=== PATIENT | male | born 1965 | race Caucasian/White ===

== ENCOUNTER 2018-12-02 17:10 | Outpatient (CLI) | payer SELFPAY | END 2018-12-02 17:11 | disposition critical access hospital (66) | LOC: EMS 17:10 | PROVIDERS: ATTEND Surgery | DX: F10.129 Alcohol abuse with intoxication, unspecified (principal) | CPT/HCPCS: A0425; A0429 ==

== ENCOUNTER 2018-12-02 17:28 | Emergency (ER) | payer SELFPAY ==
[2018-12-02] MEDS ORDERED: FOLIC ACID INJ 1 MG, THIAMINE INJ 100 MG, MAGNESIUM SULFATE 2 GM, MULTIVITAMIN 10 ML in... IV STA ×5 (17:39)
--- NOTE | 2018-12-02 17:43 | ED Physician Documentation ---
History of Present Illness - Stated complaint Stated Complaint: ETOH - Chief complaint Chief Complaint: MHE - History obtained from History obtained from: Patient, EMS - History of Present Illness Timing: Today Pain level max: 0 Pain level now: 0 - Additonal information Additional information: 53-year-old male states that he is an alcoholic, drinks 1/5 of hard liquor per day. He was found drinking in [place], the police called 911 because of his level of intoxication. Brought here for evaluation. Patient has no complaints. He is alert and oriented x3 here. No head neck or back pain. No trauma. He states he does have hyperthyroidism. Review of Systems Unable to obtain: Intoxicated Ten Systems: 10 systems reviewed and negative Constitutional: denies: Fever, Chills Throat: denies: Sore throat Cardiac: denies: Chest pain / pressure Respiratory: denies: Cough GI: denies: Vomiting, Diarrhea Skin: denies: Rash Musculoskeletal: denies: Neck pain, Back pain Neurologic: denies: Headache PD PAST MEDICAL HISTORY - Past Medical History Past Medical History: Yes Endocrine/Autoimmune: HyPERthyroidism - Allergies Allergies/Adverse Reactions: Allergies Allergy/AdvReac Type Severity Reaction Status Date / Time No Known Drug Allergies Allergy Verified 12/02/18 17:38 - Living Situation Living Arrangement: reports: Homeless - Social History Does the pt drink ETOH?: Yes ETOH Use: Liquor Does the pt have substance abuse?: No - Family History Family history: reports: Non contributory - Immunizations Immunizations are current?: Yes Immunizations: TDAP current <10years PD ED PE NORMAL - Vitals Vital signs reviewed: Yes - General General: Alert and oriented X 3, No acute distress, Well developed/nourished, Other (intoxicated) - HEENT HEENT: PERRL, Moist mucous membranes, Pharynx benign - Neck Neck: Supple, no meningeal sign - Cardiac Cardiac: RRR, Strong equal pulses - Respiratory Respiratory: No respiratory distress, Clear bilaterally - Abdomen Abdomen: Soft, Non tender, Non distended - Derm Derm: Warm and dry - Extremities Extremities: No deformity, No edema, No calf tenderness / cord - Neuro Neuro: Alert and oriented X 3, Other (intoxicated) Results - Vitals Vitals: Vital Signs - 24 hr 12/02/18 12/02/18 12/02/18 17:33 17:53 19:50 Temperature 36.2 C L Heart Rate 111 H 104 H Respiratory 18 18 18 Rate Blood Pressure 140/98 H 156/88 H O2 Saturation 96 98 Oxygen O2 Source Room air - Labs Labs: Laboratory Tests 12/02/18 12/02/18 17:50 17:50 WBC 13.8 H RBC 5.52 Hgb 16.7 Hct 50.7 MCV 91.9 MCH 30.2 MCHC 32.9 RDW 15.4 H Plt Count 194 MPV 6.9 L Neut # (Auto) 11.9 H Lymph # (Auto) 0.9 L [place] # (Auto) 0.9 Eos # (Auto) 0.0 Baso # (Auto) 0.0 Absolute Nucleated RBC 0.00 Nucleated RBC % 0.0 Sodium 138 Potassium 4.5 Chloride 96 L Carbon Dioxide 26 Anion Gap 16.0 H BUN 25 H Creatinine 1.1 Estimated GFR (MDRD) 70 L Glucose 147 H Calcium 8.9 Phosphorus 4.9 H Magnesium 2.0 Total Bilirubin 0.9 AST 78 H ALT 67 H Alkaline Phosphatase 73 Total Protein 7.9 Albumin 3.6 Globulin 4.3 H Albumin/Globulin Ratio 0.8 L Lipase 116 H Ethyl Alcohol 411.5 PD MEDICAL DECISION MAKING - ED course Complexity details: reviewed results, re-evaluated patient, considered differential, d/w patient ED course: 53-year-old male, heavily intoxicated. Will allow him to sober in the emergency department. Given a banana bag. Patient is sleeping. When he awakens, is able to eat, drink and ambulate with a steady gait, will be able to be discharged home. Patient signed out to the [facility] emergency department physician This document was made in part using voice recognition software. While efforts are made to proofread this document, sound alike and grammatical errors may occur. Departure - Departure Clinical Impression: Alcoholism Alcohol intoxication Qualifiers: Complication of substance-induced condition: uncomplicated Qualified Code(s): F10.920 - Alcohol use, unspecified with intoxication, uncomplicated Condition: Stable Instructions: ED Alcohol Intoxication
[2018-12-02 17:58] LABS: BASOPHILS % (AUTO) 0.4 %; HGB - HEMOGLOBIN 16.7 g/dL (14.0-18.0); LYMPHOCYTES # (AUTO) 0.9 10^3/uL (1.5-3.5); LYMPHOCYTES % (AUTO) 6.8 %; MEAN CORPUSCULAR HEMOGLOBIN 30.2 pg (27.0-31.0); MEAN CORPUSCULAR HGB CONC 32.9 g/dL (32.0-36.0); MEAN CORPUSCULAR VOLUME 91.9 fL (80.0-94.0); MEAN PLATELET VOLUME 6.9 fL (7.4-11.4); MONOCYTES # (AUTO) 0.9 10^3/uL (0.0-1.0); MONOCYTES % (AUTO) 6.8 %; NEUTROPHILS # (AUTO) 11.9 10^3/uL (1.5-6.6); PLT - PLATELET COUNT 194 10^3/uL (130-450); RED BLOOD COUNT 5.52 10^6/uL (4.70-6.10); RED CELL DISTRIBUTION WIDTH 15.4 % (12.0-15.0); WHITE BLOOD COUNT 13.8 x10^3/uL (4.8-10.8)
[2018-12-02 18:12] LABS: ALBUMIN 3.6 g/dL (3.2-5.5); ALBUMIN/GLOBULIN RATIO 0.8 (1.0-2.2); BILIRUBIN,TOTAL 0.9 mg/dL (0.2-1.0); CALCIUM 8.9 mg/dL (8.5-10.3); CREATININE 1.1 mg/dL (0.6-1.2); PHOSPHORUS 4.9 mg/dL (2.5-4.6); TOTAL PROTEIN 7.9 g/dL (6.7-8.2)
[2018-12-02] MEDS ORDERED: PANTOPRAZOLE 40 MG VIAL IVP STA (18:27)
[2018-12-03 06:48] VITALS: BP 139/95
== END 2018-12-03 07:50 | disposition home or self-care (01) ==
LOC: ED 17:28
DX: F10.129 Alcohol abuse with intoxication, unspecified (principal)
CPT/HCPCS: 36415; 80053; 80320; 83690; 83735; 84100; 85025; 96365; 96366; 96375; 99283; 99284; J3411

== ENCOUNTER 2018-12-16 14:32 | Emergency (ER) | payer MEDICAID ==
--- NOTE | 2018-12-16 16:00 | ED Physician Documentation ---
PD HPI FOCAL NEURO - Stated complaint Stated Complaint: slurred speech - Chief complaint Chief Complaint: General - History obtained from History obtained from: Patient - History of Present Illness Timing - onset: How many minutes ago (1-1.5 hours) Timing - duration: Minutes (15) Timing - details: Abrupt onset, Now resolved Severity of deficit: Mild Associated symptoms: No: Headache, Nausea / vomiting, Syncope, Head injury, Chest pain, Fever Contributing factors: negative: Anticoagulated Baseline status: positive: A&OX3, ambulatory, indep Similar symptoms before: Has not had sx before Recently seen: Not recently seen - Additional information Additional information: Is a 53-year-old man who presents with complaints that he ran out of his carvedilol 2 days ago. He was on that for high blood pressure but also took it to help alleviate some anxiety. Today he was at the gym and just "was not right". He said he had some difficulty finding the right words to tell to his friends. That was approximately an hour and a half prior to presentation and may have lasted about 15 minutes. It concerned him enough to come into the emergency department and now he feels completely normal. He actually rode the bus here.Mild headache this morning but that he related that to working out quite heavily yesterday doing shoulder shrugs.He has never had any symptoms like this in the past. He had no associated numbness or tingling or weakness. He had no nausea, chest pain or shortness of breath. Patient says that he has not drank alcohol in 2 weeks after he was admitted to the hospital for binge drinking. He did that because he lost his job. He moved to the [place] about 6 months ago and knew that he needed to get a primary care provider butHad not yet established with a primary care provider to refill the carvedilol. Review of Systems Constitutional: denies: Fever Eyes: denies: Loss of vision, Decreased vision Nose: denies: Rhinorrhea / runny nose Cardiac: denies: Chest pain / pressure, Palpitations Respiratory: denies: Dyspnea GI: denies: Abdominal Pain : denies: Dysuria Neurologic: reports: Difficulty speaking. denies: Generalized weakness, Focal weakness, Syncope, Confused, Altered mental status, Headache, Head injury, LOC Psychiatric: reports: Anxiety. denies: Depressed PD PAST MEDICAL HISTORY - Past Medical History Cardiovascular: Hypertension Respiratory: None Neuro: None Endocrine/Autoimmune: HyPERthyroidism Psych: Anxiety - Present Medications Home Medications: Ambulatory Orders Medication Instructions Recorded Confirmed chlordiazePOXIDE [Librium] 25 mg PO Q6H #30 capsule 12/03/18 Carvedilol 25 mg PO BID 14 Days #30 tablet 12/16/18 - Allergies Allergies/Adverse Reactions: Allergies Allergy/AdvReac Type Severity Reaction Status Date / Time No Known Drug Allergies Allergy Verified 12/16/18 14:50 - Social History Does the pt drink ETOH?: Yes Does the pt have substance abuse?: No - Immunizations Immunizations are current?: Yes Immunizations: TDAP current <10years PD ED PE NORMAL - General General: Alert and oriented X 3, No acute distress, Well developed/nourished - HEENT HEENT: Atraumatic, PERRL, EOMI, Moist mucous membranes, Pharynx benign - Neck Neck: Supple, no meningeal sign, No bruit - Cardiac Cardiac: RRR, No murmur, No rub, Strong equal pulses - Respiratory Respiratory: No respiratory distress, Clear bilaterally - Abdomen Abdomen: Normal bowel sounds, Soft, Non tender - Derm Derm: Normal color, Warm and dry, No rash - Extremities Extremities: No deformity, No edema - Neuro Neuro: Alert and oriented X 3, economics department chair 2-12 intact, No motor deficit, No sensory deficit, Normal speech - Psych Psych: Normal mood, Normal affect (Patient is very pleasant, laughing and joking with staff.) NIHSS - Level of Consciousness Level of consciousness: (0) Alert, Keenly responsive LOC Questions: (0) Answers both Q's correct LOC Commands: (0) Performs both correctly - Gaze Best Gaze: (0) Normal - Visual Visual: (0) No loss - Facial Palsy Facial Palsy: (0) Normal, symmetrical movement - Motor Arms (both separate) Motor Arm (right): (0) No drift Motor Arm (left): (0) No drift - Motor Legs (both separate) Motor Leg (right): (0) No drift Motor Leg (left): (0) No drift - Limb Ataxia Limb Ataxia: (0) Absent - Sensory Sensory: (0) Normal - Best Language Best Language: (0) No aphasia - Dysarthria Dysarthria: (0) Normal - Extinction and Inattention (formally neg Extinction and inattention: (0) No abnormality - Total Score/Results Total Score/Result: 0 Results - Vitals Vitals: Vital Signs - 24 hr 12/16/18 12/16/18 14:45 15:27 Temperature 36.7 C Heart Rate 95 82 Respiratory 14 22 Rate Blood Pressure 135/84 H 146/88 H O2 Saturation 97 100 Oxygen O2 Source Room air - EKG (time done) 1500 Rate: Rate (enter#) (87) Rhythm: NSR QRS: Normal Ischemia: Normal ST segments Compare to prior EKG: Old EKG unavailable PD MEDICAL DECISION MAKING - ED course Complexity details: re-evaluated patient, d/w patient ED course: This is a 53-year-old man who has no stroke history. No family history of stroke. He had an episode while working out at the gym where he felt a little anxious and his speech was not quite right. He now can feels completely back to normal. He really wants his carvedilol refilled. He is declined any testing or CAT scan. I did check back in with him a couple of times and he seems completely normal without any evidence of any neurological symptoms. He will be referred for outpatient follow-up and given emergency dose of the carvedilol to fill for now. Departure - Departure Disposition: 01 Home, Self Care Clinical Impression: Anxiety Condition: Good Instructions: ED Panic Attack Follow-Up: [facility] [Provider Group] - Within 1 week (Call for follow-up appointment) Prescriptions: Carvedilol 25 mg PO BID 14 Days #30 tablet Comments: You have aPrescription for carvedilol the last 2 weeks. Need to get into see a primary care provider to get this refilled otherwise. Return to the emergency department if you experience any further symptoms or have concerns.
[2018-12-16 16:29] VITALS: BP 138/80
== END 2018-12-16 16:29 | disposition home or self-care (01) ==
LOC: ED 14:32
DX: F41.9 Anxiety disorder, unspecified (principal); I10 Essential (primary) hypertension; Z76.0 Encounter for issue of repeat prescription
CPT/HCPCS: 93005; 99283; 99284

== ENCOUNTER 2019-08-07 16:48 | Outpatient (CLI) | payer OTHER, MEDICAID | END 2019-08-07 23:59 | disposition critical access hospital (66) | LOC: EMS 16:48 | PROVIDERS: ATTEND Surgery | DX: Z04.89 Encounter for examination and observation for other specified reasons (principal) | CPT/HCPCS: A0425; A0429 ==

== ENCOUNTER 2019-08-07 16:58 | Observation (INO) | payer OTHER, MEDICAID ==
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
[2019-08-07] MEDS ORDERED: SODIUM CHLORIDE 0.9% 1,000 ML IV ONE (17:33)
[2019-08-07] MEDS ORDERED: TETANUS/DIPHTHERIA/PERTUSSIS 0.5 ML SYRINGE IM ONE (17:33)
[2019-08-07 17:59] LABS: BASOPHILS # (AUTO) 0.1 10^3/uL (0.0-0.1); BASOPHILS % (AUTO) 0.8 %; EOSINOPHILS % (AUTO) 0.1 %; HGB - HEMOGLOBIN 18.6 g/dL (14.0-18.0); LYMPHOCYTES # (AUTO) 1.4 10^3/uL (1.5-3.5); LYMPHOCYTES % (AUTO) 13.5 %; MEAN CORPUSCULAR HEMOGLOBIN 31.2 pg (27.0-31.0); MEAN CORPUSCULAR HGB CONC 32.7 g/dL (32.0-36.0); MEAN CORPUSCULAR VOLUME 95.5 fL (80.0-94.0); MEAN PLATELET VOLUME 9.4 fL (7.4-11.4); MONOCYTES # (AUTO) 0.6 10^3/uL (0.0-1.0); MONOCYTES % (AUTO) 6.3 %; NEUTROPHILS # (AUTO) 8.1 10^3/uL (1.5-6.6); NEUTROPHILS % (AUTO) 78.9 %; PLT - PLATELET COUNT 452 10^3/uL (130-450); RED BLOOD COUNT 5.96 10^6/uL (4.70-6.10); RED CELL DISTRIBUTION WIDTH 16.3 % (12.0-15.0); WHITE BLOOD COUNT 10.2 x10^3/uL (4.8-10.8)
[2019-08-07 18:05] LABS: INR 1.1 (0.8-1.2); PT - PROTHROMBIN TIME 12.1 secs (9.9-12.6)
--- NOTE | 2019-08-07 18:11 | ED Physician Documentation ---
ED Addendum - Addendum Addendum: 53 year old male signed out to me from Dr. Carbone. Pt brought in by police. Pt has epigastric pain, vomiting, has been drinking. Abdomen is benign. Plan is to follow up on labs and re-evaluate pt. Likely can be cleared for discharge. Labs return with signs of pancreatitis, dehydration, and mild alcoholic hepatitis. He was given more nausea meds and more fluids. LR infusion started. He continues to have vomiting so will require admission. On my exam he also has a laceration to his left wrist that requires repair, this was performed and wound care and suture removal timeline reviewed as well. Pt was admitted to the hospital for further care and has controlled symptoms at the time of admission. Departure - Departure Disposition: ED Place in Observation Clinical Impression: Alcoholic pancreatitis Qualifiers: Chronicity: acute Acute pancreatitis complication: unspecified Qualified Code(s): K85.20 - Alcohol induced acute pancreatitis without necrosis or infection Condition: Stable Discharge Date/Time: 08/07/19 21:29 Procedures - Laceration/Wound Repair L wrist Wound Length (cm): 3 Wound's Depth, Shape: superficial Wound Explored: clean Irrigated w/ Saline (ccs): 1,000 Anesthesia: Lidocaine w/ Epi Wound Debrided: minimal Wound Repaired With: sutures Suture Size/Type: 5:0 Number of Sutures: 3 Sterile Dressing Applied?: Yes
[2019-08-07 18:32] LABS: ALBUMIN 3.7 g/dL (3.2-5.5); ALBUMIN/GLOBULIN RATIO 1.2 (1.0-2.2); BILIRUBIN,TOTAL 0.8 mg/dL (0.2-1.0); CALCIUM 8.8 mg/dL (8.5-10.3); CREATININE 1.4 mg/dL (0.6-1.2); TOTAL PROTEIN 6.9 g/dL (6.7-8.2)
[2019-08-07] MEDS ORDERED: LIDOCAINE 1%-EPI 1:100000 20 ML MDV SUBQ STA (19:41)
[2019-08-07] MEDS ORDERED: ONDANSETRON 4 MG/2 ML VIAL IVP STA (20:08)
[2019-08-07] MEDS ORDERED: LACTATED RINGERS 1,000 ML IV STA (20:08)
[2019-08-07] MEDS ORDERED: ONDANSETRON 4 MG/2 ML VIAL IVP PRN (20:48)
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
[2019-08-07] MEDS: LACTATED RINGERS 1,000 ML IV STA ×2 (21:00→21:07)
[2019-08-07] MEDS ORDERED: SODIUM CHLORIDE 0.9% 1,000 ML IV SCH (21:00)
[2019-08-07] MEDS ORDERED: LORazepam 1 MG TABLET PO STA (22:48)
[2019-08-07] MEDS: SODIUM CHLORIDE 0.9% 1,000 ML IV SCH (23:34)
[2019-08-07] MEDS: SODIUM CHLORIDE FLUSH 0.9% 10 ML SYRINGE IVP PRN (23:36)
[2019-08-07] MEDS: PANTOPRAZOLE 40 MG VIAL IVP SCH (23:36)
[2019-08-08] MEDS: SODIUM CHLORIDE FLUSH 0.9% 10 ML SYRINGE IVP SCH ×2 (00:33→08:17)
[2019-08-08] MEDS ORDERED: CARBOXYMETHYLCELLULOSE OPHTH DROPS EACHEYE PRN (01:44)
[2019-08-08 05:01] LABS: BASOPHILS # (AUTO) 0.1 10^3/uL (0.0-0.1); BASOPHILS % (AUTO) 0.6 %; EOSINOPHILS # (AUTO) 0.1 10^3/uL (0.0-0.7); EOSINOPHILS % (AUTO) 0.7 %; HGB - HEMOGLOBIN 15.7 g/dL (14.0-18.0); LYMPHOCYTES # (AUTO) 1.1 10^3/uL (1.5-3.5); MEAN CORPUSCULAR HEMOGLOBIN 32.3 pg (27.0-31.0); MEAN CORPUSCULAR HGB CONC 33.3 g/dL (32.0-36.0); MEAN CORPUSCULAR VOLUME 96.9 fL (80.0-94.0); MEAN PLATELET VOLUME 9.6 fL (7.4-11.4); MONOCYTES # (AUTO) 1.1 10^3/uL (0.0-1.0); MONOCYTES % (AUTO) 9.2 %; NEUTROPHILS # (AUTO) 9.8 10^3/uL (1.5-6.6); PLT - PLATELET COUNT 353 10^3/uL (130-450); RED BLOOD COUNT 4.86 10^6/uL (4.70-6.10); RED CELL DISTRIBUTION WIDTH 15.9 % (12.0-15.0); WHITE BLOOD COUNT 12.3 x10^3/uL (4.8-10.8)
[2019-08-08 05:26] LABS: ALBUMIN 3.3 g/dL (3.2-5.5); ALBUMIN/GLOBULIN RATIO 1.3 (1.0-2.2); BILIRUBIN,TOTAL 1.6 mg/dL (0.2-1.0); CALCIUM 8.2 mg/dL (8.5-10.3); CREATININE 1.2 mg/dL (0.6-1.2); TOTAL PROTEIN 5.9 g/dL (6.7-8.2)
[2019-08-08] MEDS: PANTOPRAZOLE 40 MG VIAL IVP SCH (06:18)
[2019-08-08] MEDS: SODIUM CHLORIDE FLUSH 0.9% 10 ML SYRINGE IVP PRN (06:19)
[2019-08-08] MEDS ORDERED: PANTOPRAZOLE 40 MG VIAL IVP SCH (07:00)
[2019-08-08] MEDS: SODIUM CHLORIDE 0.9% 1,000 ML IV SCH (07:14)
--- NOTE | 2019-08-08 07:37 | PHARMACY PROGRESS NOTE ---
- Best Possible Medication History Admit Date and Time: 08/07/192047 Medication History completed: Yes Patient Interview: Completed Secondary Source(s): Pharmacy records As the person ultimately responsible for medication therapy, providers are able to order a medication from an existing home medication list in [facility] via the "Reconcile Routine" prior to Confirmation of that medication by systems support officer. Such practice is discouraged except when the physician, in their clinical judgment, deems that a medical need exists for a medication without regard to previous use.
[2019-08-08 07:51] VITALS: BP 154/82
[2019-08-08] MEDS: ACETAMINOPHEN/CODEINE 300 MG/30 MG TABLET PO PRN ×2 (08:42→12:46)
[2019-08-08] MEDS ORDERED: chlordiazePOXIDE 25 MG CAPSULE PO SCH (09:00)
[2019-08-08] MEDS ORDERED: THIAMINE 100 MG TABLET PO SCH (09:00)
[2019-08-08] MEDS ORDERED: carvediloL 12.5 MG TABLET PO SCH ×2 (09:00)
[2019-08-08 10:52] LABS: CALCIUM 8.1 mg/dL (8.5-10.3); CREATININE 1.1 mg/dL (0.6-1.2)
[2019-08-08 10:58] LABS: ALBUMIN 3.3 g/dL (3.2-5.5); BILIRUBIN,DIRECT 0.4 mg/dL (0.1-0.5); BILIRUBIN,TOTAL 2.3 mg/dL (0.2-1.0); TOTAL PROTEIN 6.2 g/dL (6.7-8.2)
--- NOTE | 2019-08-08 11:30 | Discharge Plan ---
Discharge Plan Problem Reviewed?: Yes Disposition: Home, Self Care Condition: Stable Prescriptions: Acetaminophen/Cod 300/30 [Tylenol #3] 1 tab PO Q12H PRN #3 tablet PRN Reason: Pain chlordiazePOXIDE [Librium] 25 mg PO BID #7 capsule Thiamine [Vitamin B-1] 100 mg PO DAILY #7 tablet Diet: Regular Activity Restrictions: Activity as Tolerated Shower Restrictions: No Health Concerns: You were hospitalized for rehydration and managing pancreatitis related to heavy alcohol use. You are being discharged on your blood pressure medicine and several tablets of Librium to help prevent alcohol withdrawal, daily Thiamine vitamin and a pain medication to take if needed. Plan of Treatment: Continue to take your usual Carvedilol dose. Take the Librium tablets for the next 4 days in a tapering schedule. See your PCP if you have new or worsening symptoms. Care Goals: Improvement in symptoms and stabilization are the goals. Assessment: The patient understands. No Smoking: If you smoke, Please STOP! Call for help.
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
== END 2019-08-08 13:10 | disposition home or self-care (01) ==
LOC: EDBD → ED 16:58 → MS2 20:48
PROVIDERS: ADMIT Internal Medicine; ATTEND Internal Medicine
DX: K85.20 Alcohol induced acute pancreatitis without necrosis or infection (principal); F10.129 Alcohol abuse with intoxication, unspecified; E86.0 Dehydration; S51.812A Laceration without foreign body of left forearm, initial encounter; I10 Essential (primary) hypertension; K70.10 Alcoholic hepatitis without ascites; S80.812A Abrasion, left lower leg, initial encounter; F41.9 Anxiety disorder, unspecified; S90.812A Abrasion, left foot, initial encounter; S90.811A Abrasion, right foot, initial encounter
CPT/HCPCS: 12002; 36415; 80048; 80053; 80076; 80320; 83690; 85025; 85610; 90471; 90715; 96361; 96374; 96375; 96376; 99285; A9270; G0378; J7120; J8499; 82272; 84443

== ENCOUNTER 2019-10-11 07:37 | Outpatient (CLI) | payer MEDICAID | END 2019-10-11 07:38 | disposition critical access hospital (66) | LOC: EMS 07:37 | PROVIDERS: ATTEND Surgery | DX: S09.90XA Unspecified injury of head, initial encounter (principal); W18.39XA Other fall on same level, initial encounter; Y92.480 Sidewalk as the place of occurrence of the external cause | CPT/HCPCS: A0425; A0429; A0999 ==

== ENCOUNTER 2019-10-11 07:53 | Emergency (ER) | payer MEDICAID, OTHER ==
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
--- NOTE | 2019-10-11 09:06 | CT Report ---
Reason: trauma Procedure Date: 10/11/2019 Accession Number: [id number] / [id number] Procedure: CT - HEAD WO CPT Code: Final Report FULL RESULT: EXAM: CT HEAD EXAM DATE: 10/11/2019 08:58 AM. CLINICAL HISTORY: Fall with head laceration. COMPARISON: None. TECHNIQUE: Multiaxial CT images were obtained from the foramen magnum to the vertex. Reformats: Sagittal and coronal. IV contrast: None. In accordance with CT protocol optimization, one or more of the following dose reduction techniques were utilized for this exam: automated exposure control, adjustment of mA and/or KV based on patient size, or use of iterative reconstructive technique. FINDINGS: Parenchyma: No intraparenchymal hemorrhage. No evidence of mass, midline shift, or CT findings of infarction. Parrish-white differentiation is distinct. Extraaxial Spaces: Normal for age. No subdural or epidural collections identified. Ventricles: Normal in size and position. Sinuses and Orbits: Mild mucosal thickening is in the right maxillary sinus. Bones: No evidence of fracture or calvarial defect. Other: Arterial calcifications indicate atherosclerosis. IMPRESSION: No acute intracranial findings. RADIA
--- NOTE | 2019-10-11 09:14 | CT Report ---
Reason: trauma Procedure Date: 10/11/2019 Accession Number: [id number] / [id number] Procedure: CT - CERVICAL SPINE WO CPT Code: Final Report FULL RESULT: EXAM: CT CERVICAL SPINE WITHOUT CONTRAST DATE: 10/11/2019 08:58 AM. HISTORY: 54-year-old man status post fall with head injury. COMPARISONS: None. TECHNIQUE: Thin-section axial images were acquired of the cervical spine without contrast. Post-processing: Coronal and sagittal reformats. Other: None. In accordance with CT protocol optimization, one or more of the following dose reduction techniques were utilized for this exam: automated exposure control, adjustment of mA and/or KV based on patient size, or use of iterative reconstructive technique. FINDINGS: Alignment: No acute malalignment. There is straightening of normal cervical lordosis which may be positional. Bones: No fracture or bone lesion. Degenerative endplate sclerosis is present at C5-C6 and, to a lesser extent, C6-C7. Interspace Levels/Facets: C1-C2: Unremarkable. C2-C3: No significant narrowing of the bony central canal. Uncovertebral joint hypertrophy and facet hypertrophy result in mild to moderate narrowing of the right neural foramen. C3-C4: No significant narrowing of the bony central canal. Uncovertebral joint hypertrophy and facet hypertrophy result in mild to moderate narrowing of the neural foramina bilaterally, left side worse than right. C4-C5: There is mild disk height loss. No significant narrowing of the bony central canal. Uncovertebral joint hypertrophy and facet hypertrophy result in moderate narrowing of the right neural foramen and mild narrowing on the left. C5-C6: There is moderate to severe disk height loss. Posterior disk osteophyte complex results in mild narrowing of the bony central canal and right lateral recess. Uncovertebral joint hypertrophy results in moderate to severe narrowing of the neural foramina bilaterally. C6-C7: There is moderate disk height loss. No significant narrowing of the bony central canal. Uncovertebral joint hypertrophy results in moderate narrowing of the left neural foramen and mild to moderate narrowing on the right. C7-T1: There is mild disk height loss. No significant narrowing of the central canal. Uncovertebral joint hypertrophy results in mild narrowing of the right neural foramen. Musculature: Normal. No fatty atrophy. Other: The paravertebral and prevertebral soft tissues are unremarkable. The lung apices are clear. IMPRESSION: 1. No acute fracture or malalignment. 2. Multilevel degenerative changes, detailed above. RADIA
[2019-10-11 09:22] LABS: BASOPHILS % (AUTO) 0.5 %; EOSINOPHILS # (AUTO) 0.1 10^3/uL (0.0-0.7); EOSINOPHILS % (AUTO) 2.8 %; HGB - HEMOGLOBIN 17.9 g/dL (14.0-18.0); LYMPHOCYTES # (AUTO) 1.2 10^3/uL (1.5-3.5); LYMPHOCYTES % (AUTO) 27.4 %; MEAN CORPUSCULAR HEMOGLOBIN 31.7 pg (27.0-31.0); MEAN CORPUSCULAR HGB CONC 34.6 g/dL (32.0-36.0); MEAN CORPUSCULAR VOLUME 91.8 fL (80.0-94.0); MEAN PLATELET VOLUME 9.1 fL (7.4-11.4); MONOCYTES # (AUTO) 0.3 10^3/uL (0.0-1.0); MONOCYTES % (AUTO) 6.9 %; NEUTROPHILS # (AUTO) 2.7 10^3/uL (1.5-6.6); NEUTROPHILS % (AUTO) 61.9 %; PLT - PLATELET COUNT 134 10^3/uL (130-450); RED BLOOD COUNT 5.64 10^6/uL (4.70-6.10); RED CELL DISTRIBUTION WIDTH 13.6 % (12.0-15.0); WHITE BLOOD COUNT 4.4 x10^3/uL (4.8-10.8)
[2019-10-11 09:39] LABS: CALCIUM 7.8 mg/dL (8.5-10.3); CREATININE 0.8 mg/dL (0.6-1.2)
[2019-10-11 12:57] VITALS: BP 139/94
== END 2019-10-11 13:30 | disposition home or self-care (01) ==
LOC: EDUNIT# → ED 07:53
DX: S00.81XA Abrasion of other part of head, initial encounter (principal); W18.30XA Fall on same level, unspecified, initial encounter; Y93.89 Activity, other specified; Y92.410 Unspecified street and highway as the place of occurrence of the external cause; F10.129 Alcohol abuse with intoxication, unspecified; Y90.8 Blood alcohol level of 240 mg/100 ml or more; I10 Essential (primary) hypertension; Z59.0 Homelessness
CPT/HCPCS: 36415; 70450; 72125; 80048; 80320; 85025; 99284

== ENCOUNTER 2019-10-13 14:08 | Outpatient (CLI) | payer MEDICAID | END 2019-10-13 14:09 | disposition critical access hospital (66) | LOC: EMS 14:08 | PROVIDERS: ATTEND Surgery | DX: R53.1 Weakness (principal); Z59.0 Homelessness | CPT/HCPCS: A0425; A0429 ==

== ENCOUNTER 2019-10-13 14:13 | Inpatient (IN) | payer MEDICAID ==
[2019-10-13] MEDS ORDERED: SODIUM CHLORIDE 0.9% 1,000 ML IV ONE ×3 (14:33→16:10)
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
[2019-10-13 14:47] LABS: BASOPHILS % (AUTO) 0.5 %; EOSINOPHILS # (AUTO) 0.1 10^3/uL (0.0-0.7); EOSINOPHILS % (AUTO) 1.6 %; LYMPHOCYTES # (AUTO) 1.4 10^3/uL (1.5-3.5); LYMPHOCYTES % (AUTO) 22.8 %; MEAN CORPUSCULAR HEMOGLOBIN 31.6 pg (27.0-31.0); MEAN CORPUSCULAR HGB CONC 34.4 g/dL (32.0-36.0); MEAN CORPUSCULAR VOLUME 91.7 fL (80.0-94.0); MEAN PLATELET VOLUME 8.8 fL (7.4-11.4); MONOCYTES # (AUTO) 0.2 10^3/uL (0.0-1.0); MONOCYTES % (AUTO) 3.8 %; NEUTROPHILS # (AUTO) 4.4 10^3/uL (1.5-6.6); PLT - PLATELET COUNT 141 10^3/uL (130-450); RED BLOOD COUNT 6.02 10^6/uL (4.70-6.10); RED CELL DISTRIBUTION WIDTH 14.2 % (12.0-15.0); WHITE BLOOD COUNT 6.1 x10^3/uL (4.8-10.8)
[2019-10-13 15:09] LABS: ALBUMIN/GLOBULIN RATIO 1.3 (1.0-2.2); CALCIUM 8.1 mg/dL (8.5-10.3); MAGNESIUM 2.4 mg/dL (1.7-2.8); TOTAL PROTEIN 7.1 g/dL (6.7-8.2)
[2019-10-13] MEDS ORDERED: ACETAMINOPHEN 325 MG TABLET PO PRN (17:10)
[2019-10-13] MEDS ORDERED: ONDANSETRON 4 MG/2 ML VIAL IVP PRN (17:10)
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
--- NOTE | 2019-10-13 17:22 | PHARMACY PROGRESS NOTE ---
- Best Possible Medication History Admit Date and Time: Patient in ED Processed by: Pharmacy Medication History completed: Yes Patient Interview: Pt unable to participate Secondary Source(s): Physician records, Pharmacy records, Insurance records PCP has patient on 25mg carvedilol BID however, patient has not been taking as it was last filled 07/26/2019 for a 30 day supply. Additionally, his last stay here in July the dose was bumped to 37.5mg BID. Patient unable to participate due to current level of intoxication. As the person ultimately responsible for medication therapy, providers are able to order a medication from an existing home medication list in [facility] via the "Reconcile Routine" prior to Confirmation of that medication by behaviour support teacher. Such practice is discouraged except when the physician, in their clinical judgment, deems that a medical need exists for a medication without regard to previous use.
--- NOTE | 2019-10-13 17:48 | XRAY Report ---
Reason: chill, cough Procedure Date: 10/13/2019 Accession Number: [id number] / [id number] Procedure: XR - Chest 1 View X-Ray CPT Code: 02298 Final Report FULL RESULT: EXAM: CHEST RADIOGRAPHY EXAM DATE: 10/13/2019 05:19 PM. CLINICAL HISTORY: Cough and chills. COMPARISON: None. TECHNIQUE: 1 view. FINDINGS: Lungs/Pleura: No focal opacities evident. No pleural effusion. No pneumothorax. Mediastinum: Within exam limitations, the cardiomediastinal contour is normal. Other: None. IMPRESSION: No radiographic evidence of acute cardiopulmonary disease. [facility]
[2019-10-13] MEDS: SODIUM CHLORIDE FLUSH 0.9% 10 ML SYRINGE IVP PRN (18:05)
[2019-10-13] MEDS: SODIUM CHLORIDE 0.9% 1,000 ML IV SCH (18:05)
[2019-10-13] MEDS ORDERED: POTASSIUM CHLORIDE 20 MEQ TABLET PO ONE (18:30)
[2019-10-13] MEDS: THIAMINE 100 MG TABLET PO SCH (18:31)
[2019-10-13] MEDS: PRENATAL VITAMIN TABLET PO SCH (18:31)
[2019-10-13 18:34] LABS: MUDS CUTOFF CONCENTRATIONS CUTOFF CONC BELOW:
[2019-10-13 18:36] LABS: BILIRUBIN,URINE NEGATIVE (NEGATIVE); GLUCOSE, URINE (UA) NEGATIVE (NEGATIVE); KETONES,URINE (UA) NEGATIVE (NEGATIVE); LEUKOCYTE ESTERASE, URINE NEGATIVE (NEGATIVE); NITRITE,URINE NEGATIVE (NEGATIVE); OCCULT BLOOD,URINE LARGE (NEGATIVE); PH,URINE 5.5 PH (5.0-7.5); PROTEIN,URINE >=300 mg/dL (NEGATIVE); UROBILINOGEN,URINE 1 (NORMAL) E.U./dL (NORMAL)
[2019-10-13 18:41] LABS: CLARITY,URINE CLEAR (CLEAR)
[2019-10-13 18:51] LABS: AMORPHOUS SEDIMENT,UR Rare /LPF; AMPHETAMINE SCREEN,URINE NEGATIVE (NEGATIVE); BACTERIA,URINE Rare /HPF (None Seen); BENZODIAZEPINES SCREEN, URINE NEGATIVE (NEGATIVE); COCAINE SCREEN URINE NEGATIVE (NEGATIVE); METHADONE SCREEN, URINE NEGATIVE (NEGATIVE); METHAMPHETAMINES SCREEN, URINE NEGATIVE (NEGATIVE); OPIATE SCREEN, URINE NEGATIVE (NEGATIVE); OXYCODONE SCREEN, URINE NEGATIVE (NEGATIVE); PROPOXYPHENE SCREEN, URINE NEGATIVE (NEGATIVE); SQUAMOUS EPITHELIAL CELL,UR NONE SEEN (<= Few); TRICYCLIC ANTIDEPRESSANT,URINE NEGATIVE (NEGATIVE)
[2019-10-13 18:52] LABS: CASTS, URINE 11-25 Hyaline Casts /LPF
[2019-10-13] MEDS: carvediloL 12.5 MG TABLET PO SCH (20:47)
[2019-10-13] MEDS: ZOLPIDEM 5 MG TABLET PO PRN (20:48)
[2019-10-13] MEDS: PANTOPRAZOLE 40 MG TABLET PO SCH (20:48)
[2019-10-13] MEDS: LORazepam 2 MG/ML VIAL IVP PRN (22:33)
[2019-10-13] MEDS: SODIUM CHLORIDE FLUSH 0.9% 10 ML SYRINGE IVP SCH (23:33)
[2019-10-14] MEDS: SODIUM CHLORIDE 0.9% 1,000 ML IV SCH ×4 (01:29→21:54)
--- NOTE | 2019-10-14 04:40 | Ultrasound Report ---
Reason: elevated liver enzyme Procedure Date: 10/14/2019 Accession Number: [id number] / [id number] Procedure: US - Abdomen Limited CPT Code: Final Report FULL RESULT: EXAM: ABDOMEN ULTRASOUND LIMITED, RUQ EXAM DATE: 10/14/2019 02:57 AM. CLINICAL HISTORY: Elevated liver enzyme. COMPARISON: None. TECHNIQUE: Real-time scanning was performed with static images obtained. FINDINGS: Liver: Diffusely increased in echogenicity and size measuring 17.6 cm. Main portal vein flow: Hepatopetal. Gallbladder: Gallbladder sludge. No stones, wall thickening, or sonographic Holly's sign. Biliary System: CBD measures 5 mm. No intrahepatic or extrahepatic ductal dilatation. Limited evaluation secondary to overlying bowel gas. Other: Normal right kidney with several parapelvic cysts. IMPRESSION: 1. Hepatomegaly. 2. Diffusely increased echogenicity of the liver may reflect hepatic steatosis. 3. Distended gallbladder filled with sludge. No sonographic finding of cholecystitis or cholelithiasis. Limited examination due to overlying bowel gas. RADIA
[2019-10-14 05:26] LABS: BASOPHILS % (AUTO) 0.3 %; EOSINOPHILS % (AUTO) 0.5 %; HGB - HEMOGLOBIN 12.7 g/dL (14.0-18.0); LYMPHOCYTES # (AUTO) 0.9 10^3/uL (1.5-3.5); LYMPHOCYTES % (AUTO) 15.7 %; MEAN CORPUSCULAR HEMOGLOBIN 30.8 pg (27.0-31.0); MEAN CORPUSCULAR VOLUME 90.3 fL (80.0-94.0); MEAN PLATELET VOLUME 9.1 fL (7.4-11.4); MONOCYTES # (AUTO) 0.5 10^3/uL (0.0-1.0); MONOCYTES % (AUTO) 8.6 %; NEUTROPHILS # (AUTO) 4.4 10^3/uL (1.5-6.6); NEUTROPHILS % (AUTO) 74.7 %; PLT - PLATELET COUNT 87 10^3/uL (130-450); RED BLOOD COUNT 4.13 10^6/uL (4.70-6.10); RED CELL DISTRIBUTION WIDTH 13.7 % (12.0-15.0); WHITE BLOOD COUNT 5.9 x10^3/uL (4.8-10.8)
[2019-10-14 05:48] LABS: ALBUMIN 2.7 g/dL (3.2-5.5); ALBUMIN/GLOBULIN RATIO 1.2 (1.0-2.2); BILIRUBIN,TOTAL 2.6 mg/dL (0.2-1.0); CALCIUM 7.8 mg/dL (8.5-10.3); CREATININE 0.9 mg/dL (0.6-1.2); TOTAL PROTEIN 4.9 g/dL (6.7-8.2)
[2019-10-14 05:54] LABS: THYROID STIMULATING HORMONE 1.71 uIU/mL (0.34-5.60)
[2019-10-14 05:56] LABS: FREE T4 (FREE THYROXINE) 0.69 ng/dL (0.58-1.64)
[2019-10-14] MEDS: PANTOPRAZOLE 40 MG TABLET PO SCH (06:04)
[2019-10-14] MEDS ORDERED: PANTOPRAZOLE 40 MG TABLET PO SCH (07:00)
[2019-10-14] MEDS: carvediloL 12.5 MG TABLET PO SCH ×2 (08:20→20:20)
[2019-10-14] MEDS: THIAMINE 100 MG TABLET PO SCH (08:20)
[2019-10-14] MEDS: PRENATAL VITAMIN TABLET PO SCH (08:21)
[2019-10-14] MEDS: ENOXAPARIN 40 MG/0.4 ML SYRINGE SUBQ SCH (08:21)
[2019-10-14] MEDS: SODIUM CHLORIDE FLUSH 0.9% 10 ML SYRINGE IVP SCH ×2 (08:33→17:08)
[2019-10-14] MEDS ORDERED: MULTIVITAMIN 10 ML, THIAMINE INJ 100 MG, FOLIC ACID INJ 1 MG in SODIUM CHLORIDE 0.9% 1,... IV SCH (09:00)
[2019-10-14] MEDS: LORazepam 2 MG/ML VIAL IVP PRN ×2 (10:39→20:20)
[2019-10-14] MEDS: SODIUM CHLORIDE FLUSH 0.9% 10 ML SYRINGE IVP PRN (10:39)
--- NOTE | 2019-10-14 13:44 | PROVIDER PROGRESS NOTE ---
Subjective - Prog Note Date Prog Note Date: 10/14/19 - Subjective Pt reports feeling: No change Subjective: pt report he ate most of his breakfast and lunch. he denies fever, chill, cough, SOB, chest pain. pt's CK is running up from 2300 to 2900. UA analysis revealed pt has protein urine, and blood urine. pt need continuing IVF and lab monitor Current Medications - Current Medications Current Medications: Active Medications Acetaminophen (Tylenol) 650 mg PO Q4HR PRN PRN Reason: Pain 1 to 4 Carvedilol (Coreg) 25 mg PO BID REPLACED BY [facility] Last Admin: 10/14/19 08:20 Dose: 25 mg Enoxaparin Sodium (Lovenox) 40 mg SUBQ DAILY REPLACED BY [facility] Last Admin: 10/14/19 08:21 Dose: 40 mg Sodium Chloride (Normal Saline 0.9%) 1,000 mls @ 150 mls/hr IV .Q6H40M REPLACED BY [facility] Last Admin: 10/14/19 07:56 Dose: 150 mls/hr Lorazepam (Ativan Inj (Vial)) 1 mg IVP Q30M PRN; Protocol PRN Reason: CIWA >8 Last Admin: 10/14/19 10:39 Dose: 1 mg Ondansetron HCl (Zofran Inj) 4 mg IVP Q6HR PRN PRN Reason: Nausea / Vomiting Pantoprazole Sodium (Protonix) 40 mg PO QDAC REPLACED BY [facility] Last Admin: 10/14/19 06:04 Dose: 40 mg Multivit/Folic Acid/Iron (Trinatal Rx 1) 1 tab PO DAILYWM REPLACED BY [facility] Last Admin: 10/14/19 08:21 Dose: 1 tab Sodium Chloride (Normal Saline Flush 0.9%) 10 ml IVP PRN PRN PRN Reason: NEEDED PER PROVIDER ORDERS Last Admin: 10/14/19 10:39 Dose: 10 ml Sodium Chloride (Normal Saline Flush 0.9%) 10 ml IVP 0100,0900,1700 REPLACED BY [facility] Last Admin: 10/14/19 08:33 Dose: 10 ml Thiamine HCl (Vitamin B-1) 100 mg PO DAILY REPLACED BY [facility] Last Admin: 10/14/19 08:20 Dose: 100 mg Zolpidem Tartrate (Ambien) 5 mg PO QPM PRN PRN Reason: Insomnia Last Admin: 10/13/19 20:48 Dose: 5 mg carvediloL [Carvedilol] 25 mg PO BID 08/08/19 Objective - Vital Signs/Intake & Output Vital Signs: Vital Signs x48h Temp Pulse Resp BP Pulse Ox 10/14/19 11:16 36.9 C 77 20 136/87 H 96 10/14/19 07:40 37.1 C 92 20 138/70 H 94 Intake & Output: Intake & Output 10/11/19 10/12/19 10/13/19 10/14/19 23:59 23:59 23:59 23:59 Intake Total 3360 5389.5 Output Total 225 Balance 3135 5389.5 - Objective General Appearance: positive: No acute distress, Alert. negative: Lethargic Eyes Bilateral: positive: Normal inspection, PERRL, No lid inflammation ENT: positive: ENT inspection nml, Pharynx nml, No signs of dehydration. negative: Purulent nasal drainage Neck: positive: Nml inspection, Thyroid nml, No JVD, Trachea midline. negative: Thyromegaly, Lymphadenopathy (R), Lymphadenopathy (L), Stiff neck, Tracheal deviation Respiratory: positive: Chest non-tender, No respiratory distress, Breath sounds nml. negative: Wheezes, Rales, Rhonchi Cardiovascular: positive: Regular rate & rhythm, No murmur, No gallop. negative: Irregularly irregular, Extrasystoles, Tachycardia, Bradycardia, JVD present, Systolic murmur, Diastolic murmur Peripheral Pulses: 2+ Radial (R), 2+ Radial (L), 2+ Dorsalis pedis (R), 2+ Dorsalis pedis (L) Abdomen: positive: Non-tender, No organomegaly, Nml bowel sounds, No distention. negative: Tenderness, Guarding, Rebound Back: positive: Nml inspection. negative: CVA tenderness (R), CVA tenderness (L) Skin: positive: Color nml, No rash, Warm, Dry. negative: Cyanosis, Diaphoresis, Pallor Extremities: positive: Non-tender, Full ROM, Nml appearance. negative: Calf tenderness, Terrell's sign/cords Neurologic/Psychiatric: positive: Oriented x3, Motor nml, Sensation nml, Mood/affect nml. negative: Weakness, Sensory loss, Facial droop, Slurred/abnml speech, Depressed mood/affect - Lab Results Fish Bones: 10/14/19 05:00 10/14/19 05:00 Other Labs: Lab Results x24hrs 10/14/19 10/14/19 10/14/19 Range/Units 05:00 05:00 05:00 WBC (4.8-10.8) x10^3/uL RBC (4.70-6.10) 10^6/uL Hgb (14.0-18.0) g/dL Hct (42.0-52.0) % MCV (80.0-94.0) fL MCH (27.0-31.0) pg MCHC (32.0-36.0) g/dL RDW (12.0-15.0) % Plt Count (130-450) 10^3/uL MPV (7.4-11.4) fL Neut # (Auto) (1.5-6.6) 10^3/uL Lymph # (Auto) (1.5-3.5) 10^3/uL Bowman # (Auto) (0.0-1.0) 10^3/uL Eos # (Auto) (0.0-0.7) 10^3/uL Baso # (Auto) (0.0-0.1) 10^3/uL Absolute Nucleated RBC x10^3/uL Nucleated RBC % /100WBC Sodium 134 L (135-145) mmol/L Potassium 3.8 (3.5-5.0) mmol/L Chloride 101 (101-111) mmol/L Carbon Dioxide 22 (21-32) mmol/L Anion Gap 11.0 (6-13) BUN 26 H (6-20) mg/dL Creatinine 0.9 (0.6-1.2) mg/dL Estimated GFR (MDRD) 88 L (>89) Glucose 138 H (70-100) mg/dL Calcium 7.8 L (8.5-10.3) mg/dL Magnesium (1.7-2.8) mg/dL Total Bilirubin 2.6 H (0.2-1.0) mg/dL AST 217 H (10-42) IU/L ALT 391 H (10-60) IU/L Alkaline Phosphatase 57 (42-121) IU/L Total Creatine Kinase 2916 H* (22-269) IU/L Total Protein 4.9 L (6.7-8.2) g/dL Albumin 2.7 L (3.2-5.5) g/dL Globulin 2.2 (2.1-4.2) g/dL Albumin/Globulin Ratio 1.2 (1.0-2.2) Lipase (22-51) U/L TSH 1.71 (0.34-5.60) uIU/mL Free T4 0.69 (0.58-1.64) ng/dL Urine Color Urine Clarity (CLEAR) Urine pH (5.0-7.5) PH Ur Specific Aragon (1.002-1.030) Urine Protein (NEGATIVE) mg/dL Urine Glucose (UA) (NEGATIVE) mg/dL Urine Ketones (NEGATIVE) mg/dL Urine Occult Blood (NEGATIVE) Urine Nitrite (NEGATIVE) Urine Bilirubin (NEGATIVE) Urine Urobilinogen (NORMAL) E.U./dL Ur Leukocyte Esterase (NEGATIVE) Urine RBC (0-5) /HPF Urine WBC (0-3) /HPF Ur Squamous Epith Cells (<= Few) Amorphous Sediment /LPF Urine Bacteria (None Seen) /HPF Urine Casts /LPF Ur Microscopic Review Urine Culture Comments Urine Opiates Screen (NEGATIVE) Ur Oxycodone Screen (NEGATIVE) Urine Methadone Screen (NEGATIVE) Ur Propoxyphene Screen (NEGATIVE) Ur Barbiturates Screen (NEGATIVE) Ur Tricyclics Screen (NEGATIVE) Ur Phencyclidine Scrn (NEGATIVE) Ur Amphetamine Screen (NEGATIVE) U Methamphetamines Scrn (NEGATIVE) U Benzodiazepines Scrn (NEGATIVE) Urine Cocaine Screen (NEGATIVE) U Cannabinoids Screen (NEGATIVE) Ethyl Alcohol 49.6 mg/dL Serum Ketones (NEGATIVE) 10/14/19 10/13/19 10/13/19 Range/Units 05:00 18:15 18:15 WBC 5.9 (4.8-10.8) x10^3/uL RBC 4.13 L (4.70-6.10) 10^6/uL Hgb 12.7 L (14.0-18.0) g/dL Hct 37.3 L (42.0-52.0) % MCV 90.3 (80.0-94.0) fL MCH 30.8 (27.0-31.0) pg MCHC 34.0 (32.0-36.0) g/dL RDW 13.7 (12.0-15.0) % Plt Count 87 L (130-450) 10^3/uL MPV 9.1 (7.4-11.4) fL Neut # (Auto) 4.4 (1.5-6.6) 10^3/uL Lymph # (Auto) 0.9 L (1.5-3.5) 10^3/uL Bowman # (Auto) 0.5 (0.0-1.0) 10^3/uL Eos # (Auto) 0.0 (0.0-0.7) 10^3/uL Baso # (Auto) 0.0 (0.0-0.1) 10^3/uL Absolute Nucleated RBC 0.00 x10^3/uL Nucleated RBC % 0.0 /100WBC Sodium (135-145) mmol/L Potassium (3.5-5.0) mmol/L Chloride (101-111) mmol/L Carbon Dioxide (21-32) mmol/L Anion Gap (6-13) BUN (6-20) mg/dL Creatinine (0.6-1.2) mg/dL Estimated GFR (MDRD) (>89) Glucose (70-100) mg/dL Calcium (8.5-10.3) mg/dL Magnesium (1.7-2.8) mg/dL Total Bilirubin (0.2-1.0) mg/dL AST (10-42) IU/L ALT (10-60) IU/L Alkaline Phosphatase (42-121) IU/L Total Creatine Kinase (22-269) IU/L Total Protein (6.7-8.2) g/dL Albumin (3.2-5.5) g/dL Globulin (2.1-4.2) g/dL Albumin/Globulin Ratio (1.0-2.2) Lipase (22-51) U/L TSH (0.34-5.60) uIU/mL Free T4 (0.58-1.64) ng/dL Urine Color YELLOW Urine Clarity CLEAR (CLEAR) Urine pH 5.5 (5.0-7.5) PH Ur Specific Aragon >=1.030 H (1.002-1.030) Urine Protein >=300 H (NEGATIVE) mg/dL Urine Glucose (UA) NEGATIVE (NEGATIVE) mg/dL Urine Ketones NEGATIVE (NEGATIVE) mg/dL Urine Occult Blood LARGE H (NEGATIVE) Urine Nitrite NEGATIVE (NEGATIVE) Urine Bilirubin NEGATIVE (NEGATIVE) Urine Urobilinogen 1 (NORMAL) (NORMAL) E.U./dL Ur Leukocyte Esterase NEGATIVE (NEGATIVE) Urine RBC 6-10 H (0-5) /HPF Urine WBC 0-3 (0-3) /HPF Ur Squamous Epith Cells NONE SEEN (<= Few) Amorphous Sediment Rare /LPF Urine Bacteria Rare (None Seen) /HPF Urine Casts 11-25 Hyaline Casts /LPF Ur Microscopic Review INDICATED Urine Culture Comments NOT INDICATED Urine Opiates Screen NEGATIVE (NEGATIVE) Ur Oxycodone Screen NEGATIVE (NEGATIVE) Urine Methadone Screen NEGATIVE (NEGATIVE) Ur Propoxyphene Screen NEGATIVE (NEGATIVE) Ur Barbiturates Screen NEGATIVE (NEGATIVE) Ur Tricyclics Screen NEGATIVE (NEGATIVE) Ur Phencyclidine Scrn NEGATIVE (NEGATIVE) Ur Amphetamine Screen NEGATIVE (NEGATIVE) U Methamphetamines Scrn NEGATIVE (NEGATIVE) U Benzodiazepines Scrn NEGATIVE (NEGATIVE) Urine Cocaine Screen NEGATIVE (NEGATIVE) U Cannabinoids Screen NEGATIVE (NEGATIVE) Ethyl Alcohol mg/dL Serum Ketones (NEGATIVE) 10/13/19 10/13/19 10/13/19 Range/Units 14:40 14:40 14:40 WBC 6.1 (4.8-10.8) x10^3/uL RBC 6.02 (4.70-6.10) 10^6/uL Hgb 19.0 H (14.0-18.0) g/dL Hct 55.2 H (42.0-52.0) % MCV 91.7 (80.0-94.0) fL MCH 31.6 H (27.0-31.0) pg MCHC 34.4 (32.0-36.0) g/dL RDW 14.2 (12.0-15.0) % Plt Count 141 (130-450) 10^3/uL MPV 8.8 (7.4-11.4) fL Neut # (Auto) 4.4 (1.5-6.6) 10^3/uL Lymph # (Auto) 1.4 L (1.5-3.5) 10^3/uL Bowman # (Auto) 0.2 (0.0-1.0) 10^3/uL Eos # (Auto) 0.1 (0.0-0.7) 10^3/uL Baso # (Auto) 0.0 (0.0-0.1) 10^3/uL Absolute Nucleated RBC 0.00 x10^3/uL Nucleated RBC % 0.0 /100WBC Sodium 140 (135-145) mmol/L Potassium 3.3 L (3.5-5.0) mmol/L Chloride 97 L (101-111) mmol/L Carbon Dioxide 25 (21-32) mmol/L Anion Gap 18.0 H (6-13) BUN 24 H (6-20) mg/dL Creatinine 1.0 (0.6-1.2) mg/dL Estimated GFR (MDRD) 78 L (>89) Glucose 148 H (70-100) mg/dL Calcium 8.1 L (8.5-10.3) mg/dL Magnesium 2.4 (1.7-2.8) mg/dL Total Bilirubin 2.0 H (0.2-1.0) mg/dL AST 212 H (10-42) IU/L ALT 652 H (10-60) IU/L Alkaline Phosphatase 79 (42-121) IU/L Total Creatine Kinase 2358 H* (22-269) IU/L Total Protein 7.1 (6.7-8.2) g/dL Albumin 4.0 (3.2-5.5) g/dL Globulin 3.1 (2.1-4.2) g/dL Albumin/Globulin Ratio 1.3 (1.0-2.2) Lipase 76 H (22-51) U/L TSH (0.34-5.60) uIU/mL Free T4 (0.58-1.64) ng/dL Urine Color Urine Clarity (CLEAR) Urine pH (5.0-7.5) PH Ur Specific Aragon (1.002-1.030) Urine Protein (NEGATIVE) mg/dL Urine Glucose (UA) (NEGATIVE) mg/dL Urine Ketones (NEGATIVE) mg/dL Urine Occult Blood (NEGATIVE) Urine Nitrite (NEGATIVE) Urine Bilirubin (NEGATIVE) Urine Urobilinogen (NORMAL) E.U./dL Ur Leukocyte Esterase (NEGATIVE) Urine RBC (0-5) /HPF Urine WBC (0-3) /HPF Ur Squamous Epith Cells (<= Few) Amorphous Sediment /LPF Urine Bacteria (None Seen) /HPF Urine Casts /LPF Ur Microscopic Review Urine Culture Comments Urine Opiates Screen (NEGATIVE) Ur Oxycodone Screen (NEGATIVE) Urine Methadone Screen (NEGATIVE) Ur Propoxyphene Screen (NEGATIVE) Ur Barbiturates Screen (NEGATIVE) Ur Tricyclics Screen (NEGATIVE) Ur Phencyclidine Scrn (NEGATIVE) Ur Amphetamine Screen (NEGATIVE) U Methamphetamines Scrn (NEGATIVE) U Benzodiazepines Scrn (NEGATIVE) Urine Cocaine Screen (NEGATIVE) U Cannabinoids Screen (NEGATIVE) Ethyl Alcohol 398.1 mg/dL Serum Ketones NEGATIVE (NEGATIVE) ABX Reporting Has patient been on IV antibiotics over the past 48 hours?: No Sepsis Event Note (H) - Evaluation Current Stage of Sepsis: Ruled out Assessment/Plan - Problem List (1) Alcohol intoxication Impression: 10/13 stable, continue CIWA and neuro check, continue and B1 pt has hx of alcoholism. he was admitted two months ago with the similar reason. pt's alcohol level is 398. begin CIWA protocol for alcohol withdrawal, neur check Ativan Q30min per protocol, vitamin and B1 IVF consult with secondary social studies teacher to help him quit alcohol (2) Rhabdomyolysis Conclusion/Plan: 10/13, CK increase to 2900 from 2300, it indicated pt's muscle damage is just released the enzyme continue IVF. pt had 3 liter of NS in the previous ER continue lab monitor pt's CK is 2358 but pt denies injury and fall. it is likely caused by his muscle strain. UA indicate kidney began some damage even his creatinine is good. IVF of NS lab monitor (3) Dehydration Conclusion/Plan: 10/13 improved, creatinine is down to 0.9 from 1. continue hydration, and lab monitor it is likely caused his alcohol over-intake. pt has elevated anion gap, and BUN hydration with IVF of NS lab monitor (4) Hypothermia Conclusion/Plan: 10/13 resolved his initial temperature is 35.4 degree, pt report "I am frozen", likely caused by his cold exposure as homeless warm pt as need. her temperature is turned into normal now (5) HTN (hypertension) Conclusion/Plan: 10/13 stable slightly elevated BP, will reconcile home meds Carvedilol. Vital monitor (6) History of hyperthyroidism Conclusion/Plan: 10/13 stable, normal TSH and Free T4 t was reported to have hx of hyperthyroidism, but he had no home meds for that. will check TSH and Free T4 (7) Alcoholic hepatitis Conclusion/Plan: 10/13 stable, pt has good appetite. US of abdomen reveals unremarkable for acute finding. hepatitis panel is pending. pt has elevated total bili, liver enzyme, it is likely cause his alcohol over- intake. Also he is homeless, will test MUDDS and acute hepatitis panel and US of abdomen to rule out other possibility. lab monitor Qualifiers: Complication of substance-induced condition: uncomplicated Qualified Code(s): F10.920 - Alcohol use, unspecified with intoxication, uncomplicated (2) Rhabdomyolysis Qualifiers: Rhabdomyolysis type: traumatic Encounter type: initial encounter Qualified Code(s): T79.6XXA - Traumatic ischemia of muscle, initial encounter (4) Hypothermia Qualifiers: Encounter type: initial encounter Qualified Code(s): T68.XXXA - Hypothermia, initial encounter
[2019-10-14] MEDS: ZOLPIDEM 5 MG TABLET PO PRN (20:20)
[2019-10-15] MEDS: SODIUM CHLORIDE FLUSH 0.9% 10 ML SYRINGE IVP SCH ×3 (03:54→16:13)
[2019-10-15] MEDS: LORazepam 2 MG/ML VIAL IVP PRN (03:54)
[2019-10-15] MEDS: SODIUM CHLORIDE 0.9% 1,000 ML IV SCH ×4 (04:56→23:08)
[2019-10-15 05:36] LABS: BASOPHILS % (AUTO) 0.3 %; EOSINOPHILS % (AUTO) 0.3 %; HGB - HEMOGLOBIN 13.7 g/dL (14.0-18.0); LYMPHOCYTES # (AUTO) 0.6 10^3/uL (1.5-3.5); LYMPHOCYTES % (AUTO) 17.8 %; MEAN CORPUSCULAR HEMOGLOBIN 31.7 pg (27.0-31.0); MEAN CORPUSCULAR HGB CONC 34.5 g/dL (32.0-36.0); MEAN CORPUSCULAR VOLUME 91.9 fL (80.0-94.0); MEAN PLATELET VOLUME 9.5 fL (7.4-11.4); MONOCYTES # (AUTO) 0.3 10^3/uL (0.0-1.0); MONOCYTES % (AUTO) 9.5 %; NEUTROPHILS # (AUTO) 2.6 10^3/uL (1.5-6.6); NEUTROPHILS % (AUTO) 71.5 %; PLT - PLATELET COUNT 51 10^3/uL (130-450); RED BLOOD COUNT 4.32 10^6/uL (4.70-6.10); RED CELL DISTRIBUTION WIDTH 13.2 % (12.0-15.0); WHITE BLOOD COUNT 3.6 x10^3/uL (4.8-10.8)
[2019-10-15 05:52] LABS: ALBUMIN/GLOBULIN RATIO 1.1 (1.0-2.2); CREATININE 0.7 mg/dL (0.6-1.2); TOTAL PROTEIN 5.7 g/dL (6.7-8.2)
[2019-10-15] MEDS: PANTOPRAZOLE 40 MG TABLET PO SCH (06:39)
[2019-10-15] MEDS ORDERED: POTASSIUM CHLORIDE 20 MEQ TABLET PO SCH (07:51)
[2019-10-15] MEDS: ENOXAPARIN 40 MG/0.4 ML SYRINGE SUBQ SCH (08:36)
[2019-10-15] MEDS: THIAMINE 100 MG TABLET PO SCH (08:37)
[2019-10-15] MEDS: PRENATAL VITAMIN TABLET PO SCH (08:37)
[2019-10-15] MEDS: carvediloL 12.5 MG TABLET PO SCH ×2 (08:37→21:51)
--- NOTE | 2019-10-15 11:39 | PROVIDER PROGRESS NOTE ---
Subjective - Prog Note Date Prog Note Date: 10/15/19 - Subjective Pt reports feeling: Worse Subjective: pt keep CIWA protocol for his alcohol withdrawal. pt's Plt is down to 51 and increased total bilirubin as well. Ammonia is ordered. pt's alcoholic hepatitis and cirrhosis seems worsening. pt has no fever, chill, cough, SOB, chest pain. CK is running down but still is in the critical arrange. Current Medications - Current Medications Current Medications: Active Medications Acetaminophen (Tylenol) 650 mg PO Q4HR PRN PRN Reason: Pain 1 to 4 Carvedilol (Coreg) 25 mg PO BID [facility] Last Admin: 10/15/19 08:37 Dose: 25 mg Sodium Chloride (Normal Saline 0.9%) 1,000 mls @ 150 mls/hr IV .Q6H40M [facility] Last Admin: 10/15/19 11:15 Dose: 150 mls/hr Lorazepam (Ativan Inj (Vial)) 1 mg IVP Q30M PRN; Protocol PRN Reason: CIWA >8 Last Admin: 10/15/19 03:54 Dose: 1 mg Ondansetron HCl (Zofran Inj) 4 mg IVP Q6HR PRN PRN Reason: Nausea / Vomiting Pantoprazole Sodium (Protonix) 40 mg PO QDAC [facility] Last Admin: 10/15/19 06:39 Dose: Not Given Multivit/Folic Acid/Iron (Trinatal Rx 1) 1 tab PO DAILYWM [facility] Last Admin: 10/15/19 08:37 Dose: 1 tab Sodium Chloride (Normal Saline Flush 0.9%) 10 ml IVP PRN PRN PRN Reason: NEEDED PER PROVIDER ORDERS Last Admin: 10/14/19 10:39 Dose: 10 ml Sodium Chloride (Normal Saline Flush 0.9%) 10 ml IVP 0100,0900,1700 [facility] Last Admin: 10/15/19 09:16 Dose: Not Given Thiamine HCl (Vitamin B-1) 100 mg PO DAILY [facility] Last Admin: 10/15/19 08:37 Dose: 100 mg Zolpidem Tartrate (Ambien) 5 mg PO QPM PRN PRN Reason: Insomnia Last Admin: 10/14/19 20:20 Dose: 5 mg carvediloL [Carvedilol] 25 mg PO BID 01/19/20 Objective - Vital Signs/Intake & Output Vital Signs: Vital Signs x48h Temp Pulse Resp BP Pulse Ox 10/15/19 07:33 36.8 C 68 18 143/89 H 96 10/15/19 04:00 36.9 C 65 16 139/78 H 97 Intake & Output: Intake & Output 10/12/19 10/13/19 10/14/19 10/15/19 23:59 23:59 23:59 23:59 Intake Total 3360 8969.5 2570 Output Total 225 3250 2000 Balance 3135 5719.5 570 - Objective General Appearance: positive: No acute distress, Alert. negative: Lethargic Eyes Bilateral: positive: Normal inspection, PERRL, No lid inflammation ENT: positive: ENT inspection nml, Pharynx nml, No signs of dehydration. negative: Purulent nasal drainage Neck: positive: Nml inspection, Thyroid nml, No JVD, Trachea midline. negative: Thyromegaly, Lymphadenopathy (R), Lymphadenopathy (L), Stiff neck, Tracheal deviation Respiratory: positive: Chest non-tender, No respiratory distress, Breath sounds nml. negative: Wheezes, Rales, Rhonchi Cardiovascular: positive: Regular rate & rhythm, No murmur, No gallop. negative: Irregularly irregular, Extrasystoles, Tachycardia, Bradycardia, JVD present, Systolic murmur, Diastolic murmur Peripheral Pulses: 2+ Radial (R), 2+ Radial (L), 2+ Dorsalis pedis (R), 2+ Dorsalis pedis (L) Abdomen: positive: Non-tender, No organomegaly, Nml bowel sounds. negative: Tenderness, Guarding, Rebound Back: positive: Nml inspection. negative: CVA tenderness (R), CVA tenderness (L) Skin: positive: Color nml, No rash, Warm, Dry. negative: Cyanosis, Diaphoresis, Pallor Extremities: positive: Non-tender, Full ROM, Nml appearance. negative: Calf tenderness, Terrell's sign/cords Neurologic/Psychiatric: positive: Motor nml, Sensation nml. negative: Weakness, Sensory loss, Facial droop, Slurred/abnml speech, Depressed mood/affect - Lab Results Fish Bones: 10/15/19 04:50 10/15/19 04:50 Other Labs: Lab Results x24hrs 10/15/19 10/15/19 10/15/19 Range/Units 08:14 04:50 04:50 WBC 3.6 L (4.8-10.8) x10^3/uL RBC 4.32 L (4.70-6.10) 10^6/uL Hgb 13.7 L (14.0-18.0) g/dL Hct 39.7 L (42.0-52.0) % MCV 91.9 (80.0-94.0) fL MCH 31.7 H (27.0-31.0) pg MCHC 34.5 (32.0-36.0) g/dL RDW 13.2 (12.0-15.0) % Plt Count 51 L (130-450) 10^3/uL MPV 9.5 (7.4-11.4) fL Neut # (Auto) 2.6 (1.5-6.6) 10^3/uL Lymph # (Auto) 0.6 L (1.5-3.5) 10^3/uL [place] # (Auto) 0.3 (0.0-1.0) 10^3/uL Eos # (Auto) 0.0 (0.0-0.7) 10^3/uL Baso # (Auto) 0.0 (0.0-0.1) 10^3/uL Absolute Nucleated RBC 0.00 x10^3/uL Nucleated RBC % 0.0 /100WBC Sodium 135 (135-145) mmol/L Potassium 3.2 L (3.5-5.0) mmol/L Chloride 101 (101-111) mmol/L Carbon Dioxide 25 (21-32) mmol/L Anion Gap 9.0 (6-13) BUN 12 (6-20) mg/dL Creatinine 0.7 (0.6-1.2) mg/dL Estimated GFR (MDRD) 118 (>89) Glucose 118 H (70-100) mg/dL Calcium 8.0 L (8.5-10.3) mg/dL Total Bilirubin 3.0 H (0.2-1.0) mg/dL AST 197 H (10-42) IU/L ALT 346 H (10-60) IU/L Alkaline Phosphatase 57 (42-121) IU/L Ammonia 32.0 (7-35) umol/L Total Creatine Kinase 2016 H* (22-269) IU/L Total Protein 5.7 L (6.7-8.2) g/dL Albumin 3.0 L (3.2-5.5) g/dL Globulin 2.7 (2.1-4.2) g/dL Albumin/Globulin Ratio 1.1 (1.0-2.2) ABX Reporting Has patient been on IV antibiotics over the past 48 hours?: No Sepsis Event Note (H) - Evaluation Current Stage of Sepsis: Ruled out Assessment/Plan - Problem List (1) Alcohol intoxication Impression: 10/14 improved. alcohol level is running down, mental status is slightly improved and ammonia is normal, and CIWA score is running down as well continue and B1 continue Ativan PRN 10/13 stable, continue CIWA and neuro check, continue and B1 pt has hx of alcoholism. he was admitted two months ago with the similar reason. pt's alcohol level is 398. begin CIWA protocol for alcohol withdrawal, neur check Ativan Q30min per protocol, vitamin and B1 IVF consult with social services designee to help him quit alcohol (2) Rhabdomyolysis Conclusion/Plan: 10/14 today his CK is better but is still in the critical arrange, pt present Proteinuria. continue IVF and lab monitor 10/13, CK increase to 2900 from 2300, it indicated pt's muscle damage is just released the enzyme continue IVF. pt had 3 liter of NS in the previous ER continue lab monitor pt's CK is 2358 but pt denies injury and fall. it is likely caused by his muscle strain. UA indicate kidney began some damage even his creatinine is good. IVF of NS lab monitor (3) Alcoholic cirrhosis Conclusion/Plan: 10/14 pt's WBC, plt decreased, and total bilirubin increased, still increased liver enzyme, and lower albumin. advise pt quit alcohol. continue lab monitor, monitor if bleeding, hold Lovenox 10/13 stable, pt has good appetite. US of abdomen reveals unremarkable for acute finding. hepatitis panel is pending. pt has elevated total bili, liver enzyme, it is likely cause his alcohol over- intake. Also he is homeless, will test MUDDS and acute hepatitis panel and US of abdomen to rule out other possibility. lab monitor (4)pancytopenia pt's WBC, plt decreased, it is likely caused by worsening alcoholic cirrhosis, and liver failure. monitor if bleeding, hold Lovenox, continue lab monitor (5)proteinuria pt present proteinuria in the admission and elevated CK, and dehydration continue IVF, lab monitor, hole nephrologica toxical agents (6) Dehydration Conclusion/Plan: 10/13 improved, creatinine is down to 0.9 from 1. continue hydration, and lab monitor it is likely caused his alcohol over-intake. pt has elevated anion gap, and BUN hydration with IVF of NS lab monitor (7) Hypothermia Conclusion/Plan: 10/13 resolved his initial temperature is 35.4 degree, pt report "I am frozen", likely caused by his cold exposure as homeless warm pt as need. her temperature is turned into normal now (8) HTN (hypertension) Conclusion/Plan: 10/13 stable slightly elevated BP, will reconcile home meds Carvedilol. Vital monitor (9) History of hyperthyroidism Conclusion/Plan: 10/13 stable, normal TSH and Free T4 pt was reported to have hx of hyperthyroidism, but he had no home meds for that. will check TSH and Free T4 (10)hypokalemia pt has potassium 3.2, replacement of k, and lab monitor Qualifiers: Complication of substance-induced condition: uncomplicated Qualified Code(s): F10.920 - Alcohol use, unspecified with intoxication, uncomplicated (2) Rhabdomyolysis Qualifiers: Rhabdomyolysis type: traumatic Encounter type: initial encounter Tao lified Code(s): T79.6XXA - Traumatic ischemia of muscle, initial encounter (4) Hypothermia Qualifiers: Encounter type: initial encounter Qualified Code(s): T68.XXXA - Hypothermia, initial encounter
[2019-10-15 12:14] LABS: HEPATITIS A IGM NON-REACTIVE (NON-REACTIVE); HEPATITIS B SURFACE ANTIGEN NON-REACTIVE (NON-REACTIVE); HEPATITIS C ANTIBODY NON-REACTIVE (NON-REACTIVE)
[2019-10-15] MEDS: ZOLPIDEM 5 MG TABLET PO PRN (21:51)
[2019-10-16] MEDS: SODIUM CHLORIDE FLUSH 0.9% 10 ML SYRINGE IVP SCH ×3 (01:50→16:36)
[2019-10-16] MEDS: SODIUM CHLORIDE 0.9% 1,000 ML IV SCH ×4 (05:50→20:19)
[2019-10-16] MEDS: PANTOPRAZOLE 40 MG TABLET PO SCH (05:51)
[2019-10-16 06:35] LABS: BASOPHILS % (AUTO) 0.6 %; EOSINOPHILS # (AUTO) 0.1 10^3/uL (0.0-0.7); EOSINOPHILS % (AUTO) 1.5 %; LYMPHOCYTES # (AUTO) 0.9 10^3/uL (1.5-3.5); LYMPHOCYTES % (AUTO) 27.3 %; MEAN CORPUSCULAR HEMOGLOBIN 32.3 pg (27.0-31.0); MEAN CORPUSCULAR VOLUME 92.2 fL (80.0-94.0); MEAN PLATELET VOLUME 10.2 fL (7.4-11.4); MONOCYTES # (AUTO) 0.4 10^3/uL (0.0-1.0); MONOCYTES % (AUTO) 10.8 %; NEUTROPHILS % (AUTO) 59.5 %; PLT - PLATELET COUNT 57 10^3/uL (130-450); RED BLOOD COUNT 4.64 10^6/uL (4.70-6.10); RED CELL DISTRIBUTION WIDTH 13.1 % (12.0-15.0); WHITE BLOOD COUNT 3.3 x10^3/uL (4.8-10.8)
[2019-10-16 06:42] LABS: ALBUMIN 3.3 g/dL (3.2-5.5); ALBUMIN/GLOBULIN RATIO 1.1 (1.0-2.2); BILIRUBIN,TOTAL 1.9 mg/dL (0.2-1.0); CALCIUM 8.4 mg/dL (8.5-10.3); CREATININE 0.7 mg/dL (0.6-1.2); TOTAL PROTEIN 6.4 g/dL (6.7-8.2)
[2019-10-16] MEDS: PRENATAL VITAMIN TABLET PO SCH (07:58)
[2019-10-16] MEDS: THIAMINE 100 MG TABLET PO SCH (07:59)
[2019-10-16] MEDS: carvediloL 12.5 MG TABLET PO SCH ×2 (07:59→21:09)
[2019-10-16] MEDS ORDERED: ONDANSETRON ODT 4 MG TABLET TL PRN (08:22)
--- NOTE | 2019-10-16 12:07 | PROVIDER PROGRESS NOTE ---
Assessment/Plan - Problem List (1) Orthostatic hypotension Assessment/Plan: His orthostatic vital signs were checked because of his complaint of dizziness this morning. He has a 40 mm drop going from supine to the standing position. We will start IV saline, 2 L will be infused at 125 ml/hr. Will decrease his home Coreg for BP from 25 bid to 12.5 bid No discharge home today (2) Rhabdomyolysis Qualifiers: Rhabdomyolysis type: traumatic Encounter type: initial encounter Qualified Code(s): T79.6XXA - Traumatic ischemia of muscle, initial encounter Assessment/Plan: CK down to 600 from 200's and no CHILO (3) Alcohol abuse Assessment/Plan: Scoring low on CIWA Hyponatremia could be due to this, as well as low WBC and plts He is on daily Thiamine (4) Alcoholic hepatitis Assessment/Plan: Elevated LFTs and bili are improving daily. - Current Meds Current Meds: Current Medications Generic Name Dose Route Start Last Admin Trade Name Freq PRN Reason Stop Dose Admin Carvedilol 25 mg 10/13/19 21:00 10/16/19 07:59 Coreg PO 25 mg BID TALITA Administration Sodium Chloride 1,000 mls @ 150 mls/hr 10/13/19 18:00 10/16/19 08:01 Normal Saline 0.9% IV Not Given .[id number] TALITA Pantoprazole Sodium 40 mg 10/13/19 18:42 10/16/19 05:51 Protonix PO 40 mg QDAC TALITA Administration Multivit/Folic Acid/Iron 1 tab 10/13/19 18:00 10/16/19 07:58 Trinatal Rx 1 PO 1 tab DAILYWM TALITA Administration Sodium Chloride 10 ml 10/13/19 17:10 10/14/19 10:39 Normal Saline Flush 0.9% IVP 10 ml PRN PRN Administration NEEDED PER PROVIDER ORDERS Sodium Chloride 10 ml 10/14/19 01:00 10/16/19 08:00 Normal Saline Flush 0.9% IVP Not Given 0100,0900,1700 TALITA Thiamine HCl 100 mg 10/13/19 17:31 10/16/19 07:59 Vitamin B-1 PO 100 mg DAILY TALITA Administration Zolpidem Tartrate 5 mg 10/13/19 19:05 10/15/19 21:51 Ambien PO 5 mg QPM PRN Administration Insomnia - Lab Result Fish Bone Diagrams: 10/16/19 06:15 10/16/19 06:15 - Additional Planning My Orders: My Active Orders 10/16/19 12:03 Telemetry-Discontinue [RC] .ONCE 10/16/19 13:00 NS 0.9% @ 125 mls/hr Sodium Chloride 0.9% [Normal Saline 0.9%] 1,000 ml IV 125 mls/hr Subjective - Subjective Patient Reports: Dizzines, Other ("I felt like a could have fainted when I walked to the bathroom".) Objective Vital Signs: Vital Signs - 24 hr 10/15/19 10/15/19 10/15/19 13:00 16:10 21:00 Temperature 37 C 36.9 C 36.9 C Heart Rate [ 63 61 67 Brachial] Heart Rate [ Sitting (After 1 Minute)] Heart Rate [ Standing (After 1 Minute)] Heart Rate [ Supine] Respiratory 18 20 20 Rate Blood Pressure [Left Brachial artery] Blood Pressure 141/77 H 150/80 H 150/88 H [Right Brachial artery] Blood Pressure [Sitting (After 1 Minute)] Blood Pressure [Standing ( After 1 Minute) ] Blood Pressure [Supine] O2 Saturation 97 98 97 10/15/19 10/16/19 10/16/19 23:59 05:17 09:00 Temperature 36.5 C 36.6 C 36.6 C Heart Rate [ 73 69 68 Brachial] Heart Rate [ Sitting (After 1 Minute)] Heart Rate [ Standing (After 1 Minute)] Heart Rate [ Supine] Respiratory 16 16 20 Rate Blood Pressure 143/81 H [Left Brachial artery] Blood Pressure 136/79 H 141/64 H [Right Brachial artery] Blood Pressure [Sitting (After 1 Minute)] Blood Pressure [Standing ( After 1 Minute) ] Blood Pressure [Supine] O2 Saturation 98 98 99 10/16/19 11:38 Temperature Heart Rate [ Brachial] Heart Rate [ 71 Sitting (After 1 Minute)] Heart Rate [ 84 Standing (After 1 Minute)] Heart Rate [ 59 L Supine] Respiratory Rate Blood Pressure [Left Brachial artery] Blood Pressure [Right Brachial artery] Blood Pressure 135/77 H [Sitting (After 1 Minute)] Blood Pressure 104/72 [Standing ( After 1 Minute) ] Blood Pressure 147/79 H [Supine] O2 Saturation Oxygen O2 Source Room air I&O (Last 24 Hrs): Intake and Output Totals x24h 10/14/19 10/15/19 10/16/19 23:59 23:59 23:59 Intake Total 8969.5 4867 740 Output Total 3250 2000 Balance 5719.5 2867 740 General: Alert, Oriented x3 HEENT: Mucous membr. moist/pink Neck: Supple Neuro: Alert, Non Focal Cardiovascular: Regular rate Respiratory: No respiratory distress Abdomen: Soft Extremities: No edema - Results Results: Laboratory Results WBC 3.3 x10^3/uL (4.8-10.8) L 10/16/19 06:15 RBC 4.64 10^6/uL (4.70-6.10) L 10/16/19 06:15 Hgb 15.0 g/dL (14.0-18.0) 10/16/19 06:15 Hct 42.8 % (42.0-52.0) 10/16/19 06:15 MCV 92.2 fL (80.0-94.0) 10/16/19 06:15 MCH 32.3 pg (27.0-31.0) H 10/16/19 06:15 MCHC 35.0 g/dL (32.0-36.0) 10/16/19 06:15 RDW 13.1 % (12.0-15.0) 10/16/19 06:15 Plt Count 57 10^3/uL (130-450) L 10/16/19 06:15 MPV 10.2 fL (7.4-11.4) 10/16/19 06:15 Neut # (Auto) 2.0 10^3/uL (1.5-6.6) 10/16/19 06:15 Lymph # (Auto) 0.9 10^3/uL (1.5-3.5) L 10/16/19 06:15 Cecil # (Auto) 0.4 10^3/uL (0.0-1.0) 10/16/19 06:15 Eos # (Auto) 0.1 10^3/uL (0.0-0.7) 10/16/19 06:15 Baso # (Auto) 0.0 10^3/uL (0.0-0.1) 10/16/19 06:15 Absolute Nucleated RBC 0.00 x10^3/uL 10/16/19 06:15 Nucleated RBC % 0.0 /100WBC 10/16/19 06:15 Sodium 132 mmol/L (135-145) L 10/16/19 06:15 Potassium 3.5 mmol/L (3.5-5.0) 10/16/19 06:15 Chloride 101 mmol/L (101-111) 10/16/19 06:15 Carbon Dioxide 24 mmol/L (21-32) 10/16/19 06:15 Anion Gap 7.0 (6-13) 10/16/19 06:15 BUN 13 mg/dL (6-20) 10/16/19 06:15 Creatinine 0.7 mg/dL (0.6-1.2) 10/16/19 06:15 Estimated GFR (MDRD) 118 (>89) 10/16/19 06:15 Glucose 127 mg/dL (70-100) H 10/16/19 06:15 Calcium 8.4 mg/dL (8.5-10.3) L 10/16/19 06:15 Magnesium 2.4 mg/dL (1.7-2.8) 10/13/19 14:40 Total Bilirubin 1.9 mg/dL (0.2-1.0) H 10/16/19 06:15 AST 127 IU/L (10-42) H 10/16/19 06:15 ALT 278 IU/L (10-60) H 10/16/19 06:15 Alkaline Phosphatase 59 IU/L (42-121) 10/16/19 06:15 Ammonia 32.0 umol/L (7-35) 10/15/19 08:14 Total Creatine Kinase 663 IU/L (22-269) H 10/16/19 06:15 Total Protein 6.4 g/dL (6.7-8.2) L 10/16/19 06:15 Albumin 3.3 g/dL (3.2-5.5) 10/16/19 06:15 Globulin 3.1 g/dL (2.1-4.2) 10/16/19 06:15 Albumin/Globulin Ratio 1.1 (1.0-2.2) 10/16/19 06:15 Lipase 76 U/L (22-51) H 10/13/19 14:40 TSH 1.71 uIU/mL (0.34-5.60) 10/14/19 05:00 Free T4 0.69 ng/dL (0.58-1.64) 10/14/19 05:00 Urine Color YELLOW 10/13/19 18:15 Urine Clarity CLEAR (CLEAR) 10/13/19 18:15 Urine pH 5.5 PH (5.0-7.5) 10/13/19 18:15 Ur Specific [place] >=1.030 (1.002-1.030) H 10/13/19 18:15 Urine Protein >=300 mg/dL (NEGATIVE) H 10/13/19 18:15 Urine Glucose (UA) NEGATIVE mg/dL (NEGATIVE) 10/13/19 18:15 Urine Ketones NEGATIVE mg/dL (NEGATIVE) 10/13/19 18:15 Urine Occult Blood LARGE (NEGATIVE) H 10/13/19 18:15 Urine Nitrite NEGATIVE (NEGATIVE) 10/13/19 18:15 Urine Bilirubin NEGATIVE (NEGATIVE) 10/13/19 18:15 Urine Urobilinogen 1 (NORMAL) E.U./dL (NORMAL) 10/13/19 18:15 Ur Leukocyte Esterase NEGATIVE (NEGATIVE) 10/13/19 18:15 Urine RBC 6-10 /HPF (0-5) H 10/13/19 18:15 Urine WBC 0-3 /HPF (0-3) 10/13/19 18:15 Ur Squamous Epith Cells NONE SEEN (<= Few) 10/13/19 18:15 Amorphous Sediment Rare /LPF 10/13/19 18:15 Urine Bacteria Rare /HPF (None Seen) 10/13/19 18:15 Urine Casts 11-25 Hyaline Casts /LPF 10/13/19 18:15 Ur Microscopic Review INDICATED 10/13/19 18:15 Urine Culture Comments NOT INDICATED 10/13/19 18:15 Urine Opiates Screen NEGATIVE (NEGATIVE) 10/13/19 18:15 Ur Oxycodone Screen NEGATIVE (NEGATIVE) 10/13/19 18:15 Urine Methadone Screen NEGATIVE (NEGATIVE) 10/13/19 18:15 Ur Propoxyphene Screen NEGATIVE (NEGATIVE) 10/13/19 18:15 Ur Barbiturates Screen NEGATIVE (NEGATIVE) 10/13/19 18:15 Ur Tricyclics Screen NEGATIVE (NEGATIVE) 10/13/19 18:15 Ur Phencyclidine Scrn NEGATIVE (NEGATIVE) 10/13/19 18:15 Ur Amphetamine Screen NEGATIVE (NEGATIVE) 10/13/19 18:15 U Methamphetamines Scrn NEGATIVE (NEGATIVE) 10/13/19 18:15 U Benzodiazepines Scrn NEGATIVE (NEGATIVE) 10/13/19 18:15 Urine Cocaine Screen NEGATIVE (NEGATIVE) 10/13/19 18:15 U Cannabinoids Screen NEGATIVE (NEGATIVE) 10/13/19 18:15 Ethyl Alcohol 49.6 mg/dL 10/14/19 05:00 Serum Ketones NEGATIVE (NEGATIVE) 10/13/19 14:40 Hepatitis A IgM Ab NON-REACTIVE (NON-REACTIVE) 10/14/19 05:00 Hep Bs Antigen NON-REACTIVE (NON-REACTIVE) 10/14/19 05:00 Hep B Core IgM Ab NON-REACTIVE (NON-REACTIVE) 10/14/19 05:00 Hepatitis C Antibody NON-REACTIVE (NON-REACTIVE) 10/14/19 05:00 Hep C Ab Signal/Cutoff 0.00 (<1.00) 10/14/19 05:00 Sepsis Event Note (H) - Evaluation Current Stage of Sepsis: Ruled out
[2019-10-16] MEDS: LORazepam 1 MG TABLET PO PRN ×2 (13:15→17:50)
[2019-10-16] MEDS: ZOLPIDEM 5 MG TABLET PO PRN (21:08)
[2019-10-17] MEDS: SODIUM CHLORIDE FLUSH 0.9% 10 ML SYRINGE IVP SCH ×2 (01:55→07:47)
[2019-10-17] MEDS: PANTOPRAZOLE 40 MG TABLET PO SCH (05:18)
[2019-10-17 06:24] LABS: BASOPHILS % (AUTO) 0.5 %; EOSINOPHILS # (AUTO) 0.1 10^3/uL (0.0-0.7); EOSINOPHILS % (AUTO) 1.5 %; HGB - HEMOGLOBIN 15.2 g/dL (14.0-18.0); LYMPHOCYTES # (AUTO) 1.1 10^3/uL (1.5-3.5); LYMPHOCYTES % (AUTO) 26.1 %; MEAN CORPUSCULAR HEMOGLOBIN 30.8 pg (27.0-31.0); MEAN CORPUSCULAR HGB CONC 33.8 g/dL (32.0-36.0); MEAN CORPUSCULAR VOLUME 91.3 fL (80.0-94.0); MEAN PLATELET VOLUME 10.7 fL (7.4-11.4); MONOCYTES # (AUTO) 0.5 10^3/uL (0.0-1.0); MONOCYTES % (AUTO) 13.2 %; NEUTROPHILS # (AUTO) 2.4 10^3/uL (1.5-6.6); NEUTROPHILS % (AUTO) 58.2 %; PLT - PLATELET COUNT 76 10^3/uL (130-450); RED BLOOD COUNT 4.93 10^6/uL (4.70-6.10); RED CELL DISTRIBUTION WIDTH 13.2 % (12.0-15.0)
[2019-10-17 06:37] LABS: ALBUMIN 3.3 g/dL (3.2-5.5); CALCIUM 8.7 mg/dL (8.5-10.3); CREATININE 0.8 mg/dL (0.6-1.2); TOTAL PROTEIN 6.5 g/dL (6.7-8.2)
[2019-10-17] MEDS: PRENATAL VITAMIN TABLET PO SCH (07:46)
[2019-10-17] MEDS: THIAMINE 100 MG TABLET PO SCH (07:46)
[2019-10-17] MEDS: carvediloL 12.5 MG TABLET PO SCH (07:46)
--- NOTE | 2019-10-17 09:00 | Discharge Plan ---
Discharge Plan Problem Reviewed?: Yes Disposition: Home, Self Care Condition: Stable Prescriptions: carvediloL [Carvedilol] 12.5 mg PO BID #30 tablet Pantoprazole [Protonix] 40 mg PO QDAC #30 tablet Vitamin [Trinatal Rx 1] 1 tab PO DAILYWM #30 tablet Thiamine [Vitamin B-1] 100 mg PO DAILY #30 tablet Diet: Regular Activity Restrictions: Activity as Tolerated Shower Restrictions: No Instruction Topics: Addiction Alcohol Health Concerns: You were admitted with hypothermia from exposure to the weather, and you had rhabdomyolysis which is muscle breakdown, related to sleeping/laying on the hard ground and alcohol intoxication, plus dehydration. You were rehydrated with iv fluids and are strongly advised to stop abusing alcohol. Your Carvedilol dose, for high blood pressure, is now 1/2 a pill a day. You are also prescribed Protonix for your stomach and daily multi-vitamin and daily Thiamine (to help your body for your past alcohol abuse). These prescriptions were sent electronically to your [place] pharmacy. Social workers gave you resources for helping with your alcohol abuse/addiction. Plan of Treatment: As above. Care Goals: Improvement in symptoms and stabilization are the goals. Assessment: The patient understood the written orders he was provided. No Smoking: If you smoke, Please STOP! Call for help.
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
[2019-10-17 12:19] VITALS: BP 129/83
== END 2019-10-17 12:20 | disposition home or self-care (01) | DRG 558 ==
LOC: EDUNIT# → ED 14:13 → MS2 17:10 → OBSVTOIN 10-15 15:02
PROVIDERS: ADMIT Nurse Practitioner Gerontology; ATTEND Internal Medicine
DX: M62.82 Rhabdomyolysis (principal); D61.818 Other pancytopenia; E87.1 Hypo-osmolality and hyponatremia; F10.239 Alcohol dependence with withdrawal, unspecified; F10.229 Alcohol dependence with intoxication, unspecified; K70.30 Alcoholic cirrhosis of liver without ascites; K70.10 Alcoholic hepatitis without ascites; Y90.8 Blood alcohol level of 240 mg/100 ml or more; E86.0 Dehydration; T68.XXXA Hypothermia, initial encounter; X31.XXXA Exposure to excessive natural cold, initial encounter; I10 Essential (primary) hypertension; R80.9 Proteinuria, unspecified; E87.6 Hypokalemia; I95.1 Orthostatic hypotension; Z59.0 Homelessness
CPT/HCPCS: 36415; 71045; 76705; 80053; 80074; 80306; 80320; 81001; 82009; 82140; 82550; 83690; 83735; 84439; 84443; 85025; 96361; 96372; 96374; 96376; 99284; 99285; A9270; G0378; J1650; J2060; J8499; 81003; 87086

== ENCOUNTER 2019-11-25 08:00 | Outpatient (CLI) | payer OTHER, MEDICAID ==
[2019-11-25 18:30] LABS: BASOPHILS % (AUTO) 0.3 %; EOSINOPHILS % (AUTO) 0.5 %; HGB - HEMOGLOBIN 12.8 g/dL (14.0-18.0); LYMPHOCYTES # (AUTO) 0.8 10^3/uL (1.5-3.5); MEAN CORPUSCULAR HEMOGLOBIN 32.7 pg (27.0-31.0); MEAN CORPUSCULAR HGB CONC 35.6 g/dL (32.0-36.0); MEAN CORPUSCULAR VOLUME 91.8 fL (80.0-94.0); MONOCYTES # (AUTO) 0.6 10^3/uL (0.0-1.0); MONOCYTES % (AUTO) 9.7 %; PLT - PLATELET COUNT 146 10^3/uL (130-450); RED BLOOD COUNT 3.92 10^6/uL (4.70-6.10); RED CELL DISTRIBUTION WIDTH 13.2 % (12.0-15.0); WHITE BLOOD COUNT 6.5 x10^3/uL (4.8-10.8)
[2019-11-25 18:32] LABS: ALBUMIN 3.1 g/dL (3.2-5.5); ALBUMIN/GLOBULIN RATIO 0.9 (1.0-2.2); BILIRUBIN,TOTAL 1.4 mg/dL (0.2-1.0); CALCIUM 8.5 mg/dL (8.5-10.3); CREATININE 0.9 mg/dL (0.6-1.2); TOTAL PROTEIN 6.4 g/dL (6.7-8.2)
== END 2019-11-25 23:59 | disposition home or self-care (01) ==
LOC: LAB.R 08:00
PROVIDERS: ATTEND Registered Nurse
DX: R17 Unspecified jaundice (principal)
CPT/HCPCS: 80053; 85025

== ENCOUNTER 2020-03-14 16:21 | Emergency (ER) | payer MEDICAID ==
[2020-03-14] MEDS ORDERED: cephALEXin 250 MG CAPSULE PO STA (17:40)
--- NOTE | 2020-03-14 17:42 | ED Physician Documentation ---
History of Present Illness - Stated complaint Stated Complaint: RT FOOT SWELLING - Chief complaint Chief Complaint: Ext Problem - History obtained from History obtained from: Patient - History of Present Illness Timing: Today - Additonal information Additional information: 54-year-old male has been working hard and wearing his steel toed boots straight for 3 days. Today he went on a run of about 4 miles and when he got back he noticed there was some pain in his foot he took off his shoe and noted his foot was swollen and red to the dorsal surface on the right side. Review of Systems Constitutional: denies: Fever, Chills Nose: denies: Congestion Throat: denies: Sore throat Cardiac: denies: Chest pain / pressure Respiratory: denies: Dyspnea, Cough GI: denies: Vomiting PD PAST MEDICAL HISTORY - Past Medical History Cardiovascular: Hypertension Respiratory: None Neuro: None Endocrine/Autoimmune: HyPERthyroidism GI: None : None HEENT: None Psych: Anxiety Musculoskeletal: None Derm: None - Present Medications Home Medications: Ambulatory Orders Medication Instructions Recorded Confirmed Pantoprazole [Protonix] 40 mg PO QDAC #30 tablet 10/17/19 Vitamin [Trinatal Rx 1] 1 tab PO DAILYWM #30 tablet 10/17/19 Thiamine [Vitamin B-1] 100 mg PO DAILY #30 tablet 10/17/19 carvediloL [Carvedilol] 12.5 mg PO BID #30 tablet 10/17/19 Cephalexin [Keflex] 500 mg PO QID #28 capsule 03/14/20 - Allergies Allergies/Adverse Reactions: Allergies Allergy/AdvReac Type Severity Reaction Status Date / Time No Known Drug Allergies Allergy Verified 10/13/19 14:30 - Social History Does the pt smoke?: No Smoking Status: Never smoker Does the pt drink ETOH?: Yes Does the pt have substance abuse?: No - Immunizations Immunizations are current?: Yes Immunizations: TDAP current <10years - POLST Patient has POLST: No POLST Status: Full Code PD ED PE NORMAL - Vitals Vital signs reviewed: Yes (normal ) - General General: Alert and oriented X 3, No acute distress, Well developed/nourished - HEENT HEENT: Atraumatic, PERRL, EOMI - Respiratory Respiratory: No respiratory distress - Derm Derm: Normal color, Warm and dry, No rash - Extremities Extremities: No deformity, Other (There is swelling and erythema over the dorsum of the right foot to approximately the midfoot. The erythema is blanching and the distal neurovascular components are intact. He does have blistering to the tips of the toes and onto the plantar surface of foot as well. The left foot is not affected ) - Neuro Neuro: Alert and oriented X 3, etiologist 2-12 intact, No motor deficit, No sensory deficit, Normal speech Eye Opening: Spontaneous Motor: Obeys Commands Verbal: Oriented GCS Score: 15 - Psych Psych: Normal mood, Normal affect Results - Vitals Vitals: Vital Signs - 24 hr 03/14/20 16:43 Temperature 37.2 C Heart Rate 80 Respiratory 18 Rate Blood Pressure 113/68 O2 Saturation 97 Oxygen O2 Source Room air PD MEDICAL DECISION MAKING - ED course Complexity details: reviewed old records, considered differential, d/w patient ED course: 54-year-old alcoholic male who took a 4 mile run in his steel toed boots appears to have cellulitis of the dorsum of the right foot. He states his feet of been in these shoes for 3 days. He is given Keflex and instructions on cellulitis. Departure - Departure Disposition: 01 Home, Self Care Clinical Impression: Cellulitis Qualifiers: Site of cellulitis: extremity Site of cellulitis of extremity: lower extremity Laterality: right Qualified Code(s): L03.115 - Cellulitis of right lower limb Condition: Stable Instructions: ED Infec Skin Cellulitis Follow-Up: [facility] [Provider Group] Prescriptions: Cephalexin [Keflex] 500 mg PO QID #28 capsule
[2020-03-14 17:54] VITALS: BP 128/73
== END 2020-03-14 18:05 | disposition home or self-care (01) ==
LOC: ED 16:21
DX: L03.115 Cellulitis of right lower limb (principal)
CPT/HCPCS: 99282; 99284; A9270

== ENCOUNTER 2021-06-01 07:09 | Emergency (ER) | payer MEDICAID ==
[2021-06-01] MEDS ORDERED: cephALEXin 250 MG CAPSULE PO STA (07:28)
[2021-06-01] MEDS ORDERED: ACETAMINOPHEN 325 MG TABLET PO STA (07:28)
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
[2021-06-01 07:39] VITALS: BP 160/88
== END 2021-06-01 07:42 | disposition home or self-care (01) ==
LOC: ED 07:09
DX: L03.115 Cellulitis of right lower limb (principal); I10 Essential (primary) hypertension
CPT/HCPCS: 99282; 99283; A9270

== ENCOUNTER 2021-07-01 09:13 | Outpatient (CLI) | payer MEDICAID | END 2021-07-01 09:14 | disposition critical access hospital (66) | LOC: EMS 09:13 | DX: L03.032 Cellulitis of left toe (principal) | CPT/HCPCS: A0425; A0429; A0999 ==

== ENCOUNTER 2021-07-01 09:33 | Emergency (ER) | payer MEDICAID ==
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
[2021-07-01] MEDS ORDERED: DOXYCYCLINE 100 MG TABLET PO STA (11:04)
[2021-07-01] MEDS ORDERED: NAPROXEN 250 MG TABLET PO STA (11:04)
[2021-07-01] MEDS ORDERED: MUPIROCIN 2% OINT 1 GM TOP STA (11:04)
[2021-07-01 11:20] LABS: BASOPHILS # (AUTO) 0.1 10^3/uL (0.0-0.1); BASOPHILS % (AUTO) 0.5 %; EOSINOPHILS % (AUTO) 0.2 %; HCT - HEMATOCRIT 35.6 % (42.0-52.0); HGB - HEMOGLOBIN 11.9 g/dL (14.0-18.0); LYMPHOCYTES # (AUTO) 1.2 10^3/uL (1.5-3.5); LYMPHOCYTES % (AUTO) 9.6 %; MEAN CORPUSCULAR HEMOGLOBIN 30.2 pg (27.0-31.0); MEAN CORPUSCULAR HGB CONC 33.4 g/dL (32.0-36.0); MEAN CORPUSCULAR VOLUME 90.4 fL (80.0-94.0); MEAN PLATELET VOLUME 9.4 fL (7.4-11.4); MONOCYTES # (AUTO) 1.4 10^3/uL (0.0-1.0); MONOCYTES % (AUTO) 11.8 %; NEUTROPHILS # (AUTO) 9.1 10^3/uL (1.5-6.6); NEUTROPHILS % (AUTO) 75.6 %; NRBC ABSOLUTE COUNT (AUTO) 0.02 x10^3/uL; NUCLEATED RED BLOOD CELLS AUTO 0.2 /100WBC; PLT - PLATELET COUNT 167 10^3/uL (130-450); RED BLOOD COUNT 3.94 10^6/uL (4.70-6.10); RED CELL DISTRIBUTION WIDTH 19.8 % (12.0-15.0)
[2021-07-01 11:33] LABS: CALCIUM 8.7 mg/dL (8.5-10.3); CREATININE 0.9 mg/dL (0.6-1.2); POTASSIUM 4.2 mmol/L (3.5-5.0)
--- NOTE | 2021-07-01 12:05 | XRAY Report ---
PROCEDURE: Toe(s) LT INDICATIONS: great toe with black/swelling TECHNIQUE: 3 views of the left first toe(s) acquired. COMPARISON: None FINDINGS: Bones: No fractures or dislocations. No suspicious bony lesions. Mild joint space narrowing and pe riarticular osteophyte formation at the interphalangeal joints of the digits. Soft tissues: No suspicious soft tissue densities. IMPRESSION: No acute fracture. No osseous lesion. If symptoms and/or clinical suspicion for pathology continue, f urther assessment with repeat plain films, or advanced imaging (e.g., CT, MRI, or bone scan) is recom mended for further assessment. Reviewed by: Juliana Lassiter MD on 07/01/2021 11:04 AM [place] Approved by: Juliana Lassiter MD on 07/01/2021 11:04 AM [facility] Station ID: [id number]
[2021-07-01 13:05] VITALS: BP 119/58
--- NOTE | 2021-07-01 13:23 | Ultrasound Report ---
PROCEDURE: Duplex Lwr Ext Arterial Bilat INDICATIONS: toes/feet skin lesions/necrotic areas TECHNIQUE: Color and pulse Doppler interrogation was performed of both lower extremity arterial systems, with im age documentation. COMPARISON: None FINDINGS: Right lower extremity: Common femoral artery: 124 cm/sec, with triphasic flow. Deep femoral artery: 83 cm/sec, with biphasic flow. Proximal superficial femoral artery: 123 cm/sec, with triphasic flow. Mid superficial femoral artery: 106 cm/sec, with triphasic flow. Distal superficial femoral artery: 109 cm/sec, with triphasic flow. Popliteal artery: 98 cm/sec, with triphasic flow. Posterior tibial artery: 160 cm/sec, with triphasic flow. Anterior tibial artery/dorsalis pedis: 110 cm/sec, with triphasic and monophasic flow. Parrish-scale imaging description: Mild diffuse plaque Left lower extremity: Common femoral artery: 120 cm/sec, with triphasic flow. Deep femoral artery: 80 cm/sec, with triphasic flow. Proximal superficial femoral artery: 103 cm/sec, with triphasic flow. Mid superficial femoral artery: 106 cm/sec, with triphasic flow. Distal superficial femoral artery: 118 cm/sec, with triphasic flow. Popliteal artery: 108 cm/sec, with triphasic flow. Posterior tibial artery: 125 cm/sec, with triphasic and monophasic flow. Anterior tibial artery/dorsalis pedis: 80, 176 cm/sec, with triphasic and monophasic flow. Parrish-scale imaging description: Mild diffuse plaque IMPRESSION: 1. No acute process. No evidence of thrombosis. 2. No significant outflow stenosis bilaterally. 3. Findings suggestive of hemodynamic significant bilateral runoff vessel stenoses. Nonemergent outpa tient follow-up MR angiography runoff evaluation is recommended for further assessment. Reviewed by: Juliana Lassiter MD on 07/01/2021 12:22 PM [facility] Approved by: Juliana Lassiter MD on 07/01/2021 12:22 PM [facility] Station ID: [id number]
== END 2021-07-01 13:59 | disposition home or self-care (01) ==
LOC: EDUNIT# → ED 09:33
DX: T33.832A Superficial frostbite of left toe(s), initial encounter (principal); T33.831A Superficial frostbite of right toe(s), initial encounter; T33.822A Superficial frostbite of left foot, initial encounter; T33.821A Superficial frostbite of right foot, initial encounter; T69.1XXA Chilblains, initial encounter; X31.XXXA Exposure to excessive natural cold, initial encounter; Y93.89 Activity, other specified; Y92.810 Car as the place of occurrence of the external cause; L03.116 Cellulitis of left lower limb; Z59.02 Unsheltered homelessness
CPT/HCPCS: 36415; 73660; 80048; 85025; 85651; 93925; 99284; A9270

== ENCOUNTER 2021-07-12 08:05 | Emergency (ER) | payer MEDICAID ==
--- NOTE | 2021-07-12 09:17 | ED Physician Documentation ---
PD HPI WOUND RECHECK - Stated complaint Stated Complaint: L FT CUT - Chief complaint Chief Complaint: Ext Problem - Histroy obtained from History obtained from: Patient - History of Present Illness Location: Right Foot Timing - onset: Yesterday Associated symptoms: Redness, Swelling, Drainage Similar symptoms before: Diagnosis (frostbite with gangreen) Recently seen: Emergency Dept, Surgery - Additional information Additional information: 55-year-old male who developed frostbite 10 days ago has been seen in the emerge department yesterday and had a portion of the tip of his left great toe removed by Dr. Berman here in the emergency department. The patient is attempting to get into wound care at the [facility] and the referral has not gone through yet. He was instructed to come to the emergency department for dressing change should this occur. He shows up here this morning without specific new complaints. He states that he feels his foot is doing well. Yesterday he had debridement and rongeur of the tip of the left great toe with exposed bone of the distal phalange. He has deep ulceration on the dorsum of the left great toe as well as the lateral aspect of the left foot over the fifth digit. Review of Systems Constitutional: denies: Fever Respiratory: denies: Cough GI: denies: Vomiting Neurologic: denies: Generalized weakness, Focal weakness PD PAST MEDICAL HISTORY - Past Medical History Cardiovascular: Hypertension Respiratory: None Neuro: None Endocrine/Autoimmune: HyPERthyroidism GI: None : None HEENT: None Psych: Anxiety Musculoskeletal: None Derm: Other - Present Medications Home Medications: Ambulatory Orders Medication Instructions Recorded Confirmed Pantoprazole [Protonix] 40 mg PO QDAC #30 tablet 10/17/19 Vitamin [Trinatal Rx 1] 1 tab PO DAILYWM #30 tablet 10/17/19 Thiamine [Vitamin B-1] 100 mg PO DAILY #30 tablet 10/17/19 carvediloL [Carvedilol] 12.5 mg PO BID #30 tablet 10/17/19 cephALEXin [Keflex] 500 mg PO QID #28 capsule 03/14/20 cephALEXin [Keflex] 500 mg PO Q6H #28 cap 06/01/21 Mupirocin 2% Oint [Bactroban 2% 1 applic TOP TID #15 gm 07/01/21 Oint] Naproxen 500 mg PO BID #20 tab 07/01/21 Sulfamethox/Trimeth 800/160 1 each PO BID #14 tablet 07/01/21 [Bactrim Ds 800/160] Amox/Clav 875/125 [Augmentin] 1 each PO Q12H #20 tablet 07/11/21 Silver Sulfadiazine [Silvadene] 1 gm TP DAILY #1000 gm 07/12/21 - Allergies Allergies/Adverse Reactions: Allergies Allergy/AdvReac Type Severity Reaction Status Date / Time No Known Drug Allergies Allergy Verified 07/12/21 08:22 - Social History Does the pt smoke?: No Smoking Status: Never smoker Does the pt drink ETOH?: Yes Does the pt have substance abuse?: No - Immunizations Immunizations are current?: Yes Immunizations: TDAP current <10years - POLST Patient has POLST: No POLST Status: Full Code PD ED PE NORMAL - Vitals Vital signs reviewed: Yes (hypertensive ) - General General: Alert and oriented X 3, No acute distress, Well developed/nourished - HEENT HEENT: Atraumatic, PERRL, EOMI - Respiratory Respiratory: No respiratory distress - Derm Derm: Normal color, Warm and dry, No rash - Extremities Extremities: Other (Examination of the left great toe shows a deep ulceration over the dorsum of the interphalangeal joint with some exudate to that portion there is some minimal erythema. There is no erythema to the dorsum of the rest of the foot. There is deformity to the nail bed and the tip of the left great toe.) - Neuro Neuro: Alert and oriented X 3, groover operator 2-12 intact, No motor deficit, No sensory deficit, Normal speech Eye Opening: Spontaneous Motor: Obeys Commands Verbal: Oriented GCS Score: 15 - Psych Psych: Normal mood, Normal affect - Free text exam Free text exam: There is also ulceration to the lateral aspect of the left foot over the distal fifth metatarsal and phalanges. Results - Vitals Vitals: Vital Signs - 24 hr 07/12/21 08:15 Temperature 36.6 C Heart Rate 81 Respiratory 17 Rate Blood Pressure 163/83 H O2 Saturation 99 Oxygen O2 Source Room air PD MEDICAL DECISION MAKING - ED course Complexity details: considered differential, d/w patient ED course: 55-year-old male with frostbite injury to his left great toe has undergone partial amputation of the distal phalanx and he is here today for wound care. We were unable to obtain Epson salts here in the emergency department and we have soaked the patient's foot in Hibiclens and will apply Silvadene and a dressing. The patient has requested Silvadene for application of dressing at home. Departure - Departure Disposition: 01 Home, Self Care Clinical Impression: Gangrene of toe of left foot Instructions: ED Burn Thermal D 07 22 Dressing Follow-Up: Varun Berman MD [Provider Admit Priv/Credential] - Prescriptions: Silver Sulfadiazine [Silvadene] 1 gm TP DAILY #1000 gm Comments: Ian your wound looks like it is healing appropriately. Follow-up with the wound care clinic as planned. To do dressings at your home follow instructions as above first cleaning the wound and then using the Silvadene cream as the dressing for the wound followed by a nonstick dressing the Javad wrap and the boot. If you have increased redness, pain and drainage return to the emergency department for reevaluation.
[2021-07-12] MEDS ORDERED: SILVER SULFADIAZINE CREAM 25 GM TUBE TOP STA (09:37)
[2021-07-12 10:17] VITALS: BP 152/80
== END 2021-07-12 10:18 | disposition home or self-care (01) ==
LOC: ED 08:05
DX: T34.832 Frostbite with tissue necrosis of left toe(s) (principal); X58.XXXD Exposure to other specified factors, subsequent encounter; I96 Gangrene, not elsewhere classified
CPT/HCPCS: 99282; 99283; A9270

== ENCOUNTER 2021-07-17 08:00 | Outpatient (CLI) | payer MEDICAID ==
--- NOTE | 2021-07-17 09:48 | XRAY Report ---
PROCEDURE: Foot 3 View LT INDICATIONS: L FOOT ULCER TECHNIQUE: 3 views of the foot were acquired. COMPARISON: July 11, 2021 FINDINGS: BONES: Destruction of the first distal phalanx, compatible with acute osteomyelitis. The remaining vi sualized osseous structures appear maintained. SOFT TISSUES: Deficiency of the soft tissues overlying the first distal talus, compatible with ulcer. IMPRESSION: 1.Osteomyelitis of the first distal phalanx. Reviewed by: Geovani Mitchell MD on 07/17/2021 9:47 AM [facility] Approved by: Geovani Mitchell MD on 07/17/2021 9:47 AM [facility] Station ID: [id number]
== END 2021-07-17 23:59 ==
LOC: DI.N 08:00
PROVIDERS: ATTEND Physician Assistant
DX: M86.9 Osteomyelitis, unspecified (principal); L97.529 Non-pressure chronic ulcer of other part of left foot with unspecified severity

== ENCOUNTER 2021-08-12 23:38 | Outpatient (CLI) | payer MEDICAID | END 2021-08-12 23:39 | disposition critical access hospital (66) | LOC: EMS 23:38 | DX: S99.922A Unspecified injury of left foot, initial encounter (principal); X58.XXXA Exposure to other specified factors, initial encounter | CPT/HCPCS: A0425; A0429 ==

== ENCOUNTER 2021-08-12 23:53 | Emergency (ER) | payer MEDICAID ==
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
[2021-08-13 00:44] LABS: BASOPHILS # (AUTO) 0.1 10^3/uL (0.0-0.1); BASOPHILS % (AUTO) 0.4 %; HCT - HEMATOCRIT 47.5 % (42.0-52.0); HGB - HEMOGLOBIN 16.1 g/dL (14.0-18.0); LYMPHOCYTES # (AUTO) 1.4 10^3/uL (1.5-3.5); LYMPHOCYTES % (AUTO) 9.8 %; MEAN CORPUSCULAR HEMOGLOBIN 29.1 pg (27.0-31.0); MEAN CORPUSCULAR HGB CONC 33.9 g/dL (32.0-36.0); MEAN CORPUSCULAR VOLUME 85.9 fL (80.0-94.0); MEAN PLATELET VOLUME 8.8 fL (7.4-11.4); MONOCYTES # (AUTO) 1.2 10^3/uL (0.0-1.0); MONOCYTES % (AUTO) 8.8 %; NEUTROPHILS # (AUTO) 11.2 10^3/uL (1.5-6.6); NEUTROPHILS % (AUTO) 80.6 %; PLT - PLATELET COUNT 416 10^3/uL (130-450); RED BLOOD COUNT 5.53 10^6/uL (4.70-6.10); WHITE BLOOD COUNT 13.9 x10^3/uL (4.8-10.8)
--- NOTE | 2021-08-13 00:55 | XRAY Report ---
PROCEDURE: Foot 3 View LT INDICATIONS: worse foot infection TECHNIQUE: 3 views of the foot were acquired. COMPARISON: 07/17/2021 FINDINGS: New worsened soft tissue swelling in the left first digit. New worsened destructive osteolytic change s of the left first distal phalanx and the distal aspect of the proximal phalanx. IMPRESSION: Worsened soft tissue swelling in the left first digit with new and worsening destructive osteolytic c hanges in the left first proximal and distal phalanges. Findings are worrisome for new/worsening oste omyelitis. Reviewed by: Dominic Begum MD on 08/13/2021 12:54 AM PST Approved by: Dominic Begum MD on 08/13/2021 12:54 AM PST Station ID: [id number]
[2021-08-13 01:02] LABS: CALCIUM 7.7 mg/dL (8.5-10.3); CREATININE 0.7 mg/dL (0.6-1.2); CRP - C-REACTIVE PROTEIN 17.7 mg/dL (0-1.0); POTASSIUM 4.6 mmol/L (3.5-5.0)
[2021-08-13] MEDS ORDERED: AMOX/CLAV 875 MG/125 MG TABLET PO STA (01:07)
[2021-08-13] MEDS ORDERED: BACITRACIN ZINC OINT 1 PACKET TOP STA (02:18)
[2021-08-13] MEDS ORDERED: BACITRACIN ZINC OINT 1 PACKET TOP ONE (02:28)
[2021-08-13 09:05] VITALS: BP 149/77
--- NOTE | 2021-08-13 09:53 | ED Physician Documentation ---
ED Addendum - Addendum Addendum: 08/13/21 09:50The patient spoke with Sandra our manager social. He was not interested in detox at this time. He was given information for it to. He had been prescribed antibiotics for his foot by Dr. Rao. Sandra was able to contact his insurance carrier/coordinator and get it changed from [employer] to another insurance that would allow him to see local providers. She also contacted his counselor at [facility] to get another appointment sooner as he had missed his appointment last week. The patient was wanting to be discharged from the ER in order to get the bus. He left without any problems. He was able to ambulate. Disposition: The patient is discharged stable from the ER to home. Dispo diagnoses: 1. Foot wound with infection 2. Foot pain 3. Poor social determinants of health 4. Homelessness 5. Alcohol use.
== END 2021-08-13 09:51 | disposition home or self-care (01) ==
LOC: EDUNIT# → ED 23:53
DX: M86.172 Other acute osteomyelitis, left ankle and foot (principal); F10.129 Alcohol abuse with intoxication, unspecified; Y90.9 Presence of alcohol in blood, level not specified; Z59.01 Sheltered homelessness
CPT/HCPCS: 36415; 73630; 80048; 85025; 85651; 86140; 87070; 87077; 87205; 99283; 99284; A9270

== ENCOUNTER 2021-08-15 12:45 | Outpatient (CLI) | payer MEDICAID | END 2021-08-15 12:46 | disposition critical access hospital (66) | LOC: EMS 12:45 | DX: T69.022A Immersion foot, left foot, initial encounter (principal); M79.675 Pain in left toe(s); R00.0 Tachycardia, unspecified; X31.XXXA Exposure to excessive natural cold, initial encounter | CPT/HCPCS: A0425; A0427; A0999 ==

== ENCOUNTER 2021-08-15 13:03 | Inpatient (IN) | payer MEDICAID ==
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
[2021-08-15 13:28] LABS: BASOPHILS % (AUTO) 0.3 %; EOSINOPHILS % (AUTO) 0.1 %; HCT - HEMATOCRIT 43.6 % (42.0-52.0); HGB - HEMOGLOBIN 15.1 g/dL (14.0-18.0); LYMPHOCYTES # (AUTO) 0.7 10^3/uL (1.5-3.5); MEAN CORPUSCULAR HEMOGLOBIN 29.3 pg (27.0-31.0); MEAN CORPUSCULAR HGB CONC 34.6 g/dL (32.0-36.0); MEAN CORPUSCULAR VOLUME 84.5 fL (80.0-94.0); MEAN PLATELET VOLUME 8.5 fL (7.4-11.4); MONOCYTES # (AUTO) 0.4 10^3/uL (0.0-1.0); MONOCYTES % (AUTO) 3.5 %; NEUTROPHILS # (AUTO) 10.6 10^3/uL (1.5-6.6); NEUTROPHILS % (AUTO) 89.7 %; PLT - PLATELET COUNT 345 10^3/uL (130-450); RED BLOOD COUNT 5.16 10^6/uL (4.70-6.10); RED CELL DISTRIBUTION WIDTH 17.4 % (12.0-15.0); WHITE BLOOD COUNT 11.8 x10^3/uL (4.8-10.8)
[2021-08-15 13:54] LABS: ALBUMIN 2.6 g/dL (3.2-5.5); ALBUMIN/GLOBULIN RATIO 0.5 (1.0-2.2); BILIRUBIN,TOTAL 0.4 mg/dL (0.2-1.0); CALCIUM 7.5 mg/dL (8.5-10.3); CREATININE 0.9 mg/dL (0.6-1.2); CRP - C-REACTIVE PROTEIN 8.5 mg/dL (0-1.0); POTASSIUM 4.1 mmol/L (3.5-5.0)
--- NOTE | 2021-08-15 14:00 | XRAY Report ---
PROCEDURE: Foot 3 View BILAT INDICATIONS: B foot wounds, osteo? TECHNIQUE: 6 views of the foot were acquired. COMPARISON: Left foot radiograph dated 08/12/2021 and 07/17/2021 FINDINGS: Bones: There is suggestion of prior amputation of great toe at the level of first distal phalangeal b ase. Extensive erosive changes at first distal phalangeal stump is seen. Erosion also noted involving plantar aspect of left first proximal phalangeal head. Osteoarthritic changes are seen in bilateral forefoot joints. No gross bony erosive changes are noted in right foot. No acute fracture or dislocat ion. Well-defined bilateral plantar calcaneal enthesophyte is seen No suspicious bony lesions. Soft tissues: Large ulceration surrounding distal portion of left great toe with marked soft tissue swelling is again seen. No gross soft tissue abnormality is seen in right foot. No tibiotalar joint e ffusion. Achilles tendon appears normal. IMPRESSION: 1. Finding is suggestive of osteomyelitis involving left first distal phalangeal stump and left first proximal phalangeal head with extensive bony erosive changes. Marked overlying soft tissue swelling and ulceration in left great toe. 2. No evidence of osteomyelitis is seen in right foot. Reviewed by: Americo Clark MD on 08/15/2021 1:58 PM PST Approved by: Americo Clark MD on 08/15/2021 1:58 PM PST Station ID: [id number]
[2021-08-15] MEDS ORDERED: ONDANSETRON 4 MG/2 ML VIAL IVP STA (14:03)
[2021-08-15] MEDS ORDERED: VANCOMYCIN INJ 2 GM in SODIUM CHLORIDE 0.9% 500 ML IV STA (15:00)
[2021-08-15] MEDS ORDERED: PIPERACILLIN/TAZOBACTAM 3.375 GM in SODIUM CHLORIDE 0.9% MINIBAG 100 ML IV STA ×2 (15:00→17:18)
[2021-08-15] MEDS ORDERED: LORazepam 2 MG/ML VIAL IVP STA (15:03)
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
--- NOTE | 2021-08-15 15:41 | CONSULTATION NOTE ---
Referring Provider Name of Referring Provider:: Mino Consult Date: 08/15/21 Chief Complaint - Chief Complaint Chief Complaint: Osteomyelitis left great toe History of Present Illness - Admitted From Admitted From:: ED - History Obtained From Records Reviewed: Yes History obtained from: Pt - History of Present Illness HPI Comment/Other: Patient is a 55-year-old man with a history of alcohol abuse and Frostbite to first his left foot and more recently his right foot, lower leg Cellulitis and neuropathy, persistent infection to his left great toe presenting For left great toe swelling and pain. Patient admits to being on a recent alcoholic binge and slept outside overnight where he gets wet and suffers repeated frostbite. 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 Most recently he failed to show for a 08/07/2021 appointment. Today is his second appearance at the emergency room for this complaint in the last 3 days however today he also presents with apparent frostbite to his right foot with an ulcer on the dorsal surface of his right pinky. Patient complains of swelling pain, Fevers and chills along the drainage and open wound most nota desire in his left great toe and left foot. His right foot is purplish and discolored with the above-mentioned open wound on his right pinky toe. Patient is currently hesitant to agree to hospital admittance for IV antibiotics And probable left toe amputation. Patient will also need delirium tremens prophylaxis. History - Past Medical History Cardiovascular: reports: Hypertension Respiratory: reports: None Neuro: reports: None, Peripheral neuropathy (Bilateral lower legs) Endocrine/Autoimmune: reports: HyPERthyroidism GI: reports: None : reports: None HEENT: reports: None Psych: reports: Anxiety Musculoskeletal: reports: None Derm: reports: Other (Frostbite bilateral feet cellulitis bilateral legs) MRSA Hx?: No Other Past Medical History: EtOH including binge drinking and homelessness - Family & Social History Family History: Mother: Alive and Well, Father: , [place] Family History Comment/Other: pt report his father at age 80, he did not know much about his mother. he had one son living at [facility]. Living Situation: Unknown (Patient has been some nights homeless sleeping out in the [place] over the past few months went on a drinking binge) Social History Notes: He binge drinks for a number of day, then goes for a 6 month period without drinking. He deies tobacco or illicit drug use - Substance History Abuse: Recurrent use of substance despite neg consequences: Alcohol Abuse Issues: Intoxication Dependence: Experiences withdrawal or developed tolerances: Alcohol - POLST Patient has POLST: No POLST Status: Full Code Meds/Allgy - Home Medications Home Medications: Ambulatory Orders Medication Instructions Recorded Confirmed Pantoprazole [Protonix] 40 mg PO QDAC #30 tablet 10/17/19 Vitamin [Trinatal Rx 1] 1 tab PO DAILYWM #30 tablet 10/17/19 Thiamine [Vitamin B-1] 100 mg PO DAILY #30 tablet 10/17/19 carvediloL [Carvedilol] 12.5 mg PO BID #30 tablet 10/17/19 cephALEXin [Keflex] 500 mg PO QID #28 capsule 03/14/20 cephALEXin [Keflex] 500 mg PO Q6H #28 cap 06/01/21 Mupirocin 2% Oint [Bactroban 2% 1 applic TOP TID #15 gm 07/01/21 Oint] Naproxen 500 mg PO BID #20 tab 07/01/21 Sulfamethox/Trimeth 800/160 1 each PO BID #14 tablet 07/01/21 [Bactrim Ds 800/160] Amox/Clav 875/125 [Augmentin] 1 each PO Q12H #20 tablet 07/11/21 Silver Sulfadiazine [Silvadene] 1 gm TP DAILY #1000 gm 07/12/21 Amox/Clav 875/125 [Augmentin] 1 each PO Q12H #20 tablet 08/13/21 - Allergies Allergies/Adverse Reactions: Allergies Allergy/AdvReac Type Severity Reaction Status Date / Time No Known Drug Allergies Allergy Verified 08/15/21 13:10 Review of Systems - Constitutional Constitutional: reports: Fever, Chills - Musculoskeletal Musculoskeletal: reports: Joint swelling, Other (Swelling infection open ulcers on bilateral feet with drainage, puslike drainage) Exam - Vital Signs Vital Signs: Vital Signs x48h Temp Pulse Resp BP Pulse Ox 08/15/21 13:10 36.7 C 100 16 148/82 H 96 - Physical Exam General Appearance: positive: Moderate distress Respiratory: positive: No respiratory distress Peripheral Pulses: positive: 1+ Extremities: positive: Other (Swelling infection open ulcers on bilateral feet with drainage, puslike drainage. Erythema and discolorization to right foot. Purple skin black eschar to right foot with an open Sore over the dorsal surface of right pinky toe Left to left foot pedal pulse +1 right pedal pulse 0) Conclusion and Plan - Lab Results Laboratory Results 08/15/21 15:15: Lactic Acid 1.5 08/15/21 13:23: Sodium 139, Potassium 4.1, Chloride 96 L, Carbon Dioxide 28, Anion Gap 15.0 H, BUN 15, Creatinine 0.9, Estimated GFR (MDRD) 88 L, Glucose 142 H, Calcium 7.5 L, Total Bilirubin 0.4, AST 118 H, ALT 66 H, Alkaline Phosphatase 55, C-Reactive Protein 8.5 H, Total Protein 8.0, Albumin 2.6 L, Globulin 5.4 H, Albumin/Globulin Ratio 0.5 L 08/15/21 13:23: ESR 60 H 08/15/21 13:23: WBC 11.8 H, RBC 5.16, Hgb 15.1, Hct 43.6, MCV 84.5, MCH 29.3, MCHC 34.6, RDW 17.4 H, Plt Count 345, MPV 8.5, Neut # (Auto) 10.6 H, Lymph # (Auto) 0.7 L, [place] # (Auto) 0.4, Eos # (Auto) 0.0, Baso # (Auto) 0.0, Absolute Nucleated RBC 0.00, Nucleated RBC % 0.0 - Diagnostic Imaging Results Diagnostic Imaging Results: positive: Read independently (X-rays of his bilateral feet were independently visualized by myself on today 08/15/2021 that show destruction of the distal phalanx left great toe indicative of active ostial myelitis with erosive changes seen from previous x-rays where phalange was rongeured back.) - Diagnosis Diagnosis: Osteomyelitis left toe with possible ray extension. - Consultation Note Consultation Note: Patient was urged to agree to hospital admission to receive IV antibiotics and plan for left great toe amputation. Patient unsure of his desire to admit for treatment.See plan for further details - Plan Plan: Plan 1) Medical Evaluation and stabilization to include EtOH/DT management, Nutrition, Bilateral lower leg cellulitis, social work consult 2) Broad-spectrum IV antibiotic treatment 3) Highly probable amputation of left great toe and partial metatarsal ray. Possibility of a greater amputation. Patient may need a two-stage amputation on his left great toe and foot.
[2021-08-15] MEDS ORDERED: SILVER SULFADIAZINE CREAM 25 GM TUBE TOP STA (15:46)
[2021-08-15] MEDS ORDERED: VANCOMYCIN 1 GM VIAL ONE (15:46)
[2021-08-15 16:39] LABS: CORONAVIRUS 229E-RESP PCR NOT DETECTED; CORONAVIRUS HKU1-RESP PCR NOT DETECTED; CORONAVIRUS NL63-RESP PCR NOT DETECTED; CORONAVIRUS OC43-RESP PCR NOT DETECTED; HUMAN METAPNEUMOVIRUS NOT DETECTED; RHINOVIRUS/ENTEROVIRUS NOT DETECTED
[2021-08-15 16:40] LABS: B. PARAPERTUSSIS- RESP PCR PAN NOT DETECTED; B. PERTUSSIS- RESP PCR PANEL NOT DETECTED; C. PNEUMONIAE- RESP PCR PANEL NOT DETECTED; INFLUENZA A- RESP PCR PANEL NOT DETECTED; INFLUENZA B - RESP PCR PANEL NOT DETECTED; M. PNEUMONIAE- RESP PCR PANEL NOT DETECTED; PARAINFLUENZA VIRUS 1 NOT DETECTED; PARAINFLUENZA VIRUS 2 NOT DETECTED; PARAINFLUENZA VIRUS 3 NOT DETECTED; PARAINFLUENZA VIRUS 4 NOT DETECTED; RSV- RESP PCR PANEL NOT DETECTED; SARS-CoV-2 -RESP PCR PANEL DETECTED
[2021-08-15] MEDS ORDERED: ONDANSETRON 4 MG/2 ML VIAL IVP PRN (17:07)
--- NOTE | 2021-08-15 17:11 | HISTORY & PHYSICAL EXAMINATION ---
Chief Complaint - Chief Complaint Chief Complaint: Foot pain and discoloration History of Present Illness - Admitted From Admitted From:: ED - History Obtained From History obtained from: Patient and chart Exam Limitations: Patient is a poor historian - History of Present Illness HPI Comment/Other: 55 year old male with history of alcohol abuse, HTN, and hyperthyroidism. He presents to the hospital today after wellness check by law enforcement for bilateral foot pain and increased swelling. He was recently seen in the ED on 08/12/2021 for worsening osteomyelitis of left great toe. At that time he was prescribed Augmentin 875/125mp PO twice daily which he was non-compliant with. According to GABINO Fitch's 08/15/2021 note, patient was being managed by orthopedic clinic for cellulites and smoldering osteomyelitis over the past month before he stopped attending appointments. X-ray of the left foot today suggests " osteomyelitis involving left first digital phalangeal stump and left first proximal phalangeal lead with extensive bony erosive changes. Marked overlaying soft tissuee swelling and ulceration in left great toe". He has a history of alcohol abuse and reports being on a binge for 5 days consuming 750mls of Whiskey daily. He is also homeless and reports alternating sleeping at a alf or outside in the elements. Alcohol level today is 314 and CK is 3825. He has a history of hyperthyroidism and reports that was given a prescription for Carvedilol 25mg twice daily but has not been compliant and was unsure of the last time he took it. Admission COVID PCR was positive. He denies dyspnea, cough, fever, chills, n/v/d, or known positive contact. He received first COVID vaccine on 07/25/2021. History - Past Medical History Cardiovascular: reports: Hypertension Respiratory: reports: None Neuro: reports: None, Peripheral neuropathy (Bilateral lower legs) Endocrine/Autoimmune: reports: HyPERthyroidism GI: reports: None : reports: None (hematuria when drinking alcohol), Other HEENT: reports: None Psych: reports: Anxiety, Other (Alcohol abuse) Musculoskeletal: reports: Other (left great toe joint swelling. ) Derm: reports: Other (Frostbite bilateral feet, cellulitis bilateral legs, bilateral foot ulcers with purulent drainage) MRSA Hx?: No Other Past Medical History: ETOH including binge drinking and homelessness - Family & Social History Family History: Mother: Alive and Well, Father: , [place], Sister: Alive and Well Family History Comment/Other: Pt. reports that his father at age 80 and he does not know much about his mother. He has one son living in [place]. Living arrangement: Homeless Living Situation: Unknown (Patient is homeless and alternates nights in a alf or sleeping out in the [place] over the past few months.) Social History Notes: He binge drinks for a number of day, then goes for a 3 month period without drinking. He deies tobacco or illicit drug use - Substance History Use: Uses substance without health or social issues: Alcohol (Reports drinking 750ml of whiskey a day during a binge) Use Issues: Intoxication Abuse: Recurrent use of substance despite neg consequences: Alcohol Abuse Issues: Intoxication Dependence: Experiences withdrawal or developed tolerances: Alcohol - POLST Patient has POLST: No POLST Status: Full Code Meds/Allgy - Home Medications Home Medications: Ambulatory Orders Medication Instructions Recorded Confirmed No Known Home Medications 08/16/21 08/16/21 - Allergies Allergies/Adverse Reactions: Allergies Allergy/AdvReac Type Severity Reaction Status Date / Time No Known Drug Allergies Allergy Verified 08/15/21 13:10 Review of Systems - Eyes Eyes: reports: Corrective lenses (Glassess for reading) - Genitourinary Genitourinary: reports: Hematuria (Reports pink urine when consuming alcohol) - Musculoskeletal Musculoskeletal: reports: Joint swelling (Joint swelling to left great toe.) - Integumentary Integumentary: reports: Other (Mottling to right toes for 1 year and left great toe swelling for 3 weeks. Open ulcers to bilateral feet with purulent drainage.) - Neurological Neurological: reports: Numbness (Neuropathy to bilateral lower extremities) - Endocrine Endocrine: reports: Other (Hypertyroidism) - All Other Systems All Other Systems: reports: Reviewed and negative Prior Level of Functionality: Patient reports ambulating without assistive devices. Exam - Vital Signs Reviewed Vital Signs: Yes Vital Signs: Vital Signs x48h Temp Pulse Resp BP Pulse Ox 08/15/21 15:12 37.2 C 103 H 16 163/67 H 100 08/15/21 13:10 36.7 C 100 16 148/82 H 96 - Physical Exam General Appearance: positive: No acute distress, Lethargic, Other (Slightly intoxicated with slow speech and drowsiness. Disheveled with greasy sheen on face.) Eyes Bilateral: positive: PERRL, EOMI, Other (bilateral conjunctivitis and exophthalmos) ENT: positive: ENT inspection nml Neck: positive: Nml inspection, No JVD, Trachea midline Respiratory: positive: Chest non-tender, No respiratory distress, Breath sounds nml Cardiovascular: positive: Regular rate & rhythm, No murmur Peripheral Pulses: positive: 2+ Abdomen: positive: Non-tender, No organomegaly, Nml bowel sounds, No distention Skin: positive: Other (Right toes are mottled and extend to dorsal lateral aspect of foot. Open dry necrotic ulcer to right pinky toe. Left great toe edema with open draining ulcers.) Extremities: positive: Non-tender, Full ROM, Pedal edema Neurologic/Psychiatric: positive: Oriented x3 (Oriented to self, location, time, and sitution.), Motor nml, Other (Decreased sensation to bilateral lower extremity.) Conclusion/Plan - Problem List (1) Osteomyelitis Conclusion/Plan: According to past medical records, patient was being followed by orthopedic clinic for cellulitis and smoldering osteomyelitis of left great toe for over a month before he stopped attending appointments. GABINO Fitch report of 08/15/2021 x-ray "show destruction of the distal phalanx left great toe indicative of active osteomyelitis with erosive changes seen from previous x-rays where phalange was rongeured back". Plan: Continue with Vancomycin IVPB, pharmacy to dose. Continue with Zosyn 3.375 IVPB every 6 hours. Work with Ortho to coordinate surgery time. Qualifiers: Osteomyelitis type: unspecified type Laterality: left (2) Gangrene Conclusion/Plan: Patient is homeless and alternates sleeping at alf or outside in the elements. According to medical records, he was last seen for frostbite 07/01/2021 when his left great toe had sloughed skin and the nail fell off. On 07/12/2022 he was seen again in ED with an dorsum ulceration on the left great toe which was debrided by Dr. Berman at the bedside. He was managed by ortho until be failed to attend appointments. His last ED visit was on 08/12/2021 when had a replace in drinking and found to have "heaping granulation tissue" to the left great toe with "foul drainage". He was given an order for Augmentin, which he was non-compliant in taking. Today law enforcement did a welfare check to follow up on recent ED visit. He was found cold and wet, sleeping outside. Right toes are mottled with decreased sensation Plan: Continue Vancomyocin and Zosyn IV. Obtain wound culture and adjust antibiotics as needed. (3) Frostbite Conclusion/Plan: Patient is homeless and alternates sleeping at alf and outside in the elements where he has a difficult time keeping his feet warm. He has past episodes of frostbite to lower extremities without amputations. According to the medical record on 07/01/2021 the last episode of hatch bite was on 06/21/2022 w hich resulted in debridement of distal tip if left great toe. Today law enforcement did a welfare check to follow up on recent ED visit. He was found cold and wet, sleeping outside. Right toes are mottled with decreased sensation. Plan: Provide rewarming of frostbite areas with warming unit and then warm blankets. Provide pain medication during and after rewarming. (4) Alcohol abuse Conclusion/Plan: Patient has a history of alcohol abuse and reports being on a binge for 5 days drinking 750ml of whiskey daily. He reports that he binge drinks for a week or two and then does not drink for 2-3 months at a time. He has undergone alcohol withdrawal while at a detox facility in [facility] 1 year ago and then attends Alcohol Anonymous periodically. He is receptive to receiving treatment for alcohol abuse. Plan: Initiate CIWA monitoring of patient. Scheduled librium to minimize delirium tremens and alcohol withdrawal symptoms. As needed Ativan for CIWA score > 8. (5) Alcoholic hepatitis Conclusion/Plan: Patient has a history of alcohol abuse. Admission AST 118 and ALT 66. Plan: Will monitor LFTs intermittently. Will monitor ammonia level if he becomes confused. (6) COVID-19 Conclusion/Plan: Patient is being admitted for osteomyelitis management and screening showed a positive COVID PCR. He denies fever, chills, cough, dyspnea, n/v/d, or known contact with covid positive people. He reports receiving his first Covid vaccine on 07/25/2021. Admission chest x-ray from 08/15/2021 showed "no cardiopulmonary process". Breath sounds are clear bilaterally and bedside oxygen saturation is 96% on room air. Patient does not qualify for Remdesivir or Decadron while asymptomatic. Plan: Place patient in isolation precautions. Monitor respiratory status with bedside pulse oximetry and initiate oxygen therapy as needed. Consider starting Remdesivir or Decadron if he becomes symptomatic. (7) Rhabdomyolysis Conclusion/Plan: Patient was admitted to the hospital today after being found sleeping outside and intoxicated. His CK is elevated at 3825 and his creatinine is 0.8. Plan: Continue to monitor CK for trend and creatinine for indications of intrinsic renal failure. Administer IV fluids. Qualifiers: Rhabdomyolysis type: traumatic Encounter type: initial encounter Qualified Code(s): T79.6XXA - Traumatic ischemia of muscle, initial encounter (8) Hyperthyroidism Conclusion/Plan: Patient reports a history of hyperthyroidism and had a prescription for Carvedilol 25mg twice daily that he does not take. He was unsure how long ago it was prescribed or when he took it last. Upon examination pt has bilateral exophthalmos. Plan: Obtain a TSH, T3, and T4. Will give hyperthyroid treatment as needed. (9) Homeless single person Conclusion/Plan: Patient admitted to the hospital today after law enforcement did a welfare check and found him sleeping outside in the elements, cold and wet. He reports being homeless for over 1 year and alternates sleeping in a alf or outside. He has a son living in [place] that he does not have contact with. He also has 2 sis ters and a mother in [place] that he is not in contact with. 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 Plan: Obtain rn social work consult when more awake. - Lab Results Fish Bones: 08/17/21 05:53 08/17/21 05:53
[2021-08-15] MEDS ORDERED: HYDROmorphone 1 MG/ML CARPUJECT IVP PRN (17:12)
[2021-08-15 17:37] LABS: BASOPHILS # (AUTO) 0.1 10^3/uL (0.0-0.1); BASOPHILS % (AUTO) 0.5 %; HCT - HEMATOCRIT 39.7 % (42.0-52.0); HGB - HEMOGLOBIN 13.9 g/dL (14.0-18.0); LYMPHOCYTES # (AUTO) 0.7 10^3/uL (1.5-3.5); MEAN CORPUSCULAR VOLUME 82.9 fL (80.0-94.0); MEAN PLATELET VOLUME 8.3 fL (7.4-11.4); MONOCYTES # (AUTO) 0.6 10^3/uL (0.0-1.0); MONOCYTES % (AUTO) 4.4 %; NEUTROPHILS # (AUTO) 11.7 10^3/uL (1.5-6.6); NEUTROPHILS % (AUTO) 89.7 %; PLT - PLATELET COUNT 281 10^3/uL (130-450); RED BLOOD COUNT 4.79 10^6/uL (4.70-6.10); RED CELL DISTRIBUTION WIDTH 17.4 % (12.0-15.0)
--- NOTE | 2021-08-15 17:49 | XRAY Report ---
PROCEDURE: Chest 1 View X-Ray INDICATIONS: COVID pos TECHNIQUE: One view of the chest was acquired. COMPARISON: 10/13/2019 FINDINGS: Surgical changes and devices: None. Lungs and pleura: No pleural effusions or pneumothorax. Lungs are clear. Mediastinum: Mediastinal contours appear normal. Heart size is normal. Bones and chest wall: No suspicious bony lesions. Overlying soft tissues appear unremarkable. IMPRESSION: No acute cardiopulmonary process demonstrated radiographically. Reviewed by: Dominic Begum MD on 08/15/2021 5:48 PM PST Approved by: Dominic Begum MD on 08/15/2021 5:48 PM PST Station ID: [email or web address]
[2021-08-15 17:53] LABS: LIPASE 98 U/L (22-51)
[2021-08-15 17:54] LABS: CK- CREATINE KINASE 3825 IU/L (22-269)
[2021-08-15 19:36] LABS: MUDS CUTOFF CONCENTRATIONS CUTOFF CONC BELOW:
[2021-08-15 19:48] LABS: AMPHETAMINE SCREEN,URINE NEGATIVE (NEGATIVE); BARBITURATE SCREEN,UR NEGATIVE (NEGATIVE); BENZODIAZEPINES SCREEN, URINE NEGATIVE (NEGATIVE); COCAINE SCREEN URINE NEGATIVE (NEGATIVE); METHADONE SCREEN, URINE NEGATIVE (NEGATIVE); METHAMPHETAMINES SCREEN, URINE NEGATIVE (NEGATIVE); OPIATE SCREEN, URINE NEGATIVE (NEGATIVE); OXYCODONE SCREEN, URINE NEGATIVE (NEGATIVE); PROPOXYPHENE SCREEN, URINE NEGATIVE (NEGATIVE); THC CANNABINOID SCREEN, URINE NEGATIVE (NEGATIVE); TRICYCLIC ANTIDEPRESSANT,URINE NEGATIVE (NEGATIVE)
[2021-08-15] MEDS: chlordiazePOXIDE 25 MG CAPSULE PO SCH (21:17)
[2021-08-15] MEDS: LORazepam 2 MG/ML VIAL IVP PRN (21:19)
[2021-08-15] MEDS: PIPERACILLIN/TAZOBACTAM 3.375 GM in SODIUM CHLORIDE 0.9% MINIBAG 100 ML IV SCH (21:31)
[2021-08-16] MEDS: SODIUM CHLORIDE FLUSH 0.9% 10 ML SYRINGE IVP SCH ×3 (01:16→17:52)
[2021-08-16] MEDS: ACETAMINOPHEN 325 MG TABLET PO PRN (01:22)
[2021-08-16] MEDS: PIPERACILLIN/TAZOBACTAM 3.375 GM in SODIUM CHLORIDE 0.9% MINIBAG 100 ML IV SCH ×3 (04:50→20:51)
[2021-08-16] MEDS: VANCOMYCIN INJ 1.75 GM in SODIUM CHLORIDE 0.9% 500 ML IV SCH ×2 (04:59→17:52)
[2021-08-16] MEDS: chlordiazePOXIDE 25 MG CAPSULE PO SCH ×3 (04:59→20:44)
[2021-08-16 06:08] LABS: BASOPHILS % (AUTO) 0.3 %; EOSINOPHILS % (AUTO) 0.1 %; HCT - HEMATOCRIT 35.8 % (42.0-52.0); HGB - HEMOGLOBIN 12.3 g/dL (14.0-18.0); LYMPHOCYTES # (AUTO) 0.7 10^3/uL (1.5-3.5); LYMPHOCYTES % (AUTO) 6.4 %; MEAN CORPUSCULAR HEMOGLOBIN 28.3 pg (27.0-31.0); MEAN CORPUSCULAR HGB CONC 34.4 g/dL (32.0-36.0); MEAN CORPUSCULAR VOLUME 82.5 fL (80.0-94.0); MONOCYTES # (AUTO) 0.7 10^3/uL (0.0-1.0); MONOCYTES % (AUTO) 5.9 %; NEUTROPHILS # (AUTO) 9.9 10^3/uL (1.5-6.6); NEUTROPHILS % (AUTO) 86.5 %; PLT - PLATELET COUNT 230 10^3/uL (130-450); RED BLOOD COUNT 4.34 10^6/uL (4.70-6.10); RED CELL DISTRIBUTION WIDTH 17.2 % (12.0-15.0); WHITE BLOOD COUNT 11.5 x10^3/uL (4.8-10.8)
[2021-08-16 06:10] LABS: INR 1.5 (0.8-1.2); PT - PROTHROMBIN TIME 16.7 secs (9.9-12.6)
[2021-08-16 06:18] LABS: ALBUMIN 2.2 g/dL (3.2-5.5); ALBUMIN/GLOBULIN RATIO 0.4 (1.0-2.2); BILIRUBIN,TOTAL 1.2 mg/dL (0.2-1.0); CALCIUM 8.1 mg/dL (8.5-10.3); MAGNESIUM 1.4 mg/dL (1.7-2.8); POTASSIUM 4.1 mmol/L (3.5-5.0); TOTAL PROTEIN 7.1 g/dL (6.7-8.2)
[2021-08-16 06:50] LABS: CREATININE 1.1 mg/dL (0.6-1.2)
[2021-08-16] MEDS ORDERED: ENOXAPARIN 40 MG/0.4 ML SYRINGE SUBQ SCH (09:00)
[2021-08-16] MEDS: MULTIVITAMIN 10 ML, THIAMINE INJ 100 MG, FOLIC ACID INJ 1 MG in SODIUM CHLORIDE 0.9% 1,... IV SCH (10:04)
[2021-08-16] MEDS ORDERED: ENOXAPARIN 60 MG/0.6 ML SYRINGE SUBQ ONE (11:02)
[2021-08-16] MEDS ORDERED: MAGNESIUM SULFATE 2 GRAM 2 GM/50 ML BAG IV ONE (11:03)
[2021-08-16] MEDS: oxyCODONE 5 MG TABLET PO PRN ×2 (11:09→22:18)
[2021-08-16] MEDS: carvediloL 12.5 MG TABLET PO SCH ×2 (11:36→20:43)
--- NOTE | 2021-08-16 15:10 | PROVIDER PROGRESS NOTE ---
Assessment/Plan - Problem List (1) Osteomyelitis Qualifiers: Osteomyelitis type: unspecified type Laterality: left Assessment/Plan: He has osteomyelitis of L great toe. Continue with iv Vancomycin and iv Zosyn Await blood and wound culture results to tailor therapy. Ortho is considering surgery tomorrow (2) Gangrene Continue Vancomyocin and Zosyn IV. Await wound and blood culture results to adjust antibiotics if needed. (3) Frostbite We ordered rewarming of frostbite areas with warm, soapy water and warm blankets. Provide pain medication prn (4) Alcohol abuse He is getting iv fluids of Banana Bag. He is on scheduled Librium orally, started last evening. With this he is mostly sleeping today and he is scoring 4-8 on CIWA scale protocol with Ativan ordered prn on a scale for alcohol withdrawal. (5) Alcoholic hepatitis Patient has a history of alcohol abuse: binges heavily then stops for months. Admission LFTS and bili are elevated. Avoid hepatotoxins and no alcohol is advised. Will follow LFTs intermittently. (6) COVID-19 At admission here yesterday for osteomyelitis, a screening COVID PCR swab returned (+). Thus, a CXR was done and was WNL, and he is not desaturating. Nor are there any GI sx. He could have COVID toe, however. Continue with aerosol respiratory isolation Monitor respiratory status with bedside O2 sats. No Remdesivir or Decadron are currently indicated. Will increase his Lovenox dose from prophylactic 40 mg sq daily to 100 mg sq bid, therapeutic dose for probable COVID toe. (7) Rhabdomyolysis He was found sleeping (intoxicated) on the street in [place] yesterday and brought to our ER, therefore we checked for rhabdomyolysis, which showed a very elevated CK of >3000. Continue to administer IV fluids. Will monitor CK daily until normal. Qualifiers: Rhabdomyolysis type: traumatic Encounter type: initial encounter Qualified Code(s): T79.6XXA - Traumatic ischemia of muscle, initial encounter (8) Homeless single person He came to [facility] from [place] several years ago. He was thrown out of son's house on [address] due to alcoholism. Plan to obtain social media editor consult when medically cleared. - Current Meds Current Meds: Current Medications Generic Name Dose Route Start Last Admin Trade Name Freq PRN Reason Stop Dose Admin Acetaminophen 650 mg 08/15/21 17:07 08/16/21 01:22 Acetaminophen 325 Mg Tablet PO 650 mg Q4HR PRN Administration Pain or Fever > 38C (100.4F) Carvedilol 12.5 mg 08/16/21 12:00 08/16/21 11:36 Carvedilol 12.5 Mg Tablet PO 12.5 mg BID TALITA Administration Chlordiazepoxide HCl 25 mg 08/15/21 22:00 08/16/21 13:06 Chlordiazepoxide 25 Mg Capsule PO 25 mg Q8HR TALITA Administration Multivitamins 10 ml/ Thiamine 1,011.2 mls @ 100 mls/hr 08/16/21 09:00 08/16/21 10:04 HCl 100 mg/ Folic Acid 1 mg/ IV 100 mls/hr Sodium Chloride DAILY TALITA Administration Piperacillin Sod/Tazobactam 100 mls @ 25 mls/hr 08/15/21 20:30 08/16/21 13:07 Sod 3.375 gm/ Sodium Chloride IV 25 mls/hr Q8H TALITA Administration Vancomycin HCl 1.75 gm/ Sodium 500 mls @ 250 mls/hr 08/16/21 05:00 08/16/21 07:03 Chloride IV Infused Q12H TALITA Infusion Lorazepam 2 mg 08/15/21 17:13 08/15/21 21:19 Lorazepam 2 Mg/Ml Vial IVP 2 mg Q30M PRN Administration CIWA >8 Protocol Oxycodone HCl 10 mg 08/15/21 17:07 08/16/21 11:09 Oxycodone 5 Mg Tablet PO 10 mg Q4HR PRN Administration Pain 8 to 10 Sodium Chloride 10 ml 08/16/21 01:00 08/16/21 10:11 Sodium Chloride Flush 0.9% 10 Ml Syringe IVP Not Given 0100,0900,1700 TALITA - Lab Result Fish Bone Diagrams: 08/16/21 05:52 08/16/21 05:52 - Additional Planning My Orders: My Active Orders 08/15/21 Dinner Soft Mechanical Diet [DIET] 08/15/21 17:07 Activity Orders [RC] Q2HR IO [RC] IOSHIFT Initiate Bowel Care Protocol [RC] .protocol Initiate Personal Care Protoco [RC] .protocol Oxygen Therapy [RC] .PRN Vital Signs [RC] Q4HR Acetaminophen [Tylenol] 650 mg PO Q4HR PRN Ondansetron Inj [Zofran Inj] 4 mg IVP Q6HR PRN Sodium Chloride Flush 0.9% [Normal Saline Flush 0.9%] 10 ml IVP PRN PRN oxyCODONE [Roxicodone] 10 mg PO Q4HR PRN Code Status [OTHERS] Routine Condition of Patient [OTHERS] Routine DVT Prophylaxis [OTHERS] Routine 08/15/21 17:10 Daily Weight [RC] 0600 08/15/21 17:12 Initiate Line Care Protocol [RC] QSHIFT Orthopedics Consult [CONS] Routine Social Work Consult [CONS] Routine HYDROmorphone 1MG CARP [Dilaudid 1Mg Carp] 1 mg IVP Q3HR PRN 08/15/21 17:13 CIWA - AR Score Card [RC] Q4HR Isolation [Infection Precautions] [RC] QSHIFT LORazepam INJ [Ativan Inj (Vial)] 2 mg IVP Q30M PRN 08/15/21 17:23 Shower [RC] PRN 08/15/21 18:15 Warming Unit [RC] PRN 08/15/21 18:16 Miscellaenous Nursing Order [RC] QSHIFT 08/15/21 18:35 CUL,WOUND (AEROBIC) [RM] Stat 08/15/21 19:58 Nutrition Consult [CONS] Routine 08/15/21 20:30 Piperacillin/Tazobactam [Zosyn] 3.375 gm Sodium Chloride 0.9% Minibag [Normal Saline 0.9% Minibag] 100 ml IV Q8H 08/15/21 22:00 chlordiazePOXIDE [Librium] 25 mg PO Q8HR 08/16/21 01:00 Sodium Chloride Flush 0.9% [Normal Saline Flush 0.9%] 10 ml IVP 0100,0900,1700 08/16/21 05:00 Vancomycin Inj [Vancomycin] 1.75 gm Sodium Chloride 0.9% [Normal Saline 0.9%] 500 ml IV Q12H 08/16/21 09:00 Multivitamin [Infuvite] 10 ml Thiamine Inj [Vitamin B-1 Inj] 100 mg Folic Acid Inj [Folic Acid] 1 mg Sodium Chloride 0.9% [Normal Saline 0.9%] 1,000 ml IV DAILY 08/16/21 11:15 Miscellaenous Nursing Order [RC] QSHIFT 08/16/21 12:00 carvediloL [Coreg] 12.5 mg PO BID 08/16/21 21:00 Enoxaparin [Lovenox] 100 mg SUBQ BID 08/17/21 05:00 AMMONIA [CHEM] DAILYLAB CBC - COMP BLD CT W/AUTO DIFF [HEME] DAILYLAB CK- CREATINE KINASE [CHEM] DAILYLAB COMPREHENSIVE METABOLIC PANEL [CHEM] DAILYLAB MAGNESIUM [CHEM] DAILYLAB PT WITH INR [COAG] DAILYLAB 08/17/21 08:00 Magnesium Oxide [Mag Ox] 400 mg PO DAILYWM 08/18/21 05:00 AMMONIA [CHEM] DAILYLAB CBC - COMP BLD CT W/AUTO DIFF [HEME] DAILYLAB CK- CREATINE KINASE [CHEM] DAILYLAB COMPREHENSIVE METABOLIC PANEL [CHEM] DAILYLAB MAGNESIUM [CHEM] DAILYLAB PT WITH INR [COAG] DAILYLAB 08/19/21 05:00 AMMONIA [CHEM] DAILYLAB CBC - COMP BLD CT W/AUTO DIFF [HEME] DAILYLAB CK- CREATINE KINASE [CHEM] DAILYLAB COMPREHENSIVE METABOLIC PANEL [CHEM] DAILYLAB MAGNESIUM [CHEM] DAILYLAB PT WITH INR [COAG] DAILYLAB 08/20/21 05:00 CBC - COMP BLD CT W/AUTO DIFF [HEME] DAILYLAB COMPREHENSIVE METABOLIC PANEL [CHEM] DAILYLAB PT WITH INR [COAG] DAILYLAB Subjective - Subjective Patient Reports: Resting Comfortably Nursing Reports: Other (Wants to sooak L foot in soapy water) Objective Vital Signs: Vital Signs - 24 hr 08/15/21 08/15/21 08/16/21 15:12 18:25 01:13 Temperature 37.2 C 37.3 C 38.2 C H Heart Rate 103 H Heart Rate [ 118 H 111 H Brachial] Respiratory 16 20 24 Rate Blood Pressure 163/67 H Blood Pressure 165/76 H [Right Brachial artery] Blood Pressure 136/73 H [Right Radial artery] O2 Saturation 100 97 94 08/16/21 08/16/21 05:00 09:00 Temperature 36.9 C 37.0 C Heart Rate Heart Rate [ 100 100 Brachial] Respiratory 22 22 Rate Blood Pressure Blood Pressure 155/79 H [Right Brachial artery] Blood Pressure 174/90 H [Right Radial artery] O2 Saturation 94 98 Oxygen O2 Source Room air I&O (Last 24 Hrs): Intake and Output Totals x24h 08/14/21 08/15/21 08/16/21 23:59 23:59 23:59 Intake Total 1721 1508 Output Total 475 Balance 1721 1033 General: Alert ((exam done remotely)) HEENT: Mucous membr. moist/pink, Other (Disheveled) Neck: Supple Neuro: Alert Cardiovascular: Regular rate Respiratory: No respiratory distress Abdomen: Soft Extremities: Other (Extensive and multiople lesions of both LEs, L great toe is still swollen, skin is yellow, and the toe wound is draining yellow fluid) - Results Results: Laboratory Results WBC 11.5 x10^3/uL (4.8-10.8) H 08/16/21 05:52 RBC 4.34 10^6/uL (4.70-6.10) L 08/16/21 05:52 Hgb 12.3 g/dL (14.0-18.0) L 08/16/21 05:52 Hct 35.8 % (42.0-52.0) L 08/16/21 05:52 MCV 82.5 fL (80.0-94.0) 08/16/21 05:52 MCH 28.3 pg (27.0-31.0) 08/16/21 05:52 MCHC 34.4 g/dL (32.0-36.0) 08/16/21 05:52 RDW 17.2 % (12.0-15.0) H 08/16/21 05:52 Plt Count 230 10^3/uL (130-450) 08/16/21 05:52 MPV 9.0 fL (7.4-11.4) 08/16/21 05:52 Neut # (Auto) 9.9 10^3/uL (1.5-6.6) H 08/16/21 05:52 Lymph # (Auto) 0.7 10^3/uL (1.5-3.5) L 08/16/21 05:52 [place] # (Auto) 0.7 10^3/uL (0.0-1.0) 08/16/21 05:52 Eos # (Auto) 0.0 10^3/uL (0.0-0.7) 08/16/21 05:52 Baso # (Auto) 0.0 10^3/uL (0.0-0.1) 08/16/21 05:52 Absolute Nucleated RBC 0.00 x10^3/uL 08/16/21 05:52 Nucleated RBC % 0.0 /100WBC 08/16/21 05:52 ESR 60 mm/Hr (0-20) H 08/15/21 13:23 PT 16.7 secs (9.9-12.6) H 08/16/21 05:52 INR 1.5 (0.8-1.2) H 08/16/21 05:52 D-Dimer > 1050.0 ng/mL (200.0-255.0) H 08/15/21 17:52 Sodium 133 mmol/L (135-145) L 08/16/21 05:52 Potassium 4.1 mmol/L (3.5-5.0) 08/16/21 05:52 Chloride 96 mmol/L (101-111) L 08/16/21 05:52 Carbon Dioxide 27 mmol/L (21-32) 08/16/21 05:52 Anion Gap 10.0 (6-13) 08/16/21 05:52 BUN 17 mg/dL (6-20) 08/16/21 05:52 Creatinine 1.1 mg/dL (0.6-1.2) 08/16/21 05:52 Estimated GFR (MDRD) 69 (>89) L 08/16/21 05:52 Glucose 113 mg/dL (70-100) H 08/16/21 05:52 Lactic Acid 1.5 mmol/L (0.5-2.2) 08/15/21 15:15 Calcium 8.1 mg/dL (8.5-10.3) L 08/16/21 05:52 Phosphorus 3.0 mg/dL (2.5-4.6) 08/16/21 05:52 Magnesium 1.4 mg/dL (1.7-2.8) L 08/16/21 05:52 Total Bilirubin 1.2 mg/dL (0.2-1.0) H 08/16/21 05:52 AST 138 IU/L (10-42) H 08/16/21 05:52 ALT 66 IU/L (10-60) H 08/16/21 05:52 Alkaline Phosphatase 48 IU/L (42-121) 08/16/21 05:52 Ammonia 37.2 umol/L (7-35) H 08/16/21 05:52 Total Creatine Kinase 3303 IU/L (22-269) H* 08/16/21 05:52 C-Reactive Protein 8.5 mg/dL (0-1.0) H 08/15/21 13:23 Total Protein 7.1 g/dL (6.7-8.2) 08/16/21 05:52 Albumin 2.2 g/dL (3.2-5.5) L 08/16/21 05:52 Globulin 4.9 g/dL (2.1-4.2) H 08/16/21 05:52 Albumin/Globulin Ratio 0.4 (1.0-2.2) L 08/16/21 05:52 Lipase 84 U/L (22-51) H 08/16/21 05:52 Nasal Adenovirus (PCR) NOT DETECTED 08/15/21 15:35 Nasal B. parapertussis DNA (PCR) NOT DETECTED 08/15/21 15:35 Nasal Coronavir 229E PCR NOT DETECTED 08/15/21 15:35 Nasal Coronavir HKU1 PCR NOT DETECTED 08/15/21 15:35 Nasal Coronavir NL63 PCR NOT DETECTED 08/15/21 15:35 Nasal Coronavir OC43 PCR NOT DETECTED 08/15/21 15:35 Nasal Enterovir/Rhinovir PCR NOT DETECTED 08/15/21 15:35 Nasal Influenza B PCR NOT DETECTED 08/15/21 15:35 Nasal Influenza A PCR NOT DETECTED 08/15/21 15:35 Nasal Parainfluen 1 PCR NOT DETECTED 08/15/21 15:35 Nasal Parainfluen 2 PCR NOT DETECTED 08/15/21 15:35 Nasal Parainfluen 3 PCR NOT DETECTED 08/15/21 15:35 Nasal Parainfluen 4 PCR NOT DETECTED 08/15/21 15:35 Nasal RSV (PCR) NOT DETECTED 08/15/21 15:35 Nasal B.pertussis DNA PCR NOT DETECTED 08/15/21 15:35 Nasal C.pneumoniae (PCR) NOT DETECTED 08/15/21 15:35 Nazario Human Metapneumo PCR NOT DETECTED 08/15/21 15:35 Nasal M.pneumoniae (PCR) NOT DETECTED 08/15/21 15:35 Nasal SARS-CoV-2 (PCR) DETECTED A 08/15/21 15:35 Urine Opiates Screen NEGATIVE (NEGATIVE) 08/15/21 19:15 Ur Oxycodone Screen NEGATIVE (NEGATIVE) 08/15/21 19:15 Urine Methadone Screen NEGATIVE (NEGATIVE) 08/15/21 19:15 Ur Propoxyphene Screen NEGATIVE (NEGATIVE) 08/15/21 19:15 Ur Barbiturates Screen NEGATIVE (NEGATIVE) 08/15/21 19:15 Ur Tricyclics Screen NEGATIVE (NEGATIVE) 08/15/21 19:15 Ur Phencyclidine Scrn NEGATIVE (NEGATIVE) 08/15/21 19:15 Ur Amphetamine Screen NEGATIVE (NEGATIVE) 08/15/21 19:15 U Methamphetamines Scrn NEGATIVE (NEGATIVE) 08/15/21 19:15 U Benzodiazepines Scrn NEGATIVE (NEGATIVE) 08/15/21 19:15 Urine Cocaine Screen NEGATIVE (NEGATIVE) 08/15/21 19:15 U Cannabinoids Screen NEGATIVE (NEGATIVE) 08/15/21 19:15 Ethyl Alcohol 314.6 mg/dL 08/15/21 13:23
[2021-08-16] MEDS: ENOXAPARIN 100 MG/ML SYRINGE SUBQ SCH (20:44)
[2021-08-17] MEDS: SODIUM CHLORIDE FLUSH 0.9% 10 ML SYRINGE IVP SCH ×3 (00:52→17:03)
[2021-08-17] MEDS: chlordiazePOXIDE 25 MG CAPSULE PO SCH ×3 (05:05→21:48)
[2021-08-17] MEDS: VANCOMYCIN INJ 1.75 GM in SODIUM CHLORIDE 0.9% 500 ML IV SCH ×2 (05:05→20:09)
[2021-08-17] MEDS: PIPERACILLIN/TAZOBACTAM 3.375 GM in SODIUM CHLORIDE 0.9% MINIBAG 100 ML IV SCH ×3 (05:05→21:34)
[2021-08-17] MEDS: SODIUM CHLORIDE FLUSH 0.9% 10 ML SYRINGE IVP PRN (05:06)
[2021-08-17 06:01] LABS: BASOPHILS # (AUTO) 0.1 10^3/uL (0.0-0.1); BASOPHILS % (AUTO) 0.5 %; EOSINOPHILS # (AUTO) 0.1 10^3/uL (0.0-0.7); EOSINOPHILS % (AUTO) 0.7 %; HCT - HEMATOCRIT 34.6 % (42.0-52.0); HGB - HEMOGLOBIN 11.9 g/dL (14.0-18.0); LYMPHOCYTES % (AUTO) 10.3 %; MEAN CORPUSCULAR HEMOGLOBIN 29.2 pg (27.0-31.0); MEAN CORPUSCULAR HGB CONC 34.4 g/dL (32.0-36.0); MEAN PLATELET VOLUME 9.4 fL (7.4-11.4); MONOCYTES # (AUTO) 0.8 10^3/uL (0.0-1.0); MONOCYTES % (AUTO) 7.9 %; NEUTROPHILS % (AUTO) 78.9 %; PLT - PLATELET COUNT 162 10^3/uL (130-450); RED BLOOD COUNT 4.07 10^6/uL (4.70-6.10); RED CELL DISTRIBUTION WIDTH 17.1 % (12.0-15.0); WHITE BLOOD COUNT 10.1 x10^3/uL (4.8-10.8)
[2021-08-17 06:11] LABS: INR 1.5 (0.8-1.2); PT - PROTHROMBIN TIME 16.1 secs (9.9-12.6)
[2021-08-17 06:23] LABS: ALBUMIN 2.2 g/dL (3.2-5.5); ALBUMIN/GLOBULIN RATIO 0.5 (1.0-2.2); BILIRUBIN,TOTAL 1.5 mg/dL (0.2-1.0); CALCIUM 8.1 mg/dL (8.5-10.3); CREATININE 0.8 mg/dL (0.6-1.2); MAGNESIUM 1.4 mg/dL (1.7-2.8); POTASSIUM 4.2 mmol/L (3.5-5.0)
--- NOTE | 2021-08-17 07:16 | ANESTHESIA ---
Pre-Anesthesia VS, & Labs - Diagnosis Diagnosis Osteomyelitis left toe with possible ray extension. - Procedure Amputation, I&D Left great toe Vital Signs: Temp Pulse Resp BP Pulse Ox 36.6 C 94 18 160/84 H 97 08/17/21 05:01 08/17/21 05:01 08/17/21 05:01 08/17/21 05:01 08/17/21 05:01 Height: 6 ft Weight (kg): 105 kg Body Mass Index: 31.4 BMI Classification: Obese - NPO >8 hours - Lab Results Current Lab Results: Laboratory Tests 08/17/21 05:53: Ammonia 38.0 H 08/17/21 05:53: WBC 10.1, RBC 4.07 L, Hgb 11.9 L, Hct 34.6 L, MCV 85.0, MCH 29.2, MCHC 34.4, RDW 17.1 H, Plt Count 162, MPV 9.4, Neut # (Auto) 8.0 H, Lymph # (Auto) 1.0 L, Henry # (Auto) 0.8, Eos # (Auto) 0.1, Baso # (Auto) 0.1, Absolute Nucleated RBC 0.00, Nucleated RBC % 0.0 08/17/21 05:53: Sodium 131 L, Potassium 4.2, Chloride 99 L, Carbon Dioxide 24, Anion Gap 8.0, BUN 13, Creatinine 0.8, Estimated GFR (MDRD) 100, Glucose 87, Calcium 8.1 L, Magnesium 1.4 L, Total Bilirubin 1.5 H, AST 120 H, ALT 59, Alkaline Phosphatase 43, Total Creatine Kinase 1964 H*, Total Protein 7.0, Albumin 2.2 L, Globulin 4.8 H, Albumin/Globulin Ratio 0.5 L 08/17/21 05:53: PT 16.1 H, INR 1.5 H 08/16/21 05:52: WBC 11.5 H, RBC 4.34 L, Hgb 12.3 L, Hct 35.8 L, MCV 82.5, MCH 28.3, MCHC 34.4, RDW 17.2 H, Plt Count 230, MPV 9.0, Neut # (Auto) 9.9 H, Lymph # (Auto) 0.7 L, Henry # (Auto) 0.7, Eos # (Auto) 0.0, Baso # (Auto) 0.0, Absolute Nucleated RBC 0.00, Nucleated RBC % 0.0 08/16/21 05:52: Ammonia 37.2 H 08/16/21 05:52: Sodium 133 L, Potassium 4.1, Chloride 96 L, Carbon Dioxide 27, Anion Gap 10.0, BUN 17, Creatinine 1.1, Estimated GFR (MDRD) 69 L, Glucose 113 H , Calcium 8.1 L, Phosphorus 3.0, Magnesium 1.4 L, Total Bilirubin 1.2 H, AST 138 H, ALT 66 H, Alkaline Phosphatase 48, Total Creatine Kinase 3303 H*, Total Protein 7.1, Albumin 2.2 L, Globulin 4.9 H, Albumin/Globulin Ratio 0.4 L, Lipase 84 H 08/16/21 05:52: PT 16.7 H, INR 1.5 H 08/15/21 19:15: Urine Opiates Screen NEGATIVE, Ur Oxycodone Screen NEGATIVE, Urine Methadone Screen NEGATIVE, Ur Propoxyphene Screen NEGATIVE, Ur Barbiturates Screen NEGATIVE, Ur Tricyclics Screen NEGATIVE, Ur Phencyclidine Scrn NEGATIVE, Ur Amphetamine Screen NEGATIVE, U Methamphetamines Scrn NEGATIVE, U Benzodiazepines Scrn NEGATIVE, Urine Cocaine Screen NEGATIVE, U Cannabinoids Screen NEGATIVE 08/15/21 17:52: D-Dimer > 1050.0 H 08/15/21 17:30: Ammonia 29.9 08/15/21 17:30: WBC 13.0 H, RBC 4.79, Hgb 13.9 L, Hct 39.7 L, MCV 82.9, MCH 29.0, MCHC 35.0, RDW 17.4 H, Plt Count 281, MPV 8.3, Neut # (Auto) 11.7 H, Lymph # (Auto) 0.7 L, Henry # (Auto) 0.6, Eos # (Auto) 0.0, Baso # (Auto) 0.1, Absolute Nucleated RBC 0.00, Nucleated RBC % 0.0 08/15/21 15:15: Lactic Acid 1.5 08/15/21 13:25: Total Creatine Kinase 3825 H*, Lipase 98 H 08/15/21 13:23: Ethyl Alcohol 314.6 08/15/21 13:23: Sodium 139, Potassium 4.1, Chloride 96 L, Carbon Dioxide 28, Anion Gap 15.0 H, BUN 15, Creatinine 0.9, Estimated GFR (MDRD) 88 L, Glucose 142 H, Calcium 7.5 L, Total Bilirubin 0.4, AST 118 H, ALT 66 H, Alkaline Phosphatase 55, C-Reactive Protein 8.5 H, Total Protein 8.0, Albumin 2.6 L, Globulin 5.4 H, Albumin/Globulin Ratio 0.5 L 08/15/21 13:23: ESR 60 H 08/15/21 13:23: WBC 11.8 H, RBC 5.16, Hgb 15.1, Hct 43.6, MCV 84.5, MCH 29.3, MCHC 34.6, RDW 17.4 H, Plt Count 345, MPV 8.5, Neut # (Auto) 10.6 H, Lymph # (Auto) 0.7 L, Henry # (Auto) 0.4, Eos # (Auto) 0.0, Baso # (Auto) 0.0, Absolute Nucleated RBC 0.00, Nucleated RBC % 0.0 Lab results reviewed: Yes Fish Bones: 08/17/21 05:53 08/17/21 05:53 Home Medications and Allergies Home Medications: Ambulatory Orders No Known Home Medications 08/16/21 Active Medications Acetaminophen (Acetaminophen 325 Mg Tablet) 650 mg PO Q4HR PRN PRN Reason: Pain or Fever > 38C (100.4F) Last Admin: 08/16/21 01:22 Dose: 650 mg Carvedilol (Carvedilol 12.5 Mg Tablet) 12.5 mg PO BID [facility] Last Admin: 08/16/21 20:43 Dose: 12.5 mg Chlordiazepoxide HCl (Chlordiazepoxide 25 Mg Capsule) 25 mg PO Q8HR [facility] Last Admin: 08/17/21 05:05 Dose: 25 mg Enoxaparin Sodium (Enoxaparin 100 Mg/Ml Syringe) 100 mg SUBQ BID [facility] Last Admin: 08/16/21 20:44 Dose: 100 mg Hydromorphone HCl (Hydromorphone 1 Mg/Ml Carpuject) 1 mg IVP Q3HR PRN PRN Reason: Severe Pain Multivitamins 10 ml/ Thiamine HCl 100 mg/ Folic Acid 1 mg/Sodium Chloride 1,011.2 mls @ 100 mls/hr IV DAILY [facility] Last Infusion: 08/16/21 20:11 Dose: Infused Piperacillin Sod/Tazobactam (Sod 3.375 gm/ Sodium Chloride) 100 mls @ 25 mls/hr IV Q8H [facility] Last Admin: 08/17/21 05:05 Dose: 25 mls/hr Vancomycin HCl 1.75 gm/ Sodium (Chloride) 500 mls @ 250 mls/hr IV Q12H [facility] Last Admin: 08/17/21 05:05 Dose: 250 mls/hr Lorazepam (Lorazepam 2 Mg/Ml Vial) 2 mg IVP Q30M PRN; Protocol PRN Reason: CIWA >8 Last Admin: 08/15/21 21:19 Dose: 2 mg Magnesium Oxide (Magnesium Oxide 400 Mg Tablet) 400 mg PO DAILYWM [facility] Ondansetron HCl (Ondansetron 4 Mg/2 Ml Vial) 4 mg IVP Q6HR PRN PRN Reason: Nausea / Vomiting Oxycodone HCl (Oxycodone 5 Mg Tablet) 10 mg PO Q4HR PRN PRN Reason: Pain 8 to 10 Last Admin: 08/16/21 22:18 Dose: 10 mg Sodium Chloride (Sodium Chloride Flush 0.9% 10 Ml Syringe) 10 ml IVP PRN PRN PRN Reason: NEEDED PER PROVIDER ORDERS Last Admin: 08/17/21 05:06 Dose: 10 ml Sodium Chloride (Sodium Chloride Flush 0.9% 10 Ml Syringe) 10 ml IVP 0100,0900,1700 [facility] Last Admin: 08/17/21 00:52 Dose: 10 ml No Known Home Medications 08/16/21 Allergies/Adverse Reactions: Allergies Allergy/AdvReac Type Severity Reaction Status Date / Time No Known Drug Allergies Allergy Verified 08/15/21 13:10 Anes History & Medical History - Anesthetic History Anesthesia Complications: reports: No previous complications Family history of Anesthesia Complications: Denies Family history of Malignant Hyperthermia: Denies - Medical History Cardiovascular: reports: Hypertension Pulmonary: reports: None Gastrointestinal: reports: None Urinary: reports: None Neuro: reports: None Musculoskeletal: reports: None Endocrine/Autoimmune: reports: HyPERthyroidism Blood Disorders: reports: None Skin: reports: Other Smoking Status: Never smoker History of Cancer?: No Other Past Medical History: ETOH including binge drinking and homelessness - Surgical History Orthopedic: reports: Other (arm fracture, ORIF) Exam General: Alert, Oriented x3, Cooperative Dental: WNL Neck Mobility: Normal Mallampati classification: II Thyromental Distance: 4-6 cm Respiratory: Lungs clear, Normal breath sounds, No respiratory distress Cardiovascular: Regular rate (tachy t/o) Neurological: Normal speech Mental/Cognitive Status: Alert/Oriented X3, Normal for patient Cognitive Status: Within normal limits Plan Anesthesia Type: General (back-up), MAC, Total IV Consent for Procedure(s) Verified and Reviewed: Yes Code Status: Attempt Resuscitation ASA classification: 2-Mild systemic disease Is this case an emergency?: No
[2021-08-17] MEDS: carvediloL 12.5 MG TABLET PO SCH ×2 (08:59→21:35)
[2021-08-17] MEDS: MAGNESIUM OXIDE 400 MG TABLET PO SCH (08:59)
[2021-08-17] MEDS: MULTIVITAMIN 10 ML, THIAMINE INJ 100 MG, FOLIC ACID INJ 1 MG in SODIUM CHLORIDE 0.9% 1,... IV SCH (09:00)
[2021-08-17] MEDS: ENOXAPARIN 100 MG/ML SYRINGE SUBQ SCH ×2 (09:00→21:35)
[2021-08-17] MEDS ORDERED: MIDAZOLAM 2 MG/2 ML VIAL ONE (09:02)
[2021-08-17] MEDS ORDERED: KETAMINE 500 MG/10 ML VIAL ONE (09:03)
[2021-08-17] MEDS ORDERED: fentaNYL 100 MCG/2 ML VIAL ONE (09:03)
[2021-08-17] MEDS ORDERED: ONDANSETRON 4 MG/2 ML VIAL IVP PRN (09:06)
[2021-08-17] MEDS ORDERED: ATROPINE ABBOJECT 1 MG/10 ML SYRINGE IVP PRN (09:06)
[2021-08-17] MEDS ORDERED: ePHEDrine 50 MG/ML VIAL IVP PRN (09:06)
[2021-08-17] MEDS ORDERED: fentaNYL 100 MCG/2 ML VIAL IVP PRN (09:06)
[2021-08-17] MEDS ORDERED: MORPHINE 2 MG/ML CARPUJECT IVP PRN (09:06)
[2021-08-17] MEDS ORDERED: HYDROmorphone 0.5 MG/0.5 ML SYRINGE IVP PRN (09:06)
[2021-08-17] MEDS ORDERED: NALOXONE 0.4 MG/ML VIAL IVP PRN (09:06)
[2021-08-17] MEDS ORDERED: METOCLOPRAMIDE 10 MG/2 ML VIAL IVP PRN (09:06)
[2021-08-17] MEDS ORDERED: LACTATED RINGERS 1,000 ML IV SCH (10:00)
[2021-08-17] MEDS ORDERED: LIDOCAINE-MPF 2% 5 ML VIAL ONE (10:07)
[2021-08-17] MEDS ORDERED: BUPIVACAINE 0.5% PF 10 ML VIAL ONE (10:07)
[2021-08-17] MEDS ORDERED: PROPOFOL 200 MG/20 ML VIAL IVP ONE (10:07)
[2021-08-17] MEDS ORDERED: BACITRACIN ZINC OINT 1 PACKET TOP ONE (10:53)
--- NOTE | 2021-08-17 11:08 | OPERATIVE REPORT ---
Operative Report - General Admit Date: 08/15/21 Procedure Date: 08/17/21 Planned Procedure: Open metatarsal ray amputation left great toe Pre-Op Diagnosis: Chronic osteomyelitis left great toe involving distal and proximal phalange Procedure Performed: Metatarsal ray amputation left great toe Post Op Diagnosis: Chronic osteomyelitis left great toe proximal and distal phalanges - Procedure Note Primary Surgeon: Varun Berman MD Anesthesia Provider: Madonna Boss CRNA Anesthesia Technique: Moderate sedation, Regional block Estimated Blood Loss (mL): 15 Indications: This is a 55-year-old man with chronic alcoholism, history of frostbite, neuropathy, ulcerations to great toes leading to both soft tissue and bony infection over the past several weeks. He is noncompliant. He has had attempt at local wound care, toe salvage, antibiotics and has had recurrent infection to left great toe, draining sinus from tip of great toe and nailbed. His x-rays are markedly abnormal and consistent with osteomyelitis, lysis of distal phalanx and part of proximal phalanx by radiograph. He was admitted to the hospital, found to have Covid, abnormal liver function studies including elevated prothrombin time, elevated white blood cell count. He had broad-spectrum antibiotics. Swelling and inflammation about the left great toe is markedly improved since admission. Now there is not drainage but there is still edema and open wounds to nailbed area and distal left great toe. He does have intact pulses and no sign of necrosis or ischemia. Does have decreased sensation and dry skin consistent with sensory neuropathy. He was appraised of all of the risk, goals and likelihood of achieving goals, alternatives to surgery and their consequences, disability and rarely . It was emphasized to him the importance of his compliance to ensure that the surgery heals well and he avoids complications. Complications could lead to higher amputation including a below- knee amputation. Findings: The surgical site was free of infection Left great toe There was viable skin at the amputation site. The proximal phalanx was necrotic consistent with chronic osteomyelitis. The metatarsophalangeal joint was still intact and appeared normal. Complications: None - Other Other Information/Narrative: The patient was brought to the operating room table. A foot and ankle block was performed by our coat presser and sedation. The left lower extremity was prepped and draped in a sterile manner. Betadine scrub and solution were used for the prep. A timeout procedure was performed by the entire operating room team and all were in agreement. An Esmarch tourniquet at the ankle over padding was utilized to provide tourniquet control. A racquet type incision was utilized, modified to obtain is much as the normal skin over the toe for closure. The left great toe was disarticulated at the metatarsal phalangeal joint, removing the necrotic bone and debriding all soft tissues sharply within the wound. The incision cannot be closed with just a simple disarticulation, therefore, the incision was extended proximally to make a racquet incision. The dorsal arm was placed directly over the metatarsal. A microsagittal saw was used to perform a an osteotomy of the first metatarsal, beveled to allow some plantigrade positioning. There was no sign of any infection at the amputation site. The skin edges were viable and were sharply debrided. Cultures were obtained of the necrotic bone, sent for aerobic and anaerobic bacteriology. The remainder of the amputated toe was sent to pathology. He had been receiving systemic antibiotics since being in the hospital and so no preoperative antibiotic just before incision was utilized. The wound was irrigated with dilute Betadine, 1 L and 1 L of dilute hydrogen peroxide, lastly 1 L of saline. The tourniquet was deflated after 45 minutes. There is good return of circulation to the amputation site. Hemostasis was achieved with electrocautery. And the incision was closed using a no touch technique with 3-0 nylon suture. There is no tension at the incision skin line. Bacitracin, Xeroform, fluffs, cast padding and Javad wrap was applied to the left foot. He tolerated the procedure well.
[2021-08-17] MEDS ORDERED: SODIUM CHLORIDE FLUSH 0.9% 10 ML SYRINGE IVP PRN (11:20)
--- NOTE | 2021-08-17 11:21 | ANESTHESIA POST OP EVALUATION ---
Anesthesia Post Eval - Post Anesthesia Eval Vitals: Last Vital Signs Temp 37 C 08/17/21 11:16 Pulse 91 08/17/21 11:16 Resp 18 08/17/21 11:16 BP 141/72 H 08/17/21 11:16 Pulse Ox 95 08/17/21 11:16 CV Function Including HR & BP: Stable Pain Control: Satisfactory Nausea & Vomiting: Negative Mental Status: Baseline Respiratory Status: Airway Patent Hydration Status: Satisfactory Anesthesia Complications: None
[2021-08-17] MEDS ORDERED: ACETAMINOPHEN 500 MG TABLET PO SCH (12:00)
[2021-08-17] MEDS: ACETAMINOPHEN 325 MG TABLET PO PRN (13:37)
[2021-08-17] MEDS: oxyCODONE 5 MG TABLET PO PRN ×2 (13:38→21:36)
--- NOTE | 2021-08-17 14:39 | PROVIDER PROGRESS NOTE ---
Assessment/Plan - Problem List (1) Osteomyelitis Qualifiers: Osteomyelitis type: unspecified type Laterality: left Assessment/Plan: According to past medical records, patient was being followed by orthopedic clinic for cellulitis and smoldering osteomyelitis of left great toe for over a month before he stopped attending appointments. 08/15/2021 x-ray findings "osteomyelitis involving left first digital phalangeal stump and left first proximal phalangeal head with extensive bony erosive changes. Marked overlying soft tissue swelling and ulceration in left great toe". Today Dr. Berman preformed an open metatarsal ray amputation of the left great toe. Plan: Continue with Vancomycin IVPB, pharmacy to dose. Continue with Zosyn 3.375 IVPB every 6 hours. Continue to work with Ortho to coordinate care. (2) Gangrene Assessment/Plan: Patient is homeless and alternates sleeping at assisted or outside in the elements. According to medical records, he was last seen for frostbite 07/01/2021 when his left great toe had sloughed skin and the nail fell off. On 07/12/2022 he was seen again in ED with an dorsum ulceration on the left great toe which was debrided by Dr. Berman at the bedside. He was managed by ortho until be failed to attend appointments. His last ED visit was on 08/12/2021 when had a replapse in drinking and found to have "heaping granulation tissue" to the left great toe with "foul drainage". He was given an order for Augmentin, which he was non-compliant in taking. on 08/15/2021 law enforcement did a welfare check to follow up on recent ED visit. He was found cold and wet, sleeping outside with mottled right toes. Today right toes remain mottled but patient reports increased sensation. Today Dr. Lee preformed an open metatarsal ray amputation of the left great toe and sent bone cultures. Preliminary left toe wound cultures grew proteus, gram (+) cocci, gram (+) bacilli, and gram (-) bacilli. Plan: Continue Vancomyocin and Zosyn IV. Adjust antibiotics as needed when wound cultures are finalized. (3) Frostbite Assessment/Plan: Patient is homeless and alternates sleeping at assisted and outside in the elements where he has a difficult time keeping his feet warm. He has past episodes of frostbite to lower extremities without amputations. According to the medical record 07/01/2021 the last episode of frostbite which resulted in debridement of distal tip if left great toe. 08/15/2021 law enforcement did a welfare check to follow up on recent ED visit. He was found cold, wet, and sleeping outside with right mottled toes. Today right toes continue to be mottled with increased sensation. Plan: Continue to provide pain medication during and after rewarming. (4) Alcohol abuse Assessment/Plan: Patient has a history of alcohol abuse and reports being on a binge for 5 days drinking 750ml of whiskey daily prior to admission. He reports that he binge drinks for a week or two and then does not drink for 2-3 months at a time. He has undergone alcohol withdrawal while at a detox facility in [facility] 1 year ago and then attends Alcohol Anonymous periodically. He is receptive to receiving treatment for alcohol abuse. Today he is alert and oriented. His CIWA is ranging 2-4. Plan: Continue CIWA monitoring of patient. Continue with librium to minimize delirium tremens and alcohol withdrawal symptoms. As needed Ativan for CIWA score > 8. (5) Alcoholic hepatitis Assessment/Plan: Patient has a history of alcohol abuse. He binge drinks 750ml of whiskey daily for weeks and then stops for a few months. AST is down to 120 from 138 and ALT is down to 59 from 66 yesterday. Ammonia is elevated at 38. Pt is alert and oriented. Plan: Will monitor LFTs intermittently. Continue to monitor ammonia level and consider adding lactose if levels continue to increase and he becomes confused. Avoid hepatotoxins and alcohol. (6) COVID-19 Assessment/Plan: Patient is was admitted for osteomyelitis management and screening showed a positive COVID PCR. He denies fever, chills, cough, dyspnea, n/v/d, or known contact with covid positive people. He reports receiving his first Covid vaccine on 07/25/2021. Admission chest x-ray from 08/15/2021 showed "no cardiopulmonary process". Breath sounds are clear bilaterally and bedside oxygen saturation is 96% on room air. Patient does not qualify for Remdesivir or Decadron while asymptomatic. Mottled toes could be related to COVID. Plan: Continue isolation precautions and discuss with Infectous disease RN when precautions can end. Monitor respiratory status with bedside pulse oximetry and initiate oxygen therapy as needed. Consider starting Remdesivir or Decadron if he becomes symptomatic. Continue with therapeutic Lovenox for probable COVID toe. (7) Rhabdomyolysis Qualifiers: Rhabdomyolysis type: traumatic Encounter type: initial encounter Qualified Code(s): T79.6XXA - Traumatic ischemia of muscle, initial encounter Assessment/Plan: Patient was admitted to the hospital today after being found sleeping outside while intoxicated. His CK is improving from admission 3825 to 1963 and his creatinine is unchanged at 0.8. Plan: Continue to monitor CK for trend and creatinine for indications of intrinsic renal failure. Administer IV fluids. (8) Hyperthyroidism Assessment/Plan: Patient reports a history of hyperthyroidism and had a prescription for Carvedilol 25mg twice daily that he was not take. He was unsure how long ago it was prescribed or when he took it last. Upon examination pt has bilateral exophthalmos. Plan: Obtain a TSH, T3, and T4. Will give hyperthyroid treatment if needed. (9) Homeless single person Assessment/Plan: Patient reports being homeless for over 1 year and alternates sleeping in a assisted or outside. He has a son living in [place] that he does not have contact with. He also has 2 sisters and a mother in [place] that he is not in contact with. 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 Plan: Obtain 7th grade social studies teacher consult when medially cleared. - Current Meds Current Meds: Current Medications Generic Name Dose Route Start Last Admin Trade Name Freq PRN Reason Stop Dose Admin Acetaminophen 650 mg 08/15/21 17:07 08/17/21 13:37 Acetaminophen 325 Mg Tablet PO 650 mg Q4HR PRN Administration Pain or Fever > 38C (100.4F) Carvedilol 12.5 mg 08/16/21 12:00 08/17/21 08:59 Carvedilol 12.5 Mg Tablet PO 12.5 mg BID TALITA Administration Chlordiazepoxide HCl 25 mg 08/15/21 22:00 08/17/21 13:37 Chlordiazepoxide 25 Mg Capsule PO 25 mg Q8HR TALITA Administration Enoxaparin Sodium 100 mg 08/16/21 21:00 08/17/21 09:00 Enoxaparin 100 Mg/Ml Syringe SUBQ Not Given BID [facility] Multivitamins 10 ml/ Thiamine 1,011.2 mls @ 100 mls/hr 08/16/21 09:00 08/17/21 09:00 HCl 100 mg/ Folic Acid 1 mg/ IV 100 mls/hr Sodium Chloride DAILY TALITA Administration Piperacillin Sod/Tazobactam 100 mls @ 25 mls/hr 08/15/21 20:30 08/17/21 12:16 Sod 3.375 gm/ Sodium Chloride IV 25 mls/hr Q8H TALITA Administration Vancomycin HCl 1.75 gm/ Sodium 500 mls @ 250 mls/hr 08/16/21 05:00 08/17/21 05:05 Chloride IV 250 mls/hr Q12H TALITA Administration Lorazepam 2 mg 08/15/21 17:13 08/15/21 21:19 Lorazepam 2 Mg/Ml Vial IVP 2 mg Q30M PRN Administration CIWA >8 Protocol Magnesium Oxide 400 mg 08/17/21 08:00 08/17/21 08:59 Magnesium Oxide 400 Mg Tablet PO 400 mg DAILYWM TALITA Administration Oxycodone HCl 10 mg 08/15/21 17:07 08/17/21 13:38 Oxycodone 5 Mg Tablet PO 10 mg Q4HR PRN Administration Pain 8 to 10 Sodium Chloride 10 ml 08/15/21 17:07 08/17/21 05:06 Sodium Chloride Flush 0.9% 10 Ml Syringe IVP 10 ml PRN PRN Administration NEEDED PER PROVIDER ORDERS Sodium Chloride 10 ml 08/16/21 01:00 08/17/21 09:00 Sodium Chloride Flush 0.9% 10 Ml Syringe IVP Not Given 0100,0900,1700 TALITA - Lab Result Fish Bone Diagrams: 08/17/21 05:53 08/17/21 05:53 Subjective - Subjective Patient Reports: Feeling Better, Resting Comfortably, No Complaints (Patient reports feeling better today and has increased sensation to his right foot. He is eager to be discharged so he can return to work.) Nursing Reports: No Complaints Objective Vital Signs: Vital Signs - 24 hr 08/16/21 08/16/21 08/17/21 16:20 20:36 00:37 Temperature 37.1 C 37.3 C 37.1 C Heart Rate [ 93 97 95 Brachial] Respiratory 20 19 20 Rate Blood Pressure 159/90 H [Right Brachial artery] Blood Pressure 158/85 H 151/90 H [Right Radial artery] O2 Saturation 96 96 98 08/17/21 08/17/21 08/17/21 05:01 09:00 11:02 Temperature 36.6 C 37 C 37 C Heart Rate [ 94 90 86 Brachial] Respiratory 18 18 18 Rate Blood Pressure 160/84 H [Right Brachial artery] Blood Pressure 165/82 H 142/73 H [Right Radial artery] O2 Saturation 97 97 98 08/17/21 08/17/21 08/17/21 11:16 11:21 11:32 Temperature 37 C 36.6 C Heart Rate [ 91 88 96 Brachial] Respiratory 18 17 18 Rate Blood Pressure [Right Brachial artery] Blood Pressure 141/72 H 143/69 H 146/76 H [Right Radial artery] O2 Saturation 95 96 100 08/17/21 08/17/21 12:13 13:51 Temperature 36.6 C 37 C Heart Rate [ 88 87 Brachial] Respiratory 17 16 Rate Blood Pressure [Right Brachial artery] Blood Pressure 132/75 H 142/80 H [Right Radial artery] O2 Saturation 100 97 Oxygen O2 Source Room air I&O (Last 24 Hrs): Intake and Output Totals x24h 08/15/21 08/16/21 08/17/21 23:59 23:59 23:59 Intake Total 1721 3859.2 440 Output Total 3750 2200 Balance 1721 109.2 -1760 General: Alert, Oriented x3, Cooperative, No acute distress HEENT: Atraumatic, PERRLA, EOMI, Mucous membr. moist/pink, Other (exopthalmos) Neck: Supple, No JVD Neuro: Alert, Oriented Times 3, Other (Diminished sensation to bilateral ankle to toes.) Cardiovascular: Regular rate, No murmurs Respiratory: Chest non-tender, No respiratory distress, Breath sounds nml Abdomen: Normal bowel sounds, Soft, No tenderness, No hepatospenomegaly Extremities: Other (3+ edema to right ankle down, 2+ edema to left ankle. Mottling of bilateral toes) Comments/Notes: Right toes are mottled and extend to dorsal lateral aspect of foot. Open necro tic ulcer to right pinky toe with serous drainage. Dressing to left foot with mottled second and third toe. - Results Results: Laboratory Results WBC 10.1 x10^3/uL (4.8-10.8) 08/17/21 05:53 RBC 4.07 10^6/uL (4.70-6.10) L 08/17/21 05:53 Hgb 11.9 g/dL (14.0-18.0) L 08/17/21 05:53 Hct 34.6 % (42.0-52.0) L 08/17/21 05:53 MCV 85.0 fL (80.0-94.0) 08/17/21 05:53 MCH 29.2 pg (27.0-31.0) 08/17/21 05:53 MCHC 34.4 g/dL (32.0-36.0) 08/17/21 05:53 RDW 17.1 % (12.0-15.0) H 08/17/21 05:53 Plt Count 162 10^3/uL (130-450) 08/17/21 05:53 MPV 9.4 fL (7.4-11.4) 08/17/21 05:53 Neut # (Auto) 8.0 10^3/uL (1.5-6.6) H 08/17/21 05:53 Lymph # (Auto) 1.0 10^3/uL (1.5-3.5) L 08/17/21 05:53 [place] # (Auto) 0.8 10^3/uL (0.0-1.0) 08/17/21 05:53 Eos # (Auto) 0.1 10^3/uL (0.0-0.7) 08/17/21 05:53 Baso # (Auto) 0.1 10^3/uL (0.0-0.1) 08/17/21 05:53 Absolute Nucleated RBC 0.00 x10^3/uL 08/17/21 05:53 Nucleated RBC % 0.0 /100WBC 08/17/21 05:53 ESR 60 mm/Hr (0-20) H 08/15/21 13:23 PT 16.1 secs (9.9-12.6) H 08/17/21 05:53 INR 1.5 (0.8-1.2) H 08/17/21 05:53 D-Dimer > 1050.0 ng/mL (200.0-255.0) H 08/15/21 17:52 Sodium 131 mmol/L (135-145) L 08/17/21 05:53 Potassium 4.2 mmol/L (3.5-5.0) 08/17/21 05:53 Chloride 99 mmol/L (101-111) L 08/17/21 05:53 Carbon Dioxide 24 mmol/L (21-32) 08/17/21 05:53 Anion Gap 8.0 (6-13) 08/17/21 05:53 BUN 13 mg/dL (6-20) 08/17/21 05:53 Creatinine 0.8 mg/dL (0.6-1.2) 08/17/21 05:53 Estimated GFR (MDRD) 100 (>89) 08/17/21 05:53 Glucose 87 mg/dL (70-100) 08/17/21 05:53 Lactic Acid 1.5 mmol/L (0.5-2.2) 08/15/21 15:15 Calcium 8.1 mg/dL (8.5-10.3) L 08/17/21 05:53 Phosphorus 3.0 mg/dL (2.5-4.6) 08/16/21 05:52 Magnesium 1.4 mg/dL (1.7-2.8) L 08/17/21 05:53 Total Bilirubin 1.5 mg/dL (0.2-1.0) H 08/17/21 05:53 AST 120 IU/L (10-42) H 08/17/21 05:53 ALT 59 IU/L (10-60) 08/17/21 05:53 Alkaline Phosphatase 43 IU/L (42-121) 08/17/21 05:53 Ammonia 38.0 umol/L (7-35) H 08/17/21 05:53 Total Creatine Kinase 1964 IU/L (22-269) H* 08/17/21 05:53 C-Reactive Protein 8.5 mg/dL (0-1.0) H 08/15/21 13:23 Total Protein 7.0 g/dL (6.7-8.2) 08/17/21 05:53 Albumin 2.2 g/dL (3.2-5.5) L 08/17/21 05:53 Globulin 4.8 g/dL (2.1-4.2) H 08/17/21 05:53 Albumin/Globulin Ratio 0.5 (1.0-2.2) L 08/17/21 05:53 Lipase 84 U/L (22-51) H 08/16/21 05:52 Nasal Adenovirus (PCR) NOT DETECTED 08/15/21 15:35 Nasal B. parapertussis DNA (PCR) NOT DETECTED 08/15/21 15:35 Nasal Coronavir 229E PCR NOT DETECTED 08/15/21 15:35 Nasal Coronavir HKU1 PCR NOT DETECTED 08/15/21 15:35 Nasal Coronavir NL63 PCR NOT DETECTED 08/15/21 15:35 Nasal Coronavir OC43 PCR NOT DETECTED 08/15/21 15:35 Nasal Enterovir/Rhinovir PCR NOT DETECTED 08/15/21 15:35 Nasal Influenza B PCR NOT DETECTED 08/15/21 15:35 Nasal Influenza A PCR NOT DETECTED 08/15/21 15:35 Nasal Parainfluen 1 PCR NOT DETECTED 08/15/21 15:35 Nasal Parainfluen 2 PCR NOT DETECTED 08/15/21 15:35 Nasal Parainfluen 3 PCR NOT DETECTED 08/15/21 15:35 Nasal Parainfluen 4 PCR NOT DETECTED 08/15/21 15:35 Nasal RSV (PCR) NOT DETECTED 08/15/21 15:35 Nasal B.pertussis DNA PCR NOT DETECTED 08/15/21 15:35 Nasal C.pneumoniae (PCR) NOT DETECTED 08/15/21 15:35 Nazario Human Metapneumo PCR NOT DETECTED 08/15/21 15:35 Nasal M.pneumoniae (PCR) NOT DETECTED 08/15/21 15:35 Nasal SARS-CoV-2 (PCR) DETECTED A 08/15/21 15:35 Urine Opiates Screen NEGATIVE (NEGATIVE) 08/15/21 19:15 Ur Oxycodone Screen NEGATIVE (NEGATIVE) 08/15/21 19:15 Urine Methadone Screen NEGATIVE (NEGATIVE) 08/15/21 19:15 Ur Propoxyphene Screen NEGATIVE (NEGATIVE) 08/15/21 19:15 Ur Barbiturates Screen NEGATIVE (NEGATIVE) 08/15/21 19:15 Ur Tricyclics Screen NEGATIVE (NEGATIVE) 08/15/21 19:15 Ur Phencyclidine Scrn NEGATIVE (NEGATIVE) 08/15/21 19:15 Ur Amphetamine Screen NEGATIVE (NEGATIVE) 08/15/21 19:15 U Methamphetamines Scrn NEGATIVE (NEGATIVE) 08/15/21 19:15 U Benzodiazepines Scrn NEGATIVE (NEGATIVE) 08/15/21 19:15 Urine Cocaine Screen NEGATIVE (NEGATIVE) 08/15/21 19:15 U Cannabinoids Screen NEGATIVE (NEGATIVE) 08/15/21 19:15 Ethyl Alcohol 314.6 mg/dL 08/15/21 13:23 ABX Reporting Has patient been on IV antibiotics over the past 48 hours?: Yes
[2021-08-17 16:59] LABS: VANCOMYCIN,TROUGH 5.5 ug/mL (10.0-20.0)
[2021-08-17] MEDS ORDERED: SODIUM CHLORIDE FLUSH 0.9% 10 ML SYRINGE IVP SCH (17:00)
[2021-08-17] MEDS: ethyl alcohoL 62% SWAB AMPULE NAS SCH (21:35)
[2021-08-17] MEDS: CELECOXIB 100 MG CAPSULE PO SCH (21:35)
[2021-08-18] MEDS: SODIUM CHLORIDE FLUSH 0.9% 10 ML SYRINGE IVP SCH ×3 (01:06→15:36)
[2021-08-18] MEDS: PIPERACILLIN/TAZOBACTAM 3.375 GM in SODIUM CHLORIDE 0.9% MINIBAG 100 ML IV SCH ×3 (03:53→21:43)
[2021-08-18] MEDS: VANCOMYCIN INJ 1.75 GM in SODIUM CHLORIDE 0.9% 500 ML IV SCH ×3 (03:53→20:19)
[2021-08-18] MEDS: ACETAMINOPHEN 325 MG TABLET PO PRN ×3 (05:28→14:29)
[2021-08-18] MEDS: chlordiazePOXIDE 25 MG CAPSULE PO SCH (05:28)
[2021-08-18] MEDS: oxyCODONE 5 MG TABLET PO PRN ×3 (05:28→21:57)
[2021-08-18 08:21] LABS: BASOPHILS % (AUTO) 0.5 %; EOSINOPHILS # (AUTO) 0.1 10^3/uL (0.0-0.7); EOSINOPHILS % (AUTO) 0.9 %; HCT - HEMATOCRIT 33.3 % (42.0-52.0); HGB - HEMOGLOBIN 11.3 g/dL (14.0-18.0); LYMPHOCYTES # (AUTO) 0.9 10^3/uL (1.5-3.5); LYMPHOCYTES % (AUTO) 10.6 %; MEAN CORPUSCULAR HEMOGLOBIN 29.4 pg (27.0-31.0); MEAN CORPUSCULAR HGB CONC 33.9 g/dL (32.0-36.0); MEAN CORPUSCULAR VOLUME 86.7 fL (80.0-94.0); MEAN PLATELET VOLUME 9.5 fL (7.4-11.4); MONOCYTES # (AUTO) 0.7 10^3/uL (0.0-1.0); MONOCYTES % (AUTO) 7.7 %; NEUTROPHILS # (AUTO) 6.7 10^3/uL (1.5-6.6); PLT - PLATELET COUNT 140 10^3/uL (130-450); RED BLOOD COUNT 3.84 10^6/uL (4.70-6.10); WHITE BLOOD COUNT 8.6 x10^3/uL (4.8-10.8)
[2021-08-18] MEDS: PRENATAL VITAMIN TABLET PO SCH (08:21)
[2021-08-18] MEDS: MAGNESIUM OXIDE 400 MG TABLET PO SCH (08:21)
[2021-08-18] MEDS: THIAMINE 100 MG TABLET PO SCH (08:21)
[2021-08-18 08:27] LABS: INR 1.4 (0.8-1.2); PT - PROTHROMBIN TIME 15.4 secs (9.9-12.6)
[2021-08-18 08:38] LABS: ALBUMIN/GLOBULIN RATIO 0.4 (1.0-2.2); BILIRUBIN,TOTAL 1.2 mg/dL (0.2-1.0); CALCIUM 7.9 mg/dL (8.5-10.3); CREATININE 0.8 mg/dL (0.6-1.2); MAGNESIUM 1.6 mg/dL (1.7-2.8); POTASSIUM 3.7 mmol/L (3.5-5.0); TOTAL PROTEIN 6.5 g/dL (6.7-8.2)
[2021-08-18 08:52] LABS: THYROID STIMULATING HORMONE 5.59 uIU/mL (0.34-5.60)
[2021-08-18 08:53] LABS: FREE T3 2.74 pg/mL (2.5-3.9)
[2021-08-18 08:54] LABS: FREE T4 (FREE THYROXINE) 0.74 ng/dL (0.58-1.64)
[2021-08-18] MEDS: ENOXAPARIN 100 MG/ML SYRINGE SUBQ SCH ×2 (09:40→21:44)
[2021-08-18] MEDS: ethyl alcohoL 62% SWAB AMPULE NAS SCH ×2 (09:40→21:43)
[2021-08-18] MEDS: CELECOXIB 100 MG CAPSULE PO SCH ×2 (09:42→21:43)
[2021-08-18] MEDS: carvediloL 12.5 MG TABLET PO SCH ×2 (09:43→21:43)
--- NOTE | 2021-08-18 11:10 | PROVIDER PROGRESS NOTE ---
Assessment/Plan - Problem List (1) Osteomyelitis Qualifiers: Osteomyelitis type: unspecified type Laterality: left Assessment/Plan: According to past medical records, patient was being followed by orthopedic clinic for cellulitis and smoldering osteomyelitis of left great toe for over a month before he stopped attending appointments. 08/15/2021 x-ray findings "osteomyelitis involving left first digital phalangeal stump and left first proximal phalangeal head with extensive bony erosive changes. Marked overlying soft tissue swelling and ulceration in left great toe". 08/17/2021 Dr. Berman preformed an open metatarsal ray amputation of the left great toe. Today Dr. Berman instructed to leave dressing in place and to discontinue antibiotics on Friday. Plan: Continue with Vancomycin IVPB, pharmacy to dose with plan to discontinue on Friday per surgeon. Continue with Zosyn 3.375 IVPB every 6 hours with plan to discontinue on Friday per surgeon. Continue to work with Ortho to coordinate care. (2) Gangrene Assessment/Plan: Patient is homeless and alternates sleeping at alf or outside in the elements. According to medical records, he was last seen for frostbite 07/01/2021 when his left great toe had sloughed skin and the nail fell off. On 07/12/2022 he was seen again in ED with an dorsum ulceration on the left great toe which was debrided by Dr. Berman at the bedside. He was managed by ortho until be failed to attend appointments. His last ED visit was on 08/12/2021 when had a relapse in drinking and found to have "heaping granulation tissue" to the left great toe with "foul drainage". He was given an order for Augmentin, which he was non-compliant in taking. On 08/15/2021 law enforcement did a welfare check to follow up on recent ED visit. He was found cold and wet, sleeping outside with mottled right toes. Today right toes remain mottled with improvement in right great toe and second toe. Patient also patient reports increased sensation to right foot and toes. 08/17/2021 Dr. Berman preformed an open metatarsal ray amputation of the left great toe and sent bone cultures. Preliminary left toe wound cultures grew proteus, gram (+) cocci, gram (+) bacilli, and gram (-) b acilli. Right pinky toe continues to have dry necrotic ulcer. Today Dr. Berman advised to keep right pinky toe open to air but may place dressing if drainage resumes. Plan: Continue Vancomyocin and Zosyn IV until Friday per surgeon. Adjust antibiotics as needed when wound cultures are finalized. Continue to monitor right foot and toes for changes in circulation, demarcation, and sensations. (3) Frostbite Assessment/Plan: Patient is homeless and alternates sleeping at alf and outside in the elements where he has a difficult time keeping his feet warm. He has past episodes of frostbite to lower extremities without amputations. According to the medical record 07/01/2021 the last episode of frostbite which resulted in debridement of distal tip if left great toe. 08/15/2021 law enforcement did a welfare check to follow up on recent ED visit. He was found cold, wet, and sleeping outside with right mottled toes. Today mottling of right toes has improved to right great toe and 2nd toe. Sensation is also increased. Plan: Continue to monitor demarcation progress. Continue to keep feet warm and dry. Continue with Lovenox to prevent thrombosis. Keep foot elevated to decrease edema. (4) Alcohol abuse Assessment/Plan: Patient has a history of alcohol abuse and reports being on a binge for 5 days drinking 750ml of whiskey daily prior to admission. He reports binge drinking for a week or two and then does not drink for 2-3 months at a time. He has undergone alcohol withdrawal while at a detox facility in [facility] 1 year ago and then attends Alcohol Anonymous periodically. He is receptive to receiving t reatment for alcohol abuse. Today he is alert and oriented. His CIWA is ranging 0-4 with last prn Ativan 08/15/2021. Plan: Continue CIWA monitoring of patient and administer as needed Ativan for CIWA s core >8. Decrease Librium to 10mg today and monitor for delirium tremens and alcohol withdrawal symptoms. (5) Alcoholic hepatitis Assessment/Plan: Patient has a history of alcohol abuse. He binge drinks 750ml of whiskey daily for weeks and then stops for a few months. AST is down to 62 from 120 and ALT is down to 43 from 59 yesterday. Ammonia is decreasing and is at 37.7 today. Pt is alert and oriented. Plan: Will monitor LFTs intermittently. Continue to monitor ammonia level and consider adding lactose if it becomes elevated and he becomes confused. Avoid hepatotoxins and alcohol. (6) COVID-19 Assessment/Plan: Patient is was admitted for osteomyelitis management and screening showed a positive COVID PCR. He denies fever, chills, cough, dyspnea, n/v/d, or known contact with covid positive people. He reports receiving his first Covid vaccine on 07/25/2021. Admission chest x-ray from 08/15/2021 showed "no cardiopulmonary process". Breath sounds are clear bilaterally and bedside oxygen saturation is 96% on room air. Patient does not qualify for Remdesivir or Decadron while asymptomatic. Mottled toes could be related to COVID. Plan: Continue isolation precautions and discuss with Infectious Disease RN when precautions can end. Monitor respiratory status with bedside pulse oximetry and initiate oxygen therapy as needed. Consider starting Remdesivir or Decadron if he becomes symptomatic. Continue with therapeutic Lovenox for probable COVID toe. (7) Rhabdomyolysis Qualifiers: Rhabdomyolysis type: traumatic Encounter type: initial encounter Qualified Code(s): T79.6XXA - Traumatic ischemia of muscle, initial encounter Assessment/Plan: Patient was admitted to the hospital after being found sleeping outside while intoxicated. His CK is improving from admission 3303 to 484 and his creatinine is unchanged at 0.8. Plan: Continue to monitor CK for trend and creatinine for indications of intrinsic renal failure. (8) Hyperthyroidism Assessment/Plan: Patient reports a history of hyperthyroidism and had a prescription for Carvedilol 25mg twice daily that he was not take. He was unsure how long ago it was prescribed or when he took it last. Upon examination pt has bilateral exophthalmos. 08/18/2021 TSH 5.59, Free T4 0.74, and Free T3 274 indicating he is euthyroid. Plan: Patient will need to have repeat TSH, T3, and T4 in 2-3 to monitor trends. (9) Homeless single person Assessment/Plan: Patient reports being homeless for over 1 year and alternates sleeping in a alf or outside. He has a son living in [place] that he does not have contact with. He also has 2 sisters and a mother in [place] that he is not in contact with. 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 Initially he reported that he stopped working before the COVID pandemic started in 2019 then the following day reported working intermittently as a asbestos remover and worked a "few weeks ago". Plan: Obtain social media strategist consult to determine discharge needs. - Current Meds Current Meds: Current Medications Generic Name Dose Route Start Last Admin Trade Name Colleen PRN Reason Stop Dose Admin Acetaminophen 650 mg 08/15/21 17:07 08/18/21 09:39 Acetaminophen 325 Mg Tablet PO 650 mg Q4HR PRN Administration Pain or Fever > 38C (100.4F) Alcohol 1 amp 08/17/21 21:00 08/18/21 09:40 Ethyl Alcohol 62% Swab Ampule ANCA 1 amp BID TALITA Administration Carvedilol 12.5 mg 08/16/21 12:00 08/18/21 09:43 Carvedilol 12.5 Mg Tablet PO 12.5 mg BID TALITA Administration Celecoxib 200 mg 08/17/21 21:00 08/18/21 09:42 Celecoxib 100 Mg Capsule PO 200 mg BID TALITA Administration Enoxaparin Sodium 100 mg 08/16/21 21:00 08/18/21 09:40 Enoxaparin 100 Mg/Ml Syringe SUBQ 100 mg BID TALITA Administration Piperacillin Sod/Tazobactam 100 mls @ 25 mls/hr 08/15/21 20:30 08/18/21 09:15 Sod 3.375 gm/ Sodium Chloride IV Infused Q8H TALITA Infusion Vancomycin HCl 1.75 gm/ Sodium 500 mls @ 250 mls/hr 08/17/21 20:00 08/18/21 05:55 Chloride IV Infused Q8H TALITA Infusion Lorazepam 2 mg 08/15/21 17:13 08/15/21 21:19 Lorazepam 2 Mg/Ml Vial IVP 2 mg Q30M PRN Administration CIWA >8 Protocol Magnesium Oxide 400 mg 08/17/21 08:00 08/18/21 08:21 Magnesium Oxide 400 Mg Tablet PO 400 mg DAILYWM TALITA Administration Oxycodone HCl 10 mg 08/15/21 17:07 08/18/21 09:39 Oxycodone 5 Mg Tablet PO 10 mg Q4HR PRN Administration Pain 8 to 10 Multivit/Folic Acid/Iron 1 tab 08/18/21 08:00 08/18/21 08:21 Vitamin Tablet PO 1 tab DAILYWM TALITA Administration Sodium Chloride 10 ml 08/15/21 17:07 08/17/21 05:06 Sodium Chloride Flush 0.9% 10 Ml Syringe IVP 10 ml PRN PRN Administration NEEDED PER PROVIDER ORDERS Sodium Chloride 10 ml 08/16/21 01:00 08/18/21 09:44 Sodium Chloride Flush 0.9% 10 Ml Syringe IVP 10 ml 0100,0900,1700 TALITA Administration Thiamine HCl 100 mg 08/18/21 08:00 08/18/21 08:21 Thiamine 100 Mg Tablet PO 100 mg DAILYWM TALITA Administration - Lab Result Fish Bone Diagrams: 08/18/21 08:05 08/18/21 08:05 <Jaleesa King - Last Filed: 08/18/21 15:55> - Problem List (1) Osteomyelitis Qualifiers: Osteomyelitis type: unspecified type Laterality: left - Current Meds Current Meds: Current Medications Generic Name Dose Route Start Last Admin Trade Name Freq PRN Reason Stop Dose Admin Acetaminophen 650 mg 08/15/21 17:07 08/18/21 14:29 Acetaminophen 325 Mg Tablet PO 650 mg Q4HR PRN Administration Pain or Fever > 38C (100.4F) Alcohol 1 amp 08/17/21 21:00 08/18/21 09:40 Ethyl Alcohol 62% Swab Ampule ANCA 1 amp BID TALITA Administration Carvedilol 12.5 mg 08/16/21 12:00 08/18/21 09:43 Carvedilol 12.5 Mg Tablet PO 12.5 mg BID TALITA Administration Celecoxib 200 mg 08/17/21 21:00 08/18/21 09:42 Celecoxib 100 Mg Capsule PO 200 mg BID TAILTA Administration Chlordiazepoxide HCl 10 mg 08/18/21 14:00 08/18/21 14:29 Chlordiazepoxide 5 Mg Capsule PO 10 mg Q8HR TALITA Administration Enoxaparin Sodium 100 mg 08/16/21 21:00 08/18/21 09:40 Enoxaparin 100 Mg/Ml Syringe SUBQ 100 mg BID TALITA Administration Piperacillin Sod/Tazobactam 100 mls @ 25 mls/hr 08/15/21 20:30 08/18/21 13:15 Sod 3.375 gm/ Sodium Chloride IV 25 mls/hr Q8H TALITA Infusion Vancomycin HCl 1.75 gm/ Sodium 500 mls @ 250 mls/hr 08/17/21 20:00 08/18/21 15:52 Chloride IV Infused Q8H TALITA Infusion Lorazepam 2 mg 08/15/21 17:13 08/15/21 21:19 Lorazepam 2 Mg/Ml Vial IVP 2 mg Q30M PRN Administration CIWA >8 Protocol Magnesium Oxide 400 mg 08/17/21 08:00 08/18/21 08:21 Magnesium Oxide 400 Mg Tablet PO 400 mg DAILYWM TALITA Administration Oxycodone HCl 10 mg 08/15/21 17:07 08/18/21 09:39 Oxycodone 5 Mg Tablet PO 10 mg Q4HR PRN Administration Pain 8 to 10 Multivit/Folic Acid/Iron 1 tab 08/18/21 08:00 08/18/21 08:21 Vitamin Tablet PO 1 tab DAILYWM TALITA Administration Sodium Chloride 10 ml 08/15/21 17:07 08/17/21 05:06 Sodium Chloride Flush 0.9% 10 Ml Syringe IVP 10 ml PRN PRN Administration NEEDED PER PROVIDER ORDERS Sodium Chloride 10 ml 08/16/21 01:00 08/18/21 15:36 Sodium Chloride Flush 0.9% 10 Ml Syringe IVP 10 ml 0100,0900,1700 TALITA Administration Thiamine HCl 100 mg 08/18/21 08:00 08/18/21 08:21 Thiamine 100 Mg Tablet PO 100 mg DAILYWM TALITA Administration - Lab Result Fish Bone Diagrams: 08/18/21 08:05 08/18/21 08:05 - Additional Planning My Orders: My Active Orders 08/17/21 20:00 Vancomycin Inj [Vancomycin] 1.75 gm Sodium Chloride 0.9% [Normal Saline 0.9%] 500 ml IV Q8H 08/18/21 08:00 Vitamin [Trinatal Rx 1] 1 tab PO DAILYWM Thiamine [Vitamin B-1] 100 mg PO DAILYWM 08/18/21 14:00 chlordiazePOXIDE [Librium] 10 mg PO Q8HR 08/19/21 05:00 AMMONIA [CHEM] DAILYLAB CBC - COMP BLD CT W/AUTO DIFF [HEME] DAILYLAB COMPREHENSIVE METABOLIC PANEL [CHEM] DAILYLAB MAGNESIUM [CHEM] DAILYLAB 08/20/21 05:00 CBC - COMP BLD CT W/AUTO DIFF [HEME] DAILYLAB COMPREHENSIVE METABOLIC PANEL [CHEM] DAILYLAB <YovannylynetteYanet Henrietta - Last Filed: 08/18/21 16:11> Subjective - Subjective Patient Reports: Feeling Better, Resting Comfortably, Other (Patient is alert and oriented sitting in bed watching TV. He reports intermittent throbbing pain of left foot that is improved with medication. He reprots improved sensation to right foot and toes. Denies cough, fever, chills, n/v/d, and dyspnea.) Nursing Reports: No Complaints <Jaleesa King - Last Filed: 08/18/21 15:55> Objective Vital Signs: Vital Signs - 24 hr 08/17/21 08/17/21 08/17/21 11:02 11:16 11:21 Temperature 37 C 37 C Heart Rate [ 86 91 88 Brachial] Respiratory 18 18 17 Rate Blood Pressure [Right Brachial artery] Blood Pressure 142/73 H 141/72 H 143/69 H [Right Radial artery] O2 Saturation 98 95 96 08/17/21 08/17/21 08/17/21 11:32 12:13 13:51 Temperature 36.6 C 36.6 C 37 C Heart Rate [ 96 88 87 Brachial] Respiratory 18 17 16 Rate Blood Pressure [Right Brachial artery] Blood Pressure 146/76 H 132/75 H 142/80 H [Right Radial artery] O2 Saturation 100 100 97 08/17/21 08/17/21 08/18/21 16:05 19:37 00:58 Temperature 36.3 C L 36.8 C 36.6 C Heart Rate [ 80 85 74 Brachial] Respiratory 18 20 20 Rate Blood Pressure 145/71 H 164/77 H 128/72 [Right Brachial artery] Blood Pressure [Right Radial artery] O2 Saturation 97 95 95 08/18/21 08:00 Temperature 37 C Heart Rate [ 71 Brachial] Respiratory 18 Rate Blood Pressure 142/82 H [Right Brachial artery] Blood Pressure [Right Radial artery] O2 Saturation 97 Oxygen O2 Source Room air I&O (Last 24 Hrs): Intake and Output Totals x24h 08/16/21 08/17/21 08/18/21 23:59 23:59 23:59 Intake Total 3859.2 2531.2 1200 Output Total 3750 3700 1300 Balance 109.2 -1168.8 -100 General: Alert, Oriented x3, Cooperative, No acute distress HEENT: Atraumatic, PERRLA, EOMI, Other (exophthalmos) Neck: Supple, No JVD Neuro: Alert, Oriented Times 3 Cardiovascular: Regular rate, No murmurs Respiratory: Chest non-tender, No respiratory distress, Breath sounds nml Abdomen: Normal bowel sounds, Soft, No tenderness, No hepatospenomegaly Extremities: Normal pulses, Other (3+ edema to right ankle down, 1+ edema to left ankle. Mottling of bilateral toes.) Comments/Notes: Right toes are mottled and extend to dorsal lateral aspect of foot. Right great toe and 2nd toe have less demarcation. Open dry necrotic ulcer to right pinky. Dressing to left foot with mottling to second toe. - Results Results: Laboratory Results WBC 8.6 x10^3/uL (4.8-10.8) 08/18/21 08:05 RBC 3.84 10^6/uL (4.70-6.10) L 08/18/21 08:05 Hgb 11.3 g/dL (14.0-18.0) L 08/18/21 08:05 Hct 33.3 % (42.0-52.0) L 08/18/21 08:05 MCV 86.7 fL (80.0-94.0) 08/18/21 08:05 MCH 29.4 pg (27.0-31.0) 08/18/21 08:05 MCHC 33.9 g/dL (32.0-36.0) 08/18/21 08:05 RDW 17.0 % (12.0-15.0) H 08/18/21 08:05 Plt Count 140 10^3/uL (130-450) 08/18/21 08:05 MPV 9.5 fL (7.4-11.4) 08/18/21 08:05 Neut # (Auto) 6.7 10^3/uL (1.5-6.6) H 08/18/21 08:05 Lymph # (Auto) 0.9 10^3/uL (1.5-3.5) L 08/18/21 08:05 [place] # (Auto) 0.7 10^3/uL (0.0-1.0) 08/18/21 08:05 Eos # (Auto) 0.1 10^3/uL (0.0-0.7) 08/18/21 08:05 Baso # (Auto) 0.0 10^3/uL (0.0-0.1) 08/18/21 08:05 Absolute Nucleated RBC 0.00 x10^3/uL 08/18/21 08:05 Nucleated RBC % 0.0 /100WBC 08/18/21 08:05 ESR 60 mm/Hr (0-20) H 08/15/21 13:23 PT 15.4 secs (9.9-12.6) H 08/18/21 08:05 INR 1.4 (0.8-1.2) H 08/18/21 08:05 D-Dimer > 1050.0 ng/mL (200.0-255.0) H 08/15/21 17:52 Sodium 133 mmol/L (135-145) L 08/18/21 08:05 Potassium 3.7 mmol/L (3.5-5.0) 08/18/21 08:05 Chloride 101 mmol/L (101-111) 08/18/21 08:05 Carbon Dioxide 24 mmol/L (21-32) 08/18/21 08:05 Anion Gap 8.0 (6-13) 08/18/21 08:05 BUN 15 mg/dL (6-20) 08/18/21 08:05 Creatinine 0.8 mg/dL (0.6-1.2) 08/18/21 08:05 Estimated GFR (MDRD) 100 (>89) 08/18/21 08:05 Glucose 94 mg/dL (70-100) 08/18/21 08:05 Lactic Acid 1.5 mmol/L (0.5-2.2) 08/15/21 15:15 Calcium 7.9 mg/dL (8.5-10.3) L 08/18/21 08:05 Phosphorus 3.0 mg/dL (2.5-4.6) 08/16/21 05:52 Magnesium 1.6 mg/dL (1.7-2.8) L 08/18/21 08:05 Total Bilirubin 1.2 mg/dL (0.2-1.0) H 08/18/21 08:05 AST 62 IU/L (10-42) H 08/18/21 08:05 ALT 43 IU/L (10-60) 08/18/21 08:05 Alkaline Phosphatase 38 IU/L (42-121) L 08/18/21 08:05 Ammonia 37.7 umol/L (7-35) H 08/18/21 08:05 Total Creatine Kinase 484 IU/L (22-269) H 08/18/21 08:05 C-Reactive Protein 8.5 mg/dL (0-1.0) H 08/15/21 13:23 Total Protein 6.5 g/dL (6.7-8.2) L 08/18/21 08:05 Albumin 2.0 g/dL (3.2-5.5) L 08/18/21 08:05 Globulin 4.5 g/dL (2.1-4.2) H 08/18/21 08:05 Albumin/Globulin Ratio 0.4 (1.0-2.2) L 08/18/21 08:05 Lipase 84 U/L (22-51) H 08/16/21 05:52 TSH 5.59 uIU/mL (0.34-5.60) 08/18/21 08:05 Free T4 0.74 ng/dL (0.58-1.64) 08/18/21 08:05 Free T3 pg/mL 2.74 pg/mL (2.5-3.9) 08/18/21 08:05 Nasal Adenovirus (PCR) NOT DETECTED 08/15/21 15:35 Nasal B. parapertussis DNA (PCR) NOT DETECTED 08/15/21 15:35 Nasal Coronavir 229E PCR NOT DETECTED 08/15/21 15:35 Nasal Coronavir HKU1 PCR NOT DETECTED 08/15/21 15:35 Nasal Coronavir NL63 PCR NOT DETECTED 08/15/21 15:35 Nasal Coronavir OC43 PCR NOT DETECTED 08/15/21 15:35 Nasal Enterovir/Rhinovir PCR NOT DETECTED 08/15/21 15:35 Nasal Influenza B PCR NOT DETECTED 08/15/21 15:35 Nasal Influenza A PCR NOT DETECTED 08/15/21 15:35 Nasal Parainfluen 1 PCR NOT DETECTED 08/15/21 15:35 Nasal Parainfluen 2 PCR NOT DETECTED 08/15/21 15:35 Nasal Parainfluen 3 PCR NOT DETECTED 08/15/21 15:35 Nasal Parainfluen 4 PCR NOT DETECTED 08/15/21 15:35 Nasal RSV (PCR) NOT DETECTED 08/15/21 15:35 Nasal B.pertussis DNA PCR NOT DETECTED 08/15/21 15:35 Nasal C.pneumoniae (PCR) NOT DETECTED 08/15/21 15:35 Anca Human Metapneumo PCR NOT DETECTED 08/15/21 15:35 Nasal M.pneumoniae (PCR) NOT DETECTED 08/15/21 15:35 Nasal SARS-CoV-2 (PCR) DETECTED A 08/15/21 15:35 Last Dose Date Not Reportable 08/17/21 16:43 Last Dose Time Not Reportable 08/17/21 16:43 Vancomycin Trough 5.5 ug/mL (10.0-20.0) L 08/17/21 16:43 Urine Opiates Screen NEGATIVE (NEGATIVE) 08/15/21 19:15 Ur Oxycodone Screen NEGATIVE (NEGATIVE) 08/15/21 19:15 Urine Methadone Screen NEGATIVE (NEGATIVE) 08/15/21 19:15 Ur Propoxyphene Screen NEGATIVE (NEGATIVE) 08/15/21 19:15 Ur Barbiturates Screen NEGATIVE (NEGATIVE) 08/15/21 19:15 Ur Tricyclics Screen NEGATIVE (NEGATIVE) 08/15/21 19:15 Ur Phencyclidine Scrn NEGATIVE (NEGATIVE) 08/15/21 19:15 Ur Amphetamine Screen NEGATIVE (NEGATIVE) 08/15/21 19:15 U Methamphetamines Scrn NEGATIVE (NEGATIVE) 08/15/21 19:15 U Benzodiazepines Scrn NEGATIVE (NEGATIVE) 08/15/21 19:15 Urine Cocaine Screen NEGATIVE (NEGATIVE) 08/15/21 19:15 U Cannabinoids Screen NEGATIVE (NEGATIVE) 08/15/21 19:15 Ethyl Alcohol 314.6 mg/dL 08/15/21 13:23 <Jaleesa King - Last Filed: 08/18/21 15:55> Vital Signs: Vital Signs - 24 hr 08/17/21 08/18/21 08/18/21 19:37 00:58 08:00 Temperature 36.8 C 36.6 C 37 C Heart Rate [ 85 74 71 Brachial] Respiratory 20 20 18 Rate Blood Pressure 164/77 H 128/72 142/82 H [Right Brachial artery] O2 Saturation 95 95 97 08/18/21 15:34 Temperature 36.9 C Heart Rate [ 85 Brachial] Respiratory 18 Rate Blood Pressure 143/70 H [Right Brachial artery] O2 Saturation 97 Oxygen O2 Source Room air I&O (Last 24 Hrs): Intake and Output Totals x24h 08/16/21 08/17/21 08/18/21 23:59 23:59 23:59 Intake Total 3859.2 2531.2 2384 Output Total 3750 3700 2175 Balance 109.2 -1168.8 209 - Results Results: Laboratory Results WBC 8.6 x10^3/uL (4.8-10.8) 08/18/21 08:05 RBC 3.84 10^6/uL (4.70-6.10) L 08/18/21 08:05 Hgb 11.3 g/dL (14.0-18.0) L 08/18/21 08:05 Hct 33.3 % (42.0-52.0) L 08/18/21 08:05 MCV 86.7 fL (80.0-94.0) 08/18/21 08:05 MCH 29.4 pg (27.0-31.0) 08/18/21 08:05 MCHC 33.9 g/dL (32.0-36.0) 08/18/21 08:05 RDW 17.0 % (12.0-15.0) H 08/18/21 08:05 Plt Count 140 10^3/uL (130-450) 08/18/21 08:05 MPV 9.5 fL (7.4-11.4) 08/18/21 08:05 Neut # (Auto) 6.7 10^3/uL (1.5-6.6) H 08/18/21 08:05 Lymph # (Auto) 0.9 10^3/uL (1.5-3.5) L 08/18/21 08:05 [place] # (Auto) 0.7 10^3/uL (0.0-1.0) 08/18/21 08:05 Eos # (Auto) 0.1 10^3/uL (0.0-0.7) 08/18/21 08:05 Baso # (Auto) 0.0 10^3/uL (0.0-0.1) 08/18/21 08:05 Absolute Nucleated RBC 0.00 x10^3/uL 08/18/21 08:05 Nucleated RBC % 0.0 /100WBC 08/18/21 08:05 ESR 60 mm/Hr (0-20) H 08/15/21 13:23 PT 15.4 secs (9.9-12.6) H 08/18/21 08:05 INR 1.4 (0.8-1.2) H 08/18/21 08:05 D-Dimer > 1050.0 ng/mL (200.0-255.0) H 08/15/21 17:52 Sodium 133 mmol/L (135-145) L 08/18/21 08:05 Potassium 3.7 mmol/L (3.5-5.0) 08/18/21 08:05 Chloride 101 mmol/L (101-111) 08/18/21 08:05 Carbon Dioxide 24 mmol/L (21-32) 08/18/21 08:05 Anion Gap 8.0 (6-13) 08/18/21 08:05 BUN 15 mg/dL (6-20) 08/18/21 08:05 Creatinine 0.8 mg/dL (0.6-1.2) 08/18/21 08:05 Estimated GFR (MDRD) 100 (>89) 08/18/21 08:05 Glucose 94 mg/dL (70-100) 08/18/21 08:05 Lactic Acid 1.5 mmol/L (0.5-2.2) 08/15/21 15:15 Calcium 7.9 mg/dL (8.5-10.3) L 08/18/21 08:05 Phosphorus 3.0 mg/dL (2.5-4.6) 08/16/21 05:52 Magnesium 1.6 mg/dL (1.7-2.8) L 08/18/21 08:05 Total Bilirubin 1.2 mg/dL (0.2-1.0) H 08/18/21 08:05 AST 62 IU/L (10-42) H 08/18/21 08:05 ALT 43 IU/L (10-60) 08/18/21 08:05 Alkaline Phosphatase 38 IU/L (42-121) L 08/18/21 08:05 Ammonia 37.7 umol/L (7-35) H 08/18/21 08:05 Total Creatine Kinase 484 IU/L (22-269) H 08/18/21 08:05 C-Reactive Protein 8.5 mg/dL (0-1.0) H 08/15/21 13:23 Total Protein 6.5 g/dL (6.7-8.2) L 08/18/21 08:05 Albumin 2.0 g/dL (3.2-5.5) L 08/18/21 08:05 Globulin 4.5 g/dL (2.1-4.2) H 08/18/21 08:05 Albumin/Globulin Ratio 0.4 (1.0-2.2) L 08/18/21 08:05 Lipase 84 U/L (22-51) H 08/16/21 05:52 TSH 5.59 uIU/mL (0.34-5.60) 08/18/21 08:05 Free T4 0.74 ng/dL (0.58-1.64) 08/18/21 08:05 Free T3 pg/mL 2.74 pg/mL (2.5-3.9) 08/18/21 08:05 Nasal Adenovirus (PCR) NOT DETECTED 08/15/21 15:35 Nasal B. parapertussis DNA (PCR) NOT DETECTED 08/15/21 15:35 Nasal Coronavir 229E PCR NOT DETECTED 08/15/21 15:35 Nasal Coronavir HKU1 PCR NOT DETECTED 08/15/21 15:35 Nasal Coronavir NL63 PCR NOT DETECTED 08/15/21 15:35 Nasal Coronavir OC43 PCR NOT DETECTED 08/15/21 15:35 Nasal Enterovir/Rhinovir PCR NOT DETECTED 08/15/21 15:35 Nasal Influenza B PCR NOT DETECTED 08/15/21 15:35 Nasal Influenza A PCR NOT DETECTED 08/15/21 15:35 Nasal Parainfluen 1 PCR NOT DETECTED 08/15/21 15:35 Nasal Parainfluen 2 PCR NOT DETECTED 08/15/21 15:35 Nasal Parainfluen 3 PCR NOT DETECTED 08/15/21 15:35 Nasal Parainfluen 4 PCR NOT DETECTED 08/15/21 15:35 Nasal RSV (PCR) NOT DETECTED 08/15/21 15:35 Nasal B.pertussis DNA PCR NOT DETECTED 08/15/21 15:35 Nasal C.pneumoniae (PCR) NOT DETECTED 08/15/21 15:35 Anca Human Metapneumo PCR NOT DETECTED 08/15/21 15:35 Nasal M.pneumoniae (PCR) NOT DETECTED 08/15/21 15:35 Nasal SARS-CoV-2 (PCR) DETECTED A 08/15/21 15:35 Last Dose Date Not Reportable 08/17/21 16:43 Last Dose Time Not Reportable 08/17/21 16:43 Vancomycin Trough 5.5 ug/mL (10.0-20.0) L 08/17/21 16:43 Urine Opiates Screen NEGATIVE (NEGATIVE) 08/15/21 19:15 Ur Oxycodone Screen NEGATIVE (NEGATIVE) 08/15/21 19:15 Urine Methadone Screen NEGATIVE (NEGATIVE) 08/15/21 19:15 Ur Propoxyphene Screen NEGATIVE (NEGATIVE) 08/15/21 19:15 Ur Barbiturates Screen NEGATIVE (NEGATIVE) 08/15/21 19:15 Ur Tricyclics Screen NEGATIVE (NEGATIVE) 08/15/21 19:15 Ur Phencyclidine Scrn NEGATIVE (NEGATIVE) 08/15/21 19:15 Ur Amphetamine Screen NEGATIVE (NEGATIVE) 08/15/21 19:15 U Methamphetamines Scrn NEGATIVE (NEGATIVE) 08/15/21 19:15 U Benzodiazepines Scrn NEGATIVE (NEGATIVE) 08/15/21 19:15 Urine Cocaine Screen NEGATIVE (NEGATIVE) 08/15/21 19:15 U Cannabinoids Screen NEGATIVE (NEGATIVE) 08/15/21 19:15 Ethyl Alcohol 314.6 mg/dL 08/15/21 13:23 <Yaent Almeida - Last Filed: 08/18/21 16:11> ABX Reporting Has patient been on IV antibiotics over the past 48 hours?: Yes <Jaleesa King - Last Filed: 08/18/21 15:55>
[2021-08-18] MEDS: chlordiazePOXIDE 5 MG CAPSULE PO SCH ×2 (14:29→21:43)
[2021-08-18] MEDS: SODIUM CHLORIDE FLUSH 0.9% 10 ML SYRINGE IVP PRN (20:20)
[2021-08-19] MEDS: SODIUM CHLORIDE FLUSH 0.9% 10 ML SYRINGE IVP SCH ×4 (01:14→23:58)
[2021-08-19] MEDS: PIPERACILLIN/TAZOBACTAM 3.375 GM in SODIUM CHLORIDE 0.9% MINIBAG 100 ML IV SCH ×3 (04:57→20:43)
[2021-08-19] MEDS: VANCOMYCIN INJ 1.75 GM in SODIUM CHLORIDE 0.9% 500 ML IV SCH ×3 (04:57→20:43)
[2021-08-19] MEDS: oxyCODONE 5 MG TABLET PO PRN ×4 (04:58→23:57)
[2021-08-19] MEDS: ACETAMINOPHEN 325 MG TABLET PO PRN ×4 (04:58→23:57)
[2021-08-19] MEDS: chlordiazePOXIDE 5 MG CAPSULE PO SCH ×3 (05:00→20:37)
[2021-08-19 07:14] LABS: BASOPHILS % (AUTO) 0.3 %; EOSINOPHILS # (AUTO) 0.1 10^3/uL (0.0-0.7); EOSINOPHILS % (AUTO) 1.1 %; HCT - HEMATOCRIT 32.5 % (42.0-52.0); LYMPHOCYTES % (AUTO) 11.4 %; MEAN CORPUSCULAR HEMOGLOBIN 29.6 pg (27.0-31.0); MEAN CORPUSCULAR HGB CONC 33.8 g/dL (32.0-36.0); MEAN CORPUSCULAR VOLUME 87.4 fL (80.0-94.0); MEAN PLATELET VOLUME 9.1 fL (7.4-11.4); MONOCYTES # (AUTO) 0.7 10^3/uL (0.0-1.0); MONOCYTES % (AUTO) 7.3 %; NEUTROPHILS # (AUTO) 6.9 10^3/uL (1.5-6.6); NEUTROPHILS % (AUTO) 76.6 %; PLT - PLATELET COUNT 160 10^3/uL (130-450); RED BLOOD COUNT 3.72 10^6/uL (4.70-6.10)
[2021-08-19 07:26] LABS: ALBUMIN/GLOBULIN RATIO 0.5 (1.0-2.2); BILIRUBIN,TOTAL 0.7 mg/dL (0.2-1.0); CALCIUM 7.9 mg/dL (8.5-10.3); CREATININE 0.9 mg/dL (0.6-1.2); MAGNESIUM 1.7 mg/dL (1.7-2.8); POTASSIUM 4.4 mmol/L (3.5-5.0); TOTAL PROTEIN 6.4 g/dL (6.7-8.2)
[2021-08-19] MEDS: PRENATAL VITAMIN TABLET PO SCH (08:51)
[2021-08-19] MEDS: THIAMINE 100 MG TABLET PO SCH (08:51)
[2021-08-19] MEDS: ethyl alcohoL 62% SWAB AMPULE NAS SCH ×2 (08:51→20:37)
[2021-08-19] MEDS: MAGNESIUM OXIDE 400 MG TABLET PO SCH (08:51)
[2021-08-19] MEDS: carvediloL 12.5 MG TABLET PO SCH ×2 (08:51→20:38)
[2021-08-19] MEDS: CELECOXIB 100 MG CAPSULE PO SCH ×2 (08:52→20:38)
[2021-08-19] MEDS: ENOXAPARIN 100 MG/ML SYRINGE SUBQ SCH ×2 (08:52→20:40)
--- NOTE | 2021-08-19 10:56 | PROVIDER PROGRESS NOTE ---
Assessment/Plan - Problem List (1) Osteomyelitis Qualifiers: Osteomyelitis type: unspecified type Laterality: left Assessment/Plan: According to past medical records, patient was being followed by orthopedic clinic for cellulitis and smoldering osteomyelitis of left great toe for over a month before he stopped attending appointments. 08/15/2021 x-ray findings "osteomyelitis involving left first digital phalangeal stump and left first proximal phalangeal head with extensive bony erosive changes. Marked overlying soft tissue swelling and ulceration in left great toe". 08/17/2021 Dr. Berman preformed an open metatarsal ray amputation of the left great toe. 08/18/2021 Dr. Berman instructed to leave dressing in place and to discontinue antibiotics on Friday. Today left foot continues to be in surgical dressing. Pain is well controlled with prn medications. Plan: Continue with Vancomycin IVPB, pharmacy to dose with plan to discontinue on per surgeon. Continue with Zosyn 3.375 IVPB every 6 hours with plan to discontinue on Friday per surgeon. Continue to work with Ortho to coordinate care. (2) Gangrene Assessment/Plan: Patient is homeless and alternates sleeping at custodial or outside in the elements. According to medical records, he was last seen for frostbite 07/01/2021 when his left great toe had sloughed skin and the nail fell off. On 07/12/2022 he was seen again in ED with an dorsum ulceration on the left great toe which was debrided by Dr. Berman at the bedside. He was managed by ortho until be failed to attend appointments. His last ED visit was on 08/12/2021 when had a relapse in drinking and found to have "heaping granulation tissue" to the left great toe with "foul drainage". He was given an order for Augmentin, which he was non-compliant in taking. On 08/15/2021 law enforcement did a welfare check to follow up on recent ED visit. He was found cold and wet, sleeping outside with mottled right toes. 08/17/2021 Dr. Berman preformed an open metatarsal ray amputation of the left great toe and sent bone cultures. 08/18/2021 Dr. Berman advised to keep right pinky toe open to air but may place dressing if drainage resumes. Today right toes remain mottled with pink undertone in right great toe and second toe. Patient also reports increased sensation to right foot and toes. Final left toe wound cultures grew Proteus and Beta Hemolytic Strep susceptible to Levofloxacin. Right pinky toe continues to have dry necrotic ulcer. Plan: Continue Vancomyocin and Zosyn IV until Friday per surgeon. Start Levofloxacin PO tomorrow. Continue to monitor right foot and toes for changes in circulation, demarcation, and sensations. (3) Frostbite Assessment/Plan: Patient is homeless and alternates sleeping at custodial and outside in the elements where he has a difficult time keeping his feet warm. He has past episodes of frostbite to lower extremities without amputations. According to the medical record 07/01/2021 the last episode of frostbite which resulted in debridement of distal tip if left great toe. 08/15/2021 law enforcement did a welfare check to follow up on recent ED visit. He was found cold, wet, and sleeping outside with right mottled toes. Today mottling of right great toe and second toe have improved with pink undertones. Demarcation is improving but continues to extend from base of 3rd, 4th, and pinky toe to dorsal lateral aspect of right foot. Demarcated area is also slightly raised with bulla formation to the 3rd right toe and dorsal lateral aspect of right foot. New erythematous erosion to dorsal aspect of right foot at the base of the 3rd and 4th toe along with the dorsal lateral aspect after he independently soaked his foot and used eusebio-wipes to "scrub the dirt off". Plan: Continue to monitor demarcation progress. Continue to keep feet warm and dry. Continue with Lovenox to prevent thrombosis. Keep foot elevated to decrease edema. (4) Alcohol abuse Assessment/Plan: Patient has a history of alcohol abuse and reports being on a binge for 5 days drinking 750ml of whiskey daily prior to admission. He reports binge drinking for a week or two and then does not drink for 2-3 months at a time. He has undergone alcohol withdrawal while at a detox facility in [facility] 1 year ago and then attends Alcohol Anonymous periodically. He is receptive to receiving treatment for alcohol abuse. Today he is alert and oriented. His CIWA is ranging 0-2 with last prn Ativan 08/15/2021. No hallucinations reported or tremors observed. Plan: Continue CIWA monitoring of patient and administer as needed Ativan for CIWA score >8. Decrease Librium to 5mg today and monitor for delirium tremens and alcohol withdrawal symptoms. Plan to discontinue Librium and CIWA monitoring tomorrow if CIWA remains low and prn Ativan is not needed. (5) Alcoholic hepatitis Assessment/Plan: Patient has a history of alcohol abuse. He binge drinks 750ml of whiskey daily for weeks and then stops for a few months. Today AST is down to 40 from 62 and ALT is down to 37 from 43 yesterday. Ammonia is 38.6 today. Patient continues to be alert and oriented. Plan: Will monitor LFTs intermittently. Continue to monitor ammonia level and consider adding lactose if it becomes elevated and he becomes confused. Avoid hepatotoxins and alcohol. (6) COVID-19 Assessment/Plan: Patient was admitted for osteomyelitis management and screening showed a positive COVID PCR. He denies fever, chills, cough, dyspnea, n/v/d, or known contact with covid positive people. He reports receiving his first Covid vaccine on 07/25/2021. Admission chest x-ray from 08/15/2021 showed "no cardiopulmonary process". Breath sounds are clear bilaterally and bedside oxygen saturation is 95% on room air. Patient does not qualify for Remdesivir or Decadron while asymptomatic. Mottled toes could be related to COVID. Today is day 4 in COVID isolation without fever, dyspnea, cough, or n/v/d. Plan: Continue isolation precautions and discuss with Infectious Disease RN tomorrow when precautions can end. Monitor respiratory status with bedside pulse oximetry and initiate oxygen therapy as needed. Consider starting Remdesivir or Decadron if he becomes symptomatic. Continue with therapeutic Lovenox for probable COVID toe. (7) Hyperthyroidism Assessment/Plan: Patient reports a history of hyperthyroidism and had a prescription for Carvedilol 25mg twice daily that he was not take. He was unsure how long ago it was prescribed or when he took it last. Upon examination pt has bilateral exop hthalmos. 08/18/2021 TSH 5.59, Free T4 0.74, and Free T3 274 indicating he is euthyroid. Plan: Patient will need to have repeat TSH, T3, and T4 in 2-3 to monitor trends. (8) Homeless single person Assessment/Plan: Patient reports being homeless for over 1 year and alternates sleeping in a custodial or outside. He has a son living in [place] that he does not have contact with. He also has 2 sisters and a mother in [place] that he is not in contact with. 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 Initially he reported that he stopped working before the COVID pandemic started in 2018 then the following day reported working intermittently as a post form remover and worked a "few weeks ago". Today he reports being frustrated with his girlfriend after a disagreement over the phone. He reports occasionally living with her when he isn't drinking. Plan: Continue to work with web content & social media manager to determine discharge needs. (9) Rhabdomyolysis Qualifiers: Rhabdomyolysis type: traumatic Encounter type: initial encounter Qualified Code(s): T79.6XXA - Traumatic ischemia of muscle, initial encounter Assessment/Plan: Patient was admitted to the hospital after being found sleeping outside while intoxicated. His CK on admission was 3825 and creatinine was 0.9. Today CK is 163 and creatinine is 0.9. Rhabdomyolysis has resolved. - Current Meds Current Meds: Current Medications Generic Name Dose Route Start Last Admin Trade Name Freq PRN Reason Stop Dose Admin Acetaminophen 650 mg 08/15/21 17:07 08/19/21 04:58 Acetaminophen 325 Mg Tablet PO 650 mg Q4HR PRN Administration Pain or Fever > 38C (100.4F) Alcohol 1 amp 08/17/21 21:00 08/19/21 08:51 Ethyl Alcohol 62% Swab Ampule ANCA 1 amp BID TALITA Administration Carvedilol 12.5 mg 08/16/21 12:00 08/19/21 08:51 Carvedilol 12.5 Mg Tablet PO 12.5 mg BID TALITA Administration Celecoxib 200 mg 08/17/21 21:00 08/19/21 08:52 Celecoxib 100 Mg Capsule PO 200 mg BID TALITA Administration Chlordiazepoxide HCl 10 mg 08/18/21 14:00 08/19/21 05:00 Chlordiazepoxide 5 Mg Capsule PO 10 mg Q8HR TALITA Administration Enoxaparin Sodium 100 mg 08/16/21 21:00 08/19/21 08:52 Enoxaparin 100 Mg/Ml Syringe SUBQ 100 mg BID TALITA Administration Piperacillin Sod/Tazobactam 100 mls @ 25 mls/hr 08/15/21 20:30 08/19/21 09:30 Sod 3.375 gm/ Sodium Chloride IV Infused Q8H TALITA Infusion Vancomycin HCl 1.75 gm/ Sodium 500 mls @ 250 mls/hr 08/17/21 20:00 08/19/21 07:04 Chloride IV Infused Q8H TALITA Infusion Lorazepam 2 mg 08/15/21 17:13 08/15/21 21:19 Lorazepam 2 Mg/Ml Vial IVP 2 mg Q30M PRN Administration CIWA >8 Protocol Magnesium Oxide 400 mg 08/17/21 08:00 08/19/21 08:51 Magnesium Oxide 400 Mg Tablet PO 400 mg DAILYWM TALITA Administration Oxycodone HCl 10 mg 08/15/21 17:07 08/19/21 04:58 Oxycodone 5 Mg Tablet PO 10 mg Q4HR PRN Administration Pain 8 to 10 Multivit/Folic Acid/Iron 1 tab 08/18/21 08:00 08/19/21 08:51 Vitamin Tablet PO 1 tab DAILYWM TALITA Administration Sodium Chloride 10 ml 08/15/21 17:07 08/18/21 20:20 Sodium Chloride Flush 0.9% 10 Ml Syringe IVP 10 ml PRN PRN Administration NEEDED PER PROVIDER ORDERS Sodium Chloride 10 ml 08/16/21 01:00 08/19/21 08:57 Sodium Chloride Flush 0.9% 10 Ml Syringe IVP 10 ml 0100,0900,1700 TALITA Administration Thiamine HCl 100 mg 08/18/21 08:00 08/19/21 08:51 Thiamine 100 Mg Tablet PO 100 mg DAILYWM TALITA Administration - Lab Result Lab results reviewed: Yes Fish Bone Diagrams: 08/19/21 06:48 08/19/21 06:48 <Jaleesa King - Last Filed: 08/19/21 18:01> - Problem List (1) Osteomyelitis Qualifiers: Osteomyelitis type: unspecified type Laterality: left - Current Meds Current Meds: Current Medications Generic Name Dose Route Start Last Admin Trade Name Freq PRN Reason Stop Dose Admin Acetaminophen 650 mg 08/15/21 17:07 08/19/21 12:58 Acetaminophen 325 Mg Tablet PO 650 mg Q4HR PRN Administration Pain or Fever > 38C (100.4F) Alcohol 1 amp 08/17/21 21:00 08/19/21 08:51 Ethyl Alcohol 62% Swab Ampule ANCA 1 amp BID TALITA Administration Carvedilol 12.5 mg 08/16/21 12:00 08/19/21 08:51 Carvedilol 12.5 Mg Tablet PO 12.5 mg BID TALITA Administration Celecoxib 200 mg 08/17/21 21:00 08/19/21 08:52 Celecoxib 100 Mg Capsule PO 200 mg BID TALITA Administration Chlordiazepoxide HCl 10 mg 08/18/21 14:00 08/19/21 14:32 Chlordiazepoxide 5 Mg Capsule PO 10 mg Q8HR TALITA Administration Enoxaparin Sodium 100 mg 08/16/21 21:00 08/19/21 08:52 Enoxaparin 100 Mg/Ml Syringe SUBQ 100 mg BID TALITA Administration Piperacillin Sod/Tazobactam 100 mls @ 25 mls/hr 08/15/21 20:30 08/19/21 16:56 Sod 3.375 gm/ Sodium Chloride IV Infused Q8H TALITA Infusion Vancomycin HCl 1.75 gm/ Sodium 500 mls @ 250 mls/hr 08/17/21 20:00 08/19/21 15:15 Chloride IV Infused Q8H TALITA Infusion Lorazepam 2 mg 08/15/21 17:13 08/15/21 21:19 Lorazepam 2 Mg/Ml Vial IVP 2 mg Q30M PRN Administration CIWA >8 Protocol Magnesium Oxide 400 mg 08/17/21 08:00 08/19/21 08:51 Magnesium Oxide 400 Mg Tablet PO 400 mg DAILYWM TALITA Administration Oxycodone HCl 10 mg 08/15/21 17:07 08/19/21 12:59 Oxycodone 5 Mg Tablet PO 10 mg Q4HR PRN Administration Pain 8 to 10 Multivit/Folic Acid/Iron 1 tab 08/18/21 08:00 08/19/21 08:51 Vitamin Tablet PO 1 tab DAILYWM TALITA Administration Sodium Chloride 10 ml 08/15/21 17:07 08/18/21 20:20 Sodium Chloride Flush 0.9% 10 Ml Syringe IVP 10 ml PRN PRN Administration NEEDED PER PROVIDER ORDERS Sodium Chloride 10 ml 08/16/21 01:00 08/19/21 16:23 Sodium Chloride Flush 0.9% 10 Ml Syringe IVP 10 ml 0100,0900,1700 TALITA Administration Thiamine HCl 100 mg 08/18/21 08:00 08/19/21 08:51 Thiamine 100 Mg Tablet PO 100 mg DAILYWM TALITA Administration - Lab Result Fish Bone Diagrams: 08/19/21 06:48 08/19/21 06:48 - Additional Planning My Orders: My Active Orders 08/20/21 05:00 CBC - COMP BLD CT W/AUTO DIFF [HEME] DAILYLAB COMPREHENSIVE METABOLIC PANEL [CHEM] DAILYLAB <Yanet Almeida - Last Filed: 08/19/21 18:21> Subjective - Subjective Patient Reports: Feeling Better, Resting Comfortably (Patient is resting comforably in bed watching TV but was upset over reccent conversation with girlfriend over the phone. Reports improved pain control of left great toe with medications. Denies dyspnea, cough, fever, tremors, or hallucinations.) Nursing Reports: No Complaints (Nurse reports planning to get patient out of bed for a shower with plastic boot for wound protection.) <Jaleesa King - Last Filed: 08/19/21 18:01> Objective Vital Signs: Vital Signs - 24 hr 08/18/21 08/19/21 08/19/21 15:34 00:00 08:00 Temperature 36.9 C 36.4 C L 36.3 C L Heart Rate [ 85 72 71 Brachial] Respiratory 18 16 18 Rate Blood Pressure 143/70 H 145/70 H 145/79 H [Right Brachial artery] O2 Saturation 97 100 95 Oxygen O2 Source Room air I&O (Last 24 Hrs): Intake and Output Totals x24h 08/17/21 08/18/21 08/19/21 23:59 23:59 23:59 Intake Total 2531.2 4374 1100 Output Total 3700 2575 2275 Balance -1168.8 1799 -1175 General: Alert, Oriented x3, Cooperative, No acute distress, Other (Verbalized frustration with current relationship with girlfriend.) HEENT: Atraumatic, PERRLA, EOMI Neck: Supple, No JVD, No thyromegaly Neuro: Alert, Oriented Times 3 Cardiovascular: Regular rate, No murmurs Respiratory: Chest non-tender, No respiratory distress, Breath sounds nml Abdomen: Normal bowel sounds, Soft, No tenderness, No hepatospenomegaly Extremities: Normal pulses, Other (3+ edema to right ankle down, 1+ edema to left ankle. Mottling of bilateral toes slightly improved) Comments/Notes: Right toes are mottled and extend to dorsal lateral aspect of foot. Right great toe and 2nd toe are less mottled and have pink undertones but does not lobo. Erythematous erosion to dorsal aspect of right foot at the base of the 3rd and 4th toe along with the dorsal lateral aspect. Open dry necrotic ulcer to right p inky. Dressing to left foot with mottling to second toe. - Results Results: Laboratory Results WBC 9.0 x10^3/uL (4.8-10.8) 08/19/21 06:48 RBC 3.72 10^6/uL (4.70-6.10) L 08/19/21 06:48 Hgb 11.0 g/dL (14.0-18.0) L 08/19/21 06:48 Hct 32.5 % (42.0-52.0) L 08/19/21 06:48 MCV 87.4 fL (80.0-94.0) 08/19/21 06:48 MCH 29.6 pg (27.0-31.0) 08/19/21 06:48 MCHC 33.8 g/dL (32.0-36.0) 08/19/21 06:48 RDW 17.0 % (12.0-15.0) H 08/19/21 06:48 Plt Count 160 10^3/uL (130-450) 08/19/21 06:48 MPV 9.1 fL (7.4-11.4) 08/19/21 06:48 Neut # (Auto) 6.9 10^3/uL (1.5-6.6) H 08/19/21 06:48 Lymph # (Auto) 1.0 10^3/uL (1.5-3.5) L 08/19/21 06:48 Hendricks # (Auto) 0.7 10^3/uL (0.0-1.0) 08/19/21 06:48 Eos # (Auto) 0.1 10^3/uL (0.0-0.7) 08/19/21 06:48 Baso # (Auto) 0.0 10^3/uL (0.0-0.1) 08/19/21 06:48 Absolute Nucleated RBC 0.00 x10^3/uL 08/19/21 06:48 Nucleated RBC % 0.0 /100WBC 08/19/21 06:48 ESR 60 mm/Hr (0-20) H 08/15/21 13:23 PT 15.4 secs (9.9-12.6) H 08/18/21 08:05 INR 1.4 (0.8-1.2) H 08/18/21 08:05 D-Dimer > 1050.0 ng/mL (200.0-255.0) H 08/15/21 17:52 Sodium 134 mmol/L (135-145) L 08/19/21 06:48 Potassium 4.4 mmol/L (3.5-5.0) 08/19/21 06:48 Chloride 103 mmol/L (101-111) 08/19/21 06:48 Carbon Dioxide 24 mmol/L (21-32) 08/19/21 06:48 Anion Gap 7.0 (6-13) 08/19/21 06:48 BUN 12 mg/dL (6-20) 08/19/21 06:48 Creatinine 0.9 mg/dL (0.6-1.2) 08/19/21 06:48 Estimated GFR (MDRD) 88 (>89) L 08/19/21 06:48 Glucose 94 mg/dL (70-100) 08/19/21 06:48 Lactic Acid 1.5 mmol/L (0.5-2.2) 08/15/21 15:15 Calcium 7.9 mg/dL (8.5-10.3) L 08/19/21 06:48 Phosphorus 3.0 mg/dL (2.5-4.6) 08/16/21 05:52 Magnesium 1.7 mg/dL (1.7-2.8) 08/19/21 06:48 Total Bilirubin 0.7 mg/dL (0.2-1.0) 08/19/21 06:48 AST 44 IU/L (10-42) H 08/19/21 06:48 ALT 37 IU/L (10-60) 08/19/21 06:48 Alkaline Phosphatase 38 IU/L (42-121) L 08/19/21 06:48 Ammonia 38.6 umol/L (7-35) H 08/19/21 06:48 Total Creatine Kinase 163 IU/L (22-269) 08/19/21 06:48 C-Reactive Protein 8.5 mg/dL (0-1.0) H 08/15/21 13:23 Total Protein 6.4 g/dL (6.7-8.2) L 08/19/21 06:48 Albumin 2.0 g/dL (3.2-5.5) L 08/19/21 06:48 Globulin 4.4 g/dL (2.1-4.2) H 08/19/21 06:48 Albumin/Globulin Ratio 0.5 (1.0-2.2) L 08/19/21 06:48 Lipase 84 U/L (22-51) H 08/16/21 05:52 TSH 5.59 uIU/mL (0.34-5.60) 08/18/21 08:05 Free T4 0.74 ng/dL (0.58-1.64) 08/18/21 08:05 Free T3 pg/mL 2.74 pg/mL (2.5-3.9) 08/18/21 08:05 Nasal Adenovirus (PCR) NOT DETECTED 08/15/21 15:35 Nasal B. parapertussis DNA (PCR) NOT DETECTED 08/15/21 15:35 Nasal Coronavir 229E PCR NOT DETECTED 08/15/21 15:35 Nasal Coronavir HKU1 PCR NOT DETECTED 08/15/21 15:35 Nasal Coronavir NL63 PCR NOT DETECTED 08/15/21 15:35 Nasal Coronavir OC43 PCR NOT DETECTED 08/15/21 15:35 Nasal Enterovir/Rhinovir PCR NOT DETECTED 08/15/21 15:35 Nasal Influenza B PCR NOT DETECTED 08/15/21 15:35 Nasal Influenza A PCR NOT DETECTED 08/15/21 15:35 Nasal Parainfluen 1 PCR NOT DETECTED 08/15/21 15:35 Nasal Parainfluen 2 PCR NOT DETECTED 08/15/21 15:35 Nasal Parainfluen 3 PCR NOT DETECTED 08/15/21 15:35 Nasal Parainfluen 4 PCR NOT DETECTED 08/15/21 15:35 Nasal RSV (PCR) NOT DETECTED 08/15/21 15:35 Nasal B.pertussis DNA PCR NOT DETECTED 08/15/21 15:35 Nasal C.pneumoniae (PCR) NOT DETECTED 08/15/21 15:35 Anca Human Metapneumo PCR NOT DETECTED 08/15/21 15:35 Nasal M.pneumoniae (PCR) NOT DETECTED 08/15/21 15:35 Nasal SARS-CoV-2 (PCR) DETECTED A 08/15/21 15:35 Last Dose Date Not Reportable 08/17/21 16:43 Last Dose Time Not Reportable 08/17/21 16:43 Vancomycin Trough 5.5 ug/mL (10.0-20.0) L 08/17/21 16:43 Urine Opiates Screen NEGATIVE (NEGATIVE) 08/15/21 19:15 Ur Oxycodone Screen NEGATIVE (NEGATIVE) 08/15/21 19:15 Urine Methadone Screen NEGATIVE (NEGATIVE) 08/15/21 19:15 Ur Propoxyphene Screen NEGATIVE (NEGATIVE) 08/15/21 19:15 Ur Barbiturates Screen NEGATIVE (NEGATIVE) 08/15/21 19:15 Ur Tricyclics Screen NEGATIVE (NEGATIVE) 08/15/21 19:15 Ur Phencyclidine Scrn NEGATIVE (NEGATIVE) 08/15/21 19:15 Ur Amphetamine Screen NEGATIVE (NEGATIVE) 08/15/21 19:15 U Methamphetamines Scrn NEGATIVE (NEGATIVE) 08/15/21 19:15 U Benzodiazepines Scrn NEGATIVE (NEGATIVE) 08/15/21 19:15 Urine Cocaine Screen NEGATIVE (NEGATIVE) 08/15/21 19:15 U Cannabinoids Screen NEGATIVE (NEGATIVE) 08/15/21 19:15 Ethyl Alcohol 314.6 mg/dL 08/15/21 13:23 <Jaleesa King - Last Filed: 08/19/21 18:01> Vital Signs: Vital Signs - 24 hr 08/19/21 08/19/21 08/19/21 00:00 08:00 15:44 Temperature 36.4 C L 36.3 C L 37.1 C Heart Rate [ 72 71 83 Brachial] Respiratory 16 18 18 Rate Blood Pressure 145/70 H 145/79 H 132/96 H [Right Brachial artery] O2 Saturation 100 95 98 Oxygen O2 Source Room air I&O (Last 24 Hrs): Intake and Output Totals x24h 01/28/22 01/29/22 01/30/22 23:59 23:59 23:59 Intake Total 2531.2 4374 3448 Output Total 3700 2575 2750 Balance -1168.8 1799 698 - Results Results: Laboratory Results WBC 9.0 x10^3/uL (4.8-10.8) 08/19/21 06:48 RBC 3.72 10^6/uL (4.70-6.10) L 08/19/21 06:48 Hgb 11.0 g/dL (14.0-18.0) L 08/19/21 06:48 Hct 32.5 % (42.0-52.0) L 08/19/21 06:48 MCV 87.4 fL (80.0-94.0) 08/19/21 06:48 MCH 29.6 pg (27.0-31.0) 08/19/21 06:48 MCHC 33.8 g/dL (32.0-36.0) 08/19/21 06:48 RDW 17.0 % (12.0-15.0) H 08/19/21 06:48 Plt Count 160 10^3/uL (130-450) 08/19/21 06:48 MPV 9.1 fL (7.4-11.4) 08/19/21 06:48 Neut # (Auto) 6.9 10^3/uL (1.5-6.6) H 08/19/21 06:48 Lymph # (Auto) 1.0 10^3/uL (1.5-3.5) L 08/19/21 06:48 Hendricks # (Auto) 0.7 10^3/uL (0.0-1.0) 08/19/21 06:48 Eos # (Auto) 0.1 10^3/uL (0.0-0.7) 08/19/21 06:48 Baso # (Auto) 0.0 10^3/uL (0.0-0.1) 08/19/21 06:48 Absolute Nucleated RBC 0.00 x10^3/uL 08/19/21 06:48 Nucleated RBC % 0.0 /100WBC 08/19/21 06:48 ESR 60 mm/Hr (0-20) H 08/15/21 13:23 PT 15.4 secs (9.9-12.6) H 08/18/21 08:05 INR 1.4 (0.8-1.2) H 08/18/21 08:05 D-Dimer > 1050.0 ng/mL (200.0-255.0) H 08/15/21 17:52 Sodium 134 mmol/L (135-145) L 08/19/21 06:48 Potassium 4.4 mmol/L (3.5-5.0) 08/19/21 06:48 Chloride 103 mmol/L (101-111) 08/19/21 06:48 Carbon Dioxide 24 mmol/L (21-32) 08/19/21 06:48 Anion Gap 7.0 (6-13) 08/19/21 06:48 BUN 12 mg/dL (6-20) 08/19/21 06:48 Creatinine 0.9 mg/dL (0.6-1.2) 08/19/21 06:48 Estimated GFR (MDRD) 88 (>89) L 08/19/21 06:48 Glucose 94 mg/dL (70-100) 08/19/21 06:48 Lactic Acid 1.5 mmol/L (0.5-2.2) 08/15/21 15:15 Calcium 7.9 mg/dL (8.5-10.3) L 08/19/21 06:48 Phosphorus 3.0 mg/dL (2.5-4.6) 08/16/21 05:52 Magnesium 1.7 mg/dL (1.7-2.8) 08/19/21 06:48 Total Bilirubin 0.7 mg/dL (0.2-1.0) 08/19/21 06:48 AST 44 IU/L (10-42) H 08/19/21 06:48 ALT 37 IU/L (10-60) 08/19/21 06:48 Alkaline Phosphatase 38 IU/L (42-121) L 08/19/21 06:48 Ammonia 38.6 umol/L (7-35) H 08/19/21 06:48 Total Creatine Kinase 163 IU/L (22-269) 08/19/21 06:48 C-Reactive Protein 8.5 mg/dL (0-1.0) H 08/15/21 13:23 Total Protein 6.4 g/dL (6.7-8.2) L 08/19/21 06:48 Albumin 2.0 g/dL (3.2-5.5) L 08/19/21 06:48 Globulin 4.4 g/dL (2.1-4.2) H 08/19/21 06:48 Albumin/Globulin Ratio 0.5 (1.0-2.2) L 08/19/21 06:48 Lipase 84 U/L (22-51) H 08/16/21 05:52 TSH 5.59 uIU/mL (0.34-5.60) 08/18/21 08:05 Free T4 0.74 ng/dL (0.58-1.64) 08/18/21 08:05 Free T3 pg/mL 2.74 pg/mL (2.5-3.9) 08/18/21 08:05 Nasal Adenovirus (PCR) NOT DETECTED 08/15/21 15:35 Nasal B. parapertussis DNA (PCR) NOT DETECTED 08/15/21 15:35 Nasal Coronavir 229E PCR NOT DETECTED 08/15/21 15:35 Nasal Coronavir HKU1 PCR NOT DETECTED 08/15/21 15:35 Nasal Coronavir NL63 PCR NOT DETECTED 08/15/21 15:35 Nasal Coronavir OC43 PCR NOT DETECTED 08/15/21 15:35 Nasal Enterovir/Rhinovir PCR NOT DETECTED 08/15/21 15:35 Nasal Influenza B PCR NOT DETECTED 08/15/21 15:35 Nasal Influenza A PCR NOT DETECTED 08/15/21 15:35 Nasal Parainfluen 1 PCR NOT DETECTED 08/15/21 15:35 Nasal Parainfluen 2 PCR NOT DETECTED 08/15/21 15:35 Nasal Parainfluen 3 PCR NOT DETECTED 08/15/21 15:35 Nasal Parainfluen 4 PCR NOT DETECTED 08/15/21 15:35 Nasal RSV (PCR) NOT DETECTED 08/15/21 15:35 Nasal B.pertussis DNA PCR NOT DETECTED 08/15/21 15:35 Nasal C.pneumoniae (PCR) NOT DETECTED 08/15/21 15:35 Anca Human Metapneumo PCR NOT DETECTED 08/15/21 15:35 Nasal M.pneumoniae (PCR) NOT DETECTED 08/15/21 15:35 Nasal SARS-CoV-2 (PCR) DETECTED A 08/15/21 15:35 Last Dose Date Not Reportable 08/17/21 16:43 Last Dose Time Not Reportable 08/17/21 16:43 Vancomycin Trough 5.5 ug/mL (10.0-20.0) L 08/17/21 16:43 Urine Opiates Screen NEGATIVE (NEGATIVE) 08/15/21 19:15 Ur Oxycodone Screen NEGATIVE (NEGATIVE) 08/15/21 19:15 Urine Methadone Screen NEGATIVE (NEGATIVE) 08/15/21 19:15 Ur Propoxyphene Screen NEGATIVE (NEGATIVE) 08/15/21 19:15 Ur Barbiturates Screen NEGATIVE (NEGATIVE) 08/15/21 19:15 Ur Tricyclics Screen NEGATIVE (NEGATIVE) 08/15/21 19:15 Ur Phencyclidine Scrn NEGATIVE (NEGATIVE) 08/15/21 19:15 Ur Amphetamine Screen NEGATIVE (NEGATIVE) 08/15/21 19:15 U Methamphetamines Scrn NEGATIVE (NEGATIVE) 08/15/21 19:15 U Benzodiazepines Scrn NEGATIVE (NEGATIVE) 08/15/21 19:15 Urine Cocaine Screen NEGATIVE (NEGATIVE) 08/15/21 19:15 U Cannabinoids Screen NEGATIVE (NEGATIVE) 08/15/21 19:15 Ethyl Alcohol 314.6 mg/dL 08/15/21 13:23 <Yanet Almeida - Last Filed: 08/19/21 18:21> ABX Reporting Has patient been on IV antibiotics over the past 48 hours?: Yes <Jaleesa King - Last Filed: 08/19/21 18:01>
[2021-08-20] MEDS: oxyCODONE 5 MG TABLET PO PRN ×5 (04:16→23:01)
[2021-08-20] MEDS: VANCOMYCIN INJ 1.75 GM in SODIUM CHLORIDE 0.9% 500 ML IV SCH (04:16)
[2021-08-20] MEDS: PIPERACILLIN/TAZOBACTAM 3.375 GM in SODIUM CHLORIDE 0.9% MINIBAG 100 ML IV SCH (04:16)
[2021-08-20] MEDS: ACETAMINOPHEN 325 MG TABLET PO PRN ×3 (04:16→23:01)
[2021-08-20] MEDS: chlordiazePOXIDE 5 MG CAPSULE PO SCH ×3 (05:49→20:08)
[2021-08-20 06:08] LABS: BASOPHILS # (AUTO) 0.1 10^3/uL (0.0-0.1); BASOPHILS % (AUTO) 0.6 %; EOSINOPHILS # (AUTO) 0.2 10^3/uL (0.0-0.7); EOSINOPHILS % (AUTO) 2.2 %; HGB - HEMOGLOBIN 10.1 g/dL (14.0-18.0); LYMPHOCYTES # (AUTO) 1.3 10^3/uL (1.5-3.5); LYMPHOCYTES % (AUTO) 15.7 %; MEAN CORPUSCULAR HEMOGLOBIN 28.6 pg (27.0-31.0); MEAN CORPUSCULAR HGB CONC 32.6 g/dL (32.0-36.0); MEAN CORPUSCULAR VOLUME 87.8 fL (80.0-94.0); MEAN PLATELET VOLUME 9.4 fL (7.4-11.4); MONOCYTES # (AUTO) 0.8 10^3/uL (0.0-1.0); MONOCYTES % (AUTO) 9.8 %; NEUTROPHILS # (AUTO) 5.6 10^3/uL (1.5-6.6); NEUTROPHILS % (AUTO) 69.7 %; PLT - PLATELET COUNT 199 10^3/uL (130-450); RED BLOOD COUNT 3.53 10^6/uL (4.70-6.10); RED CELL DISTRIBUTION WIDTH 17.2 % (12.0-15.0); WHITE BLOOD COUNT 8.1 x10^3/uL (4.8-10.8)
[2021-08-20 06:24] LABS: ALBUMIN 2.1 g/dL (3.2-5.5); ALBUMIN/GLOBULIN RATIO 0.5 (1.0-2.2); BILIRUBIN,TOTAL 0.7 mg/dL (0.2-1.0); CALCIUM 8.1 mg/dL (8.5-10.3); CREATININE 0.9 mg/dL (0.6-1.2); POTASSIUM 3.6 mmol/L (3.5-5.0); TOTAL PROTEIN 6.7 g/dL (6.7-8.2)
[2021-08-20] MEDS: MAGNESIUM OXIDE 400 MG TABLET PO SCH (09:20)
[2021-08-20] MEDS: CELECOXIB 100 MG CAPSULE PO SCH ×2 (09:20→20:07)
[2021-08-20] MEDS: PRENATAL VITAMIN TABLET PO SCH (09:20)
[2021-08-20] MEDS: carvediloL 12.5 MG TABLET PO SCH ×2 (09:20→20:08)
[2021-08-20] MEDS: ethyl alcohoL 62% SWAB AMPULE NAS SCH ×2 (09:21→20:07)
[2021-08-20] MEDS: SODIUM CHLORIDE FLUSH 0.9% 10 ML SYRINGE IVP SCH ×2 (09:21→17:20)
[2021-08-20] MEDS: ENOXAPARIN 100 MG/ML SYRINGE SUBQ SCH ×2 (09:21→20:07)
[2021-08-20] MEDS: THIAMINE 100 MG TABLET PO SCH (09:21)
[2021-08-20] MEDS: levoFLOXacin 250 MG TABLET PO SCH (14:35)
[2021-08-20] MEDS: LORazepam 2 MG/ML VIAL IVP PRN (15:01)
--- NOTE | 2021-08-20 18:32 | PROVIDER PROGRESS NOTE ---
Assessment/Plan - Problem List (1) Osteomyelitis Qualifiers: Osteomyelitis type: unspecified type Laterality: left Assessment/Plan: According to past medical records, patient was being followed by orthopedic clinic for smoldering osteomyelitis of left great toe for over a month before he stopped attending appointments. At admission, x-ray findings showed "osteomyelitis involving left first digital phalangeal stump and left first proximal phalangeal head with extensive bony erosive changes. Marked overlying soft tissue swelling and ulceration in left great toe". On 08/17/2021 Dr. Berman preformed an open metatarsal ray amputation of the left great toe. He instructed to leave dressing in place and to continue empiric iv antibiotics until cx results back. The cx has grown 5 bacteria, all are sns to Levaquin. Today left foot continues to be in surgical dressing. Pain is well controlled with prn medications. Plan is to continue Levaquin, for cellulitis. The source of the osteomyelitis is now gone with the amputation. Dr. Berman recommends a closed toe boot for the left foot and F/U in his clinic in 1 week, after DCh (2) Gangrene Assessment/Plan: Patient is homeless and alternates sleeping at assisted or outside in the elements. According to medical records, he was last seen for frostbite 1 09/01/2020 when his left great toe had sloughed skin and the nail fell off. On 07/12/2022 he was seen again in ED with an ulceration on the left great toe which was debrided by Dr. Berman at the bedside. He was managed by ortho until be failed to attend appointments. His last ED visit was on 08/12/2021 when had a relapse in drinking and found to have "heaping granulation tissue" to the left great toe with "foul drainage". He was given an order for Augmentin, which he was non-compliant in taking. At this admission, on 08/15/2021 law enforcement did a welfare check to follow up on him and found him cold, wet, sleeping outside with mottled right toes. 08/17/2021 Dr. Berman preformed an open metatarsal ray amputation of the left great toe and sent bone cultures. He advised to keep right pinky toe open to air but may place dressing if drainage resumes. Start Levofloxacin po Ortho says the R foot and toes still need to demarcate. He advised an open toe soft boot for the R foot (3) Frostbite Assessment/Plan: Patient is homeless and alternates sleeping at assisted and outside in the elements where he has a difficult time keeping his feet warm. He has past episodes of frostbite to lower extremities without amputations. He was found cold, wet, and sleeping outside with right mottled toes. Today demarcation is continuing, is at the base of 3rd, 4th, and 5th toes of right foot. The pt independently soaked his foot and used eusebio-wipes to "scrub the dirt off" yesterday. Continue to monitor demarcation progress. Continue to keep feet warm and dry. An open toe, soft, warm boot was advised by Ortho. Continue with Lovenox to prevent thrombosis while an inpatient. Keep foot elevated to decrease edema. (4) Alcohol abuse Assessment/Plan: Patient has a history of alcohol abuse and reports he was on a binge for 5 days, drinking 750ml of whiskey daily prior to admission. He reports binge drinking for a week or two and then does not drink for 2-3 months at a time. He has undergone alcohol withdrawal while at a detox facility in [facility] 1 year ago and then attends Alcohol Anonymous periodically. He is receptive to receiving treatment for alcohol abuse. Ammonia is mildly elevated. Patient continues to be alert and oriented. He has been treated with Librium, tapering dose and CIWA protocol. Continue CIWA monitoring of patient and administer as needed Ativan for CIWA score >8. Decrease Librium further and monitor for delirium tremens and alcohol withdrawal symptoms. Plan to discontinue Librium and CIWA monitoring soon if CIWA remains low and prn Ativan is not needed. (5) Alcoholic hepatitis Assessment/Plan: Patient has a history of alcohol abuse. His LFTs have decreased since off alcohol. Will monitor LFTs intermittently and ammonia level and consider adding lactose if it becomes elevated and he becomes confused. Avoid hepatotoxins and alcohol. (6) COVID-19 Assessment/Plan: Patient was admitted for osteomyelitis management and screening showed a positive COVID PCR. He denies fever, chills, cough, dyspnea, n/v/d, or known contact with covid positive people. He reports receiving his first Covid vaccine on 07/25/2021. Admission chest x-ray from 08/15/2021 showed "no cardiopulmonary process". Patient does not qualify for Remdesivir or Decadron while asymptomatic and with no desaturations. Mottled toes could be COVID toe and he is on bid Lovenox. Today is day 5 in COVID isolation without fever, dyspnea, cough, or n/v/d. (7) Homeless single person Assessment/Plan: Patient reports being homeless for over 1 year and alternates sleeping in a assisted or outside. He has a son living in [place] that he does not have contact with. He also has 2 sisters and a mother in [place] that he is not in contact with. 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 Yesterday he reported being frustrated with his girlfriend after a disagreement; he reported occasionally living with her when he isn't drinking. Continue to work with social welfare clerk to determine discharge needs. (8) Rhabdomyolysis Qualifiers: Rhabdomyolysis type: traumatic Encounter type: initial encounter Qualified Code(s): T79.6XXA - Traumatic ischemia of muscle, initial encounter Assessment/Plan: Resolved. Patient was admitted to the hospital after being found sleeping outside while intoxicated. His CK on admission was 3825 and creatinine was 0.9. Today CK is 163 and creatinine is 0.9. (9) Hyperthyroidism Assessment/Plan: Resolved. He is euthyroid currently. Patient reports a history of hyperthyroidism and had a prescription for Carvedilol 25mg twice daily that he was not take. On 08/18/2021, his TSH 5.59, Free T4 0.74, and Free T3 274 indicating he is euthyroid. Patient will need to have repeat TFTs in 2-3 mos, to monitor trends. - Current Meds Current Meds: Current Medications Generic Name Dose Route Start Last Admin Trade Name Freq PRN Reason Stop Dose Admin Acetaminophen 650 mg 08/15/21 17:07 08/20/21 17:20 Acetaminophen 325 Mg Tablet PO 650 mg Q4HR PRN Administration Pain or Fever > 38C (100.4F) Alcohol 1 amp 08/17/21 21:00 08/20/21 09:21 Ethyl Alcohol 62% Swab Ampule ANCA 1 amp BID TALITA Administration Carvedilol 12.5 mg 08/16/21 12:00 08/20/21 09:20 Carvedilol 12.5 Mg Tablet PO 12.5 mg BID TALITA Administration Celecoxib 200 mg 08/17/21 21:00 08/20/21 09:20 Celecoxib 100 Mg Capsule PO 200 mg BID TALITA Administration Chlordiazepoxide HCl 10 mg 08/18/21 14:00 08/20/21 13:31 Chlordiazepoxide 5 Mg Capsule PO 10 mg Q8HR TALITA Administration Enoxaparin Sodium 100 mg 08/16/21 21:00 08/20/21 09:21 Enoxaparin 100 Mg/Ml Syringe SUBQ 100 mg BID TALITA Administration Levofloxacin 750 mg 08/20/21 15:00 08/20/21 14:35 Levofloxacin 250 Mg Tablet PO 750 mg DAILY TALITA Administration Lorazepam 2 mg 08/15/21 17:13 08/20/21 15:01 Lorazepam 2 Mg/Ml Vial IVP 2 mg Q30M PRN Administration CIWA >8 Protocol Magnesium Oxide 400 mg 08/17/21 08:00 08/20/21 09:20 Magnesium Oxide 400 Mg Tablet PO 400 mg DAILYWM TALITA Administration Oxycodone HCl 10 mg 08/15/21 17:07 08/20/21 17:19 Oxycodone 5 Mg Tablet PO 10 mg Q4HR PRN Administration Pain 8 to 10 Multivit/Folic Acid/Iron 1 tab 08/18/21 08:00 08/20/21 09:20 Vitamin Tablet PO 1 tab DAILYWM TALITA Administration Sodium Chloride 10 ml 08/15/21 17:07 08/18/21 20:20 Sodium Chloride Flush 0.9% 10 Ml Syringe IVP 10 ml PRN PRN Administration NEEDED PER PROVIDER ORDERS Sodium Chloride 10 ml 08/16/21 01:00 08/20/21 17:20 Sodium Chloride Flush 0.9% 10 Ml Syringe IVP 10 ml 0100,0900,1700 TALITA Administration Thiamine HCl 100 mg 08/18/21 08:00 08/20/21 09:21 Thiamine 100 Mg Tablet PO 100 mg DAILYWM TALITA Administration - Lab Result Fish Bone Diagrams: 08/20/21 05:30 08/20/21 05:30 - Additional Planning My Orders: My Active Orders 08/20/21 15:00 levoFLOXacin [Levaquin] 750 mg PO DAILY Subjective - Subjective Patient Reports: Feeling Better Objective Vital Signs: Vital Signs - 24 hr 08/19/21 08/19/21 08/20/21 20:35 23:52 07:58 Temperature 36.7 C 36.5 C Heart Rate [ 81 77 73 Brachial] Respiratory 18 18 Rate Blood Pressure 166/77 H 157/83 H 133/78 H [Right Brachial artery] O2 Saturation 95 92 08/20/21 16:08 Temperature 36.8 C Heart Rate [ 77 Brachial] Respiratory 18 Rate Blood Pressure 143/79 H [Right Brachial artery] O2 Saturation 96 Oxygen O2 Source Room air I&O (Last 24 Hrs): Intake and Output Totals x24h 08/18/21 08/19/21 08/20/21 23:59 23:59 23:59 Intake Total 4374 4288 3100 Output Total 2575 3600 2800 Balance 1799 408 300 General: Alert ((excam done remotely)), No acute distress HEENT: Mucous membr. moist/pink Neck: Supple Neuro: Alert, Other (decreased sensation of feet and toes) Cardiovascular: Regular rate Respiratory: No respiratory distress Abdomen: Soft Extremities: Other (L foot and toes bandaged. R 3rd,4th, and 5th toes are dark, pinky toe has open wound, dry.) - Results Results: Laboratory Results WBC 8.1 x10^3/uL (4.8-10.8) 08/20/21 05:30 RBC 3.53 10^6/uL (4.70-6.10) L 08/20/21 05:30 Hgb 10.1 g/dL (14.0-18.0) L 08/20/21 05:30 Hct 31.0 % (42.0-52.0) L 08/20/21 05:30 MCV 87.8 fL (80.0-94.0) 08/20/21 05:30 MCH 28.6 pg (27.0-31.0) 08/20/21 05:30 MCHC 32.6 g/dL (32.0-36.0) 08/20/21 05:30 RDW 17.2 % (12.0-15.0) H 08/20/21 05:30 Plt Count 199 10^3/uL (130-450) 08/20/21 05:30 MPV 9.4 fL (7.4-11.4) 08/20/21 05:30 Neut # (Auto) 5.6 10^3/uL (1.5-6.6) 08/20/21 05:30 Lymph # (Auto) 1.3 10^3/uL (1.5-3.5) L 08/20/21 05:30 [place] # (Auto) 0.8 10^3/uL (0.0-1.0) 08/20/21 05:30 Eos # (Auto) 0.2 10^3/uL (0.0-0.7) 08/20/21 05:30 Baso # (Auto) 0.1 10^3/uL (0.0-0.1) 08/20/21 05:30 Absolute Nucleated RBC 0.00 x10^3/uL 08/20/21 05:30 Nucleated RBC % 0.0 /100WBC 08/20/21 05:30 ESR 60 mm/Hr (0-20) H 08/15/21 13:23 PT 15.4 secs (9.9-12.6) H 08/18/21 08:05 INR 1.4 (0.8-1.2) H 08/18/21 08:05 D-Dimer > 1050.0 ng/mL (200.0-255.0) H 08/15/21 17:52 Sodium 137 mmol/L (135-145) 08/20/21 05:30 Potassium 3.6 mmol/L (3.5-5.0) 08/20/21 05:30 Chloride 107 mmol/L (101-111) 08/20/21 05:30 Carbon Dioxide 25 mmol/L (21-32) 08/20/21 05:30 Anion Gap 5.0 (6-13) L 08/20/21 05:30 BUN 11 mg/dL (6-20) 08/20/21 05:30 Creatinine 0.9 mg/dL (0.6-1.2) 08/20/21 05:30 Estimated GFR (MDRD) 88 (>89) L 08/20/21 05:30 Glucose 109 mg/dL (70-100) H 08/20/21 05:30 Lactic Acid 1.5 mmol/L (0.5-2.2) 08/15/21 15:15 Calcium 8.1 mg/dL (8.5-10.3) L 08/20/21 05:30 Phosphorus 3.0 mg/dL (2.5-4.6) 08/16/21 05:52 Magnesium 1.7 mg/dL (1.7-2.8) 08/19/21 06:48 Total Bilirubin 0.7 mg/dL (0.2-1.0) 08/20/21 05:30 AST 39 IU/L (10-42) 08/20/21 05:30 ALT 40 IU/L (10-60) 08/20/21 05:30 Alkaline Phosphatase 43 IU/L (42-121) 08/20/21 05:30 Ammonia 38.6 umol/L (7-35) H 08/19/21 06:48 Total Creatine Kinase 163 IU/L (22-269) 08/19/21 06:48 C-Reactive Protein 8.5 mg/dL (0-1.0) H 08/15/21 13:23 Total Protein 6.7 g/dL (6.7-8.2) 08/20/21 05:30 Albumin 2.1 g/dL (3.2-5.5) L 08/20/21 05:30 Globulin 4.6 g/dL (2.1-4.2) H 08/20/21 05:30 Albumin/Globulin Ratio 0.5 (1.0-2.2) L 08/20/21 05:30 Lipase 84 U/L (22-51) H 08/16/21 05:52 TSH 5.59 uIU/mL (0.34-5.60) 08/18/21 08:05 Free T4 0.74 ng/dL (0.58-1.64) 08/18/21 08:05 Free T3 pg/mL 2.74 pg/mL (2.5-3.9) 08/18/21 08:05 Nasal Adenovirus (PCR) NOT DETECTED 08/15/21 15:35 Nasal B. parapertussis DNA (PCR) NOT DETECTED 08/15/21 15:35 Nasal Coronavir 229E PCR NOT DETECTED 08/15/21 15:35 Nasal Coronavir HKU1 PCR NOT DETECTED 08/15/21 15:35 Nasal Coronavir NL63 PCR NOT DETECTED 08/15/21 15:35 Nasal Coronavir OC43 PCR NOT DETECTED 08/15/21 15:35 Nasal Enterovir/Rhinovir PCR NOT DETECTED 08/15/21 15:35 Nasal Influenza B PCR NOT DETECTED 08/15/21 15:35 Nasal Influenza A PCR NOT DETECTED 08/15/21 15:35 Nasal Parainfluen 1 PCR NOT DETECTED 08/15/21 15:35 Nasal Parainfluen 2 PCR NOT DETECTED 08/15/21 15:35 Nasal Parainfluen 3 PCR NOT DETECTED 08/15/21 15:35 Nasal Parainfluen 4 PCR NOT DETECTED 08/15/21 15:35 Nasal RSV (PCR) NOT DETECTED 08/15/21 15:35 Nasal B.pertussis DNA PCR NOT DETECTED 08/15/21 15:35 Nasal C.pneumoniae (PCR) NOT DETECTED 08/15/21 15:35 Anca Human Metapneumo PCR NOT DETECTED 08/15/21 15:35 Nasal M.pneumoniae (PCR) NOT DETECTED 08/15/21 15:35 Nasal SARS-CoV-2 (PCR) DETECTED A 08/15/21 15:35 Last Dose Date Not Reportable 08/17/21 16:43 Last Dose Time Not Reportable 08/17/21 16:43 Vancomycin Trough 5.5 ug/mL (10.0-20.0) L 08/17/21 16:43 Urine Opiates Screen NEGATIVE (NEGATIVE) 08/15/21 19:15 Ur Oxycodone Screen NEGATIVE (NEGATIVE) 08/15/21 19:15 Urine Methadone Screen NEGATIVE (NEGATIVE) 08/15/21 19:15 Ur Propoxyphene Screen NEGATIVE (NEGATIVE) 08/15/21 19:15 Ur Barbiturates Screen NEGATIVE (NEGATIVE) 08/15/21 19:15 Ur Tricyclics Screen NEGATIVE (NEGATIVE) 08/15/21 19:15 Ur Phencyclidine Scrn NEGATIVE (NEGATIVE) 08/15/21 19:15 Ur Amphetamine Screen NEGATIVE (NEGATIVE) 08/15/21 19:15 U Methamphetamines Scrn NEGATIVE (NEGATIVE) 08/15/21 19:15 U Benzodiazepines Scrn NEGATIVE (NEGATIVE) 08/15/21 19:15 Urine Cocaine Screen NEGATIVE (NEGATIVE) 08/15/21 19:15 U Cannabinoids Screen NEGATIVE (NEGATIVE) 08/15/21 19:15 Ethyl Alcohol 314.6 mg/dL 08/15/21 13:23 Ref Lab Test Result REPORT 08/17/21 11:00
[2021-08-20] MEDS: SODIUM CHLORIDE FLUSH 0.9% 10 ML SYRINGE IVP PRN (20:17)
[2021-08-21] MEDS: SODIUM CHLORIDE FLUSH 0.9% 10 ML SYRINGE IVP SCH ×3 (03:30→16:20)
[2021-08-21] MEDS: oxyCODONE 5 MG TABLET PO PRN ×4 (04:52→19:40)
[2021-08-21] MEDS: ACETAMINOPHEN 325 MG TABLET PO PRN ×4 (04:52→19:41)
[2021-08-21] MEDS: chlordiazePOXIDE 5 MG CAPSULE PO SCH ×3 (04:55→21:46)
--- NOTE | 2021-08-21 07:41 | PROVIDER PROGRESS NOTE ---
Subjective - Prog Note Date Prog Note Date: 08/21/21 Prog Note Time: 12:08 - Subjective Subjective: He has now been here for 6 days. He is a homeless status with a history of alcohol abuse and pancreatitis who was found sleeping on the road, intoxicated. He had an episode of recent frostbite and that has now resulted in osteomyelitis of the left great toe, frostbite of the right foot. Right calf wound. He was Covid positive on admission without any pulmonary symptoms. He continues to have treatment for the osteomyelitis. He was transitioned to oral antibiotics, he is ambulating and refuses to use a walker. Blood cultures have been negative, wound culture has grown out Proteus, beta- hemolytic strep, my Jourdan's, probably dentia, Morganella. He was last febrile August 16 at 38.2 that day. Since then afebrile. Highest temp has been 37 deg anselmo. White cell count on admission was 11.8. Highest was 13.0. White cell count came down to normal August 17 and today is 8.1. Current Medications - Current Medications Current Medications: Active Medications Acetaminophen (Acetaminophen 325 Mg Tablet) 650 mg PO Q4HR PRN PRN Reason: Pain or Fever > 38C (100.4F) Last Admin: 08/21/21 04:52 Dose: 650 mg Alcohol (Ethyl Alcohol 62% Swab Ampule) 1 amp ANCA BID [facility] Last Admin: 08/20/21 20:07 Dose: 1 amp Carvedilol (Carvedilol 12.5 Mg Tablet) 12.5 mg PO BID [facility] Last Admin: 08/20/21 20:08 Dose: 12.5 mg Celecoxib (Celecoxib 100 Mg Capsule) 200 mg PO BID [facility] Last Admin: 08/20/21 20:07 Dose: 200 mg Chlordiazepoxide HCl (Chlordiazepoxide 5 Mg Capsule) 10 mg PO Q8HR [facility] Last Admin: 08/21/21 04:55 Dose: 10 mg Enoxaparin Sodium (Enoxaparin 100 Mg/Ml Syringe) 100 mg SUBQ BID [facility] Last Admin: 08/20/21 20:07 Dose: 100 mg Hydromorphone HCl (Hydromorphone 1 Mg/Ml Carpuject) 1 mg IVP Q3HR PRN PRN Reason: Severe Pain Last Admin: 08/20/21 20:18 Dose: 1 mg Levofloxacin (Levofloxacin 250 Mg Tablet) 750 mg PO DAILY [facility] Last Admin: 08/20/21 14:35 Dose: 750 mg Lorazepam (Lorazepam 2 Mg/Ml Vial) 2 mg IVP Q30M PRN; Protocol PRN Reason: CIWA >8 Last Admin: 08/20/21 15:01 Dose: 2 mg Magnesium Oxide (Magnesium Oxide 400 Mg Tablet) 400 mg PO DAILYWM [facility] Last Admin: 08/20/21 09:20 Dose: 400 mg Ondansetron HCl (Ondansetron 4 Mg/2 Ml Vial) 4 mg IVP Q6HR PRN PRN Reason: Nausea / Vomiting Oxycodone HCl (Oxycodone 5 Mg Tablet) 10 mg PO Q4HR PRN PRN Reason: Pain 8 to 10 Last Admin: 08/21/21 04:52 Dose: 10 mg Multivit/Folic Acid/Iron ( Vitamin Tablet) 1 tab PO DAILYWM [facility] Last Admin: 08/20/21 09:20 Dose: 1 tab Sodium Chloride (Sodium Chloride Flush 0.9% 10 Ml Syringe) 10 ml IVP PRN PRN PRN Reason: NEEDED PER PROVIDER ORDERS Last Admin: 08/20/21 20:17 Dose: 10 ml Sodium Chloride (Sodium Chloride Flush 0.9% 10 Ml Syringe) 10 ml IVP 0100,0900,1700 [facility] Last Admin: 08/21/21 03:30 Dose: 10 ml Thiamine HCl (Thiamine 100 Mg Tablet) 100 mg PO DAILYWM [facility] Last Admin: 08/20/21 09:21 Dose: 100 mg No Known Home Medications 08/16/21 Objective - Vital Signs/Intake & Output Reviewed Vital Signs: Yes Vital Signs: Vital Signs x48h Temp Pulse Resp BP Pulse Ox 08/20/21 23:53 36.8 C 76 16 139/74 H 94 Intake & Output: Intake & Output 08/18/21 08/19/21 08/20/21 08/21/21 23:59 23:59 23:59 23:59 Intake Total 4374 4288 3980 500 Output Total 2575 3600 3550 900 Balance 1799 688 430 -400 - Objective General Appearance: positive: No acute distress, Alert, Other (Elderly, bearded, balding gentleman. Spends a lot of time sleeping. But he does get up out of bed to ambulate to the bathroom with standby assist.) Eyes Bilateral: positive: PERRL, EOMI ENT: positive: No signs of dehydration Neck: positive: No JVD. negative: Stiff neck Respiratory: positive: No respiratory distress. negative: Wheezes, Rales, Rhonchi Cardiovascular: positive: Regular rate & rhythm. negative: Gallop/S4, Friction rub Abdomen: positive: Non-tender, No organomegaly, Nml bowel sounds, No distention Skin: positive: Warm, Dry Extremities: positive: Other (Left foot amputation covered with a bandage. Bandages clean, no drainage, blood. The skin that is visible underneath the bandage is without induration, redness, heat. The right toes have demarcated area where he had frostbite, and he may need amputation down the road according to orthopedics) Neurologic/Psychiatric: positive: Oriented x3, CN's nml (2-12), Motor nml - Lab Results Fish Bones: 08/20/21 05:30 08/20/21 05:30 Other Labs: Lab Results x24hrs 08/17/21 Range/Units 11:00 Ref Lab Test Result REPORT ABX Reporting Has patient been on IV antibiotics over the past 48 hours?: Yes Assessment/Plan - Problem List (1) Osteomyelitis of great toe of left foot Impression: Resolved since 08/17/21 According to past medical records, patient was being followed by orthopedic clinic for smoldering osteomyelitis of left great toe for over a month before he stopped attending appointments. At admission, x-ray findings showed "osteomyelitis involving left first digital phalangeal stump and left first proximal phalangeal head with extensive bony erosive changes. Marked overlying soft tissue swelling and ulceration in left great toe". On 08/17/2021 Dr. Berman preformed an open metatarsal ray amputation of the left great toe. He instructed to leave dressing in place and to continue empiric iv antibiotics until cx results back. The cx has grown 5 bacteria, all are sns to Levaquin. Pain is well controlled with prn medications. Plan is to continue Levaquin, for cellulitis. The source of the osteomyelitis is now gone with the amputation. Once social work is able to find him housing in a residential, the patient will be discharged. Dr. Berman recommends a closed toe boot for the left foot and F/U in his clinic in 1 week, after DCh (2) Gangrene ongoing Assessment/Plan: Patient is homeless and alternates sleeping at residential or outside in the elements. According to medical records, he was last seen for frostbite 07/01/2021 when his left great toe had sloughed skin and the nail fell off. On 07/12/2022 he was seen again in ED with an ulceration on the left great toe which was debrided by Dr. Berman at the bedside. He was managed by ortho until be failed to attend appointments. His last ED visit was on 08/12/2021 when had a relapse in drinking and found to have "heaping granulation tissue" to the left great toe with "foul drainage". He was given an order for Augmentin, which he was non-compliant in taking. At this admission, on 08/15/2021 law enforcement did a welfare check to follow up on him and found him cold, wet, sleeping outside with mottled right toes. 08/17/2021 Dr. Berman preformed an open metatarsal ray amputation of the left great toe and sent bone cultures. He advised to keep right pinky toe open to air but may place dressing if drainage resumes. On Levofloxacin po for the R foot Ortho says the R foot and toes still need to demarcate. He advised an open toe soft boot for the R foot (3) Frostbite Assessment/Plan: Patient is homeless and alternates sleeping at residential and outside in the elements where he has a difficult time keeping his feet warm. He has past episodes of frostbite to lower extremities without amputations. He was found cold, wet, and sleeping outside with right mottled toes. Today demarcation is continuing, is at the base of 3rd, 4th, and 5th toes of right foot. The pt independently soaked his foot and used eusebio-wipes to "scrub the dirt off" yesterday. Continue to monitor demarcation progress. Continue to keep feet warm and dry. An open toe, soft, warm boot was advised by Ortho. Continue with Lovenox to prevent thrombosis while an inpatient. Keep foot elevated to decrease edema. (4) Alcohol abuse Assessment/Plan: Patient has a history of alcohol abuse and reports he was on a binge for 5 days, drinking 750ml of whiskey daily prior to admission. He reports binge drinking for a week or two and then does not drink for 2-3 months at a time. He has undergone alcohol withdrawal while at a detox facility in [facility] 1 year ago and then attends Alcohol Anonymous periodically. He is receptive to receiving treatment for alcohol abuse. Ammonia was mildly elevated. Patient continues to be alert and oriented. He has been treated with Librium, tapering dose and CIWA protocol. On CIWA monitoring and as needed Ativan for CIWA score >8. Librium is 10 twice daily and was reduced from 25 mg tid. Last dose this morning. Ativan is as needed. Last dose was August 20. Plan to discontinue Librium and CIWA monitoring soon if CIWA remains low and prn Ativan is not needed. If he doesn't need ativan today, stop the librium tomorrow. (5) Alcoholic hepatitis resolved Assessment/Plan: Patient has a history of alcohol abuse. His LFTs have decreased since off alcohol.His AST was 118 on admission and is normal on August 20 at 39. ALT was 66 on admission and was normal by August 17, at 59. August 20 he was 40. (6) COVID-19 Assessment/Plan: Patient was admitted for osteomyelitis management and screening showed a positive COVID PCR. He denied and continue to deny fever, chills, cough, dyspnea, n/v/d, or known contact with covid positive people. He reports receiving his first Covid vaccine on 07/25/2021. Admission chest x-ray from 08/15/2021 showed "no cardiopulmonary process". Patient does not qualify for Remdesivir or Decadron while asymptomatic and with no desaturations. Mottled toes could be COVID toe/pernio and he was treated with theraputic bid Lovenox. Today is day 6 in COVID isolation without fever, dyspnea, cough, or n/v/d. I will stop the theraputic lovenox and change to prophylaxis (7) Homeless single person Assessment/Plan: Patient reports being homeless for over 1 year and alternates sleeping in a residential or outside. He has a son living in [place] that he does not have contact with. He also has 2 sisters and a mother in [place] that he is not in contact with. 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 08/19 he reported being frustrated with his girlfriend after a disagreement; he reported occasionally living with her when he isn't drinking. Continue to work with social services aide to determine discharge needs. At this time, he is ambulating. Refuses a walker. He is on oral antibiotics. The current plan is possible discharge to a residential. (8) Rhabdomyolysis Qualifiers: Rhabdomyolysis type: traumatic Encounter type: initial encounter Qualified Code(s): T79.6XXA - Traumatic ischemia of muscle, initial encounter Assessment/Plan: Resolved. Patient was admitted to the hospital after being found sleeping outside while intoxicated. His CK on admission was 3825 and creatinine was 0.9. Today CK is 163 and creatinine is 0.9. (9) Hyperthyroidism Assessment/Plan: Resolved. He is euthyroid currently. Patient reports a history of hyperthyroidism and had a prescription for Carvedilol 25mg twice daily that he was not take. On 08/18/2021, his TSH 5.59, Free T4 0.74, and Free T3 274 indicating he is euthyroid. Patient will need to have repeat TFTs in 2-3 mos, to monitor trends.
[2021-08-21] MEDS: CELECOXIB 100 MG CAPSULE PO SCH ×2 (08:30→21:46)
[2021-08-21] MEDS: ENOXAPARIN 100 MG/ML SYRINGE SUBQ SCH (08:30)
[2021-08-21] MEDS: levoFLOXacin 250 MG TABLET PO SCH (08:30)
[2021-08-21] MEDS: PRENATAL VITAMIN TABLET PO SCH (08:30)
[2021-08-21] MEDS: THIAMINE 100 MG TABLET PO SCH (08:30)
[2021-08-21] MEDS: carvediloL 12.5 MG TABLET PO SCH ×2 (08:30→21:47)
[2021-08-21] MEDS: MAGNESIUM OXIDE 400 MG TABLET PO SCH (08:30)
[2021-08-21] MEDS: ethyl alcohoL 62% SWAB AMPULE NAS SCH ×2 (08:31→21:47)
[2021-08-22] MEDS: SODIUM CHLORIDE FLUSH 0.9% 10 ML SYRINGE IVP SCH ×3 (01:49→19:16)
[2021-08-22] MEDS: SODIUM CHLORIDE FLUSH 0.9% 10 ML SYRINGE IVP PRN (01:50)
[2021-08-22] MEDS: oxyCODONE 5 MG TABLET PO PRN ×4 (02:05→19:05)
[2021-08-22] MEDS: ACETAMINOPHEN 325 MG TABLET PO PRN ×4 (02:07→19:05)
[2021-08-22] MEDS: chlordiazePOXIDE 5 MG CAPSULE PO SCH (07:27)
[2021-08-22] MEDS: ENOXAPARIN 40 MG/0.4 ML SYRINGE SUBQ SCH (08:19)
[2021-08-22] MEDS: THIAMINE 100 MG TABLET PO SCH (08:19)
[2021-08-22] MEDS: CELECOXIB 100 MG CAPSULE PO SCH ×2 (08:19→21:26)
[2021-08-22] MEDS: PRENATAL VITAMIN TABLET PO SCH (08:19)
[2021-08-22] MEDS: ethyl alcohoL 62% SWAB AMPULE NAS SCH ×2 (08:20→21:26)
[2021-08-22] MEDS: carvediloL 12.5 MG TABLET PO SCH ×2 (08:20→21:26)
[2021-08-22] MEDS: levoFLOXacin 250 MG TABLET PO SCH (08:20)
[2021-08-22] MEDS: MAGNESIUM OXIDE 400 MG TABLET PO SCH (08:20)
--- NOTE | 2021-08-22 12:59 | PROVIDER PROGRESS NOTE ---
Subjective - General Admit Date: 08/15/21 Procedure Date: 08/17/21 Post Op Days: 5 Procedure Performed: Left first metatarsal ray amputation - Review of Systems Wound/Incisions: positive: Dressing dry and intact All Other Systems: positive: Reviewed and negative Objective - Patient Data Vital Signs: Vital Signs x48h Temp Pulse Resp BP Pulse Ox 08/22/21 07:57 36.7 C 53 L 24 146/61 H 91 L Weight: Weight 08/20/21 08/21/21 08/22/21 23:59 23:59 23:59 Weight (kg) 106.5 kg 102.5 kg Intake & Output: Intake and Output Totals x24h 08/20/21 08/21/21 08/22/21 23:59 23:59 23:59 Intake Total 3980 3622 Output Total 3550 2875 Balance 430 747 - Lab Results Lab Results: 08/20/21 05:30 08/20/21 05:30 - Current Medications Current Medications: Current Medications Generic Name Dose Route Start Last Admin Trade Name Freq PRN Reason Stop Dose Admin Acetaminophen 650 mg 08/15/21 17:07 08/22/21 08:28 Acetaminophen 325 Mg Tablet PO 650 mg Q4HR PRN Administration Pain or Fever > 38C (100.4F) Alcohol 1 amp 08/17/21 21:00 08/22/21 08:20 Ethyl Alcohol 62% Swab Ampule ANCA 1 amp BID [facility] Administration Carvedilol 12.5 mg 08/16/21 12:00 08/22/21 08:20 Carvedilol 12.5 Mg Tablet PO 12.5 mg BID [facility] Administration Celecoxib 200 mg 08/17/21 21:00 08/22/21 08:19 Celecoxib 100 Mg Capsule PO 200 mg BID [facility] Administration Chlordiazepoxide HCl 10 mg 08/18/21 14:00 08/22/21 07:27 Chlordiazepoxide 5 Mg Capsule PO 10 mg Q8HR [facility] Administration Enoxaparin Sodium 40 mg 08/22/21 09:00 08/22/21 08:19 Enoxaparin 40 Mg/0.4 Ml Syringe SUBQ 40 mg DAILY [facility] Administration Levofloxacin 750 mg 08/20/21 15:00 08/22/21 08:20 Levofloxacin 250 Mg Tablet PO 750 mg DAILY [facility] Administration Lorazepam 2 mg 08/15/21 17:13 08/20/21 15:01 Lorazepam 2 Mg/Ml Vial IVP 2 mg Q30M PRN Administration CIWA >8 Protocol Magnesium Oxide 400 mg 08/17/21 08:00 08/22/21 08:20 Magnesium Oxide 400 Mg Tablet PO 400 mg DAILYWM [facility] Administration Oxycodone HCl 10 mg 08/15/21 17:07 08/22/21 08:29 Oxycodone 5 Mg Tablet PO 10 mg Q4HR PRN Administration Pain 8 to 10 Multivit/Folic Acid/Iron 1 tab 08/18/21 08:00 08/22/21 08:19 Vitamin Tablet PO 1 tab DAILYWM [facility] Administration Sodium Chloride 10 ml 08/15/21 17:07 08/22/21 01:50 Sodium Chloride Flush 0.9% 10 Ml Syringe IVP 10 ml PRN PRN Administration NEEDED PER PROVIDER ORDERS Sodium Chloride 10 ml 08/16/21 01:00 08/22/21 08:20 Sodium Chloride Flush 0.9% 10 Ml Syringe IVP 10 ml 0100,0900,1700 [facility] Administration Thiamine HCl 100 mg 08/18/21 08:00 08/22/21 08:19 Thiamine 100 Mg Tablet PO 100 mg DAILYWM [facility] Administration - Physical Exam Wound/Incisions: positive: Healing well General Appearance: positive: No acute distress Neurologic/Psychiatric: positive: Oriented x3 Comments/Other: Left foot dressing changed. First metatarsal ray amputation left foot healing well. Suture line intact without necrosis or sign of infection. There is some swelling over the operative site. The swelling is decreasing. Right foot is showing further changes, mostly with improvement with exception of the distal half of the fifth toe which remains black, dry gangrene. The remainder of the toes to the right foot show superficial necrosis and some superficial breakdown but no infection. The lesser toes and great toe the right foot have not demarcated but they seem to be improving. Impression/Plan - Problem List Problem List: 1. Chronic osteomyelitis left great toe; status post metatarsal ray amputation left great toe So far, his surgical site is healing well without sign of recurrent infection. He could be off antibiotics. Sterile padded dressing was applied and he can either use a postop shoe or short boot walker. 2. Frostbite right forefoot with dysvascular changes and superficial wound breakdown to lesser toes The fifth toe is the only toe at this time that has demarcated to full gangrene involving the distal half of the toe. This will either need to be removed in the future or auto amputate. The lesser toes have a good chance of fully heal ing as long as he does not develop any infection. Sterile dressings have been applied to right forefoot and he has a postop shoe. I recommend dressing changes been given to him: Gauze, Lorae, Lorenza. I recommend a outpatient clinic visit in the orthopedic office next 08/27/2021.
--- NOTE | 2021-08-22 14:25 | PROVIDER PROGRESS NOTE ---
Subjective - Prog Note Date Prog Note Date: 08/22/21 Prog Note Time: 14:11 - Subjective Subjective: he is worried. what is he supposed to do if he wants to work out at the gym. he keeps on looking at his right toes and doesn't want to hear that they may need to be amputated and would like to discuss all of this w Dr. Berman. Current Medications - Current Medications Current Medications: Active Medications Acetaminophen (Acetaminophen 325 Mg Tablet) 650 mg PO Q4HR PRN PRN Reason: Pain or Fever > 38C (100.4F) Last Admin: 08/22/21 08:28 Dose: 650 mg Alcohol (Ethyl Alcohol 62% Swab Ampule) 1 amp ANCA BID [facility] Last Admin: 08/22/21 08:20 Dose: 1 amp Carvedilol (Carvedilol 12.5 Mg Tablet) 12.5 mg PO BID [facility] Last Admin: 08/22/21 08:20 Dose: 12.5 mg Celecoxib (Celecoxib 100 Mg Capsule) 200 mg PO BID [facility] Last Admin: 08/22/21 08:19 Dose: 200 mg Chlordiazepoxide HCl (Chlordiazepoxide 5 Mg Capsule) 10 mg PO Q8HR [facility] Last Admin: 08/22/21 07:27 Dose: 10 mg Enoxaparin Sodium (Enoxaparin 40 Mg/0.4 Ml Syringe) 40 mg SUBQ DAILY [facility] Last Admin: 08/22/21 08:19 Dose: 40 mg Levofloxacin (Levofloxacin 250 Mg Tablet) 750 mg PO DAILY [facility] Last Admin: 08/22/21 08:20 Dose: 750 mg Lorazepam (Lorazepam 2 Mg/Ml Vial) 2 mg IVP Q30M PRN; Protocol PRN Reason: CIWA >8 Last Admin: 08/20/21 15:01 Dose: 2 mg Magnesium Oxide (Magnesium Oxide 400 Mg Tablet) 400 mg PO DAILYWM [facility] Last Admin: 08/22/21 08:20 Dose: 400 mg Ondansetron HCl (Ondansetron 4 Mg/2 Ml Vial) 4 mg IVP Q6HR PRN PRN Reason: Nausea / Vomiting Oxycodone HCl (Oxycodone 5 Mg Tablet) 10 mg PO Q4HR PRN PRN Reason: Pain 8 to 10 Last Admin: 08/22/21 08:29 Dose: 10 mg Multivit/Folic Acid/Iron ( Vitamin Tablet) 1 tab PO DAILYWM [facility] Last Admin: 08/22/21 08:19 Dose: 1 tab Sodium Chloride (Sodium Chloride Flush 0.9% 10 Ml Syringe) 10 ml IVP PRN PRN PRN Reason: NEEDED PER PROVIDER ORDERS Last Admin: 08/22/21 01:50 Dose: 10 ml Sodium Chloride (Sodium Chloride Flush 0.9% 10 Ml Syringe) 10 ml IVP 0100,0900,1700 [facility] Last Admin: 08/22/21 08:20 Dose: 10 ml Thiamine HCl (Thiamine 100 Mg Tablet) 100 mg PO DAILYWM [facility] Last Admin: 08/22/21 08:19 Dose: 100 mg No Known Home Medications 08/16/21 Objective - Vital Signs/Intake & Output Reviewed Vital Signs: Yes Vital Signs: Vital Signs x48h Temp Pulse Resp BP Pulse Ox 08/22/21 07:57 36.7 C 53 L 24 146/61 H 91 L Intake & Output: Intake & Output 08/19/21 08/20/21 08/21/21 08/22/21 23:59 23:59 23:59 23:59 Intake Total 4288 3980 3622 120 Output Total 3600 3550 2875 600 Balance 688 430 747 480 - Objective General Appearance: positive: No acute distress, Alert, Other (Disheveled white male, expressing anxiety, but no repetitive movements, no fast pressured speech, lucid historian) Eyes Bilateral: positive: PERRL, EOMI ENT: positive: No signs of dehydration Neck: positive: No JVD. negative: Stiff neck Respiratory: positive: No respiratory distress. negative: Wheezes, Rales, Rhonchi Cardiovascular: positive: Regular rate & rhythm. negative: Gallop/S4, Friction rub Abdomen: positive: Non-tender, No organomegaly, Nml bowel sounds Skin: positive: Warm, Dry Extremities: positive: No pedal edema, Other (Both right and left feet are wrapped in Kerlix bandages. Dry. No drainage. The visible toes on the right foot are purple/black. Dried crusted blood. But no redness, heat, induration. Dry gangrene. Left foot with blackened purple toes/partial amputation.) Neurologic/Psychiatric: positive: Oriented x3, CN's nml (2-12), Motor nml - Lab Results Fish Bones: 08/20/21 05:30 08/20/21 05:30 ABX Reporting Has patient been on IV antibiotics over the past 48 hours?: Yes Assessment/Plan - Problem List (1) Gangrene Impression: right toes.Patient is homeless and alternates sleeping at group home or outside in the elements. According to medical records, he was last seen for frostbite 07/01/2021 when his left great toe had sloughed skin and the nail fell off. On 07/12/2022 he was seen again in ED with an ulceration on the left great toe which was debrided by Dr. Berman at the bedside. He was managed by ortho until be failed to attend appointments. His last ED visit was on 08/12/2021 when had a relapse in drinking and found to have "heaping granulation tissue" to the left great toe with "foul drainage". He was given an order for Augmentin, which he was non-compliant in taking. At this admission, on 08/15/2021 law enforcement did a welfare check to follow up on him and found him cold, wet, sleeping outside with mottled right toes. 08/17/2021 Dr. Berman preformed an open metatarsal ray amputation of the left great toe and sent bone cultures. He advised to keep right pinky toe open to air but may place dressing if drainage resumes. On Levofloxacin po for the R foot Ortho says the R foot and toes still need to demarcate and may need amputation. He advised an open toe soft boot for the R foot and PT states he could use a cast sandal w velcro and I will order. The patient wants to know what his restrictions are for working out at the gym and I defer to Ortho for those. (2) Osteomyelitis Left great toe Resolved since 08/17/21 According to past medical records, patient was being followed by orthopedic clinic for smoldering osteomyelitis of left great toe for over a month before he stopped attending appointments. At admission, x-ray findings showed "osteomyelitis involving left first digital phalangeal stump and left first proximal phalangeal head with extensive bony erosive changes. Marked overlying soft tissue swelling and ulceration in left great toe". On 08/17/2021 Dr. Berman preformed an open metatarsal ray amputation of the left great toe. He instructed to leave dressing in place and to continue empiric iv antibiotics until cx results back. The cx has grown 5 bacteria, all are sns to Levaquin. Pain is well controlled with prn medications. Plan is to continue Levaquin, for cellulitis. The source of the osteomyelitis is now gone with the amputation. Once social work is able to find him housing in a group home, the patient will be discharged. Dr. Berman recommends a closed toe boot for the left foot and F/U in his clinic in 1 week, after DCh but I will await any new orders after his visit today. (3) Frostbite Assessment/Plan: Patient is homeless and alternates sleeping at group home and outside in the elements where he has a difficult time keeping his feet warm. He has past episodes of frostbite to lower extremities without amputations. He was found cold, wet, and sleeping outside with right mottled toes. Today demarcation is continuing, is at the base of 3rd, 4th, and 5th toes of right foot. The pt independently soaked his foot and used eusebio-wipes to "scrub the dirt off" yesterday. Continue to monitor demarcation progress. Continue to keep feet warm and dry. An open toe, soft, warm boot was advised by Ortho. Continue with Lovenox to prevent thrombosis while an inpatient. Keep foot elevated to decrease edema. (4) Alcohol abuse Assessment/Plan: Patient has a history of alcohol abuse and reports he was on a binge for 5 days, drinking 750ml of whiskey daily prior to admission. He reports binge drinking for a week or two and then does not drink for 2-3 months at a time. He has undergone alcohol withdrawal while at a detox facility in [facility] 1 year ago and then attends Alcohol Anonymous periodically. He is receptive to receiving treatment for alcohol abuse.Social work has already met with him. The reinstructed him on the opportunities that handed him in his last emergency room visit. Patient also has an outpatient complex case manager and he needs to follow-up with that person as well. Ammonia was mildly elevated. Patient continues to be alert and oriented. He has been treated with Librium, tapering dose and CIWA protocol. CIWA monitoring has remained low. I will stop Librium and Ativan. (5) Alcoholic hepatitis resolved Assessment/Plan: Patient has a history of alcohol abuse. His LFTs have decreased since off alcohol.His AST was 118 on admission and is normal on August 20 at 39. ALT was 66 on admission and was normal by August 17, at 59. August 20 he was 40. (6) COVID-19 Assessment/Plan: Patient was admitted for osteomyelitis management and screening showed a positive COVID PCR. He denied and continue to deny fever, chills, cough, dyspnea, n/v/d, or known contact with covid positive people. He reports receiving his first Covid vaccine on 07/25/2021. Admission chest x-ray from 08/15/2021 showed "no cardiopulmonary process". Patient does not qualify for Remdesivir or Decadron while asymptomatic and with no desaturations. Mottled toes could be COVID toe/pernio and he was treated with theraputic bid Lovenox. That was changed to DVT prophylaxis on 08/21 Today is day 7 in COVID isolation without fever, dyspnea, cough, or n/v/d. (7) Homeless single person Assessment/Plan: Patient reports being homeless for over 1 year and alternates sleeping in a group home or outside. He has a son living in [place] that he does not have contact with. He also has 2 sisters and a mother in [place] that he is not in c ontact with. 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 08/19 he reported being frustrated with his girlfriend after a disagreement; he reported occasionally living with her when he isn't drinking. spring salvage worker has already met with them. They do not have much more to offer him. All of his outpatient resources have been handed to him in a list. They have encouraged him to go back to inpatient rehab. They have also encouraged h im to follow-up with his outpatient complex case manager. At this time, he is ambulating. Refuses a walker. He is on oral antibiotics. The current plan is possible discharge to a group home. (8) Rhabdomyolysis Qualifiers: Rhabdomyolysis type: traumatic Encounter type: initial encounter Qualified Code(s): T79.6XXA - Traumatic ischemia of muscle, initial encounter Assessment/Plan: Resolved. Patient was admitted to the hospital after being found sleeping outside while intoxicated. His CK on admission was 3825 and creatinine was 0.9. Today CK is 163 and creatinine is 0.9. (9) Hyperthyroidism Assessment/Plan: Resolved. He is euthyroid currently. Patient reports a history of hyperthyroidism and had a prescription for Carvedilol 25mg twice daily that he was not take. On 08/18/2021, his TSH 5.59, Free T4 0.74, and Free T3 274 indicating he is euthyroid. Patient will need to have repeat TFTs in 2-3 mos, to monitor trends.
[2021-08-23] MEDS: SODIUM CHLORIDE FLUSH 0.9% 10 ML SYRINGE IVP SCH ×2 (02:14→08:26)
--- NOTE | 2021-08-23 07:36 | Discharge Plan ---
Discharge Plan Problem Reviewed?: Yes Disposition: Home, Self Care Condition: Fair Prescriptions: oxyCODONE [Roxicodone] 10 mg PO Q4HR PRN #30 tablet PRN Reason: Pain 8 to 10 Celecoxib [CeleBREX] 200 mg PO BID #60 carvediloL [Coreg] 12.5 mg PO BID #60 tablet Magnesium Sulfate 100 mg PO DAILY #30 Diet: Low Sodium Activity Restrictions: Additional Comments (heel to toe walking to be emphasized. walker or cane to be used. keep wounds clean and dry. Cover w Kerlix. Can shower but dry feet immediately. Open toe walking cast ordered.) Shower Restrictions: No Driving Restrictions: Yes (cannot drive due to toes having dry gangrene) Assistance Devices: Other Health Concerns: At this time, unfortunately, you have a homeless status and spend quite a bit of time in the elements outside. You also have a problem with alcohol abuse. You had been binge drinking, and were found unconscious, intoxicated on a road. It is unclear how long you have been out there. You already had a problem with toe infection on both feet due to frostbite. You have been in and out of the emergency room and seeing an orthopedic surgeon for the frostbite. Your toes were quite gangrenous and as such were brought to the emergency room. Bone infection was found in the left great toe, and there is dried gangrene of the right fifth toe. You have undergone amputation of the left great toe. The right toes are definitely affected and may need to be amputated down the road or they may fall off on their own. Plan of Treatment: Orthopedic surgery recommends that you get gauze, Silvadene, Kerlix. Wash and dry your feet every day with clean water. Keep your feet clean and dry. Dr. Mills would like to see you Friday, August 27, 2021 in his office to reassess your right foot. Please call his office to verify time. He no longer feels you need antibiotics. You are requesting pain medication and I have given you 30 pills of oxycodone. If you need further medication for pain, please see the walk-in clinic in [place] or establish yourself with a primary care provider. Care Goals: To stop drinking alcohol completely and complete an inpatient alcohol rehab program. To have both of your feet heal. Currently the infected feet have been limiting your mobility. Once your feet have completely healed and the right fifth toe falls off, you may slowly start and get back your regular habits of going to the gym. Assessment: Patient is unhappy and not being able to go to the gym right now. He also feels that he is under stress from fighting with his girlfriend and that makes him drink. He states that he will follow through with the above plan. No Smoking: If you smoke, Please STOP! Call for help. Follow-up with: Varun Berman MD [Provider Admit Priv/Credential] -
--- NOTE | 2021-08-23 07:49 | DISCHARGE SUMMARY ---
Discharge Summary Admit Date: 08/15/21 Discharge Date: 08/23/21 Discharging Provider: Rachel Bryant MD Primary Care Provider: No PCP Code Status: Attempt Resuscitation Condition at Discharge: Fair Discharge Disposition: 01 Home, Self Care - DIAGNOSES Discharge Diagnoses with Status of Each Condition: 1. Osteomyelitis left great toe, resolved 2. Dry gangrene right fifth toe 3. Sequela of frostbite 4. Homeless status 5. Alcohol abuse, chronic 6. Acute alcohol intoxication, resolved 7. Alcohol hepatitis, resolved 8. COVID-19 positive status without symptoms 9. Rhabdomyolysis, resolved 10. Hyperthyroidism - HPI History of Present Illness: 55 year old male with history of alcohol abuse, HTN, and hyperthyroidism. He presents to the hospital today after wellness check by law enforcement for bilateral foot pain and increased swelling. He was recently seen in the ED on 08/12/2021 for worsening osteomyelitis of left great toe. At that time he was prescribed Augmentin 875/125mp PO twice daily which he was non-compliant with. According to GABINO Fitch's 08/15/2021 note, patient was being managed by [facility] for cellulites and smoldering osteomyelitis over the past month before he stopped attending appointments. X-ray of the left foot today suggests " osteomyelitis involving left first digital phalangeal stump and left first proximal phalangeal lead with extensive bony erosive changes. Marked overlaying soft tissuee swelling and ulceration in left great toe". He has a history of alcohol abuse and reports being on a binge for 5 days consuming 750mls of Whiskey daily. He is also homeless and reports alternating sleeping at a [facility] or outside in the elements. Alcohol level today is 314 and CK is 3825. He has a history of hyperthyroidism and reports that was given a prescription for Carvedilol 25mg twice daily but has not been compliant and was unsure of the last time he took it. Admission COVID PCR was positive. He denies dyspnea, cough, fever, chills, n/v/d, or known positive contact. He received first COVID vaccine on 07/25/2021. - Past Medical History Cardiovascular: reports: Hypertension Respiratory: reports: None Neuro: reports: None, Peripheral neuropathy (Bilateral lower legs) Endocrine/Autoimmune: reports: HyPERthyroidism GI: reports: None : reports: None (hematuria when drinking alcohol), Other HEENT: reports: None Psych: reports: Anxiety, Other (Alcohol abuse) Musculoskeletal: reports: Other (left great toe joint swelling. ) Derm: reports: Other (Frostbite bilateral feet, cellulitis bilateral legs, bilateral foot ulcers with purulent drainage) MRSA Hx?: No Other Past Medical History: ETOH including binge drinking and homelessness - CONSULTS | PROCEDURES Procedures: 1. Metatarsal ray amputation left great toe. Pathology of left great toe showed deep dermal abscess with underlying osteomyelitis. Negative for granulomatous inflammation. Proximal margin tissue also positive for osteomyelitis. 2. Bilateral 3 view foot films. Osteomyelitis involving the left first distal phalangeal stump and left first proximal phalangeal head with extensive bony erosive changes. Marked soft tissue swelling and ulceration of the left great toe. No evidence of osteomyelitis seen in the right foot. 3. Chest x-ray without acute cardiopulmonary process 4. Blood cultures August 15 without growth 5. Toe culture of left great toe grew out Proteus vulgaris, beta-hemolytic strep group C, Myroides, Providencia, Morganella 6. Intraoperative wound culture of amputated toe grew Proteus vulgaris 7. Anaerobic culture of intraoperative wound culture of great toe with moderate growth of Finegoldia magna - HOSPITAL COURSE Hospital Course: The patient was treated for alcohol withdrawal. Received short-term course of benzodiazepine and also received vitamin supplements with thiamine and folate. He was started in empiric antibiotics for foot infection. Vancomycin and Zosyn. This was changed to Levaquin once cultures were obtained. He underwent an amputation of the left great toe. He was continued on antibiotics as a precaution measure. However orthopedic surgery was very clear in stating twice that the patient no longer needed any more antibiotics. The patient is very concerned because of continued gangrene of the right foot. There are a vascular/dysvascular changes of frostbite over the second third fourth toes. The fifth toe has dry gangrene. Orthopedic surgery feels that that toe will eventually fall off on its own. Orthopedic saw the patient on August 22 and recommends daily dressing changes. The patient can do this on his own. Patient is asking if he can go to the gym and orthopedics felt that that could not be done at this time. They would like to see him in their office on August 27. The patient is to call for a follow- up time. He is to keep his feet clean and dry with daily soap and water washes. Do not soak them. I do not recommend driving while his right foot is affected this way. At discharge, he is asked to establish himself with a primary care provider. To please see orthopedics on August 27. To keep the wound clean and dry. He is asking for pain medicine because of the pain in his feet with weightbearing. As such 30 tablets of oxycodone were prescribed. He was also prescribed Celebrex, Coreg, and instructed take [id number]-[id number] multivitamin, thiamine, magnesium, etc. We have asked him to abstain from drinking at all. Social work has spent quite a bit of time with him since he has been in the emergency room and now in the hospital. He has been given a list of facilities that might be able to help him with his alcohol withdrawal. He has a case consultant. He is instructed to follow-up with the case consultant, and follow through with inpatient alcohol rehab. At discharge this patient's temperature is 36.6. Heart rate 78. Blood pressure 113/88. Respirations 16. 99% on room air. He is 6 foot tall. 98.5 kg. Lean body mass with muscular development due to weight lifting is evident. Neck is supple. Lungs are clear to auscultation and percussion. PMI normally placed. Regular rate and rhythm. Abdomen is soft, nontender. There is no right upper quadrant pain. Liver edge is felt right below the right costal margin. No fluid wave. Neurologically he is alert and oriented to person place and time. No tremulousness. Speech is lucid. The left foot has a clean suture line. No drainage. Resolving skin discoloration of frostbite is evident in the other toes. On the right foot the second third fourth toes are purplish red. No heat. Swollen. The right fifth toe is has dry gangrene and is shriveled and black. There is no redness, heat to the toes of the right foot or the right foot itself. Greater than 30 minutes was spent coordinating discharge. He is currently living out of his car, or couch surfing, or spending time with his girlfriend. He will continue to use that as his living arrangements.. - ALLERGIES Allergies/Adverse Reactions: Allergies Allergy/AdvReac Type Severity Reaction Status Date / Time No Known Drug Allergies Allergy Verified 08/15/21 13:10 - MEDICATIONS Home Medications: Ambulatory Orders Medication Instructions Recorded Confirmed Celecoxib [CeleBREX] 200 mg PO BID #60 08/23/21 Magnesium Sulfate 100 mg PO DAILY #30 08/23/21 Thiamine [Vitamin B-1] 100 mg PO DAILYWM tablet 08/23/21 carvediloL [Coreg] 12.5 mg PO BID #60 tablet 08/23/21 oxyCODONE [Roxicodone] 10 mg PO Q4HR PRN #30 tablet 08/23/21 - LABS Result Diagrams: 08/20/21 05:30 08/20/21 05:30
[2021-08-23] MEDS: ACETAMINOPHEN 325 MG TABLET PO PRN (08:15)
[2021-08-23] MEDS: oxyCODONE 5 MG TABLET PO PRN (08:16)
[2021-08-23 08:22] VITALS: BP 140/83
[2021-08-23] MEDS: THIAMINE 100 MG TABLET PO SCH (08:23)
[2021-08-23] MEDS: CELECOXIB 100 MG CAPSULE PO SCH (08:24)
[2021-08-23] MEDS: MAGNESIUM OXIDE 400 MG TABLET PO SCH (08:24)
[2021-08-23] MEDS: PRENATAL VITAMIN TABLET PO SCH (08:25)
[2021-08-23] MEDS: ENOXAPARIN 40 MG/0.4 ML SYRINGE SUBQ SCH (08:25)
[2021-08-23] MEDS: carvediloL 12.5 MG TABLET PO SCH (08:25)
[2021-08-23] MEDS: ethyl alcohoL 62% SWAB AMPULE NAS SCH (09:18)
[2021-08-23] MEDS: levoFLOXacin 250 MG TABLET PO SCH ×2 (10:13→12:35)
== END 2021-08-23 13:00 | disposition home or self-care (01) | DRG 503 ==
LOC: EDUNIT# → ED 13:03 → MS2 17:07
PROVIDERS: ADMIT Internal Medicine; ATTEND Specialist
PROC: 0Y6Q0Z0 Detachment at Left 1st Toe, Complete, Open Approach (ICD-10-PCS; principal; 2021-08-17 09:00)
DX: M86.672 Other chronic osteomyelitis, left ankle and foot (principal); U07.1 COVID-19; T69.021A Immersion foot, right foot, initial encounter; I96 Gangrene, not elsewhere classified; F10.239 Alcohol dependence with withdrawal, unspecified; L97.518 Non-pressure chronic ulcer of other part of right foot with other specified severity; T36.0X6A Underdosing of penicillins, initial encounter; T36.1X6A Underdosing of cephalosporins and other beta-lactam antibiotics, initial encounter; T44.7X6A Underdosing of beta-adrenoreceptor antagonists, initial encounter; Z91.128 Patient's intentional underdosing of medication regimen for other reason; Y92.9 Unspecified place or not applicable; T33.831S Superficial frostbite of right toe(s), sequela; F10.229 Alcohol dependence with intoxication, unspecified; B96.4 Proteus (mirabilis) (morganii) as the cause of diseases classified elsewhere; B95.4 Other streptococcus as the cause of diseases classified elsewhere; B96.89 Other specified bacterial agents as the cause of diseases classified elsewhere; Y90.8 Blood alcohol level of 240 mg/100 ml or more; K70.10 Alcoholic hepatitis without ascites; E05.90 Thyrotoxicosis, unspecified without thyrotoxic crisis or storm; Z59.02 Unsheltered homelessness; I10 Essential (primary) hypertension; G62.9 Polyneuropathy, unspecified; T79.6XXA Traumatic ischemia of muscle, initial encounter; L03.032 Cellulitis of left toe; M89.772 Major osseous defect, left ankle and foot
CPT/HCPCS: 0202U; 36415; 71045; 73630; 80053; 80202; 80306; 80320; 81599; 82140; 82550; 83605; 83690; 83735; 84100; 84439; 84443; 84481; 85025; 85379; 85610; 85651; 86140; 87040; 87070; 87077; 87181; 87205; 96365; 96375; 97116; 97161; 97530; 99282; 99285; A9270; J1170; J1650; J2060; J3370; J3411

== ENCOUNTER 2021-08-23 22:09 | Outpatient (CLI) | payer MEDICAID | END 2021-08-23 22:10 | disposition critical access hospital (66) | LOC: EMS 22:09 | DX: S09.90XA Unspecified injury of head, initial encounter (principal); R51.9 Headache, unspecified; W18.39XA Other fall on same level, initial encounter | CPT/HCPCS: A0425; A0429; A0999 ==

== ENCOUNTER 2021-08-23 22:24 | Emergency (ER) | payer MEDICAID ==
--- NOTE | 2021-08-23 23:57 | CT Report ---
PROCEDURE: CERVICAL SPINE WO INDICATIONS: Neck trauma, midline tenderness TECHNIQUE: Noncontrast 3 mm thick sections acquired from the skull base to the T4 level. Sagittal and coronal r eformats were then constructed. For radiation dose reduction, the following was used: automated exp osure control, adjustment of mA and/or kV according to patient size. COMPARISON: CT cervical spine 10/11/2019 FINDINGS: Image quality: Excellent. Bones: No fractures or dislocations. Visualized superior ribs are intact. Cervical straightening i s present. Mild multilevel degenerative changes are present. Soft tissues: Prevertebral soft tissues are normal in thickness. No paravertebral hematomas. No ap ical pneumothoraces. IMPRESSION: No visualized fracture. Reviewed by: Tameka Jimenez MD on 08/23/2021 11:56 PM PST Approved by: Tameka Jimenez MD on 08/23/2021 11:56 PM PST Station ID: [id number]
--- NOTE | 2021-08-23 23:58 | CT Report ---
PROCEDURE: HEAD WO INDICATIONS: Head trauma, mod-severe TECHNIQUE: Noncontrast 4.5 mm thick angled axial sections acquired from the foramen magnum to the vertex. For r adiation dose reduction, the following was used: automated exposure control, adjustment of mA and/or kV according to patient size. COMPARISON: CT head 10/11/2019 FINDINGS: Image quality: Excellent. CSF spaces: Basal cisterns are patent. No extra-axial fluid collections. Ventricles are normal in size and shape. Brain: No midline shift. No intracranial masses or hemorrhage. Parrish-white matter interface is norm al. Skull and face: Calvarium and visualized facial bones are intact, without suspicious lesions. Right frontal scalp hematoma is present. Sinuses: Visualized sinuses and mastoids are clear. IMPRESSION: 1. No acute intracranial process. 2. Right frontal scalp hematoma. Reviewed by: Tameka Jimenez MD on 08/23/2021 11:57 PM PST Approved by: Tameka Jimenez MD on 08/23/2021 11:57 PM PST Station ID: [id number]
--- NOTE | 2021-08-24 00:08 | XRAY Report ---
PROCEDURE: Foot 3 View BILAT INDICATIONS: foot pain, s/p surgery for frostbite TECHNIQUE: 2 views of the foot were acquired. COMPARISON: X-ray foot 08/15/2021 FINDINGS: Bones: In the interval since the prior exam, the left foot demonstrates amputation distal to the mid first metatarsal. There is a focus of lucency identified at the distal aspect of the amputation site. There is an ossification overlying the soft tissues between the first and second digit measuring saige roximately 1.7 cm. The right foot demonstrates no visualized fractures or dislocations. Degenerative changes are present. Soft tissues: No tibiotalar joint effusion. Achilles tendon appears normal. IMPRESSION: Interval amputation of the first digit on the left foot since prior exam. Lucency is noted at the dis cecilia amputation site. Developing osteomyelitis cannot be excluded. There is noted overlying the soft tissues between the first and second digit possibly related to resi dual bone. Reviewed by: Tameka Jimenez MD on 08/24/2021 12:07 AM PST Approved by: Tameka Jimenez MD on 08/24/2021 12:07 AM PST Station ID: [id number]
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
[2021-08-24] MEDS ORDERED: IBUPROFEN 400 MG TABLET PO STA (07:40)
[2021-08-24] MEDS ORDERED: THIAMINE INJ 100 MG, MAGNESIUM SULFATE 2 GM, MULTIVITAMIN 10 ML, FOLIC ACID INJ 1 MG in... IV ONE ×5 (08:03)
[2021-08-24] MEDS ORDERED: DEXAMETHASONE 10 MG/ML VIAL IVP STA (08:03)
--- NOTE | 2021-08-24 08:22 | ED Physician Documentation ---
ED Addendum - Addendum Addendum: 08/24/21 08:20 55-year-old male alcoholic binge drinker who is homeless and has been discharged from the hospital after a forefoot amputation for osteomyelitis related to a frostbite injury this winter. The patient apparently after discharge went directly to drinking whiskey drink a fair amount had a fall and is brought to the emergency department bleeding from the recent surgical site. Patient left in the emerge department overnight for evaluation by social work for additional resources. I discussed with the patient his drinking and he indicates that he had been sober for 2 months recently and that he has been sober now 9 days after being in the hospital. He states that he is not a regular drinker but a binge drinker. When he binges he binges a lot. He is recently had a break-up with his girlfriend and he endorses this as the reason for his increased drinking last night. 08/24/21 18:17 We consulted social work with the thought that the patient might be able to receive additional resources for inpatient alcohol treatment. After social work contacted the patient and discussed treatment options the patient however close he had and left the emergency department. I did try to stop the patient from doing this recommended he consider treatment as he has additional healing to do from his frostbite injury. He would have no part of it and left the emergency department.
[2021-08-24 08:26] LABS: BASOPHILS % (AUTO) 0.5 %; EOSINOPHILS % (AUTO) 0.2 %; HCT - HEMATOCRIT 33.6 % (42.0-52.0); HGB - HEMOGLOBIN 11.2 g/dL (14.0-18.0); LYMPHOCYTES # (AUTO) 0.8 10^3/uL (1.5-3.5); LYMPHOCYTES % (AUTO) 9.2 %; MEAN CORPUSCULAR HEMOGLOBIN 29.2 pg (27.0-31.0); MEAN CORPUSCULAR HGB CONC 33.3 g/dL (32.0-36.0); MEAN CORPUSCULAR VOLUME 87.5 fL (80.0-94.0); MEAN PLATELET VOLUME 8.4 fL (7.4-11.4); MONOCYTES # (AUTO) 0.7 10^3/uL (0.0-1.0); MONOCYTES % (AUTO) 7.8 %; NEUTROPHILS # (AUTO) 7.1 10^3/uL (1.5-6.6); NEUTROPHILS % (AUTO) 81.4 %; PLT - PLATELET COUNT 439 10^3/uL (130-450); RED BLOOD COUNT 3.84 10^6/uL (4.70-6.10); RED CELL DISTRIBUTION WIDTH 17.3 % (12.0-15.0); WHITE BLOOD COUNT 8.7 x10^3/uL (4.8-10.8)
[2021-08-24 08:37] LABS: ALBUMIN 2.7 g/dL (3.2-5.5); ALBUMIN/GLOBULIN RATIO 0.5 (1.0-2.2); BILIRUBIN,TOTAL 0.8 mg/dL (0.2-1.0); CALCIUM 8.5 mg/dL (8.5-10.3); CREATININE 1.1 mg/dL (0.6-1.2); ETOH - ETHANOL 21.1 mg/dL; POTASSIUM 4.3 mmol/L (3.5-5.0); TOTAL PROTEIN 7.8 g/dL (6.7-8.2)
[2021-08-24 10:59] VITALS: BP 177/100
== END 2021-08-24 11:43 | disposition left against medical advice (07) ==
LOC: EDUNIT# → ED 22:24
DX: T34.832A Frostbite with tissue necrosis of left toe(s), initial encounter (principal); T34.831A Frostbite with tissue necrosis of right toe(s), initial encounter; X58.XXXA Exposure to other specified factors, initial encounter; Z89.421 Acquired absence of other right toe(s); I10 Essential (primary) hypertension; Z53.29 Procedure and treatment not carried out because of patient's decision for other reasons; R29.6 Repeated falls; F10.129 Alcohol abuse with intoxication, unspecified; Z59.00 Homelessness unspecified; M86.9 Osteomyelitis, unspecified
CPT/HCPCS: 36415; 70450; 72125; 73630; 80053; 80320; 83690; 85025; 99282; 99284; A9270; J3411

== ENCOUNTER 2021-08-27 13:45 | Emergency (ER) | payer MEDICAID ==
[2021-08-27 13:57] VITALS: BP 153/72
== END 2021-08-27 17:39 | disposition left against medical advice (07) ==
LOC: ED 13:45
DX: Z53.21 Procedure and treatment not carried out due to patient leaving prior to being seen by health care provider (principal)
CPT/HCPCS: 80053; 80307; 80320; 80329; 83690; 84443; 85025

== ENCOUNTER 2021-08-28 09:11 | Emergency (ER) | payer MEDICAID ==
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
[2021-08-28 11:29] VITALS: BP 170/93
== END 2021-08-28 14:37 | disposition home or self-care (01) ==
LOC: ED 09:11
DX: T33.831A Superficial frostbite of right toe(s), initial encounter (principal); T33.832A Superficial frostbite of left toe(s), initial encounter; I10 Essential (primary) hypertension; Z89.412 Acquired absence of left great toe; Z59.00 Homelessness unspecified
CPT/HCPCS: 99281; 99284

== ENCOUNTER 2021-09-15 13:01 | Emergency (ER) | payer MEDICAID ==
[2021-09-15 13:25] VITALS: BP 129/66
--- NOTE | 2021-09-15 13:28 | ED Physician Documentation ---
PD HPI WOUND RECHECK - Stated complaint Stated Complaint: BILAT FEET CHECK - Chief complaint Chief Complaint: Wound - Histroy obtained from History obtained from: Patient - History of Present Illness Location: Right Foot, Left Foot Timing - onset: Today, Yesterday Associated symptoms: Drainage (The patient has had a recent toe amputation with dressings applied and he has seen the wound care clinic several days ago. He states his dressings got wet yesterday and last night and is here for dressing change. Wound care clinic appointment in 3 days.) Similar symptoms before: Diagnosis (feet frostbite in June with subsequent tissue necrosis and infections. Had amputation toe recently with still healing in.) Recently seen: Not recently seen Review of Systems Constitutional: denies: Fever, Chills GI: denies: Nausea, Vomiting Neurologic: denies: Generalized weakness PD PAST MEDICAL HISTORY - Past Medical History Cardiovascular: Hypertension Respiratory: None Neuro: Peripheral neuropathy Endocrine/Autoimmune: HyPERthyroidism GI: None : Other HEENT: None Psych: Anxiety, Other Musculoskeletal: Other Derm: Other - Past Surgical History Past Surgical History: Yes Ortho: Other - Present Medications Home Medications: Ambulatory Orders Medication Instructions Recorded Confirmed Celecoxib [CeleBREX] 200 mg PO BID #60 08/23/21 08/28/21 Magnesium Sulfate 100 mg PO DAILY #30 08/23/21 08/28/21 Thiamine [Vitamin B-1] 100 mg PO DAILYWM tablet 08/23/21 08/28/21 oxyCODONE [Roxicodone] 10 mg PO Q4HR PRN #30 tablet 08/23/21 08/28/21 Amox/Clav 875/125 [Augmentin] 1 each PO Q12H #20 tablet 08/28/21 Magnesium Sulfate 100 mg PO DAILY #20 cap 08/28/21 Thiamine [Vitamin B-1] 100 mg PO DAILY #20 tablet 08/28/21 carvediloL [Coreg] 25 mg PO BID 08/28/21 08/28/21 carvediloL [Coreg] 25 mg PO BID #60 tablet 08/28/21 Ciprofloxacin HCl 1 tablet PO BID 7 Days #14 tablet 09/11/21 HYDROcod/ACETAM 5/325 [[place] 5/325] 1 ea PO Q6H PRN #12 tablet 09/15/21 - Allergies Allergies/Adverse Reactions: Allergies Allergy/AdvReac Type Severity Reaction Status Date / Time No Known Drug Allergies Allergy Verified 09/15/21 13:25 - Social History Does the pt smoke?: No Smoking Status: Never smoker Does the pt drink ETOH?: No Does the pt have substance abuse?: No - Immunizations Immunizations are current?: Yes Immunizations: TDAP current <10years - POLST Patient has POLST: No POLST Status: Full Code PD ED PE NORMAL - Vitals Vital signs reviewed: Yes - General General: Alert and oriented X 3, No acute distress, Well developed/nourished - Derm Derm: Normal color, Warm and dry - Extremities Extremities: Other (Feet with wet and slightly dirty dressings in place in hospital stockings over the dressings both feet. The left great toe shows amputation down to the MC. Dressing in place. It is slightly odorous but no obvious purulence. Generally dry and scaly skin otherwise on both feet.) - Neuro Neuro: Alert and oriented X 3, No motor deficit, No sensory deficit Results - Vitals Vitals: Vital Signs - 24 hr 09/15/21 13:21 Temperature 36.1 C L Heart Rate 74 Respiratory 18 Rate Blood Pressure 129/66 O2 Saturation 100 Oxygen O2 Source Room air PD MEDICAL DECISION MAKING - ED course Complexity details: considered differential (Dressings removed and the feet were both cleansed. Mupirocin ointment in the recent amputation site. Wet-to-dry packing in the area and then redressed generally on both feet.), d/w patient Departure - Departure Disposition: 01 Home, Self Care Clinical Impression: Dressing change or removal, surgical wound Condition: Stable Record reviewed to determine appropriate education?: Yes Prescriptions: HYDROcod/ACETAM 5/325 [[place] 5/325] 1 ea PO Q6H PRN #12 tablet PRN Reason: Pain Comments: Keep the dressings clean and dry as much as possible. Follow-up with wound care clinic Friday as planned. Return if needed. I transmitted script for some pain meds to [facility]. Discharge Date/Time: 09/15/21 14:47
[2021-09-15] MEDS ORDERED: MUPIROCIN 2% OINT 1 GM TOP STA (13:38)
[2021-09-15] MEDS ORDERED: HYDROcod/ACETAM 5/325 MG TABLET PO STA (14:37)
== END 2021-09-15 14:47 | disposition home or self-care (01) ==
LOC: ED 13:01
DX: Z48.01 Encounter for change or removal of surgical wound dressing (principal)
CPT/HCPCS: 99282; A9270

== ENCOUNTER 2021-09-22 14:15 | Outpatient (CLI) | payer MEDICAID | END 2021-09-22 14:16 | disposition critical access hospital (66) | LOC: EMS 14:15 | DX: Z72.89 Other problems related to lifestyle (principal) | CPT/HCPCS: A0425; A0429 ==

== ENCOUNTER 2021-10-05 07:00 | Emergency (ER) | payer MEDICAID ==
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
[2021-10-05 08:58] VITALS: BP 139/99
== END 2021-10-05 08:57 | disposition home or self-care (01) ==
LOC: ED 07:00
DX: Z48.01 Encounter for change or removal of surgical wound dressing (principal); Z89.422 Acquired absence of other left toe(s); I10 Essential (primary) hypertension; Z59.00 Homelessness unspecified
CPT/HCPCS: 99281

== ENCOUNTER 2021-11-19 21:02 | Outpatient (CLI) | payer MEDICAID | END 2021-11-19 21:03 | disposition critical access hospital (66) | LOC: EMS 21:02 | DX: M79.672 Pain in left foot (principal); M79.671 Pain in right foot; R60.0 Localized edema; Z72.89 Other problems related to lifestyle | CPT/HCPCS: A0425; A0429; A0999 ==

== ENCOUNTER 2021-11-19 21:17 | Emergency (ER) | payer MEDICAID ==
[2021-11-19] MEDS ORDERED: SODIUM CHLORIDE 0.9% 1,000 ML IV STA (21:37)
[2021-11-19] MEDS ORDERED: cefTRIAXone 1 GM VIAL IVP STA (21:39)
--- NOTE | 2021-11-19 21:43 | ED Physician Documentation ---
History of Present Illness - Stated complaint Stated Complaint: FOOT INJ - Chief complaint Chief Complaint: Ext Problem - Additonal information Additional information: 56-year-old male who has a history of homelessness and alcohol abuse comes to the emergency department via EMS requesting that we look at his foot wounds. He unfortunately sustained severe frostbite in June subsequently developed gangrene. He has had the left great toe amputated secondary to osteomyelitis. He is also had multiple encounters with wound care to have sharp debridement of his wounds. The patient presents with clothing that is saturated and smells heavily of urine. His hygiene is poor. He appears intoxicated and endorses drinking heavily all day. He states that he was taking antibiotics but stopped 2 days ago simply because he gave up. He would like to see "Dr. Keyes" the wound care provider who has been providing care. Patient has missed multiple wound care appointment follow-ups. He was to be changing his dressings on his own though he admits that he has not done so for nearly 2 weeks since they were last changed 11/07/21. Hx is difficult to obtain from patient as he is intoxicated and keep crying that he is "sorry." Review of Systems Unable to obtain: Intoxicated PD PAST MEDICAL HISTORY - Past Medical History Cardiovascular: Hypertension Respiratory: None Neuro: Peripheral neuropathy Endocrine/Autoimmune: HyPERthyroidism GI: None : Other HEENT: None Psych: Anxiety, Other Musculoskeletal: Other Derm: Other - Past Surgical History Past Surgical History: Yes Ortho: Other - Present Medications Home Medications: Ambulatory Orders Medication Instructions Recorded Confirmed Celecoxib [CeleBREX] 200 mg PO BID #60 08/23/21 08/28/21 Magnesium Sulfate 100 mg PO DAILY #30 08/23/21 08/28/21 Thiamine [Vitamin B-1] 100 mg PO DAILYWM tablet 08/23/21 08/28/21 oxyCODONE [Roxicodone] 10 mg PO Q4HR PRN #30 tablet 08/23/21 08/28/21 Amox/Clav 875/125 [Augmentin] 1 each PO Q12H #20 tablet 08/28/21 Magnesium Sulfate 100 mg PO DAILY #20 cap 08/28/21 Thiamine [Vitamin B-1] 100 mg PO DAILY #20 tablet 08/28/21 carvediloL [Coreg] 25 mg PO BID 08/28/21 08/28/21 carvediloL [Coreg] 25 mg PO BID #60 tablet 08/28/21 Ciprofloxacin HCl 1 tablet PO BID 7 Days #14 tablet 09/11/21 HYDROcod/ACETAM 5/325 [[place] 5/325] 1 ea PO Q6H PRN #12 tablet 09/15/21 cephALEXin [Keflex] 500 mg PO BID #28 cap 09/25/21 cephALEXin [Keflex] 500 mg PO TID #42 cap 10/16/21 metroNIDAZOLE 0.75% GEL [Flagyl 45 applic TOP PRN PRN 45 Days #45 11/02/21 Gel] gm Doxycycline Hyclate 100 mg PO BID 30 Days #60 cap 11/07/21 - Allergies Allergies/Adverse Reactions: Allergies Allergy/AdvReac Type Severity Reaction Status Date / Time No Known Drug Allergies Allergy Verified 11/19/21 21:22 - Social History Does the pt smoke?: No Smoking Status: Never smoker Does the pt drink ETOH?: No Does the pt have substance abuse?: No - Immunizations Immunizations are current?: Yes Immunizations: TDAP current <10years - POLST Patient has POLST: No POLST Status: Full Code PD ED PE EXPANDED - General General: Disheveled, poorly kept, Anxious - Cardiac Cardiac: Regular Rate, Radial strong equal, Pedal strong equal, Cap refill < 2 sec - Respiratory Respiratory: Clear to ausultation regine. No: Distress, Labored - Abdomen Abdomen: Normal Bowel sounds. No: Tender to palpation - Extremities Extremities: Other (Please see wound photos. Patient has maceration to plantar aspects of both feet. He has a left great toe amputation. Pulses are 2+ in both feet. They are generally tender.) Results - Vitals Vitals: Vital Signs - 24 hr 11/19/21 11/20/21 21:22 07:30 Temperature 36.5 C 36.5 C Heart Rate 86 115 H Respiratory 16 20 Rate Blood Pressure 160/80 H 138/77 H O2 Saturation 98 94 Oxygen O2 Source Room air - Labs Labs: Laboratory Tests 11/19/21 11/19/21 21:41 21:41 WBC 5.0 RBC 5.44 Hgb 15.3 Hct 45.8 MCV 84.2 MCH 28.1 MCHC 33.4 RDW 19.1 H Plt Count 174 MPV 8.2 Neut # (Auto) 3.4 Lymph # (Auto) 1.1 L [place] # (Auto) 0.4 Eos # (Auto) 0.1 Baso # (Auto) 0.0 Absolute Nucleated RBC 0.00 Nucleated RBC % 0.0 Sodium 142 Potassium 3.2 L Chloride 97 L Carbon Dioxide 30 Anion Gap 15.0 H BUN 15 Creatinine 0.9 Estimated GFR (MDRD) 87 L Glucose 170 H Calcium 8.5 Total Bilirubin 0.7 AST 108 H ALT 54 Alkaline Phosphatase 131 H Total Protein 7.6 Albumin 3.6 Globulin 4.0 Albumin/Globulin Ratio 0.9 L Lipase 38 PD MEDICAL DECISION MAKING - ED course Complexity details: reviewed results, re-evaluated patient, d/w patient ED course: 56-year-old male who is homeless and has frostbite wounds to both his lower extremities presents to the emergency department via EMS requesting wound care. He has been followed closely by her wound care clinic but has failed to follow- up since 07 November. He also admits that he has not changed his dressings as he was taught and shown. He arrives appearing clinically intoxicated. He admits to drinking heavily today. On evaluation he has macerated wounds to both of his feet with a left great toe amputation. Pulses are present. Foot wounds were photographed and placed in the chart This patient will board overnight in the emergency department. We will ask alexia rm (Stephy Ryan if available) to see him tomorrow. It is also apparent that this patient is not able to adhere to the plan of care and change his own dressings while homeless and may benefit from social work consult. I am obtaining screening labs, But will defer sed rate or CRP as I would expect both of them to be high and it would not change my clinical decision making. Patient will be repleted with a liter of saline. He is at high risk for alcohol withdrawal. Though no evidence of such at this time. Last wound culture 09/25/21 grew a fairly sensitive E. coli for which he was taking Keflex therefore I will start him on ceftriaxone this evening. Patient will be signed out to my nighttime colleague Dr. Pérez to monitor the patient overnight as he boards. I have placed a wound and social work consult in the morning. I will return tomorrow as well to further continue his care
[2021-11-19 21:48] LABS: BASOPHILS % (AUTO) 0.8 %; EOSINOPHILS # (AUTO) 0.1 10^3/uL (0.0-0.7); EOSINOPHILS % (AUTO) 1.2 %; HCT - HEMATOCRIT 45.8 % (42.0-52.0); HGB - HEMOGLOBIN 15.3 g/dL (14.0-18.0); LYMPHOCYTES # (AUTO) 1.1 10^3/uL (1.5-3.5); LYMPHOCYTES % (AUTO) 22.3 %; MEAN CORPUSCULAR HEMOGLOBIN 28.1 pg (27.0-31.0); MEAN CORPUSCULAR HGB CONC 33.4 g/dL (32.0-36.0); MEAN CORPUSCULAR VOLUME 84.2 fL (80.0-94.0); MEAN PLATELET VOLUME 8.2 fL (7.4-11.4); MONOCYTES # (AUTO) 0.4 10^3/uL (0.0-1.0); NEUTROPHILS # (AUTO) 3.4 10^3/uL (1.5-6.6); NEUTROPHILS % (AUTO) 67.5 %; PLT - PLATELET COUNT 174 10^3/uL (130-450); RED BLOOD COUNT 5.44 10^6/uL (4.70-6.10); RED CELL DISTRIBUTION WIDTH 19.1 % (12.0-15.0)
[2021-11-19 22:01] LABS: ALBUMIN 3.6 g/dL (3.2-5.5); ALBUMIN/GLOBULIN RATIO 0.9 (1.0-2.2); BILIRUBIN,TOTAL 0.7 mg/dL (0.2-1.0); CALCIUM 8.5 mg/dL (8.5-10.3); CREATININE 0.9 mg/dL (0.6-1.2); POTASSIUM 3.2 mmol/L (3.5-5.0); TOTAL PROTEIN 7.6 g/dL (6.7-8.2)
[2021-11-19] MEDS ORDERED: POTASSIUM CHLORIDE 20 MEQ TABLET PO STA (22:09)
[2021-11-20] MEDS ORDERED: MAG HYDROX/AL HYDROX/SIMETH 30 ML UDC PO STA (01:55)
--- NOTE | 2021-11-20 09:24 | ED Physician Documentation ---
ED Addendum - Addendum Addendum: 56-year-old male was seen by wound care in the emergency department. His wounds were cleansed and bandaged. They recommend that he go to the [facility] clinic for follow-up. He will go there today. The patient also has a upper caser that is working on rehab with him. Has an appointment on December 03 for this. Social work was also consulted and spoke with the patient. Patient counseled regarding signs and symptoms for which I believe and urgent re-evaluation would be necessary. Patient with good understanding of and agreement to plan and is comfortable going home at this time This document was made in part using voice recognition software. While efforts are made to proofread this document, sound alike and grammatical errors may occur. Departure - Departure Disposition: 01 Home, Self Care Clinical Impression: Dressing change or removal, surgical wound, Alcoholism Condition: Good Instructions: ED Wound Care Follow-Up: your,doctor [Other] Comments: Please meet with your electrical parts reconditioner at [facility]. Your rehab admission date is on December 03. Please go to the [facility] clinic today to be evaluated by wound care. Discharge Date/Time: 11/20/21 10:17
[2021-11-20 10:17] VITALS: BP 135/75
--- NOTE | 2021-11-20 12:21 | WOUND CARE PROGRESS NOTE ---
Assessment/Plan - Problem List (1) Frostbite of both feet Qualifiers: Encounter type: subsequent encounter Qualified Code(s): T33.821D - Superficial frostbite of right foot, subsequent encounter; T33.822D - Superficial frostbite of left foot, subsequent encounter Assessment/Plan: Patient has chronic wounds to bilateral lower extremities s/p frostbite in May and June 2021 resulting osteomyelitis and subsequent left great toe amputation. I have been seeing patient in wound care up to twice weekly for the past few months. He failed to report to his scheduled wound care appointment last Friday. He was brought to the ED last night, intoxicated, and a request for consult of wounds was sent to my office. Patient was seen in the ED room 6 at 9am today. Wounds were assessed and appear to be healing well. He does have quite a bit of maceration to bilateral feet. Plan of care: Advised wound hygiene with normal saline and dressing with xeroform over all wounded areas followed by ABD, Kurlex, and Javad wrap to secure. Patient advised to come to the Wound Care Center upon discharge from the ED to schedule follow up appointment for wound hygiene/debridement/and dressing change this week. Plan reviewed with Dr. Parada. (2) Alcoholism Assessment/Plan: Patient was adimitted to the ED last night for alcohol intoxication. He was scheduled for Alchohol treatment facility on November 14, 2021 and failed to present. He was due to come to the Wound care center on 11/13/21 for teaching on how to do dressing changes twice weekly while in rehab and did not show up for that appointment. After talking with counselor and [place], [facility], I was informed that patient does have another secured bed at the Rehab center scheduled on 12/03/2021. Plan of care: Patient was informed of new scheduled date and advised to see [facility] as soon as possible. Discussed plan with trail construction worker and ED physician. Phone call to Lu[facility] ([phone]) to inform him that patient would be coming to see him. - Results Lab Results: Laboratory Results Sodium 142 mmol/L (135-145) 11/19/21 21:41 Potassium 3.2 mmol/L (3.5-5.0) L 11/19/21 21:41 Chloride 97 mmol/L (101-111) L 11/19/21 21:41 Carbon Dioxide 30 mmol/L (21-32) 11/19/21 21:41 Anion Gap 15.0 (6-13) H 11/19/21 21:41 BUN 15 mg/dL (6-20) 11/19/21 21:41 Creatinine 0.9 mg/dL (0.6-1.2) 11/19/21 21:41 Glucose 170 mg/dL (70-100) H 11/19/21 21:41 Calcium 8.5 mg/dL (8.5-10.3) 11/19/21 21:41 Total Bilirubin 0.7 mg/dL (0.2-1.0) 11/19/21 21:41 AST 108 IU/L (10-42) H 11/19/21 21:41 ALT 54 IU/L (10-60) 11/19/21 21:41 Alkaline Phosphatase 131 IU/L (42-121) H 11/19/21 21:41 Total Protein 7.6 g/dL (6.7-8.2) 11/19/21 21:41 Albumin 3.6 g/dL (3.2-5.5) 11/19/21 21:41 Globulin 4.0 g/dL (2.1-4.2) 11/19/21 21:41 Albumin/Globulin Ratio 0.9 (1.0-2.2) L 11/19/21 21:41 - Home Meds/Allergies Allergies No Known Drug Allergies Allergy (Verified 11/19/21 21:22) - Additional Planning Condition/Complexity: Stable Plan Discussed with:: Patient, Case Management (Lu[facility], trail construction worker, ER Physician) Objective General: Alert, Oriented x3, Cooperative Procedure - Procedure Note No procedure done in the ED. Meds/Allgy - Home Medications Home Medications: Ambulatory Orders Medication Instructions Recorded Confirmed Celecoxib [CeleBREX] 200 mg PO BID #60 08/23/21 08/28/21 Magnesium Sulfate 100 mg PO DAILY #30 08/23/21 08/28/21 Thiamine [Vitamin B-1] 100 mg PO DAILYWM tablet 08/23/21 08/28/21 oxyCODONE [Roxicodone] 10 mg PO Q4HR PRN #30 tablet 08/23/21 08/28/21 Amox/Clav 875/125 [Augmentin] 1 each PO Q12H #20 tablet 08/28/21 Magnesium Sulfate 100 mg PO DAILY #20 cap 08/28/21 Thiamine [Vitamin B-1] 100 mg PO DAILY #20 tablet 08/28/21 carvediloL [Coreg] 25 mg PO BID 08/28/21 08/28/21 carvediloL [Coreg] 25 mg PO BID #60 tablet 08/28/21 Ciprofloxacin HCl 1 tablet PO BID 7 Days #14 tablet 09/11/21 HYDROcod/ACETAM 5/325 [[place] 5/325] 1 ea PO Q6H PRN #12 tablet 09/15/21 cephALEXin [Keflex] 500 mg PO BID #28 cap 09/25/21 cephALEXin [Keflex] 500 mg PO TID #42 cap 10/16/21 metroNIDAZOLE 0.75% GEL [Flagyl 45 applic TOP PRN PRN 45 Days #45 11/02/21 Gel] gm Doxycycline Hyclate 100 mg PO BID 30 Days #60 cap 11/07/21 - Allergies Allergies/Adverse Reactions: Allergies Allergy/AdvReac Type Severity Reaction Status Date / Time No Known Drug Allergies Allergy Verified 11/19/21 21:22
== END 2021-11-20 10:17 | disposition home or self-care (01) ==
LOC: EDUNIT# → ED 21:17
DX: T33.821D Superficial frostbite of right foot, subsequent encounter (principal); T33.822D Superficial frostbite of left foot, subsequent encounter; X58.XXXD Exposure to other specified factors, subsequent encounter; I10 Essential (primary) hypertension; Z59.00 Homelessness unspecified
CPT/HCPCS: 36415; 80053; 83690; 85025; 96361; 96374; 99281; 99284; A9270

== ENCOUNTER 2021-12-05 05:28 | Emergency (ER) | payer MEDICAID ==
[2021-12-05 05:43] VITALS: BP 145/90
--- NOTE | 2021-12-05 07:07 | ED Physician Documentation ---
PD HPI LOWER EXT INJURY - Stated complaint Stated Complaint: LT FOOT PX - Chief complaint Chief Complaint: Ext Problem - History obtained from History obtained from: Patient - Additional information Additional information: Patient is a 56-year-old male with a history significant for previous frostbite injury to bilateral feet, alcohol abuse presenting for worsening left foot pain. Patient reports being intoxicated last night and was outside sleeping With cold wet socks. He reports increased pain to the left foot. He did last see wound care for previous injuries on November 30. Ambulating makes his pain Worse. He has not taking anything for pain.He is unsure of any known trauma or new injury to the foot. His tetanus is up-to-date. Review of Systems Constitutional: denies: Fever Nose: denies: Congestion Cardiac: denies: Chest pain / pressure Respiratory: denies: Dyspnea GI: denies: Abdominal Pain Skin: reports: Lesions Musculoskeletal: reports: Extremity pain. denies: Back pain Neurologic: denies: Headache PD PAST MEDICAL HISTORY - Past Medical History Past Medical History: Yes Cardiovascular: Hypertension Respiratory: None Neuro: Peripheral neuropathy Endocrine/Autoimmune: HyPERthyroidism GI: None : Other HEENT: None Psych: Anxiety, Other Musculoskeletal: Other Derm: Other - Past Surgical History Past Surgical History: Yes Ortho: Other - Present Medications Home Medications: Ambulatory Orders Medication Instructions Recorded Confirmed Celecoxib [CeleBREX] 200 mg PO BID #60 08/23/21 08/28/21 Thiamine [Vitamin B-1] 100 mg PO DAILYWM tablet 08/23/21 08/28/21 Magnesium Sulfate 100 mg PO DAILY #20 cap 08/28/21 carvediloL [Coreg] 25 mg PO BID 08/28/21 08/28/21 cephALEXin [Keflex] 500 mg PO BID #28 cap 09/25/21 metroNIDAZOLE 0.75% GEL [Flagyl 45 applic TOP PRN PRN 45 Days #45 11/02/21 Gel] gm Doxycycline Hyclate 100 mg PO BID 30 Days #60 cap 11/07/21 - Allergies Allergies/Adverse Reactions: Allergies Allergy/AdvReac Type Severity Reaction Status Date / Time No Known Drug Allergies Allergy Verified 12/05/21 05:40 - Social History Does the pt smoke?: No Smoking Status: Never smoker Does the pt drink ETOH?: No Does the pt have substance abuse?: No - Immunizations Immunizations are current?: Yes Immunizations: TDAP current <10years - POLST Patient has POLST: No POLST Status: Full Code PD ED PE NORMAL - General General: No acute distress, Other (Unkempt, well nourished) - HEENT HEENT: Atraumatic - Cardiac Cardiac: Strong equal pulses - Respiratory Respiratory: No respiratory distress - Extremities Extremities: Other (Maceration to bilateral plantar feet, 2+ pulses in bilateral feet, Healing ulcer to left lateral foot With Well-perfused appearing tissue at the base, no surrounding redness or abnormal drainage, Dry dressing in place to right distal leg; L great toe amputation ) Results - Vitals Vitals: Oxygen O2 Source Room air PD MEDICAL DECISION MAKING - ED course ED course: Pt with history of cold injury to feet s/p toe amputation few months ago and healing ulcers/wounds with pain to L foot. No signs of acute infection. Distal pulses intact. Xray negative for fracture. Pt in need of wound care and new dressings but eloped prior to this. Per RN, he plans to go to wound care clinic this morning where he has been seen before. Departure - Departure Disposition: ED [place] Clinical Impression: Left foot pain, Dressing change, Alcohol abuse Discharge Date/Time: 12/05/21 07:45
--- NOTE | 2021-12-05 12:04 | XRAY Report ---
PROCEDURE: Foot 3 View LT INDICATIONS: pain TECHNIQUE: 3 views of the foot were acquired. COMPARISON: X-ray foot 08/23/2021. FINDINGS: Bones: First digit amputation distal to the first metatarsal is again identified. There is extensive periosteal reaction and callus formation identified. Areas of lucency are present overlying the dista l aspect of the metatarsal. Significant soft tissue edema is present. Areas of adjacent calcification are noted between the first and second digits. Soft tissues: No tibiotalar joint effusion. [place] s tendon appears normal. IMPRESSION: First digit amputation with areas of lucency as well as significant periosteal/ossification. Overall appearance does raise concern for osteomyelitis. MRI may be obtained as clinically indicated. Reviewed by: Tameka Jimenez MD on 12/05/2021 12:02 PM PDT Approved by: Tameka Jimenez MD on 12/05/2021 12:02 PM PDT Station ID: [id number]
== END 2021-12-05 07:45 | disposition left against medical advice (07) ==
LOC: ED 05:28
DX: L97.529 Non-pressure chronic ulcer of other part of left foot with unspecified severity (principal); T69.022A Immersion foot, left foot, initial encounter; T69.021A Immersion foot, right foot, initial encounter; X31.XXXA Exposure to excessive natural cold, initial encounter; F10.10 Alcohol abuse, uncomplicated
CPT/HCPCS: 99282; 99283

== ENCOUNTER 2021-12-20 15:03 | Emergency (ER) | payer OTHER, MEDICAID ==
[2021-12-20 15:07] VITALS: BP 135/81
--- NOTE | 2021-12-20 15:25 | ED Physician Documentation ---
History of Present Illness - Stated complaint Stated Complaint: FIT - Chief complaint Chief Complaint: General - History obtained from History obtained from: Patient, Police - History of Present Illness Timing: Today - Additonal information Additional information: 56-year-old male who developed frostbite this winter continues to be homeless and continues to drink excessively. Today he is brought to the hospital by police for fit for confinement. He is complaining that his feet need to be examined and he is septic. He recalls that he last had his feet examined one week ago by the wound clinic. He came to the hospital by ambulance last night for examination and left without being seen. Review of Systems Constitutional: denies: Fever, Chills Respiratory: denies: Cough GI: denies: Vomiting Musculoskeletal: reports: Extremity pain Neurologic: denies: Generalized weakness, Focal weakness, Numbness PD PAST MEDICAL HISTORY - Past Medical History Cardiovascular: Hypertension Respiratory: None Neuro: Peripheral neuropathy Endocrine/Autoimmune: HyPERthyroidism GI: None : Other HEENT: None Psych: Anxiety, Other Musculoskeletal: Other Derm: Other - Past Surgical History Past Surgical History: Yes Ortho: Other - Present Medications Home Medications: Ambulatory Orders Medication Instructions Recorded Confirmed Celecoxib [CeleBREX] 200 mg PO BID #60 08/23/21 08/28/21 Thiamine [Vitamin B-1] 100 mg PO DAILYWM tablet 08/23/21 08/28/21 Magnesium Sulfate 100 mg PO DAILY #20 cap 08/28/21 carvediloL [Coreg] 25 mg PO BID 08/28/21 08/28/21 cephALEXin [Keflex] 500 mg PO BID #28 cap 09/25/21 metroNIDAZOLE 0.75% GEL [Flagyl 45 applic TOP PRN PRN 45 Days #45 11/02/21 Gel] gm Doxycycline Hyclate 100 mg PO BID 30 Days #60 cap 11/07/21 - Allergies Allergies/Adverse Reactions: Allergies Allergy/AdvReac Type Severity Reaction Status Date / Time No Known Drug Allergies Allergy Verified 12/05/21 05:40 - Social History Does the pt smoke?: No Smoking Status: Never smoker Does the pt drink ETOH?: No Does the pt have substance abuse?: No - Immunizations Immunizations are current?: Yes Immunizations: TDAP current <10years - POLST Patient has POLST: No POLST Status: Full Code PD ED PE NORMAL - Vitals Vital signs reviewed: Yes (hypertensive ) - General General: Alert and oriented X 3, No acute distress, Well developed/nourished - HEENT HEENT: Atraumatic, PERRL, EOMI - Respiratory Respiratory: No respiratory distress - Derm Derm: Normal color, Warm and dry, No rash - Extremities Extremities: Other (There is swelling to both feet bilaterally the dressings were taken down there is no obvious infection involved and the wounds appear to be granulating well. There is postinflammatory hyperpigmentation associated with the skin of the feet.) - Neuro Neuro: application software developer 2-12 intact, No motor deficit, No sensory deficit, Normal speech Eye Opening: Spontaneous Motor: Obeys Commands Verbal: Oriented GCS Score: 15 - Psych Psych: Normal mood, Normal affect Results - Vitals Vitals: Vital Signs - 24 hr 12/20/21 15:05 Temperature 36.9 C Heart Rate 81 Respiratory 16 Rate Blood Pressure 135/81 H O2 Saturation 99 Oxygen O2 Source Room air PD MEDICAL DECISION MAKING - ED course Complexity details: considered differential, d/w patient ED course: This patient returns to the emergency department this time in the custody of police and for fit for confinement. The patient failed his appointment last night with the emergency department and on presentation today his dressings were taken down his feet are examined I do not see evidence of acute infection or worsening of his healing process. His wounds were redressed and he is released to the custody of the [employer] officer. Departure - Departure Disposition: 01 Home, Self Care Clinical Impression: Dressing change Frostbite of both feet Qualifiers: Encounter type: sequela Qualified Code(s): T33.821S - Superficial frostbite of right foot, sequela Condition: Stable Instructions: ED Bandage Change Follow-Up: [facility] [Provider Group] Comments: Ian, today it looks like your feet are healing and there is no obvious sign of infection today. Continue your wound dressing as previously and follow-up with the wound clinic as previously planned.
== END 2021-12-20 15:53 | disposition home or self-care (01) ==
LOC: ED 15:03
DX: Z02.89 Encounter for other administrative examinations (principal); T33.821D Superficial frostbite of right foot, subsequent encounter; Z59.00 Homelessness unspecified
CPT/HCPCS: 99281

== ENCOUNTER 2022-06-25 16:34 | Inpatient (IN) | payer MEDICAID ==
[2022-06-25 17:15] LABS: BASOPHILS % (AUTO) 0.2 %; HCT - HEMATOCRIT 27.9 % (42.0-52.0); HGB - HEMOGLOBIN 8.9 g/dL (14.0-18.0); MEAN CORPUSCULAR HEMOGLOBIN 27.4 pg (27.0-31.0); MEAN CORPUSCULAR HGB CONC 31.9 g/dL (32.0-36.0); MEAN CORPUSCULAR VOLUME 85.8 fL (80.0-94.0); MEAN PLATELET VOLUME 8.8 fL (7.4-11.4); MONOCYTES % (AUTO) 7.8 %; NEUTROPHILS % (AUTO) 87.4 %; PLT - PLATELET COUNT 484 10^3/uL (130-450); RED BLOOD COUNT 3.25 10^6/uL (4.70-6.10); RED CELL DISTRIBUTION WIDTH 15.8 % (12.0-15.0)
[2022-06-25 17:17] LABS: ABNORMAL LYMPHS % (MANUAL) 0 %
[2022-06-25 17:32] LABS: BAND NEUTROPHILS % (MANUAL) 2 %; DIFFERENTIAL COMMENT MANUAL DIFFERENTIAL; LYMPHOCYTES # (MANUAL) 0.3 10^3/uL (1.5-3.5); LYMPHOCYTES % (MANUAL) 1 %; MONOCYTES # (MANUAL) 1.4 10^3/uL (0.0-1.0); NEUTROPHILS # (MANUAL) 25.4 10^3/uL (1.5-6.6); PLATELET ESTIMATE, MANUAL NORMAL (130-450,000) (NORMAL); PLATELET MORPHOLOGY NORMAL APPEARANCE (NORMAL); RBC MORPHOLOGY (MULTIPLE) NORMAL APPEARANCE (NORMAL)
--- NOTE | 2022-06-25 17:44 | XRAY Report ---
PROCEDURE: Foot 3 View LT INDICATIONS: chronic foot wounds TECHNIQUE: 3 views of the foot were acquired. COMPARISON: Left foot radiographs 12/05/2021, bilateral foot radiographs 08/23/2021. FINDINGS: Bones: There is a bony destruction at the fifth metatarsal head which is new compared to 12/05/2021. Lucency at the fifth digit proximal phalangeal base. There is a bony destruction at the second digit metatarsal head. Suspect mildly displaced fracture at the second digit metatarsal head. Periosteal re action at the second metatarsal. There is erosion at the second digit PIP joint. Second digit tuft is likely a previously amputated or eroded. There is erosion at the third MTP joint. Possible lucency a t the fourth digit PIP joint. Amputation at the first ray. There is a bony remodeling with ossified c alcification. No dislocations. Plantar calcaneal spur. These findings could be seen in diabetic neur opathy. Soft tissues: No tibiotalar joint effusion. Achilles tendon appears normal. IMPRESSION: Multifocal osseous erosion which are new compared to 12/05/2021. Fifth MTP joint, second MTP joint, se cond PIP joint, third MTP joint. 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 Chronic changes at the first ray resection. Reviewed by: Matt Mcarthur MD on 06/25/2022 5:42 PM PST Approved by: Matt Mcarthur MD on 06/25/2022 5:42 PM PST Station ID: [id number]
[2022-06-25 17:45] LABS: ALBUMIN 2.6 g/dL (3.2-5.5); ALBUMIN/GLOBULIN RATIO 0.5 (1.0-2.2); BILIRUBIN,TOTAL 0.6 mg/dL (0.2-1.0); CALCIUM 8.9 mg/dL (8.5-10.3); CREATININE 1.6 mg/dL (0.6-1.2); CRP - C-REACTIVE PROTEIN 27.9 mg/dL (0-1.0); POTASSIUM 3.8 mmol/L (3.5-5.0); TOTAL PROTEIN 8.2 g/dL (6.7-8.2)
[2022-06-25] MEDS ORDERED: AMPICILLIN/SULBACTAM 3 GM in SODIUM CHLORIDE 0.9% MINIBAG 100 ML IV STA (18:47)
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
[2022-06-25] MEDS ORDERED: VANCOMYCIN 1 GM VIAL ONE (19:49)
[2022-06-25 19:50] LABS: B. PARAPERTUSSIS- RESP PCR PAN NOT DETECTED; B. PERTUSSIS- RESP PCR PANEL NOT DETECTED; C. PNEUMONIAE- RESP PCR PANEL NOT DETECTED; CORONAVIRUS 229E-RESP PCR NOT DETECTED; CORONAVIRUS HKU1-RESP PCR NOT DETECTED; CORONAVIRUS NL63-RESP PCR NOT DETECTED; CORONAVIRUS OC43-RESP PCR NOT DETECTED; HUMAN METAPNEUMOVIRUS NOT DETECTED; INFLUENZA A- RESP PCR PANEL NOT DETECTED; INFLUENZA B - RESP PCR PANEL NOT DETECTED; M. PNEUMONIAE- RESP PCR PANEL NOT DETECTED; PARAINFLUENZA VIRUS 1 NOT DETECTED; PARAINFLUENZA VIRUS 2 NOT DETECTED; PARAINFLUENZA VIRUS 3 NOT DETECTED; PARAINFLUENZA VIRUS 4 NOT DETECTED; RHINOVIRUS/ENTEROVIRUS NOT DETECTED; RSV- RESP PCR PANEL NOT DETECTED; SARS-CoV-2 -RESP PCR PANEL NOT DETECTED
[2022-06-25] MEDS: VANCOMYCIN INJ 1.5 GM in SODIUM CHLORIDE 0.9% 500 ML IV SCH (19:54)
[2022-06-25] MEDS ORDERED: IPRATROPIUM/ALBUTEROL 3 ML NEB INH PRN (21:26)
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
[2022-06-25] MEDS: SODIUM CHLORIDE 0.9% 1,000 ML IV SCH (22:10)
[2022-06-25] MEDS: ACETAMINOPHEN 325 MG TABLET PO PRN (23:43)
[2022-06-25] MEDS: HYDROcod/ACETAM 5/325 MG TABLET PO PRN (23:44)
[2022-06-25] MEDS: PIPERACILLIN/TAZOBACTAM 3.375 GM in SODIUM CHLORIDE 0.9% MINIBAG 100 ML IV SCH (23:45)
[2022-06-26] MEDS ORDERED: PIPERACILLIN/TAZOBACTAM 3.375 GM in SODIUM CHLORIDE 0.9% MINIBAG 100 ML IV SCH ×2
[2022-06-26] MEDS ORDERED: AMPICILLIN/SULBACTAM 3 GM in SODIUM CHLORIDE 0.9% MINIBAG 100 ML IV SCH (01:00)
[2022-06-26] MEDS: SODIUM CHLORIDE FLUSH 0.9% 10 ML SYRINGE IVP SCH ×3 (03:10→17:05)
[2022-06-26] MEDS: HYDROcod/ACETAM 5/325 MG TABLET PO PRN ×3 (04:25→14:53)
[2022-06-26 04:46] LABS: HCT - HEMATOCRIT 28.1 % (42.0-52.0); HGB - HEMOGLOBIN 9.1 g/dL (14.0-18.0); MEAN CORPUSCULAR HEMOGLOBIN 27.8 pg (27.0-31.0); MEAN CORPUSCULAR HGB CONC 32.4 g/dL (32.0-36.0); MEAN CORPUSCULAR VOLUME 85.9 fL (80.0-94.0); MEAN PLATELET VOLUME 8.7 fL (7.4-11.4); RED BLOOD COUNT 3.27 10^6/uL (4.70-6.10); RED CELL DISTRIBUTION WIDTH 15.9 % (12.0-15.0); WHITE BLOOD COUNT 30.5 x10^3/uL (4.8-10.8)
[2022-06-26 04:58] LABS: CALCIUM 8.5 mg/dL (8.5-10.3); CREATININE 0.9 mg/dL (0.6-1.2); POTASSIUM 3.6 mmol/L (3.5-5.0)
[2022-06-26 05:02] LABS: INR 1.7 (0.8-1.2); PT - PROTHROMBIN TIME 18.5 secs (9.9-12.6)
[2022-06-26] MEDS: PIPERACILLIN/TAZOBACTAM 3.375 GM in SODIUM CHLORIDE 0.9% MINIBAG 100 ML IV SCH ×3 (06:18→20:41)
[2022-06-26] MEDS: ACETAMINOPHEN 325 MG TABLET PO PRN ×3 (06:22→21:02)
[2022-06-26] MEDS: VANCOMYCIN INJ 1.5 GM in SODIUM CHLORIDE 0.9% 500 ML IV SCH ×2 (06:58→22:16)
[2022-06-26] MEDS: GABAPENTIN 100 MG CAPSULE PO SCH ×2 (08:49→21:02)
[2022-06-26] MEDS: LACTOBACILLUS RHAMNOSUS GG CAPSULE PO SCH (08:49)
[2022-06-26] MEDS: TAMSULOSIN 0.4 MG CAPSULE PO SCH (08:49)
--- NOTE | 2022-06-26 08:50 | PHARMACY PROGRESS NOTE ---
- Therapy Status Vancomycin regimen day #: 2 Therapy status: Awaiting steady state (ER initiated 1500mg Q12h as loading dose, pharmacy calculated 1500mg q12h as maintenance dose. Will do trough 30 min before 4th dose) Basis for treatment: Empirical Treatment indication: CELLULITIS, OSTEOMYELITIS Trough goal: 15-20 Concurrent antibiotics: ZOSYN - CHILO Risk Risk level for Acute Kidney Injury: High (ER initiated vanco with 1500mg loading dose. Pharmacy followed by 1500mg maintenance dose for AUC/STEVE of 513) Acute Kidney Injury risk factors: Piperacillin/Tozobactam - Monitoring and Recommendation Clinical response to treatment: I&O Previous 24 hours 06/24/22 06/25/22 06/26/22 23:59 23:59 23:59 Intake Total 600 200 Output Total 300 2225 Balance 300 -2024 Lab Results 06/26/22 06/25/22 06/25/22 04:25 17:09 17:09 ESR > 140 H BUN 17 30 H Creatinine 0.9 1.6 H Estimated GFR (MDRD) 87 L 45 L Monitoring plan: Daily serum creatinine
--- NOTE | 2022-06-26 12:29 | PHARMACY PROGRESS NOTE ---
- Best Possible Medication History Admit Date and Time: 06/25/222112 Processed by: Pharmacy Medication History completed: Yes Patient Interview: Completed Secondary Source(s): Pharmacy records As the person ultimately responsible for medication therapy, providers are able to order a medication from an existing home medication list in [facility] via the "Reconcile Routine" prior to Confirmation of that medication by emotional support teacher. Such practice is discouraged except when the physician, in their clinical judgment, deems that a medical need exists for a medication without regard to previous use.
--- NOTE | 2022-06-26 14:31 | HISTORY & PHYSICAL EXAMINATION ---
HPI - History Obtained From History obtained from: Patient, Other Exam limitations: Clinical condition - History of Present Illness HPI Comment/Other: This is a 56-year-old gentleman with bilateral foot problems for least a year that began with frostbite to both feet associated with alcohol binges and homelessness. He was drinking so heavily, outdoors in rainy weather, fall asleep or passed out leading to cold wet socks and shoes then led to frostbite of all toes of both feet. This led to soft tissue breakdown the gangrenous changes that led to chronic wound problems in addition to noncompliance to treatment. I had last seen him in the clinic in August 2021. He had a first ray amputation of the left foot because of gangrene associated with the frostbite. He now returns to the emergency room after about 3 or 4-day history of drainage from the left forefoot. He states he has been in alcohol rehab and has not had any alcohol for about 8 months. He has a wound VAC for the right foot, chronic wound to right foot without change or drainage to suggest infection. In addition to drainage to left forefoot, he is noted swelling. The drainage seems to be coming either from the bottom of the foot or between the second and third toes of the left foot. He was seen in the emergency room last night. Blood cultures were obtained. He was started on broad-spectrum antibiotics and has been admitted to the hospital medical service with ort fancy farmdic consultation today. He seems to be doing relatively well, mild pain to left foot. PMH/PSH - Past Medical History Cardiovascular: positive: Hypertension Respiratory: positive: None Neuro: positive: Peripheral neuropathy Endocrine/Autoimmune: positive: HyPERthyroidism GI: positive: None : positive: Other HEENT: positive: None Psych: positive: Anxiety, Other Musculoskeletal: positive: Other Derm: positive: Other MRSA Hx?: No - Past Surgical History Ortho: positive: Other Other past surgical history: toe amputations Social & Family Hx - Social History Does the pt smoke?: No Smoking Status: Never smoker Does the pt drink ETOH?: No Does the pt have substance abuse?: No - POLST Patient has POLST: No POLST Status: Full Code Meds/Allgy - Home Medications Home Medications: Ambulatory Orders Medication Instructions Recorded Confirmed Gabapentin [Neurontin] 300 mg PO BID 06/25/22 06/26/22 Naltrexone HCl 50 mg PO HS 06/25/22 06/25/22 Tamsulosin HCl [Flomax] 0.4 mg PO DAILY 06/25/22 06/25/22 carvediloL [Coreg] 1 tab PO BID 06/26/22 06/26/22 - Allergies Allergies/Adverse Reactions: Allergies Allergy/AdvReac Type Severity Reaction Status Date / Time No Known Drug Allergies Allergy Verified 06/25/22 16:48 Exam - Vital Signs Vital Signs: Vital Signs x48h Temp Pulse Resp BP Pulse Ox 06/26/22 08:00 37.8 C 103 H 18 128/76 95 - Physical Exam General Appearance: positive: No acute distress, Alert Respiratory: positive: No respiratory distress Cardiovascular: positive: Regular rate & rhythm Peripheral Pulses: positive: 2+ Skin: positive: Warm, Dry Neurologic/Psychiatric: positive: Oriented x3, Motor nml, Sensation nml Comments/Other: The left foot does not show redness or any sign of cellulitis. There is fluctuant mass over the second metatarsal distally. There is webspace breakdown between the second and third toes that communicate with fluctuant mass to the second metatarsal, gross drainage of pus which was cultured 3 times and sent to the lab for aerobic and anaerobic cultures. There is also a ulcer over the second metatarsal head and it seems to communicate with the abscess as well. The remainder of the toes do not show any skin breakdown or acute sign of infection. He does have good pedal pulses. There is no sign of ischemia to his foot. In addition to the warmth there is some swelling. The abscess seems to be fairly well localized and has not extended into most of the plantar arch Results - Lab Results Fish Bones: 06/26/22 04:25 06/26/22 04:25 Other Lab Results: Lab Results x24hrs 06/26/22 06/26/22 06/26/22 Range/Units 04:25 04:25 04:25 WBC 30.5 H (4.8-10.8) x10^3/uL RBC 3.27 L (4.70-6.10) 10^6/uL Hgb 9.1 L (14.0-18.0) g/dL Hct 28.1 L (42.0-52.0) % MCV 85.9 (80.0-94.0) fL MCH 27.8 (27.0-31.0) pg MCHC 32.4 (32.0-36.0) g/dL RDW 15.9 H (12.0-15.0) % Plt Count 452 H (130-450) 10^3/uL MPV 8.7 (7.4-11.4) fL Neut # (Auto) Lymph # (Auto) Park # (Auto) Eos # (Auto) Baso # (Auto) Absolute Nucleated RBC Total Counted Band Neuts % (Manual) (0 - 10) % Abnorm Lymph % (Manual) % Nucleated RBC % Neutrophils # (Manual) (1.5-6.6) 10^3/uL Lymphocytes # (Manual) (1.5-3.5) 10^3/uL Monocytes # (Manual) (0.0-1.0) 10^3/uL Eosinophils # (Manual) (0-0.7) 10^3/uL Basophils # (Manual) (0-0.1) 10^3/uL Differential Comment Platelet Estimate (NORMAL) Platelet Morphology (NORMAL) RBC Morph Micro Appear (NORMAL) ESR (0-20) mm/Hr PT 18.5 H (9.9-12.6) secs INR 1.7 H (0.8-1.2) Sodium 129 L (135-145) mmol/L Potassium 3.6 (3.5-5.0) mmol/L Chloride 100 L (101-111) mmol/L Carbon Dioxide 23 (21-32) mmol/L Anion Gap 6.0 (6-13) BUN 17 (6-20) mg/dL Creatinine 0.9 (0.6-1.2) mg/dL Estimated GFR (MDRD) 87 L (>89) Glucose 177 H (70-100) mg/dL Lactic Acid (0.5-2.2) mmol/L Calcium 8.5 (8.5-10.3) mg/dL Total Bilirubin (0.2-1.0) mg/dL AST (10-42) IU/L ALT (10-60) IU/L Alkaline Phosphatase (42-121) IU/L C-Reactive Protein (0-1.0) mg/dL Total Protein (6.7-8.2) g/dL Albumin (3.2-5.5) g/dL Globulin (2.1-4.2) g/dL Albumin/Globulin Ratio (1.0-2.2) Nasal Adenovirus (PCR) Nasal B. parapertussis DNA (PCR) Nasal Coronavir 229E PCR Nasal Coronavir HKU1 PCR Nasal Coronavir NL63 PCR Nasal Coronavir OC43 PCR Nasal Enterovir/Rhinovir PCR Nasal Influenza B PCR Nasal Influenza A PCR Nasal Parainfluen 1 PCR Nasal Parainfluen 2 PCR Nasal Parainfluen 3 PCR Nasal Parainfluen 4 PCR Nasal RSV (PCR) Nasal B.pertussis DNA PCR Nasal C.pneumoniae (PCR) Nazario Human Metapneumo PCR Nasal M.pneumoniae (PCR) Nasal SARS-CoV-2 (PCR) Influenza A (Rapid) (Negative) Influenza B (Rapid) (Negative) 06/26/22 06/25/22 06/25/22 Range/Units 04:25 18:20 18:20 WBC (4.8-10.8) x10^3/uL RBC (4.70-6.10) 10^6/uL Hgb (14.0-18.0) g/dL Hct (42.0-52.0) % MCV (80.0-94.0) fL MCH (27.0-31.0) pg MCHC (32.0-36.0) g/dL RDW (12.0-15.0) % Plt Count (130-450) 10^3/uL MPV (7.4-11.4) fL Neut # (Auto) Lymph # (Auto) Park # (Auto) Eos # (Auto) Baso # (Auto) Absolute Nucleated RBC Total Counted Band Neuts % (Manual) (0 - 10) % Abnorm Lymph % (Manual) % Nucleated RBC % Neutrophils # (Manual) (1.5-6.6) 10^3/uL Lymphocytes # (Manual) (1.5-3.5) 10^3/uL Monocytes # (Manual) (0.0-1.0) 10^3/uL Eosinophils # (Manual) (0-0.7) 10^3/uL Basophils # (Manual) (0-0.1) 10^3/uL Differential Comment Platelet Estimate (NORMAL) Platelet Morphology (NORMAL) RBC Morph Micro Appear (NORMAL) ESR (0-20) mm/Hr PT (9.9-12.6) secs INR (0.8-1.2) Sodium (135-145) mmol/L Potassium (3.5-5.0) mmol/L Chloride (101-111) mmol/L Carbon Dioxide (21-32) mmol/L Anion Gap (6-13) BUN (6-20) mg/dL Creatinine (0.6-1.2) mg/dL Estimated GFR (MDRD) (>89) Glucose (70-100) mg/dL Lactic Acid 1.1 (0.5-2.2) mmol/L Calcium (8.5-10.3) mg/dL Total Bilirubin (0.2-1.0) mg/dL AST (10-42) IU/L ALT (10-60) IU/L Alkaline Phosphatase (42-121) IU/L C-Reactive Protein (0-1.0) mg/dL Total Protein (6.7-8.2) g/dL Albumin (3.2-5.5) g/dL Globulin (2.1-4.2) g/dL Albumin/Globulin Ratio (1.0-2.2) Nasal Adenovirus (PCR) NOT DETECTED Nasal B. parapertussis DNA (PCR) NOT DETECTED Nasal Coronavir 229E PCR NOT DETECTED Nasal Coronavir HKU1 PCR NOT DETECTED Nasal Coronavir NL63 PCR NOT DETECTED Nasal Coronavir OC43 PCR NOT DETECTED Nasal Enterovir/Rhinovir PCR NOT DETECTED Nasal Influenza B PCR NOT DETECTED Nasal Influenza A PCR NOT DETECTED Nasal Parainfluen 1 PCR NOT DETECTED Nasal Parainfluen 2 PCR NOT DETECTED Nasal Parainfluen 3 PCR NOT DETECTED Nasal Parainfluen 4 PCR NOT DETECTED Nasal RSV (PCR) NOT DETECTED Nasal B.pertussis DNA PCR NOT DETECTED Nasal C.pneumoniae (PCR) NOT DETECTED Nazario Human Metapneumo PCR NOT DETECTED Nasal M.pneumoniae (PCR) NOT DETECTED Nasal SARS-CoV-2 (PCR) NOT DETECTED Influenza A (Rapid) Negative (Negative) Influenza B (Rapid) Negative (Negative) 06/25/22 06/25/22 06/25/22 Range/Units 17:09 17:09 17:09 WBC 27.0 H (4.8-10.8) x10^3/uL RBC 3.25 L (4.70-6.10) 10^6/uL Hgb 8.9 L (14.0-18.0) g/dL Hct 27.9 L (42.0-52.0) % MCV 85.8 (80.0-94.0) fL MCH 27.4 (27.0-31.0) pg MCHC 31.9 L (32.0-36.0) g/dL RDW 15.8 H (12.0-15.0) % Plt Count 484 H (130-450) 10^3/uL MPV 8.8 (7.4-11.4) fL Neut # (Auto) Not Reportable Lymph # (Auto) Not Reportable Park # (Auto) Not Reportable Eos # (Auto) Not Reportable Baso # (Auto) Not Reportable Absolute Nucleated RBC Not Reportable Total Counted 100 Band Neuts % (Manual) 2 (0 - 10) % Abnorm Lymph % (Manual) 0 % Nucleated RBC % Not Reportable Neutrophils # (Manual) 25.4 H (1.5-6.6) 10^3/uL Lymphocytes # (Manual) 0.3 L (1.5-3.5) 10^3/uL Monocytes # (Manual) 1.4 H (0.0-1.0) 10^3/uL Eosinophils # (Manual) 0.0 (0-0.7) 10^3/uL Basophils # (Manual) 0.0 (0-0.1) 10^3/uL Differential Comment MANUAL DIFFERENTIAL Platelet Estimate NORMAL (130-450,000) (NORMAL) Platelet Morphology NORMAL APPEARANCE (NORMAL) RBC Morph Micro Appear NORMAL APPEARANCE (NORMAL) ESR > 140 H (0-20) mm/Hr PT (9.9-12.6) secs INR (0.8-1.2) Sodium 129 L (135-145) mmol/L Potassium 3.8 (3.5-5.0) mmol/L Chloride 92 L (101-111) mmol/L Carbon Dioxide 25 (21-32) mmol/L Anion Gap 12.0 (6-13) BUN 30 H (6-20) mg/dL Creatinine 1.6 H (0.6-1.2) mg/dL Estimated GFR (MDRD) 45 L (>89) Glucose 171 H (70-100) mg/dL Lactic Acid (0.5-2.2) mmol/L Calcium 8.9 (8.5-10.3) mg/dL Total Bilirubin 0.6 (0.2-1.0) mg/dL AST 14 (10-42) IU/L ALT 16 (10-60) IU/L Alkaline Phosphatase 71 (42-121) IU/L C-Reactive Protein 27.9 H (0-1.0) mg/dL Total Protein 8.2 (6.7-8.2) g/dL Albumin 2.6 L (3.2-5.5) g/dL Globulin 5.6 H (2.1-4.2) g/dL Albumin/Globulin Ratio 0.5 L (1.0-2.2) Nasal Adenovirus (PCR) Nasal B. parapertussis DNA (PCR) Nasal Coronavir 229E PCR Nasal Coronavir HKU1 PCR Nasal Coronavir NL63 PCR Nasal Coronavir OC43 PCR Nasal Enterovir/Rhinovir PCR Nasal Influenza B PCR Nasal Influenza A PCR Nasal Parainfluen 1 PCR Nasal Parainfluen 2 PCR Nasal Parainfluen 3 PCR Nasal Parainfluen 4 PCR Nasal RSV (PCR) Nasal B.pertussis DNA PCR Nasal C.pneumoniae (PCR) Nazario Human Metapneumo PCR Nasal M.pneumoniae (PCR) Nasal SARS-CoV-2 (PCR) Influenza A (Rapid) (Negative) Influenza B (Rapid) (Negative) - Diagnostic Imaging Results Diagnostic Imaging Results: negative: Read independently (Acute and chronic signs of osteomyelitis involving first, second and fifth metatarsals/phalangeal joint) - Other Other Results/Comments: The patient has decreased hemoglobin, leukocytosis, hyperglycemia, elevated inflammatory markers consistent with infection, hypoalbuminemia, prerenal azotemia which has resolved with fluid management. 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 He is still homeless. Plan: The patient is very adamant at not having amputation higher than foot. I suggest an attempt at foot salvage with him based on his opinions, shared decision making. This would be a two-stage procedure. The first stage surgical procedure would be tomorrow, amputation of left second toe to provide drainage of abscess and control of osteomyelitis. If his wound progresses, infection improves, consideration of a more definitive procedure such as a transmetatarsal amputation with tendo Achilles lengthening could be possibly considered Next week as a second stage surgical procedure. Otherwise, he is likely to face needing a below-knee amputation on the left side. He is in agreement to the plan of foot salvage in the first stage procedure will be tomorrow. He has signed informed consent agreeing to the surgery tomorrow. Deep cultures of the abscess fluid were obtained at the bedside and sent to the laboratory for aerobic and anaerobic culture. A gauze pack was placed between the second and third toes to allow for drainage with sterile soft dressing about left forefoot. He is on broad-spectrum antibiotics as discussed with our hospitalist. The patient will be managed jointly by medicine and orthopedics.He will be placed on a high-protein, high-calorie diet to improve nutrition. His hyperglycemia is being addressed with insulin.
[2022-06-26] MEDS: INSULIN LISPRO 300 UNIT/3 ML PEN SUBQ SCH ×3 (17:01→21:04)
--- NOTE | 2022-06-26 17:41 | PROVIDER PROGRESS NOTE ---
Progress Note June 26, 2022 5:33 PM He looks nondistressed sitting in bed this morning. Because of the neuropathy he does not have significant pain in his feet. He has been sober for 7 months so he has no fears of going through withdrawal. He denies chest pain, palpitations, shortness of breath. He last had a fever at 2300 last night and it was 38.2. With that was a pulse of 115. Today he still been a little bit tachycardic at 103 and 109. But blood pressures been stable. Temperatures been in 37.8 range. He was seen by orthopedics. He already has relationship with orthopedics from previous toe amputations. The left foot does not have any redness or signs of cellulitis but there is a fluctuant mass over the second metatarsal distally. There is webspace breakdown between the second and third toes that communicates with a fluctuant mass and there is gross drainage of pus that was cultured 3 times. Orthopedics feels he has acute on chronic osteomyelitis of the second left metatarsal phalangeal joint with soft tissue abscess of the left forefoot. He is already had a first metatarsal ray amputation of that left foot. Patient does not want an amputation higher than the foot. He is suggesting a two-stage procedure. The first day just tomorrow we can have amputation of the left second toe to provide drainage of the abscess and control the osteomyelitis. Depending on how the wound progresses or the infection improves, there will be a more definitive procedure such as transmetatarsal amputation with tendo Achilles lengthening next week. Because the patient will need continuous antibiotics, he does not think the patient should be discharged. He should be continued on antibiotics until the second stage of the procedure is done. Active Medications Acetaminophen (Acetaminophen 325 Mg Tablet) 650 mg PO Q4HR PRN PRN Reason: Pain 1 to 4, or Fever Last Admin: 06/26/22 11:52 Dose: 650 mg Hydrocodone Bitart/Acetaminophen (Hydrocod/Acetam 5/325 Mg Tablet) 1 tab PO Q4HR PRN PRN Reason: Pain 5 to 7 Last Admin: 06/26/22 14:53 Dose: 1 tab Albuterol/Ipratropium (Ipratropium/Albuterol 3 Ml Neb) 3 ml INH Q4HR PRN PRN Reason: Wheezing Gabapentin (Gabapentin 100 Mg Capsule) 300 mg PO BID [facility]ALITA Last Admin: 06/26/22 08:49 Dose: 300 mg Vancomycin HCl 1.5 gm/ Sodium (Chloride) 500 mls @ 250 mls/hr IV Q12H [facility] Last Infusion: 06/26/22 09:14 Dose: Infused Sodium Chloride (Normal Saline 0.9%) 1,000 mls @ 50 mls/hr IV .Q20H [facility] Last Admin: 06/25/22 22:10 Dose: 50 mls/hr Piperacillin Sod/Tazobactam (Sod 3.375 gm/ Sodium Chloride) 100 mls @ 200 mls/hr IV Q6HR [facility] Stop: 07/02/22 00:00 Last Infusion: 06/26/22 12:30 Dose: Infused Insulin Human Lispro (Insulin Lispro 300 Unit/3 Ml Pen) 3 unit SUBQ TIDWM [facility]; Protocol Last Admin: 06/26/22 17:03 Dose: 3 unit Insulin Human Lispro (Insulin Lispro 300 Unit/3 Ml Pen) 1 - 5 unit SUBQ 0800,1200,1700,2100 [facility]; Protocol Last Admin: 06/26/22 17:01 Dose: 1 unit Lactobacillus Rhamnosus (Lactobacillus Rhamnosus Gg Capsule) 1 cap PO DAILY [facility] Last Admin: 06/26/22 08:49 Dose: 1 cap Ondansetron HCl (Ondansetron 4 Mg/2 Ml Vial) 4 mg IVP Q6HR PRN PRN Reason: Nausea / Vomiting Sodium Chloride (Sodium Chloride Flush 0.9% 10 Ml Syringe) 10 ml IVP PRN PRN PRN Reason: NEEDED PER PROVIDER ORDERS Sodium Chloride (Sodium Chloride Flush 0.9% 10 Ml Syringe) 10 ml IVP 0100,0900,1700 [facility] Last Admin: 06/26/22 17:05 Dose: Not Given Tamsulosin HCl (Tamsulosin 0.4 Mg Capsule) 0.4 mg PO DAILY [facility] Last Admin: 06/26/22 08:49 Dose: 0.4 mg Gabapentin [Neurontin] 300 mg PO BID 06/25/22 Naltrexone HCl 50 mg PO HS 06/25/22 Tamsulosin HCl [Flomax] 0.4 mg PO DAILY 06/25/22 carvediloL [Coreg] 1 tab PO BID 06/26/22 Temperature is 37.5. Heart rate 109. Blood pressure 133/68. Respirations 20. 96% on room air The patient is an alert, cheerful, cooperative white male. Long conversation on his part where he tells me that he has really embraced a positive attitude and is convinced that he will come out of this problem with alcohol abuse, burning his bridges, etc. with new relationships that are based on mutual trust. He speaks specifically of his son and where he is to get through step forward the son and apologizing for all the things he is done in the past. Neck is supple with shotty adenopathy Lungs are clear to auscultation and percussion. Completely clear without any crackles rhonchi wheezing or increased respiratory effort with speaking to me. Regular rate and rhythm Abdomen is soft, nontender, normal bowel sounds Extremities are noted for both feet being deformed from previous amputations. Both feet are quite large and swollen and deformed but no redness, no heat. The left foot has drainage between the great toe and the second toe in a red-white space. Plantar abscess is fluctuant. The right foot also has loss of second toe. But no fluctuance. When I asked him if both these feet are usually this large she says they are. Sodium was 129. Potassium 3.6. BUN 17, creatinine 0.9. This is improved from yesterday where he was 30 and 1.6. White cell count is still high. On admission he was 27 and is gone up to 30.5. Hemoglobin is 9.1. Platelets is 452. Sed rate is 140. C-reactive protein was 27.9 yesterday. Assessment/plan 1. Osteomyelitis of the left foot/abscess of the left foot This is a gentleman has dense peripheral neuropathy due to alcoholism and previous frostbite. He does not feel his feet and as such has been prone to recurrent infections. Due to his alcoholism he has had poor follow-through with regards to foot care, wound care, and only comes to the emergency room when necessary. Although he has had a relationship with the orthopedic surgeon he usually does not follow-up postop. Patient is on Zosyn and vancomycin. Day #2. Orthopedics has been culture of the pus coming out of the foot today. Will adjust on the basis of culture results if necessary 2. Benign prostatic hypertrophy Continue tamsulosin 3. Alcohol abuse. MCV is normal. He has been clean and sober for 7 months he tells me. Plan: vitamin 4. Sepsis considered.. Criteria were tachypnea, leukocytosis, source of infection. But no other criteria met. Lactic acid was negative. He was not hypotensive. As such I do not think he meets diagnosis of sepsis. 5. Acute kidney insufficiency resolved. Improvement in creatinine between yesterday and today. He is gone from 1.6-0.9. Vancomycin levels are being monitored by pharmacy. We will make sure to check his creatinine daily
[2022-06-27] MEDS: ONDANSETRON 4 MG/2 ML VIAL IVP PRN (01:30)
[2022-06-27] MEDS: SODIUM CHLORIDE 0.9% 1,000 ML IV SCH ×2 (01:30→15:03)
[2022-06-27] MEDS: HYDROcod/ACETAM 5/325 MG TABLET PO PRN ×3 (01:30→13:08)
[2022-06-27] MEDS: SODIUM CHLORIDE FLUSH 0.9% 10 ML SYRINGE IVP SCH ×3 (01:31→17:00)
[2022-06-27] MEDS: PIPERACILLIN/TAZOBACTAM 3.375 GM in SODIUM CHLORIDE 0.9% MINIBAG 100 ML IV SCH ×4 (03:47→20:36)
[2022-06-27 06:34] LABS: BASOPHILS % (AUTO) 0.3 %; HCT - HEMATOCRIT 26.7 % (42.0-52.0); HGB - HEMOGLOBIN 8.7 g/dL (14.0-18.0); MEAN CORPUSCULAR HEMOGLOBIN 27.8 pg (27.0-31.0); MEAN CORPUSCULAR HGB CONC 32.6 g/dL (32.0-36.0); MEAN CORPUSCULAR VOLUME 85.3 fL (80.0-94.0); MEAN PLATELET VOLUME 8.8 fL (7.4-11.4); MONOCYTES % (AUTO) 6.9 %; NEUTROPHILS % (AUTO) 88.4 %; PLT - PLATELET COUNT 433 10^3/uL (130-450); RED BLOOD COUNT 3.13 10^6/uL (4.70-6.10); WHITE BLOOD COUNT 23.7 x10^3/uL (4.8-10.8)
[2022-06-27 06:36] LABS: ABNORMAL LYMPHS % (MANUAL) 0 %; BAND NEUTROPHILS % (MANUAL) 0 %
[2022-06-27 06:49] LABS: DIFFERENTIAL COMMENT MANUAL DIFFERENTIAL; LYMPHOCYTES # (MANUAL) 2.4 10^3/uL (1.5-3.5); LYMPHOCYTES % (MANUAL) 10 %; MONOCYTES # (MANUAL) 0.9 10^3/uL (0.0-1.0); NEUTROPHILS # (MANUAL) 20.4 10^3/uL (1.5-6.6); PLATELET ESTIMATE, MANUAL NORMAL (130-450,000) (NORMAL); PLATELET MORPHOLOGY NORMAL APPEARANCE (NORMAL); RBC MORPHOLOGY (MULTIPLE) NORMAL APPEARANCE (NORMAL); WBC MORPHOLOGY (MULTIPLE) NORMAL APPEARANCE (NORMAL)
[2022-06-27 07:00] LABS: BUN - BLOOD UREA NITROGEN 10 mg/dL (6-20); CARBON DIOXIDE - CO2 25 mmol/L (21-32); CHLORIDE 97 mmol/L (101-111); CREATININE 0.8 mg/dL (0.6-1.2); GFR - MDRD 100 (>89); GLUCOSE 154 mg/dL (70-100); POTASSIUM 3.6 mmol/L (3.5-5.0); SODIUM 130 mmol/L (135-145); VANCOMYCIN,TROUGH 11.6 ug/mL (10.0-20.0)
--- NOTE | 2022-06-27 07:58 | PROVIDER PROGRESS NOTE ---
Progress Note June 27, 2022 7:45 AM Overnight the patient remained with a low-grade temperature of 37.6-37.8. This morning he was 38 degrees. He is tachycardic with this. Blood pressure is stable. Because the patient has a dense peripheral neuropathy he says he really does not have any pain in the involved foot. Otherwise there is no new complaints. No chest pain, palpitations, shortness of breath. No new abdominal pain. Active Medications Acetaminophen (Acetaminophen 325 Mg Tablet) 650 mg PO Q4HR PRN PRN Reason: Pain 1 to 4, or Fever Last Admin: 06/26/22 21:02 Dose: 650 mg Hydrocodone Bitart/Acetaminophen (Hydrocod/Acetam 5/325 Mg Tablet) 1 tab PO Q4HR PRN PRN Reason: Pain 5 to 7 Last Admin: 06/27/22 06:36 Dose: 1 tab Albuterol/Ipratropium (Ipratropium/Albuterol 3 Ml Neb) 3 ml INH Q4HR PRN PRN Reason: Wheezing Gabapentin (Gabapentin 300 Mg Capsule) 300 mg PO BID [facility] Sodium Chloride (Normal Saline 0.9%) 1,000 mls @ 50 mls/hr IV .Q20H [facility] Last Admin: 06/27/22 01:30 Dose: 50 mls/hr Piperacillin Sod/Tazobactam (Sod 3.375 gm/ Sodium Chloride) 100 mls @ 200 mls/hr IV Q6H [facility] Stop: 07/02/22 08:59 Last Infusion: 06/27/22 04:17 Dose: Infused Vancomycin HCl 1.5 gm/ Sodium (Chloride) 500 mls @ 250 mls/hr IV Q12H [facility] Insulin Human Lispro (Insulin Lispro 300 Unit/3 Ml Pen) 3 unit SUBQ TIDWM [facility]; Protocol Last Admin: 06/26/22 17:03 Dose: 3 unit Insulin Human Lispro (Insulin Lispro 300 Unit/3 Ml Pen) 1 - 5 unit SUBQ 0800,1200,1700,2100 [facility]; Protocol Last Admin: 06/26/22 21:04 Dose: 1 unit Lactobacillus Rhamnosus (Lactobacillus Rhamnosus Gg Capsule) 1 cap PO DAILY [facility] Last Admin: 06/26/22 08:49 Dose: 1 cap Ondansetron HCl (Ondansetron 4 Mg/2 Ml Vial) 4 mg IVP Q6HR PRN PRN Reason: Nausea / Vomiting Last Admin: 06/27/22 01:30 Dose: 4 mg Multivit/Folic Acid/Iron ( Vitamin Tablet) 1 tab PO DAILYWM [facility] Sodium Chloride (Sodium Chloride Flush 0.9% 10 Ml Syringe) 10 ml IVP PRN PRN PRN Reason: NEEDED PER PROVIDER ORDERS Sodium Chloride (Sodium Chloride Flush 0.9% 10 Ml Syringe) 10 ml IVP 0100,0900,1700 [facility] Last Admin: 06/27/22 01:31 Dose: Not Given Tamsulosin HCl (Tamsulosin 0.4 Mg Capsule) 0.4 mg PO DAILY [facility] Last Admin: 06/26/22 08:49 Dose: 0.4 mg Exam: Temperature 38 Pulse 109 Blood pressure 140/80 Respiration 16 94% on room air Alert oriented white male looks stated age. No confusion, no tremulousness, speech patterns normal. Appears comfortable in spite of fever. Neck with shotty adenopathy Lungs are clear to auscultation and percussion Regular rate and rhythm with a tachycardia most likely due to fever Abdomen is soft, nontender, normal bowel sounds. Extremities show bilateral deformed feet from previous toe amputations. Both feet are quite large in size with diffuse edema. The left foot has a draining area between the second and and third toe spaces. And spite of abscess and infection, the foot is not red. It is warm. Blood cultures negative after 1 day Foot cultures done June 26 are pending Sodium 138, potassium 3.6, BUN 10, creatinine 0.8 Random glucose 154 White cell count has come down to 23,000 from 30,000 yesterday. Still with a left shift. C-reactive protein 27.9 yesterday, 23 today Assessment/plan 1. Osteomyelitis of the left foot with abscess of the left foot. 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 He has a previous history of frostbite. He is homeless. Noncompliant with follow-ups with orthopedics in the past. As such now with complication of all of this resulting in osteomyelitis and an abscess in the left foot. He is now on Zosyn and vancomycin, day #3. Cultures are pending from the wound from June 26 and orthopedics saw him. Case rediscussed with anesthesia this morning as they were taking him to the OR. Plan: Two-stage procedure with orthopedics. Today is incision and drainage with amputation of the left second toe. Depending on how this wound progresses or infection improves, there may be a more definitive procedure such a transmetatarsal amputation with tendo Achilles lengthening next week. The patient is to remain in the hospital on IV antibiotics. I will be asking anesthesia to place a PICC line in preparation for that.I am hoping that his white cell count will come down once the abscess is drained.I will also de- escalate antibiotics once some culture results come back. 2. Benign prostatic hypertrophy. On tamsulosin. No complications at this time. 3. History of alcohol abuse. He has been clean and sober for 7 months. MCV is normal. No evidence of withdrawal. 4. Acute kidney insufficiency resolved 5. Hypertension. Patient takes carvedilol at home. That has not been resumed. That might be contributing to his tachycardia. As such I will resume it when he gets out of the OR. 6. Hyperglycemia. He does not have a diagnosis of diabetes. But his glucose has been consistently in the 150-1 170s while here. Plan: In order to improve healing due to infection, I started him on 3 units of short acting insulin with each meal. I have ordered a glycosylated hemoglobin for today and it is pending.
[2022-06-27] MEDS: INSULIN LISPRO 300 UNIT/3 ML PEN SUBQ SCH ×7 (08:09→20:43)
[2022-06-27] MEDS: carvediloL 12.5 MG TABLET PO SCH ×2 (08:10→20:36)
[2022-06-27] MEDS: GABAPENTIN 300 MG CAPSULE PO SCH ×2 (08:10→20:36)
[2022-06-27] MEDS: PRENATAL VITAMIN TABLET PO SCH (08:10)
[2022-06-27] MEDS: LACTOBACILLUS RHAMNOSUS GG CAPSULE PO SCH (08:10)
[2022-06-27] MEDS: TAMSULOSIN 0.4 MG CAPSULE PO SCH (08:10)
[2022-06-27] MEDS ORDERED: TAMSULOSIN 0.4 MG CAPSULE PO SCH (09:00)
[2022-06-27] MEDS ORDERED: GABAPENTIN 300 MG CAPSULE PO SCH (09:00)
[2022-06-27] MEDS ORDERED: VANCOMYCIN INJ 1.5 GM in SODIUM CHLORIDE 0.9% 500 ML IV SCH (10:00)
[2022-06-27] MEDS: VANCOMYCIN INJ 1 GM, VANCOMYCIN INJ 500 MG in SODIUM CHLORIDE 0.9% 500 ML IV SCH ×2 (11:11→22:58)
[2022-06-27 11:35] LABS: ESTIMATED AVERAGE GLUCOSE 131 mg/dL (70-100); HEMOGLOBIN A1c% 6.2 % (4.27-6.07)
[2022-06-27] MEDS ORDERED: LIDOCAINE MPF 2%-EPI 1:200000 20 ML VIAL ONE (13:09)
[2022-06-27] MEDS ORDERED: BUPIVACAINE 0.5% PF 30 ML VIAL ONE (13:10)
[2022-06-27] MEDS ORDERED: BACITRACIN ZINC OINT 1 PACKET TOP ONE (13:10)
--- NOTE | 2022-06-27 13:30 | ANESTHESIA ---
Pre-Anesthesia VS, & Labs - Diagnosis osteomylitis - Procedure digit amputation left forefoot Vital Signs: Temp Pulse Resp BP Pulse Ox O2 Flow Rate 38 C H 109 H 16 140/80 H 94 06/27/22 07:30 06/27/22 07:30 06/27/22 07:30 06/27/22 07:30 06/27/22 07:30 Height: 6 ft Weight (kg): 96 kg Body Mass Index: 28.7 BMI Classification: Overweight - Lab Results Current Lab Results: Laboratory Tests 06/27/22 11:25: POC Whole Bld Glucose 147 H 06/27/22 07:24: POC Whole Bld Glucose 150 H 06/27/22 06:27: WBC 23.7 H, RBC 3.13 L, Hgb 8.7 L, Hct 26.7 L, MCV 85.3, MCH 27.8, MCHC 32.6, RDW 16.0 H, Plt Count 433, MPV 8.8, Neut # (Auto) Not Reportable, Lymph # (Auto) Not Reportable, [place] # (Auto) Not Reportable, Eos # (Auto) Not Reportable, Baso # (Auto) Not Reportable, Absolute Nucleated RBC Not Reportable, Total Counted 100, Band Neuts % (Manual) 0, Abnorm Lymph % (Manual) 0, Nucleated RBC % Not Reportable, Neutrophils # (Manual) 20.4 H, Lymphocytes # (Manual) 2.4, Monocytes # (Manual) 0.9, Eosinophils # (Manual) 0.0, Basophils # (Manual) 0.0, Differential Comment MANUAL DIFFERENTIAL, WBC Morphology NORMAL APPEARANCE, Platelet Estimate NORMAL (130-450,000), Platelet Morphology NORMAL APPEARANCE, RBC Morph Micro Appear NORMAL APPEARANCE 06/27/22 06:27: Estimat Average Glucose 131 H, Hemoglobin A1c % 6.2 H 06/27/22 05:38: Sodium 130 L, Potassium 3.6, Chloride 97 L, Carbon Dioxide 25, Anion Gap 8.0, BUN 10, Creatinine 0.8, Estimated GFR (MDRD) 100, Glucose 154 H, Calcium 8.0 L, C-Reactive Protein 23.0 H, Last Dose Date 06/25/22, Last Dose Time 2122, Vancomycin Trough 11.6 06/26/22 20:45: POC Whole Bld Glucose 175 H 06/26/22 04:25: Sodium 129 L, Potassium 3.6, Chloride 100 L, Carbon Dioxide 23, Anion Gap 6.0, BUN 17, Creatinine 0.9, Estimated GFR (MDRD) 87 L, Glucose 177 H, Calcium 8.5 06/26/22 04:25: PT 18.5 H, INR 1.7 H 06/26/22 04:25: WBC 30.5 H, RBC 3.27 L, Hgb 9.1 L, Hct 28.1 L, MCV 85.9, MCH 27.8, MCHC 32.4, RDW 15.9 H, Plt Count 452 H, MPV 8.7 06/26/22 04:25: Lactic Acid 1.1 06/25/22 17:09: Sodium 129 L, Potassium 3.8, Chloride 92 L, Carbon Dioxide 25, Anion Gap 12.0, BUN 30 H, Creatinine 1.6 H, Estimated GFR (MDRD) 45 L, Glucose 171 H, Calcium 8.9, Total Bilirubin 0.6, AST 14, ALT 16, Alkaline Phosphatase 71, C-Reactive Protein 27.9 H, Total Protein 8.2, Albumin 2.6 L, Globulin 5.6 H, Albumin/Globulin Ratio 0.5 L 06/25/22 17:09: ESR > 140 H 06/25/22 17:09: WBC 27.0 H, RBC 3.25 L, Hgb 8.9 L, Hct 27.9 L, MCV 85.8, MCH 27.4, MCHC 31.9 L, RDW 15.8 H, Plt Count 484 H, MPV 8.8, Neut # (Auto) Not Reportable, Lymph # (Auto) Not Reportable, [place] # (Auto) Not Reportable, Eos # (Auto) Not Reportable, Baso # (Auto) Not Reportable, Absolute Nucleated RBC Not Reportable, Total Counted 100, Band Neuts % (Manual) 2, Abnorm Lymph % (Manual) 0, Nucleated RBC % Not Reportable, Neutrophils # (Manual) 25.4 H, Lymphocytes # (Manual) 0.3 L, Monocytes # (Manual) 1.4 H, Eosinophils # (Manual) 0.0, Basophils # (Manual) 0.0, Differential Comment MANUAL DIFFERENTIAL, Platelet Estimate NORMAL (130-450,000), Platelet Morphology NORMAL APPEARANCE, RBC Morph Micro Appear NORMAL APPEARANCE Fish Bones: 06/27/22 06:27 06/27/22 05:38 Home Medications and Allergies Home Medications: Ambulatory Orders Gabapentin [Neurontin] 300 mg PO BID 06/25/22 Naltrexone HCl 50 mg PO HS 06/25/22 Tamsulosin HCl [Flomax] 0.4 mg PO DAILY 06/25/22 carvediloL [Coreg] 1 tab PO BID 06/26/22 Active Medications Acetaminophen (Acetaminophen 325 Mg Tablet) 650 mg PO Q4HR PRN PRN Reason: Pain 1 to 4, or Fever Last Admin: 06/26/22 21:02 Dose: 650 mg Hydrocodone Bitart/Acetaminophen (Hydrocod/Acetam 5/325 Mg Tablet) 1 tab PO Q4HR PRN PRN Reason: Pain 5 to 7 Last Admin: 06/27/22 13:08 Dose: 1 tab Albuterol/Ipratropium (Ipratropium/Albuterol 3 Ml Neb) 3 ml INH Q4HR PRN PRN Reason: Wheezing Carvedilol (Carvedilol 12.5 Mg Tablet) 12.5 mg PO BID [facility] Last Admin: 06/27/22 08:10 Dose: 12.5 mg Gabapentin (Gabapentin 300 Mg Capsule) 300 mg PO BID [facility] Last Admin: 06/27/22 08:10 Dose: 300 mg Sodium Chloride (Normal Saline 0.9%) 1,000 mls @ 50 mls/hr IV .Q20H [facility] Last Admin: 06/27/22 01:30 Dose: 50 mls/hr Piperacillin Sod/Tazobactam (Sod 3.375 gm/ Sodium Chloride) 100 mls @ 200 mls/hr IV Q6H [facility] Stop: 07/02/22 08:59 Last Infusion: 06/27/22 08:50 Dose: Infused Vancomycin HCl 1 gm/Vancomycin HCl 500 mg/ Sodium Chloride 500 mls @ 250 mls/hr IV Q12H [facility] Last Infusion: 06/27/22 13:12 Dose: Infused Insulin Human Lispro (Insulin Lispro 300 Unit/3 Ml Pen) 3 unit SUBQ TIDWM [facility]; Protocol Last Admin: 06/27/22 11:29 Dose: Not Given Insulin Human Lispro (Insulin Lispro 300 Unit/3 Ml Pen) 1 - 5 unit SUBQ 0800,1200,1700,2100 [facility]; Protocol Last Admin: 06/27/22 11:29 Dose: Not Given Lactobacillus Rhamnosus (Lactobacillus Rhamnosus Gg Capsule) 1 cap PO DAILY [facility] Last Admin: 06/27/22 08:10 Dose: 1 cap Ondansetron HCl (Ondansetron 4 Mg/2 Ml Vial) 4 mg IVP Q6HR PRN PRN Reason: Nausea / Vomiting Last Admin: 06/27/22 01:30 Dose: 4 mg Multivit/Folic Acid/Iron ( Vitamin Tablet) 1 tab PO DAILYWM [facility] Last Admin: 06/27/22 08:10 Dose: 1 tab Sodium Chloride (Sodium Chloride Flush 0.9% 10 Ml Syringe) 10 ml IVP PRN PRN PRN Reason: NEEDED PER PROVIDER ORDERS Sodium Chloride (Sodium Chloride Flush 0.9% 10 Ml Syringe) 10 ml IVP 0100,0900,1700 [facility] Last Admin: 06/27/22 08:10 Dose: Not Given Tamsulosin HCl (Tamsulosin 0.4 Mg Capsule) 0.4 mg PO DAILY [facility] Last Admin: 06/27/22 08:10 Dose: 0.4 mg Gabapentin [Neurontin] 300 mg PO BID 06/25/22 Naltrexone HCl 50 mg PO HS 06/25/22 Tamsulosin HCl [Flomax] 0.4 mg PO DAILY 06/25/22 carvediloL [Coreg] 1 tab PO BID 06/26/22 Allergies/Adverse Reactions: Allergies Allergy/AdvReac Type Severity Reaction Status Date / Time No Known Drug Allergies Allergy Verified 06/25/22 16:48 Anes History & Medical History - Anesthetic History Anesthesia Complications: reports: No previous complications - Medical History Cardiovascular: reports: Hypertension Pulmonary: reports: None Gastrointestinal: reports: None Urinary: reports: Other Neuro: reports: Peripheral neuropathy Musculoskeletal: reports: Other Endocrine/Autoimmune: reports: HyPERthyroidism Blood Disorders: reports: None Skin: reports: Other Smoking Status: Never smoker - Surgical History Orthopedic: reports: Other Other Past Surgical History: toe amputations Exam General: Alert, Oriented x3 Dental: WNL Mouth Opening: Greater than 4 Fingerbreadths Neck Mobility: Normal Mallampati classification: II Thyromental Distance: greater than 6 cm Respiratory: Lungs clear Cardiovascular: Regular rate Plan Anesthesia Type: General, Total IV Consent for Procedure(s) Verified and Reviewed: Yes Code Status: Attempt Resuscitation ASA classification: 2-Mild systemic disease Is this case an emergency?: No
[2022-06-27] MEDS ORDERED: fentaNYL 100 MCG/2 ML VIAL ONE (13:43)
[2022-06-27] MEDS ORDERED: BUPIVACAINE 0.5% PF 30 ML VIAL INFIL ONE (14:10)
[2022-06-27] MEDS ORDERED: LIDOCAINE 2%-EPI 1:100000 20 ML MDV SUBQ ONE (14:10)
[2022-06-27] MEDS ORDERED: PROPOFOL 200 MG/20 ML VIAL IVP ONE (14:12)
[2022-06-27] MEDS ORDERED: VANCOMYCIN 1 GM VIAL ONE (14:22)
--- NOTE | 2022-06-27 14:49 | OPERATIVE REPORT ---
Operative Report - General Admit Date: 06/25/22 Procedure Date: 06/27/22 Planned Procedure: Open second toe amputation, metatarsal phalangeal joint left foot Pre-Op Diagnosis: Osteomyelitis left second toe and metatarsal, soft tissue abscess forefoot, Procedure Performed: Open left second toe amputation at metatarsophalangeal joint level, Drainage of abscess left forefoot Post Op Diagnosis: Same as preoperative diagnosis - Procedure Note Primary Surgeon: Varun Berman MD Anesthesia Provider: Madonna Boss CRNA Anesthesia Technique: Local, Moderate sedation Estimated Blood Loss (mL): 25 Indications: This is a 56-year-old man with bilateral foot problems secondary to repeated episodes of frostbite, alcohol abuse and noncompliance. The left foot had a first metatarsal ray amputation because of gangrene associated with frostbite several months ago. His problems began almost a year ago with repeated episodes of frostbite associated with alcohol intoxication. He has been in rehab for several months. I saw and performed a first metatarsal ray amputation is been lost to follow-up since August of this year until recent. He presents with swelling and redness to his left forefoot in addition to deformity of his lesser toes. He had a elevated white blood cell count, elevated inflammatory markers, anemia, prerenal azotemia. He was admitted to the hospital service and I consulted on him yesterday. He has obvious foot deformity with acute and chronic abnormalities. He has a second metatarsal head full-thickness ulcer left foot, wound breakdown between second and third toes, draining pus from forefoot abscess that is fairly well localized. He has neuropathy, poor sensation. His circulation is intact with good pulses and no necrosis or ischemia to the foot. His radiographs showed acute and chronic changes of infection associated with osteomyelitis to much of the left foot, metatarsals. There appeared to be acute bony reaction to the second toe metatarsal and phalangeal with destruction of the metatarsal phalangeal joint. The plan is foot salvage. I recommended a least a two-stage procedure with the first stage being today consisting of open second toe amputation and drainage of the abscess. Hopefully with local wound care and antibiotic therapy a second stage which would be a transmetatarsal amputation and tendo Achilles lengthening for definitive treatment. Whether he responds to treatment or not and whether a second stage will be a transmetatarsal amputation remains to be seen. He also has nutritional deficiencies as he had a low albumin on admission. He also had elevated blood sugars on admission. All of these comorbidities will need to be addressed before considering a definitive procedure. Findings: There was gross pus at the operative site coming from a forefoot abscess in the vicinity of the first webspace and second metatarsal. There was necrotic bone and a sequestrum that communicated with the ulcer to the left second plantar metatarsal region. There was evidence of reasonably good circulation. He has poor sensation and tolerated the procedure easily with local infiltration of a mixture of lidocaine and Marcaine.Both bone and soft tissue cultures were obtained and sent to the lab for aerobic and anaerobic bacteriology. Complications: None - Other Other Information/Narrative: The patient was brought to the operating room, placed in the supine position. The left lower extremity was prepped and draped in sterile manner in the usual fashion. A Betadine prep was performed to the skin because of open wounds to left foot. A timeout procedure was performed by the entire operating room team and all were in agreement. Local infiltration with a mixture of 2% lidocaine and half percent Marcaine without epinephrine was performed. The area of the webspace breakdown was continued in a racquet shaped fashion to the left second toe, dividing ligaments and tendons to complete a amputation at the metatarsophalangeal joint level. The metatarsal phalangeal joint had been completely destroyed by infection. The remaining defect communicated with a forefoot abscess. This was drained and cultured, bone sequestrum encountered and removed. The sequestrum was sent to the lab for culture as well as soft tissue. Culture swabs were also obtained of the purulent material. The wound was thoroughly irrigated with dilute hydrogen peroxide, saline. The wound was debrided with a rongeur. The wound was left open, 2 g of vancomycin powder inserted, saline moist gauze and dry sterile dressing. No tourniquet was utilized. He tolerated the procedure well. He has been receiving preoperative antibiotics, broad-spectrum since hospitalization.
[2022-06-27] MEDS ORDERED: VANCOMYCIN 1 GM VIAL MC ONE (15:09)
--- NOTE | 2022-06-27 16:29 | ANESTHESIA POST OP EVALUATION ---
Anesthesia Post Eval - Post Anesthesia Eval Vitals: Last Vital Signs Temp 36.5 C 06/27/22 16:00 Pulse 107 H 06/27/22 16:00 Resp 20 06/27/22 16:00 BP 113/59 L 06/27/22 16:00 Pulse Ox 96 06/27/22 16:00 O2 Flow Rate CV Function Including HR & BP: Stable Pain Control: Satisfactory Nausea & Vomiting: Negative Mental Status: Baseline Respiratory Status: Airway Patent Hydration Status: Satisfactory Anesthesia Complications: None
[2022-06-27] MEDS: ACETAMINOPHEN 325 MG TABLET PO PRN (20:36)
[2022-06-28] MEDS: SODIUM CHLORIDE FLUSH 0.9% 10 ML SYRINGE IVP SCH ×3 (01:19→16:21)
[2022-06-28] MEDS: HYDROcod/ACETAM 5/325 MG TABLET PO PRN ×4 (02:18→16:18)
[2022-06-28] MEDS: PIPERACILLIN/TAZOBACTAM 3.375 GM in SODIUM CHLORIDE 0.9% MINIBAG 100 ML IV SCH ×3 (03:33→14:14)
[2022-06-28 05:04] LABS: BASOPHILS % (AUTO) 0.2 %; EOSINOPHILS % (AUTO) 0.1 %; HGB - HEMOGLOBIN 7.7 g/dL (14.0-18.0); MEAN CORPUSCULAR HEMOGLOBIN 27.2 pg (27.0-31.0); MEAN CORPUSCULAR HGB CONC 32.1 g/dL (32.0-36.0); MEAN CORPUSCULAR VOLUME 84.8 fL (80.0-94.0); MONOCYTES # (AUTO) 1.5 10^3/uL (0.0-1.0); MONOCYTES % (AUTO) 7.8 %; NEUTROPHILS # (AUTO) 16.5 10^3/uL (1.5-6.6); NEUTROPHILS % (AUTO) 86.2 %; PLT - PLATELET COUNT 435 10^3/uL (130-450); RED BLOOD COUNT 2.83 10^6/uL (4.70-6.10); WHITE BLOOD COUNT 19.2 x10^3/uL (4.8-10.8)
[2022-06-28 05:25] LABS: CALCIUM 7.6 mg/dL (8.5-10.3); CREATININE 0.9 mg/dL (0.6-1.2); CRP - C-REACTIVE PROTEIN 18.3 mg/dL (0-1.0); POTASSIUM 3.3 mmol/L (3.5-5.0)
[2022-06-28] MEDS: carvediloL 12.5 MG TABLET PO SCH ×2 (08:11→20:52)
[2022-06-28] MEDS: LACTOBACILLUS RHAMNOSUS GG CAPSULE PO SCH (08:12)
[2022-06-28] MEDS: GABAPENTIN 300 MG CAPSULE PO SCH ×2 (08:12→20:52)
[2022-06-28] MEDS: PRENATAL VITAMIN TABLET PO SCH (08:12)
[2022-06-28] MEDS: TAMSULOSIN 0.4 MG CAPSULE PO SCH (08:13)
[2022-06-28] MEDS: INSULIN LISPRO 300 UNIT/3 ML PEN SUBQ SCH ×7 (08:14→20:46)
[2022-06-28] MEDS: POTASSIUM CHLORIDE 20 MEQ TABLET PO SCH ×2 (10:14→17:15)
--- NOTE | 2022-06-28 11:47 | PROVIDER PROGRESS NOTE ---
Subjective - General Admit Date: 06/25/22 Procedure Date: 06/27/22 Post Op Days: 1 Procedure Performed: Open amputation left second toe, drainage of forefoot abscess left foot - Other Other Information/Narrative: Patient is comfortable, foot is feeling better since surgery. He denies fever or chills. His appetite is good. He has no nausea or vomiting, no chest pain or shortness of breath Objective - Patient Data Vital Signs: Vital Signs x48h Temp Pulse Resp BP Pulse Ox 06/28/22 07:32 37 C 85 20 138/73 H 96 06/28/22 04:44 37.7 C 98 28 H 132/72 H 93 Weight: Weight 06/26/22 06/27/22 06/28/22 23:59 23:59 23:59 Weight (kg) 96 kg 96 kg 95.5 kg Intake & Output: Intake and Output Totals x24h 06/26/22 06/27/22 06/28/22 23:59 23:59 23:59 Intake Total 4374 4507.5 2340 Output Total 6000 5350 4150 Balance -1626 -842.5 -1810 - Lab Results Lab Results: 06/28/22 04:20 06/28/22 04:20 Other Lab Results: Lab Results x24hrs 06/28/22 06/28/22 06/28/22 Range/Units 11:13 07:25 04:20 WBC (4.8-10.8) x10^3/uL RBC (4.70-6.10) 10^6/uL Hgb (14.0-18.0) g/dL Hct (42.0-52.0) % MCV (80.0-94.0) fL MCH (27.0-31.0) pg MCHC (32.0-36.0) g/dL RDW (12.0-15.0) % Plt Count (130-450) 10^3/uL MPV (7.4-11.4) fL Neut # (Auto) (1.5-6.6) 10^3/uL Lymph # (Auto) (1.5-3.5) 10^3/uL [place] # (Auto) (0.0-1.0) 10^3/uL Eos # (Auto) (0.0-0.7) 10^3/uL Baso # (Auto) (0.0-0.1) 10^3/uL Absolute Nucleated RBC x10^3/uL Nucleated RBC % /100WBC Sodium 129 L (135-145) mmol/L Potassium 3.3 L (3.5-5.0) mmol/L Chloride 95 L (101-111) mmol/L Carbon Dioxide 24 (21-32) mmol/L Anion Gap 10.0 (6-13) BUN 12 (6-20) mg/dL Creatinine 0.9 (0.6-1.2) mg/dL Estimated GFR (MDRD) 87 L (>89) Glucose 187 H (70-100) mg/dL POC Whole Bld Glucose 149 H 148 H (70 - 100) mg/dL Estimat Average Glucose (70-100) mg/dL Hemoglobin A1c % (4.27-6.07) % Calcium 7.6 L (8.5-10.3) mg/dL C-Reactive Protein 18.3 H (0-1.0) mg/dL 06/28/22 06/27/22 06/27/22 Range/Units 04:20 20:41 16:36 WBC 19.2 H (4.8-10.8) x10^3/uL RBC 2.83 L (4.70-6.10) 10^6/uL Hgb 7.7 L (14.0-18.0) g/dL Hct 24.0 L (42.0-52.0) % MCV 84.8 (80.0-94.0) fL MCH 27.2 (27.0-31.0) pg MCHC 32.1 (32.0-36.0) g/dL RDW 16.0 H (12.0-15.0) % Plt Count 435 (130-450) 10^3/uL MPV 9.0 (7.4-11.4) fL Neut # (Auto) 16.5 H (1.5-6.6) 10^3/uL Lymph # (Auto) 1.0 L (1.5-3.5) 10^3/uL [place] # (Auto) 1.5 H (0.0-1.0) 10^3/uL Eos # (Auto) 0.0 (0.0-0.7) 10^3/uL Baso # (Auto) 0.0 (0.0-0.1) 10^3/uL Absolute Nucleated RBC 0.00 x10^3/uL Nucleated RBC % 0.0 /100WBC Sodium (135-145) mmol/L Potassium (3.5-5.0) mmol/L Chloride (101-111) mmol/L Carbon Dioxide (21-32) mmol/L Anion Gap (6-13) BUN (6-20) mg/dL Creatinine (0.6-1.2) mg/dL Estimated GFR (MDRD) (>89) Glucose (70-100) mg/dL POC Whole Bld Glucose 184 H 173 H (70 - 100) mg/dL Estimat Average Glucose (70-100) mg/dL Hemoglobin A1c % (4.27-6.07) % Calcium (8.5-10.3) mg/dL C-Reactive Protein (0-1.0) mg/dL 06/27/22 Range/Units 06:27 WBC (4.8-10.8) x10^3/uL RBC (4.70-6.10) 10^6/uL Hgb (14.0-18.0) g/dL Hct (42.0-52.0) % MCV (80.0-94.0) fL MCH (27.0-31.0) pg MCHC (32.0-36.0) g/dL RDW (12.0-15.0) % Plt Count (130-450) 10^3/uL MPV (7.4-11.4) fL Neut # (Auto) (1.5-6.6) 10^3/uL Lymph # (Auto) (1.5-3.5) 10^3/uL [place] # (Auto) (0.0-1.0) 10^3/uL Eos # (Auto) (0.0-0.7) 10^3/uL Baso # (Auto) (0.0-0.1) 10^3/uL Absolute Nucleated RBC x10^3/uL Nucleated RBC % /100WBC Sodium (135-145) mmol/L Potassium (3.5-5.0) mmol/L Chloride (101-111) mmol/L Carbon Dioxide (21-32) mmol/L Anion Gap (6-13) BUN (6-20) mg/dL Creatinine (0.6-1.2) mg/dL Estimated GFR (MDRD) (>89) Glucose (70-100) mg/dL POC Whole Bld Glucose (70 - 100) mg/dL Estimat Average Glucose 131 H (70-100) mg/dL Hemoglobin A1c % 6.2 H (4.27-6.07) % Calcium (8.5-10.3) mg/dL C-Reactive Protein (0-1.0) mg/dL - Current Medications Current Medications: Current Medications Generic Name Dose Route Start Last Admin Trade Name Freq PRN Reason Stop Dose Admin Acetaminophen 650 mg 06/25/22 21:13 06/27/22 20:36 Acetaminophen 325 Mg Tablet PO 650 mg Q4HR PRN Administration Pain 1 to 4, or Fever Hydrocodone Bitart/Acetaminophen 1 tab 06/25/22 21:13 06/28/22 08:12 Hydrocod/Acetam 5/325 Mg Tablet PO 1 tab Q4HR PRN Administration Pain 5 to 7 Carvedilol 12.5 mg 06/27/22 09:00 06/28/22 08:11 Carvedilol 12.5 Mg Tablet PO 12.5 mg BID [facility] Administration Gabapentin 300 mg 06/27/22 09:00 06/28/22 08:12 Gabapentin 300 Mg Capsule PO 300 mg BID [facility] Administration Sodium Chloride 1,000 mls @ 50 mls/hr 06/25/22 22:00 06/27/22 15:03 Normal Saline 0.9% IV 50 mls/hr .Q20H [facility] Administration Piperacillin Sod/Tazobactam 100 mls @ 200 mls/hr 06/27/22 03:00 06/28/22 08:13 Sod 3.375 gm/ Sodium Chloride IV 07/02/22 08:59 200 mls/hr Q6H [facility] Administration Vancomycin HCl 1 gm/ 500 mls @ 250 mls/hr 06/27/22 11:00 06/27/22 22:58 Vancomycin HCl 500 mg/ Sodium IV 250 mls/hr Chloride Q12H [facility] Administration Insulin Human Lispro 3 unit 06/26/22 17:00 06/28/22 08:14 Insulin Lispro 300 Unit/3 Ml Pen SUBQ 3 unit TIDWM [facility] Administration Protocol Insulin Human Lispro 1 - 5 unit 06/26/22 17:00 06/28/22 08:16 Insulin Lispro 300 Unit/3 Ml Pen SUBQ 1 unit 0800,1200,1700,2100 [facility] Administration Protocol Lactobacillus Rhamnosus 1 cap 06/26/22 09:00 06/28/22 08:12 Lactobacillus Rhamnosus Gg Capsule PO 1 cap DAILY [facility] Administration Ondansetron HCl 4 mg 06/25/22 21:13 06/27/22 01:30 Ondansetron 4 Mg/2 Ml Vial IVP 4 mg Q6HR PRN Administration Nausea / Vomiting Potassium Chloride 40 meq 06/28/22 08:00 06/28/22 10:14 Potassium Chloride 20 Meq Tablet PO 06/29/22 17:01 40 meq BIDWM [facility] Administration Multivit/Folic Acid/Iron 1 tab 06/27/22 08:00 06/28/22 08:12 Vitamin Tablet PO 1 tab DAILYWM [facility] Administration Sodium Chloride 10 ml 06/26/22 01:00 06/28/22 08:13 Sodium Chloride Flush 0.9% 10 Ml Syringe IVP 10 ml 0100,0900,1700 [facility] Administration Tamsulosin HCl 0.4 mg 06/26/22 09:00 06/28/22 08:13 Tamsulosin 0.4 Mg Capsule PO 0.4 mg DAILY [facility] Administration - Physical Exam Comments/Other: the pack was removed from the amputation site. The wound is clean, no necrosis or purulent material. There is good vascularity to wound margins and wound base. Impression/Plan - Problem List Problem List: Left foot infection is responding well to treatment: Surgical, local wound care and intravenous antibiotics as well as supplementary medical care to improve nutrition, control hyperglycemia and hopefully improve his anemia. His other issue is social, still remains homeless and is uncertain what will happen when he leaves the hospital.
[2022-06-28] MEDS: ENOXAPARIN 40 MG/0.4 ML SYRINGE SUBQ SCH (11:59)
[2022-06-28] MEDS: VANCOMYCIN INJ 1 GM, VANCOMYCIN INJ 500 MG in SODIUM CHLORIDE 0.9% 500 ML IV SCH (11:59)
--- NOTE | 2022-06-28 13:53 | PROVIDER PROGRESS NOTE ---
Progress Note June 28, 2022 1:49 PM Patient underwent surgery without complications. Last night he had a fever spike to 38.9. But pulses stable, blood pressure stable. He states he would like his Flomax for his urinary urgency resumed. Pain is controlled. He says he does not feel very much. Active Medications Acetaminophen (Acetaminophen 325 Mg Tablet) 650 mg PO Q4HR PRN PRN Reason: Pain 1 to 4, or Fever Last Admin: 06/27/22 20:36 Dose: 650 mg Hydrocodone Bitart/Acetaminophen (Hydrocod/Acetam 5/325 Mg Tablet) 1 tab PO Q4HR PRN PRN Reason: Pain 5 to 7 Last Admin: 06/28/22 11:59 Dose: 1 tab Albuterol/Ipratropium (Ipratropium/Albuterol 3 Ml Neb) 3 ml INH Q4HR PRN PRN Reason: Wheezing Carvedilol (Carvedilol 12.5 Mg Tablet) 12.5 mg PO BID [facility] Last Admin: 06/28/22 08:11 Dose: 12.5 mg Enoxaparin Sodium (Enoxaparin 40 Mg/0.4 Ml Syringe) 40 mg SUBQ DAILY [facility] Last Admin: 06/28/22 11:59 Dose: 40 mg Gabapentin (Gabapentin 300 Mg Capsule) 300 mg PO BID [facility] Last Admin: 06/28/22 08:12 Dose: 300 mg Sodium Chloride (Normal Saline 0.9%) 1,000 mls @ 50 mls/hr IV .Q20H [facility] Last Admin: 06/27/22 15:03 Dose: 50 mls/hr Piperacillin Sod/Tazobactam (Sod 3.375 gm/ Sodium Chloride) 100 mls @ 200 mls/hr IV Q6H [facility] Stop: 07/02/22 08:59 Last Infusion: 06/28/22 09:15 Dose: Infused Vancomycin HCl 1 gm/Vancomycin HCl 500 mg/ Sodium Chloride 500 mls @ 250 mls/hr IV Q12H [facility] Last Admin: 06/28/22 11:59 Dose: 250 mls/hr Insulin Human Lispro (Insulin Lispro 300 Unit/3 Ml Pen) 3 unit SUBQ TIDWM [facility]; Protocol Last Admin: 06/28/22 12:03 Dose: 3 unit Insulin Human Lispro (Insulin Lispro 300 Unit/3 Ml Pen) 1 - 5 unit SUBQ 0800,1200,1700,2100 [facility]; Protocol Last Admin: 06/28/22 12:03 Dose: 1 unit Lactobacillus Rhamnosus (Lactobacillus Rhamnosus Gg Capsule) 1 cap PO DAILY [facility] Last Admin: 06/28/22 08:12 Dose: 1 cap Ondansetron HCl (Ondansetron 4 Mg/2 Ml Vial) 4 mg IVP Q6HR PRN PRN Reason: Nausea / Vomiting Last Admin: 06/27/22 01:30 Dose: 4 mg Potassium Chloride (Potassium Chloride 20 Meq Tablet) 40 meq PO BIDWM [facility] Stop: 06/29/22 17:01 Last Admin: 06/28/22 10:14 Dose: 40 meq Multivit/Folic Acid/Iron ( Vitamin Tablet) 1 tab PO DAILYWM [facility] Last Admin: 06/28/22 08:12 Dose: 1 tab Sodium Chloride (Sodium Chloride Flush 0.9% 10 Ml Syringe) 10 ml IVP PRN PRN PRN Reason: NEEDED PER PROVIDER ORDERS Sodium Chloride (Sodium Chloride Flush 0.9% 10 Ml Syringe) 10 ml IVP 0100,0900,1700 [facility] Last Admin: 06/28/22 08:13 Dose: 10 ml Tamsulosin HCl (Tamsulosin 0.4 Mg Capsule) 0.4 mg PO DAILY [facility] Last Admin: 06/28/22 08:13 Dose: 0.4 mg Exam Temperature is 36.9. Heart rate 87. Blood pressure 137/72. Respirations 20. 99% on room air. 6 foot tall, 95.5 kg Alert, tall, oriented white male, looks stated age, no acute distress, sitting up in bed, able to ambulate in the room without assistance Shotty neck adenopathy Lungs are clear to auscultation and percussion Regular rate and rhythm Abdomen soft, nontender, normal bowel sounds. Extremities have both feet densely wrapped with Kerlix, and then Javad wrap on top of that. Orthopedics said that they have taken down the dressings, looked at them and "they look good". Whenever I could see of the foot and ankle there is no redness, heat, or swelling. Sodium 129 (He has chronic hyponatremia), potassium 3.3, chloride 95. Glucose 187. C-reactive protein 8.3. White cell count 19.2. Down from 23.7. Hemoglobin 7.7 Wound culture from OR shows beta-hemolytic strep. Wound culture done at bedside on June 25 was sent to [facility] and we do not know results. Assessment/plan 1. Osteomyelitis of the left foot with abscess of the left foot. 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 He has a previous history of frostbite. He is homeless. Noncompliant with follow-ups with orthopedics in the past. As such now with complication of all of this resulting in osteomyelitis and an abscess in the left foot. He is now on Zosyn and vancomycin, day #4. Cultures are pending from the wound from June 26 and orthopedics saw him And we found out that that culture was sent to [facility]. I do not understand why it was sent out of the hospital. On June 27 he underwent an open left second toe amputation at the metatarsophalangeal joint level. Drainage of abscess of left forefoot.That culture shows beta-hemolytic strep. Today is is POD #1.So far his white cell count is coming down. He peaked at 30.5 and now it is 19.2. C-reactive protein was 27.9 on admission. Then 23.0 yesterday. Today he is 18.3. Plan: Two-stage procedure with orthopedics. Sanjeev had amputation. Depending on how this wound progresses or infection improves, there may be a more definitive procedure such a transmetatarsal amputation with tendo Achilles lengthening next week. The patient is to remain in the hospital on IV antibiotics. PICC line today.I will stop vancomycin. I will discuss with pharmacy if I should switch to Ancef. 2. Benign prostatic hypertrophy. On tamsulosin since 06/26 So I will verify with nursing about why he is asking for it today. 3. History of alcohol abuse. He has been clean and sober for 7 months. MCV is normal. No evidence of withdrawal. 4. Acute kidney insufficiency resolved 5. Hypertension. Patient takes carvedilol at home. That had not been resumed. That might be contributing to his tachycardia. Today, tachycardia has resolved. Blood pressure is stable. This is after his first dose of carvedilol this morning. 6. Hyperglycemia. He does not have a diagnosis of diabetes. But his glucose has been consistently in the 150-170s while here. Glycosylated hemoglobin 6.2. Plan: In order to improve healing due to infection, I started him on 3 units of short acting insulin with each meal. Orthopedics would like to see a little bit tighter control. Hopefully less than 135. After surgery, his glucose is 148 and 149 today. So I will increase his insulin dosing to 4 units with meals 7. Hypokalemia will be supplemented with p.o. potassium
--- NOTE | 2022-06-28 14:22 | XRAY Report ---
PROCEDURE: Chest for Line Placement INDICATIONS: PICC line TECHNIQUE: One view of the chest was acquired. COMPARISON: None. FINDINGS: Surgical changes and devices: Right-sided PICC line tip is in the SVC. Lungs and pleura: No pleural effusions or pneumothorax. Lungs are clear. Mediastinum: Mediastinal contours appear normal. Heart size is normal. Bones and chest wall: No suspicious bony lesions. Overlying soft tissues appear unremarkable. IMPRESSION: Right-sided PICC line tip is in the SVC. No focal infiltrate, pleural effusion or pneumothorax. Reviewed by: Americo Clark MD on 06/28/2022 2:21 PM PST Approved by: Americo Clark MD on 06/28/2022 2:21 PM PST Station ID: [id number]
[2022-06-28] MEDS: SODIUM CHLORIDE 0.9% 1,000 ML IV SCH (14:36)
--- NOTE | 2022-06-28 15:36 | ANESTHESIA PROCEDURE NOTE ---
Anesth Central Line Template - Central Line Central Line Preparation: Consent Obtained Central line location: Right Basilic Central line type: PICC Single Lumen Central line catheter tip site resides: Superior vena cava (SVC) Central line aftercare: Secured (statlock), Placement confirmed, Bundle checklist complete, Pt tolerated well (confirmed by CXR, trimmed at 42cm, none exposed)
[2022-06-28] MEDS: ACETAMINOPHEN 325 MG TABLET PO PRN (16:19)
[2022-06-29] MEDS: HYDROcod/ACETAM 5/325 MG TABLET PO PRN ×3 (00:30→20:33)
[2022-06-29] MEDS: SODIUM CHLORIDE FLUSH 0.9% 10 ML SYRINGE IVP SCH ×3 (00:31→15:18)
[2022-06-29 05:01] LABS: BASOPHILS % (AUTO) 0.3 %; EOSINOPHILS # (AUTO) 0.1 10^3/uL (0.0-0.7); EOSINOPHILS % (AUTO) 0.5 %; HCT - HEMATOCRIT 24.4 % (42.0-52.0); HGB - HEMOGLOBIN 7.7 g/dL (14.0-18.0); LYMPHOCYTES % (AUTO) 8.7 %; MEAN CORPUSCULAR HGB CONC 31.6 g/dL (32.0-36.0); MEAN CORPUSCULAR VOLUME 85.6 fL (80.0-94.0); MEAN PLATELET VOLUME 8.7 fL (7.4-11.4); MONOCYTES # (AUTO) 1.1 10^3/uL (0.0-1.0); MONOCYTES % (AUTO) 9.6 %; NEUTROPHILS # (AUTO) 9.5 10^3/uL (1.5-6.6); PLT - PLATELET COUNT 449 10^3/uL (130-450); RED BLOOD COUNT 2.85 10^6/uL (4.70-6.10); WHITE BLOOD COUNT 11.9 x10^3/uL (4.8-10.8)
[2022-06-29 05:20] LABS: CALCIUM 7.7 mg/dL (8.5-10.3); CREATININE 1.1 mg/dL (0.6-1.2); CRP - C-REACTIVE PROTEIN 16.8 mg/dL (0-1.0); POTASSIUM 3.7 mmol/L (3.5-5.0)
[2022-06-29] MEDS: INSULIN LISPRO 300 UNIT/3 ML PEN SUBQ SCH ×7 (07:44→21:03)
[2022-06-29] MEDS: POTASSIUM CHLORIDE 20 MEQ TABLET PO SCH ×2 (08:05→17:19)
[2022-06-29] MEDS: ENOXAPARIN 40 MG/0.4 ML SYRINGE SUBQ SCH (08:05)
[2022-06-29] MEDS: TAMSULOSIN 0.4 MG CAPSULE PO SCH (08:06)
[2022-06-29] MEDS: LACTOBACILLUS RHAMNOSUS GG CAPSULE PO SCH (08:06)
[2022-06-29] MEDS: PRENATAL VITAMIN TABLET PO SCH (08:06)
[2022-06-29] MEDS: carvediloL 12.5 MG TABLET PO SCH ×2 (08:06→20:18)
[2022-06-29] MEDS: GABAPENTIN 300 MG CAPSULE PO SCH ×2 (08:06→20:18)
[2022-06-29 08:16] LABS: ABSOLUTE RETICS # AUTO 0.021 10^6/uL (0.020-0.110); RED BLOOD COUNT 2.86 10^6/uL (4.70-6.10); RETICULOCYTE COUNT % (AUTO) 0.74 % (0.5-2.3)
[2022-06-29 08:44] LABS: IRON 12 ug/dL (45-182); TRANSFERRIN < 70 mg/dL (180-329)
[2022-06-29] MEDS: SODIUM CHLORIDE 0.9% 1,000 ML IV SCH ×2 (09:09→13:40)
[2022-06-29 09:17] LABS: FERRITIN 540.9 ng/mL (23.9-336.2)
--- NOTE | 2022-06-29 09:37 | XRAY Report ---
PROCEDURE: Shoulder 2 View LT INDICATIONS: severe pain, can't abduct TECHNIQUE: 2 views of the shoulder were acquired. COMPARISON: None. FINDINGS: Bones: No fractures or dislocations. No suspicious bony lesions. Visualized ribs appear intact. P eriarticular osteophyte formation at the acromioclavicular and glenohumeral joints. Soft tissues: No suspicious soft tissue calcifications. IMPRESSION: Osteoarthritis. No acute fracture. No osseous lesion. If symptoms and/or clinical suspic ion for pathology continue, further assessment with repeat plain films, or advanced imaging (e.g., CT , MRI, or bone scan) is recommended for further assessment. Reviewed by: Juliana Lassiter MD on 06/29/2022 8:35 AM [facility] Approved by: Juliana Lassiter MD on 06/29/2022 8:35 AM [facility] Station ID: [id number]
--- NOTE | 2022-06-29 10:31 | PROVIDER PROGRESS NOTE ---
Subjective - Prog Note Date Prog Note Date: 06/29/22 Prog Note Time: 10:29 - Subjective Subjective: Several temperature spikes on June 27. 1 temperature spike June 28. So far no temperature spikes today.I switched his antibiotics to Ancef 06/28 once we started growing beta hemolytic group A strep. This morning cultures also show methicillin sensitive staph aureus. His main complaint continues to be his left shoulder. He cannot abduct it, it h urts to lift it. He has had it for several weeks. Considering he has to really use the trapeze above him to maneuver himself out of bed it is increasingly difficult for him to mobilize and is not happy about it. Otherwise he denies chest pain, palpitations, shortness of breath. Foot pain is not present. No calf pain. His chronic medical problems of benign prostatic hypertrophy, alcohol abuse, are stable. No new orders. His acute kidney insufficiency from earlier this admission is resolved Current Medications - Current Medications Current Medications: Active Medications Acetaminophen (Acetaminophen 325 Mg Tablet) 650 mg PO Q4HR PRN PRN Reason: Pain 1 to 4, or Fever Last Admin: 06/28/22 16:19 Dose: 650 mg Hydrocodone Bitart/Acetaminophen (Hydrocod/Acetam 5/325 Mg Tablet) 1 tab PO Q 4HR PRN PRN Reason: Pain 5 to 7 Last Admin: 06/29/22 08:06 Dose: 1 tab Albuterol/Ipratropium (Ipratropium/Albuterol 3 Ml Neb) 3 ml INH Q4HR PRN PRN Reason: Wheezing Carvedilol (Carvedilol 12.5 Mg Tablet) 12.5 mg PO BID [facility] Last Admin: 06/29/22 08:06 Dose: 12.5 mg Enoxaparin Sodium (Enoxaparin 40 Mg/0.4 Ml Syringe) 40 mg SUBQ DAILY [facility] Last Admin: 06/29/22 08:05 Dose: 40 mg Gabapentin (Gabapentin 300 Mg Capsule) 300 mg PO BID [facility] Last Admin: 06/29/22 08:06 Dose: 300 mg Sodium Chloride (Normal Saline 0.9%) 1,000 mls @ 50 mls/hr IV .Q20H [facility] Last Admin: 06/29/22 09:09 Dose: Not Given Cefazolin Sodium 2 gm/ Sodium (Chloride) 50 mls @ 100 mls/hr IV Q8H [facility] Last Infusion: 06/29/22 05:37 Dose: Infused Insulin Human Lispro (Insulin Lispro 300 Unit/3 Ml Pen) 1 - 5 unit SUBQ 0800,1200,1700,2100 [facility]; Protocol Last Admin: 06/29/22 07:44 Dose: Not Given Insulin Human Lispro (Insulin Lispro 300 Unit/3 Ml Pen) 4 unit SUBQ TIDWM [facility]; Protocol Last Admin: 06/29/22 08:07 Dose: 4 unit Lactobacillus Rhamnosus (Lactobacillus Rhamnosus Gg Capsule) 1 cap PO DAILY [facility] Last Admin: 06/29/22 08:06 Dose: 1 cap Ondansetron HCl (Ondansetron 4 Mg/2 Ml Vial) 4 mg IVP Q6HR PRN PRN Reason: Nausea / Vomiting Last Admin: 06/27/22 01:30 Dose: 4 mg Potassium Chloride (Potassium Chloride 20 Meq Tablet) 40 meq PO BIDWM [facility] Stop: 06/29/22 17:01 Last Admin: 06/29/22 08:05 Dose: 40 meq Multivit/Folic Acid/Iron ( Vitamin Tablet) 1 tab PO DAILYWM [facility] Last Admin: 06/29/22 08:06 Dose: 1 tab Sodium Chloride (Sodium Chloride Flush 0.9% 10 Ml Syringe) 10 ml IVP PRN PRN PRN Reason: NEEDED PER PROVIDER ORDERS Sodium Chloride (Sodium Chloride Flush 0.9% 10 Ml Syringe) 10 ml IVP 0100,0900,1700 [facility] Last Admin: 06/29/22 09:09 Dose: Not Given Tamsulosin HCl (Tamsulosin 0.4 Mg Capsule) 0.4 mg PO DAILY [facility] Last Admin: 06/29/22 08:06 Dose: 0.4 mg Gabapentin [Neurontin] 300 mg PO BID 06/25/22 Naltrexone HCl 50 mg PO HS 06/25/22 Tamsulosin HCl [Flomax] 0.4 mg PO DAILY 06/25/22 carvediloL [Coreg] 1 tab PO BID 06/26/22 Objective - Vital Signs/Intake & Output Reviewed Vital Signs: Yes Vital Signs: Vital Signs x48h Temp Pulse Resp BP Pulse Ox 06/29/22 08:00 37.4 C 89 18 148/77 H 94 Intake & Output: Intake & Output 06/26/22 06/27/22 06/28/2206/29/22 23:59 23:59 23:59 23:59 Intake Total 4374 4507.5 7758.333 2170 Output Total 6000 2730 8450 3900 Balance -1626 -842.5 -926.209 -9486 - Objective General Appearance: positive: No acute distress, Alert, Other (Alert, mobilizing self to get out of bed this morning and eat some breakfast.) Eyes Bilateral: positive: PERRL, EOMI ENT: positive: No signs of dehydration Neck: positive: No JVD. negative: Stiff neck Respiratory: positive: No respiratory distress. negative: Wheezes, Rales, Rhonchi Cardiovascular: positive: Regular rate & rhythm Abdomen: positive: Non-tender, No organomegaly, Nml bowel sounds, No distention Skin: positive: Warm, Dry Extremities: positive: Other (He is weightbearing as tolerated on his heels. Tolerating that well. We were thinking about getting him a knee scooter but with his insurance most likely not obtainable. He is able to use crutches) Neurologic/Psychiatric: positive: Oriented x3, CN's nml (2-12), Motor nml - Lab Results Fish Bones: 06/29/22 04:20 06/29/22 04:20 Other Labs: Lab Results x24hrs 06/29/22 06/29/22 06/29/22 Range/Units 07:30 04:20 04:20 WBC (4.8-10.8) x10^3/uL RBC (4.70-6.10) 10^6/uL Hgb (14.0-18.0) g/dL Hct (42.0-52.0) % MCV (80.0-94.0) fL MCH (27.0-31.0) pg MCHC (32.0-36.0) g/dL RDW (12.0-15.0) % Plt Count (130-450) 10^3/uL MPV (7.4-11.4) fL Reticulocyte % (Auto) (0.5-2.3) % Neut # (Auto) (1.5-6.6) 10^3/uL Lymph # (Auto) (1.5-3.5) 10^3/uL Hendricks # (Auto) (0.0-1.0) 10^3/uL Eos # (Auto) (0.0-0.7) 10^3/uL Baso # (Auto) (0.0-0.1) 10^3/uL Absolute Nucleated RBC x10^3/uL Nucleated RBC % /100WBC Absolute Retic (0.020-0.110) 10^6/uL Sodium (135-145) mmol/L Potassium (3.5-5.0) mmol/L Chloride (101-111) mmol/L Carbon Dioxide (21-32) mmol/L Anion Gap (6-13) BUN (6-20) mg/dL Creatinine (0.6-1.2) mg/dL Estimated GFR (MDRD) (>89) Glucose (70-100) mg/dL POC Whole Bld Glucose 131 H (70 - 100) mg/dL Calcium (8.5-10.3) mg/dL Iron (45-182) ug/dL Transferrin (180-329) mg/dL Ferritin 540.9 H (23.9-336.2) ng/mL Lactate Dehydrogenase 95 (91-225) IU/L C-Reactive Protein (0-1.0) mg/dL Vitamin B12 114 L (180-914) pg/mL 06/29/22 06/29/22 06/29/22 Range/Units 04:20 04:20 04:20 WBC (4.8-10.8) x10^3/uL RBC 2.86 L (4.70-6.10) 10^6/uL Hgb (14.0-18.0) g/dL Hct (42.0-52.0) % MCV (80.0-94.0) fL MCH (27.0-31.0) pg MCHC (32.0-36.0) g/dL RDW (12.0-15.0) % Plt Count (130-450) 10^3/uL MPV (7.4-11.4) fL Reticulocyte % (Auto) 0.74 (0.5-2.3) % Neut # (Auto) (1.5-6.6) 10^3/uL Lymph # (Auto) (1.5-3.5) 10^3/uL Hendricks # (Auto) (0.0-1.0) 10^3/uL Eos # (Auto) (0.0-0.7) 10^3/uL Baso # (Auto) (0.0-0.1) 10^3/uL Absolute Nucleated RBC x10^3/uL Nucleated RBC % /100WBC Absolute Retic 0.021 (0.020-0.110) 10^6/uL Sodium 134 L (135-145) mmol/L Potassium 3.7 (3.5-5.0) mmol/L Chloride 94 L (101-111) mmol/L Carbon Dioxide 22 (21-32) mmol/L Anion Gap 18.0 H (6-13) BUN 13 (6-20) mg/dL Creatinine 1.1 (0.6-1.2) mg/dL Estimated GFR (MDRD) 69 L (>89) Glucose 125 H (70-100) mg/dL POC Whole Bld Glucose (70 - 100) mg/dL Calcium 7.7 L (8.5-10.3) mg/dL Iron 12 L (45-182) ug/dL Transferrin < 70 L (180-329) mg/dL Ferritin (23.9-336.2) ng/mL Lactate Dehydrogenase (91-225) IU/L C-Reactive Protein 16.8 H (0-1.0) mg/dL Vitamin B12 (180-914) pg/mL 06/29/22 06/28/22 06/28/22 Range/Units 04:20 20:32 16:22 WBC 11.9 H (4.8-10.8) x10^3/uL RBC 2.85 L (4.70-6.10) 10^6/uL Hgb 7.7 L (14.0-18.0) g/dL Hct 24.4 L (42.0-52.0) % MCV 85.6 (80.0-94.0) fL MCH 27.0 (27.0-31.0) pg MCHC 31.6 L (32.0-36.0) g/dL RDW 16.0 H (12.0-15.0) % Plt Count 449 (130-450) 10^3/uL MPV 8.7 (7.4-11.4) fL Reticulocyte % (Auto) (0.5-2.3) % Neut # (Auto) 9.5 H (1.5-6.6) 10^3/uL Lymph # (Auto) 1.0 L (1.5-3.5) 10^3/uL Hendricks # (Auto) 1.1 H (0.0-1.0) 10^3/uL Eos # (Auto) 0.1 (0.0-0.7) 10^3/uL Baso # (Auto) 0.0 (0.0-0.1) 10^3/uL Absolute Nucleated RBC 0.00 x10^3/uL Nucleated RBC % 0.0 /100WBC Absolute Retic (0.020-0.110) 10^6/uL Sodium (135-145) mmol/L Potassium (3.5-5.0) mmol/L Chloride (101-111) mmol/L Carbon Dioxide (21-32) mmol/L Anion Gap (6-13) BUN (6-20) mg/dL Creatinine (0.6-1.2) mg/dL Estimated GFR (MDRD) (>89) Glucose (70-100) mg/dL POC Whole Bld Glucose 112 H 116 H (70 - 100) mg/dL Calcium (8.5-10.3) mg/dL Iron (45-182) ug/dL Transferrin (180-329) mg/dL Ferritin (23.9-336.2) ng/mL Lactate Dehydrogenase (91-225) IU/L C-Reactive Protein (0-1.0) mg/dL Vitamin B12 (180-914) pg/mL 06/28/22 Range/Units 11:13 WBC (4.8-10.8) x10^3/uL RBC (4.70-6.10) 10^6/uL Hgb (14.0-18.0) g/dL Hct (42.0-52.0) % MCV (80.0-94.0) fL MCH (27.0-31.0) pg MCHC (32.0-36.0) g/dL RDW (12.0-15.0) % Plt Count (130-450) 10^3/uL MPV (7.4-11.4) fL Reticulocyte % (Auto) (0.5-2.3) % Neut # (Auto) (1.5-6.6) 10^3/uL Lymph # (Auto) (1.5-3.5) 10^3/uL Hendricks # (Auto) (0.0-1.0) 10^3/uL Eos # (Auto) (0.0-0.7) 10^3/uL Baso # (Auto) (0.0-0.1) 10^3/uL Absolute Nucleated RBC x10^3/uL Nucleated RBC % /100WBC Absolute Retic (0.020-0.110) 10^6/uL Sodium (135-145) mmol/L Potassium (3.5-5.0) mmol/L Chloride (101-111) mmol/L Carbon Dioxide (21-32) mmol/L Anion Gap (6-13) BUN (6-20) mg/dL Creatinine (0.6-1.2) mg/dL Estimated GFR (MDRD) (>89) Glucose (70-100) mg/dL POC Whole Bld Glucose 149 H (70 - 100) mg/dL Calcium (8.5-10.3) mg/dL Iron (45-182) ug/dL Transferrin (180-329) mg/dL Ferritin (23.9-336.2) ng/mL Lactate Dehydrogenase (91-225) IU/L C-Reactive Protein (0-1.0) mg/dL Vitamin B12 (180-914) pg/mL ABX Reporting Has patient been on IV antibiotics over the past 48 hours?: Yes Sepsis Event Note (H) - Evaluation Current Stage of Sepsis: Sepsis Possible source of Sepsis: positive: Bone/Joint, Skin/soft tissue - Sepsis Criteria Sepsis Criteria: Recorded Respiratory Rate greater than 20, WBC count greater than 12,000 or less than 4000 Assessment/Plan - Problem List (1) Osteomyelitis of toe of left foot Impression: 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 He has a previous history of frostbite. He is homeless. Noncompliant with follow-ups with orthopedics in the past. As such now with complication of all of this resulting in osteomyelitis and an abscess in the left foot. He was on Zosyn and vancomycin, and completed 4 days before being changed to Ancef 06/28. Blood cultures from June 25 are negative. Toe culture from June 26 has staph aureus, and beta-hemolytic strep, group A Wound culture in the OR, x2, was done June 27. He is also growing MSSA and beta-hemolytic strep group A On June 27 he underwent an open left second toe amputation at the metatarsophalangeal joint level. Drainage of abscess of left forefoot. Today is is POD #2. His white cell count is coming down. He peaked at 30.5 and now it is 11.9. C-reactive protein was 27.9 on admission. Then 23.0>>18.3.>16.8 today PICC line placed 06/28 Plan: Two-stage procedure with orthopedics. Already had amputation. Depending on how this wound progresses or infection improves, there may be a more definitive procedure such a transmetatarsal amputation with tendo Achilles lengthening next week. The patient is to remain in the hospital on IV antibiotics. Changed to Ancef 06/28. I have discussed the change in abx with Dr. Berman and Pharmacist and they are fine with the changes. (2) Abscess of left foot including toes Impression: As in problem #1. (3) Left shoulder pain Impression: The pain has been going on for several weeks. Cannot really tell me what happened if there is any trauma. But it is painful to abduct. Plan: Symptoms and pain discussed with orthopedics. They plan on seeing the patient and examining that shoulder themselves. We think it may be rotator cuff. We will check plain film. Qualifiers: Chronicity: chronic Qualified Code(s): M25.512 - Pain in left shoulder; G89.29 - Other chronic pain (4) Hypertension Impression: Patient takes carvedilol at home. That had not been resumed. That might be contributing to his tachycardia. Tachycardia has resolved by 06/28 with his first dose of carvedilol. Blood pressure is stable. No change for today. Qualifiers: Hypertension type: primary hypertension Qualified Code(s): I10 - Essential (primary) hypertension (5) Type 2 diabetes mellitus with diabetic polyneuropathy, without long-term current use of insulin Impression: On admission he does not have a diagnosis of diabetes. In reviewing the medical record, t all of his visits in 2019, 2019, 2020 are associated with hyperglycemia. He has a few visits in the ER in 2021 that are not. On admissio n here his glucose was 170. A1c is 6.2%. He states that he really adheres to a fairly good diet. Tries to keep his body healthy in spite of his alcoholism. Works out on a regular basis and goes to the gym. Considering he has had undiagnosed diabetes in our EMR since 2019, he may have peripheral neuropathy as a combination of his alcohol abuse and his diabetes. Plan: Continue to receive 4 units of short acting insulin with each meal. That started yesterday evening meal. Glucose was 116, and then 112. This morning glucose is 131. In the outpatient setting I will most likely send him home with metformin. (6) Hypokalemia Impression: Started on 40 mEq of potassium twice daily yesterday. Today will be his fourth and last dose. Potassium appears stable with this. (7) Macrocytic anemia Impression: Initially this has been attributed to just his history of alcohol abuse. But anemia is 7.7 g. In doing anemia lab panel his iron is 12, transferrin less than 70, ferritin 540.9. LDH 95. Vitamin B12 is low as 114. Reticulocyte count is normal. So he appears to have both iron deficiency anemia and B12 anemia. His B12 anemia may be contributing to his peripheral neuropathy on top of his alcohol abuse and on top of his diabetes. Plan: Supplement vitamin B12 at 1 injection. Give 1 iron infusion. Check stool for occult blood. Verify if he is had colonoscopies.
--- NOTE | 2022-06-29 10:38 | PROVIDER PROGRESS NOTE ---
Subjective - General Admit Date: 06/25/22 Procedure Date: 06/27/22 Post Op Days: 2 Procedure Performed: Open amputation left second toe, drainage of forefoot abscess left foot - Review of Systems General: negative: No symptoms (He is doing very well with his feet. He has neuropathic pain at times which is helped by gabapentin. He does have left shoulder pain from weightlifting, no injury.) Objective - Patient Data Vital Signs: Vital Signs x48h Temp Pulse Resp BP Pulse Ox 06/29/22 08:00 37.4 C 89 18 148/77 H 94 Weight: Weight 06/27/22 06/28/22 06/29/22 23:59 23:59 23:59 Weight (kg) 96 kg 95.5 kg 95 kg Intake & Output: Intake and Output Totals x24h 06/27/22 06/28/22 06/29/22 23:59 23:59 23:59 Intake Total 4507.5 7758.333 2170 Output Total 5350 8450 3900 Balance -842.5 -691.667 -1730 - Lab Results Lab Results: 06/29/22 04:20 06/29/22 04:20 Other Lab Results: Lab Results x24hrs 06/29/22 06/29/22 06/29/22 Range/Units 07:30 04:20 04:20 WBC (4.8-10.8) x10^3/uL RBC (4.70-6.10) 10^6/uL Hgb (14.0-18.0) g/dL Hct (42.0-52.0) % MCV (80.0-94.0) fL MCH (27.0-31.0) pg MCHC (32.0-36.0) g/dL RDW (12.0-15.0) % Plt Count (130-450) 10^3/uL MPV (7.4-11.4) fL Reticulocyte % (Auto) (0.5-2.3) % Neut # (Auto) (1.5-6.6) 10^3/uL Lymph # (Auto) (1.5-3.5) 10^3/uL Esmer[place]da # (Auto) (0.0-1.0) 10^3/uL Eos # (Auto) (0.0-0.7) 10^3/uL Baso # (Auto) (0.0-0.1) 10^3/uL Absolute Nucleated RBC x10^3/uL Nucleated RBC % /100WBC Absolute Retic (0.020-0.110) 10^6/uL Sodium (135-145) mmol/L Potassium (3.5-5.0) mmol/L Chloride (101-111) mmol/L Carbon Dioxide (21-32) mmol/L Anion Gap (6-13) BUN (6-20) mg/dL Creatinine (0.6-1.2) mg/dL Estimated GFR (MDRD) (>89) Glucose (70-100) mg/dL POC Whole Bld Glucose 131 H (70 - 100) mg/dL Calcium (8.5-10.3) mg/dL Iron (45-182) ug/dL Transferrin (180-329) mg/dL Ferritin 540.9 H (23.9-336.2) ng/mL Lactate Dehydrogenase 95 (91-225) IU/L C-Reactive Protein (0-1.0) mg/dL Vitamin B12 114 L (180-914) pg/mL 06/29/22 06/29/22 06/29/22 Range/Units 04:20 04:20 04:20 WBC (4.8-10.8) x10^3/uL RBC 2.86 L (4.70-6.10) 10^6/uL Hgb (14.0-18.0) g/dL Hct (42.0-52.0) % MCV (80.0-94.0) fL MCH (27.0-31.0) pg MCHC (32.0-36.0) g/dL RDW (12.0-15.0) % Plt Count (130-450) 10^3/uL MPV (7.4-11.4) fL Reticulocyte % (Auto) 0.74 (0.5-2.3) % Neut # (Auto) (1.5-6.6) 10^3/uL Lymph # (Auto) (1.5-3.5) 10^3/uL [place] # (Auto) (0.0-1.0) 10^3/uL Eos # (Auto) (0.0-0.7) 10^3/uL Baso # (Auto) (0.0-0.1) 10^3/uL Absolute Nucleated RBC x10^3/uL Nucleated RBC % /100WBC Absolute Retic 0.021 (0.020-0.110) 10^6/uL Sodium 134 L (135-145) mmol/L Potassium 3.7 (3.5-5.0) mmol/L Chloride 94 L (101-111) mmol/L Carbon Dioxide 22 (21-32) mmol/L Anion Gap 18.0 H (6-13) BUN 13 (6-20) mg/dL Creatinine 1.1 (0.6-1.2) mg/dL Estimated GFR (MDRD) 69 L (>89) Glucose 125 H (70-100) mg/dL POC Whole Bld Glucose (70 - 100) mg/dL Calcium 7.7 L (8.5-10.3) mg/dL Iron 12 L (45-182) ug/dL Transferrin < 70 L (180-329) mg/dL Ferritin (23.9-336.2) ng/mL Lactate Dehydrogenase (91-225) IU/L C-Reactive Protein 16.8 H (0-1.0) mg/dL Vitamin B12 (180-914) pg/mL 06/29/22 06/28/22 06/28/22 Range/Units 04:20 20:32 16:22 WBC 11.9 H (4.8-10.8) x10^3/uL RBC 2.85 L (4.70-6.10) 10^6/uL Hgb 7.7 L (14.0-18.0) g/dL Hct 24.4 L (42.0-52.0) % MCV 85.6 (80.0-94.0) fL MCH 27.0 (27.0-31.0) pg MCHC 31.6 L (32.0-36.0) g/dL RDW 16.0 H (12.0-15.0) % Plt Count 449 (130-450) 10^3/uL MPV 8.7 (7.4-11.4) fL Reticulocyte % (Auto) (0.5-2.3) % Neut # (Auto) 9.5 H (1.5-6.6) 10^3/uL Lymph # (Auto) 1.0 L (1.5-3.5) 10^3/uL [place] # (Auto) 1.1 H (0.0-1.0) 10^3/uL Eos # (Auto) 0.1 (0.0-0.7) 10^3/uL Baso # (Auto) 0.0 (0.0-0.1) 10^3/uL Absolute Nucleated RBC 0.00 x10^3/uL Nucleated RBC % 0.0 /100WBC Absolute Retic (0.020-0.110) 10^6/uL Sodium (135-145) mmol/L Potassium (3.5-5.0) mmol/L Chloride (101-111) mmol/L Carbon Dioxide (21-32) mmol/L Anion Gap (6-13) BUN (6-20) mg/dL Creatinine (0.6-1.2) mg/dL Estimated GFR (MDRD) (>89) Glucose (70-100) mg/dL POC Whole Bld Glucose 112 H 116 H (70 - 100) mg/dL Calcium (8.5-10.3) mg/dL Iron (45-182) ug/dL Transferrin (180-329) mg/dL Ferritin (23.9-336.2) ng/mL Lactate Dehydrogenase (91-225) IU/L C-Reactive Protein (0-1.0) mg/dL Vitamin B12 (180-914) pg/mL 06/28/22 Range/Units 11:13 WBC (4.8-10.8) x10^3/uL RBC (4.70-6.10) 10^6/uL Hgb (14.0-18.0) g/dL Hct (42.0-52.0) % MCV (80.0-94.0) fL MCH (27.0-31.0) pg MCHC (32.0-36.0) g/dL RDW (12.0-15.0) % Plt Count (130-450) 10^3/uL MPV (7.4-11.4) fL Reticulocyte % (Auto) (0.5-2.3) % Neut # (Auto) (1.5-6.6) 10^3/uL Lymph # (Auto) (1.5-3.5) 10^3/uL [place] # (Auto) (0.0-1.0) 10^3/uL Eos # (Auto) (0.0-0.7) 10^3/uL Baso # (Auto) (0.0-0.1) 10^3/uL Absolute Nucleated RBC x10^3/uL Nucleated RBC % /100WBC Absolute Retic (0.020-0.110) 10^6/uL Sodium (135-145) mmol/L Potassium (3.5-5.0) mmol/L Chloride (101-111) mmol/L Carbon Dioxide (21-32) mmol/L Anion Gap (6-13) BUN (6-20) mg/dL Creatinine (0.6-1.2) mg/dL Estimated GFR (MDRD) (>89) Glucose (70-100) mg/dL POC Whole Bld Glucose 149 H (70 - 100) mg/dL Calcium (8.5-10.3) mg/dL Iron (45-182) ug/dL Transferrin (180-329) mg/dL Ferritin (23.9-336.2) ng/mL Lactate Dehydrogenase (91-225) IU/L C-Reactive Protein (0-1.0) mg/dL Vitamin B12 (180-914) pg/mL - Current Medications Current Medications: Current Medications Generic Name Dose Route Start Last Admin Trade Name Freq PRN Reason Stop Dose Admin Acetaminophen 650 mg 06/25/22 21:13 06/28/22 16:19 Acetaminophen 325 Mg Tablet PO 650 mg Q4HR PRN Administration Pain 1 to 4, or Fever Hydrocodone Bitart/Acetaminophen 1 tab 06/25/22 21:13 06/29/22 08:06 Hydrocod/Acetam 5/325 Mg Tablet PO 1 tab Q4HR PRN Administration Pain 5 to 7 Carvedilol 12.5 mg 06/27/22 09:00 06/29/22 08:06 Carvedilol 12.5 Mg Tablet PO 12.5 mg BID TALITA Administration Enoxaparin Sodium 40 mg 06/28/22 11:00 06/29/22 08:05 Enoxaparin 40 Mg/0.4 Ml Syringe SUBQ 40 mg DAILY TALITA Administration Gabapentin 300 mg 06/27/22 09:00 06/29/22 08:06 Gabapentin 300 Mg Capsule PO 300 mg BID TALITA Administration Sodium Chloride 1,000 mls @ 50 mls/hr 06/25/22 22:00 06/29/22 09:09 Normal Saline 0.9% IV Not Given .Q20H TALITA Cefazolin Sodium 2 gm/ Sodium 50 mls @ 100 mls/hr 06/28/22 19:00 06/29/22 05:37 Chloride IV Infused Q8H TALITA Infusion Insulin Human Lispro 1 - 5 unit 06/26/22 17:00 06/29/22 07:44 Insulin Lispro 300 Unit/3 Ml Pen SUBQ Not Given 0800,1200,1700,2100 [facility] Protocol Insulin Human Lispro 4 unit 06/28/22 17:00 06/29/22 08:07 Insulin Lispro 300 Unit/3 Ml Pen SUBQ 4 unit TIDWM [facility] Administration Protocol Lactobacillus Rhamnosus 1 cap 06/26/22 09:00 06/29/22 08:06 Lactobacillus Rhamnosus Gg Capsule PO 1 cap DAILY TALITA Administration Ondansetron HCl 4 mg 06/25/22 21:13 06/27/22 01:30 Ondansetron 4 Mg/2 Ml Vial IVP 4 mg Q6HR PRN Administration Nausea / Vomiting Potassium Chloride 40 meq 06/28/22 08:00 06/29/22 08:05 Potassium Chloride 20 Meq Tablet PO 06/29/22 17:01 40 meq BIDWM TALITA Administration Multivit/Folic Acid/Iron 1 tab 06/27/22 08:00 06/29/22 08:06 Vitamin Tablet PO 1 tab DAILYWM TALITA Administration Sodium Chloride 10 ml 06/26/22 01:00 06/29/22 09:09 Sodium Chloride Flush 0.9% 10 Ml Syringe IVP Not Given 0100,0900,1700 [facility] Tamsulosin HCl 0.4 mg 06/26/22 09:00 06/29/22 08:06 Tamsulosin 0.4 Mg Capsule PO 0.4 mg DAILY TALITA Administration - Physical Exam Comments/Other: The left foot wound is clean and dry, vascular base, no necrosis, no purulence. Impression/Plan - Problem List Problem List: Left foot infection, forefoot both bone and soft tissue involving second ray and toe He is responding very well to treatment. There is no active sign of infection. Less packing is being done to the wound with sterile dressing. His culture sensitivities suggest that we can use Ancef and stop the vancomycin. He is on Lovenox for deep venous thrombosis prophylaxis. I did review his shoulder x-rays which do not show any fracture. His left shoulder pain will need to be addressed as an outpatient. The plan is can continue his antibiotics and local wound care, consider closure of wound and delayed transmetatarsal amputation future date
[2022-06-29] MEDS ORDERED: CYANOCOBALAMIN 1,000 MCG/ML VIAL IM ONE (10:58)
[2022-06-29] MEDS ORDERED: IRON DEXTRAN 1,500 MG in SODIUM CHLORIDE 0.9% 500 ML IV ONE (13:00)
[2022-06-29] MEDS: ACETAMINOPHEN 325 MG TABLET PO PRN (17:25)
[2022-06-30] MEDS: SODIUM CHLORIDE FLUSH 0.9% 10 ML SYRINGE IVP SCH ×3 (00:46→16:26)
[2022-06-30] MEDS: HYDROcod/ACETAM 5/325 MG TABLET PO PRN ×3 (03:04→16:26)
[2022-06-30 05:48] LABS: CALCIUM 8.6 mg/dL (8.5-10.3); CREATININE 0.7 mg/dL (0.6-1.2); CRP - C-REACTIVE PROTEIN 16.2 mg/dL (0-1.0); POTASSIUM 4.3 mmol/L (3.5-5.0)
[2022-06-30 06:17] LABS: BASOPHILS % (AUTO) 0.2 %; EOSINOPHILS # (AUTO) 0.3 10^3/uL (0.0-0.7); EOSINOPHILS % (AUTO) 2.3 %; HGB - HEMOGLOBIN 8.3 g/dL (14.0-18.0); LYMPHOCYTES # (AUTO) 1.3 10^3/uL (1.5-3.5); LYMPHOCYTES % (AUTO) 11.4 %; MEAN CORPUSCULAR HEMOGLOBIN 27.4 pg (27.0-31.0); MEAN CORPUSCULAR HGB CONC 31.9 g/dL (32.0-36.0); MEAN CORPUSCULAR VOLUME 85.8 fL (80.0-94.0); MEAN PLATELET VOLUME 8.6 fL (7.4-11.4); MONOCYTES # (AUTO) 1.2 10^3/uL (0.0-1.0); MONOCYTES % (AUTO) 10.2 %; NEUTROPHILS # (AUTO) 8.4 10^3/uL (1.5-6.6); NEUTROPHILS % (AUTO) 74.1 %; PLT - PLATELET COUNT 519 10^3/uL (130-450); RED BLOOD COUNT 3.03 10^6/uL (4.70-6.10); RED CELL DISTRIBUTION WIDTH 15.8 % (12.0-15.0); WHITE BLOOD COUNT 11.3 x10^3/uL (4.8-10.8)
[2022-06-30] MEDS: INSULIN LISPRO 300 UNIT/3 ML PEN SUBQ SCH ×7 (08:43→21:08)
[2022-06-30] MEDS: PRENATAL VITAMIN TABLET PO SCH (08:45)
[2022-06-30] MEDS: GABAPENTIN 300 MG CAPSULE PO SCH ×2 (08:45→20:37)
[2022-06-30] MEDS: carvediloL 12.5 MG TABLET PO SCH ×2 (08:45→20:37)
[2022-06-30] MEDS: TAMSULOSIN 0.4 MG CAPSULE PO SCH (08:45)
[2022-06-30] MEDS: ENOXAPARIN 40 MG/0.4 ML SYRINGE SUBQ SCH (08:45)
[2022-06-30] MEDS: LACTOBACILLUS RHAMNOSUS GG CAPSULE PO SCH (08:45)
--- NOTE | 2022-06-30 10:31 | PROVIDER PROGRESS NOTE ---
Subjective - General Admit Date: 06/25/22 Procedure Date: 06/27/22 Post Op Days: 3 Procedure Performed: Open amputation left second toe, drainage of forefoot abscess left foot - Review of Systems General: negative: No symptoms (He is doing very well with his feet. He has neuropathic pain at times which is helped by gabapentin. He does have left shoulder pain from weightlifting, no injury.) - Other Other Information/Narrative: Doing quite well. He is certainly improved since hospital admission. He is not having foot pain other than occasional neuropathic pain. He denies fever or chills. Objective - Patient Data Vital Signs: Vital Signs x48h Temp Pulse Resp BP Pulse Ox 06/30/22 08:00 36.9 C 80 18 123/70 95 Weight: Weight 06/28/22 06/29/22 06/30/22 23:59 23:59 23:59 Weight (kg) 95.5 kg 95 kg 95 kg Intake & Output: Intake and Output Totals x24h 06/28/22 06/29/22 06/30/22 23:59 23:59 23:59 Intake Total 7758.333 8106.667 2290 Output Total 8450 8325 1825 Balance -691.667 -218.333 465 - Lab Results Lab Results: 06/30/22 06:10 06/30/22 05:10 Other Lab Results: Lab Results x24hrs 06/30/22 06/30/22 06/30/22 Range/Units 07:29 06:10 05:10 WBC 11.3 H (4.8-10.8) x10^3/uL RBC 3.03 L (4.70-6.10) 10^6/uL Hgb 8.3 L (14.0-18.0) g/dL Hct 26.0 L (42.0-52.0) % MCV 85.8 (80.0-94.0) fL MCH 27.4 (27.0-31.0) pg MCHC 31.9 L (32.0-36.0) g/dL RDW 15.8 H (12.0-15.0) % Plt Count 519 H (130-450) 10^3/uL MPV 8.6 (7.4-11.4) fL Neut # (Auto) 8.4 H (1.5-6.6) 10^3/uL Lymph # (Auto) 1.3 L (1.5-3.5) 10^3/uL [place] # (Auto) 1.2 H (0.0-1.0) 10^3/uL Eos # (Auto) 0.3 (0.0-0.7) 10^3/uL Baso # (Auto) 0.0 (0.0-0.1) 10^3/uL Absolute Nucleated RBC 0.00 x10^3/uL Nucleated RBC % 0.0 /100WBC Sodium 130 L (135-145) mmol/L Potassium 4.3 (3.5-5.0) mmol/L Chloride 96 L (101-111) mmol/L Carbon Dioxide 26 (21-32) mmol/L Anion Gap 8.0 (6-13) BUN 16 (6-20) mg/dL Creatinine 0.7 (0.6-1.2) mg/dL Estimated GFR (MDRD) 117 (>89) Glucose 126 H (70-100) mg/dL POC Whole Bld Glucose 115 H (70 - 100) mg/dL Calcium 8.6 (8.5-10.3) mg/dL C-Reactive Protein 16.2 H (0-1.0) mg/dL 06/29/22 06/29/22 06/29/22 Range/Units 20:54 16:46 11:31 WBC (4.8-10.8) x10^3/uL RBC (4.70-6.10) 10^6/uL Hgb (14.0-18.0) g/dL Hct (42.0-52.0) % MCV (80.0-94.0) fL MCH (27.0-31.0) pg MCHC (32.0-36.0) g/dL RDW (12.0-15.0) % Plt Count (130-450) 10^3/uL MPV (7.4-11.4) fL Neut # (Auto) (1.5-6.6) 10^3/uL Lymph # (Auto) (1.5-3.5) 10^3/uL [place] # (Auto) (0.0-1.0) 10^3/uL Eos # (Auto) (0.0-0.7) 10^3/uL Baso # (Auto) (0.0-0.1) 10^3/uL Absolute Nucleated RBC x10^3/uL Nucleated RBC % /100WBC Sodium (135-145) mmol/L Potassium (3.5-5.0) mmol/L Chloride (101-111) mmol/L Carbon Dioxide (21-32) mmol/L Anion Gap (6-13) BUN (6-20) mg/dL Creatinine (0.6-1.2) mg/dL Estimated GFR (MDRD) (>89) Glucose (70-100) mg/dL POC Whole Bld Glucose 152 H 93 168 H (70 - 100) mg/dL Calcium (8.5-10.3) mg/dL C-Reactive Protein (0-1.0) mg/dL - Current Medications Current Medications: Current Medications Generic Name Dose Route Start Last Admin Trade Name Freq PRN Reason Stop Dose Admin Acetaminophen 650 mg 06/25/22 21:13 06/29/22 17:25 Acetaminophen 325 Mg Tablet PO 650 mg Q4HR PRN Administration Pain 1 to 4, or Fever Hydrocodone Bitart/Acetaminophen 1 tab 06/25/22 21:13 06/30/22 08:45 Hydrocod/Acetam 5/325 Mg Tablet PO 1 tab Q4HR PRN Administration Pain 5 to 7 Carvedilol 12.5 mg 06/27/22 09:00 06/30/22 08:45 Carvedilol 12.5 Mg Tablet PO 12.5 mg BID TALITA Administration Enoxaparin Sodium 40 mg 06/28/22 11:00 06/30/22 08:45 Enoxaparin 40 Mg/0.4 Ml Syringe SUBQ 40 mg DAILY TALITA Administration Gabapentin 300 mg 06/27/22 09:00 06/30/22 08:45 Gabapentin 300 Mg Capsule PO 300 mg BID TALITA Administration Sodium Chloride 1,000 mls @ 50 mls/hr 06/25/22 22:00 06/29/22 13:40 Normal Saline 0.9% IV 50 mls/hr .Q20H TALITA Administration Cefazolin Sodium 2 gm/ Sodium 50 mls @ 100 mls/hr 06/29/22 12:00 06/30/22 05:27 Chloride IV Infused Q8H TALITA Infusion Insulin Human Lispro 1 - 5 unit 06/26/22 17:00 06/30/22 08:43 Insulin Lispro 300 Unit/3 Ml Pen SUBQ Not Given 0800,1200,1700,2100 [facility] Protocol Insulin Human Lispro 4 unit 06/28/22 17:00 06/30/22 08:44 Insulin Lispro 300 Unit/3 Ml Pen SUBQ 4 unit TIDWM [facility] Administration Protocol Lactobacillus Rhamnosus 1 cap 06/26/22 09:00 06/30/22 08:45 Lactobacillus Rhamnosus Gg Capsule PO 1 cap DAILY TALITA Administration Ondansetron HCl 4 mg 06/25/22 21:13 06/27/22 01:30 Ondansetron 4 Mg/2 Ml Vial IVP 4 mg Q6HR PRN Administration Nausea / Vomiting Multivit/Folic Acid/Iron 1 tab 06/27/22 08:00 06/30/22 08:45 Vitamin Tablet PO 1 tab DAILYWM TALITA Administration Sodium Chloride 10 ml 06/26/22 01:00 06/30/22 08:46 Sodium Chloride Flush 0.9% 10 Ml Syringe IVP Not Given 0100,0900,1700 [facility] Tamsulosin HCl 0.4 mg 06/26/22 09:00 06/30/22 08:45 Tamsulosin 0.4 Mg Capsule PO 0.4 mg DAILY TALITA Administration - Physical Exam Neurologic/Psychiatric: positive: Oriented x3 Comments/Other: He is in good spirits, comfortable, no distress. Dressing to left foot changed. There is no sign of active infection. Open wound at previous second toe amp utation is clean and dry without sign of purulence, necrosis or cellulitis. There is no abscess. Impression/Plan - Problem List Problem List: Left forefoot bone and soft tissue infection, status post second ray open amputation. His cultures are showing both strep to coccus and methicillin-resistant staph, both rare numbers. He is doing well without the vancomycin. His white blood cell count has dropped from 30,000 to just a little over 11,000. I do not see any need to use vancomycin, could consider Bactrim in addition to his Ancef. Minimal packing of wound today, being decreased each day.
--- NOTE | 2022-06-30 11:05 | PROVIDER PROGRESS NOTE ---
Subjective - Prog Note Date Prog Note Date: 06/30/22 Prog Note Time: 11:05 - Subjective Subjective: Continues to have a daily temperature spike. Yesterday was at 3:30 in the afternoon. Otherwise he is stable. His C-reactive protein is high but has come down from 27.9-16.2. About the same as yesterday. White cell count peaked at 30.5 and is down to 11.3 today. Cultures are showing MRSA in one of the cultures from the OR. But clinically not showing evidence of this. The wound is clean, closed, no redness. White cell count is coming down C-reactive protein coming down slowly. Patient's main complaint is the left shoulder. Right now cold packs are helping. Plain film of the shoulder shows osteoarthritis, no acute fracture. If he continues to have pain radiology recommends MRI. He ask about the iron infusion and the B12 injection. Wonders what he should be doing in the outpatient setting when he leaves here Current Medications - Current Medications Current Medications: Active Medications Acetaminophen (Acetaminophen 325 Mg Tablet) 650 mg PO Q4HR PRN PRN Reason: Pain 1 to 4, or Fever Last Admin: 06/29/22 17:25 Dose: 650 mg Hydrocodone Bitart/Acetaminophen (Hydrocod/Acetam 5/325 Mg Tablet) 1 tab PO Q4HR PRN PRN Reason: Pain 5 to 7 Last Admin: 06/30/22 08:45 Dose: 1 tab Albuterol/Ipratropium (Ipratropium/Albuterol 3 Ml Neb) 3 ml INH Q4HR PRN PRN Reason: Wheezing Carvedilol (Carvedilol 12.5 Mg Tablet) 12.5 mg PO BID [facility] Last Admin: 06/30/22 08:45 Dose: 12.5 mg Enoxaparin Sodium (Enoxaparin 40 Mg/0.4 Ml Syringe) 40 mg SUBQ DAILY [facility] Last Admin: 06/30/22 08:45 Dose: 40 mg Gabapentin (Gabapentin 300 Mg Capsule) 300 mg PO BID [facility] Last Admin: 06/30/22 08:45 Dose: 300 mg Sodium Chloride (Normal Saline 0.9%) 1,000 mls @ 50 mls/hr IV .Q20H [facility] Last Admin: 06/29/22 13:40 Dose: 50 mls/hr Cefazolin Sodium 2 gm/ Sodium (Chloride) 50 mls @ 100 mls/hr IV Q8H [facility] Last Infusion: 06/30/22 05:27 Dose: Infused Insulin Human Lispro (Insulin Lispro 300 Unit/3 Ml Pen) 1 - 5 unit SUBQ 0800,1200,1700,2100 [facility]; Protocol Last Admin: 06/30/22 08:43 Dose: Not Given Insulin Human Lispro (Insulin Lispro 300 Unit/3 Ml Pen) 4 unit SUBQ TIDWM [facility]; Protocol Last Admin: 06/30/22 08:44 Dose: 4 unit Lactobacillus Rhamnosus (Lactobacillus Rhamnosus Gg Capsule) 1 cap PO DAILY [facility] Last Admin: 06/30/22 08:45 Dose: 1 cap Ondansetron HCl (Ondansetron 4 Mg/2 Ml Vial) 4 mg IVP Q6HR PRN PRN Reason: Nausea / Vomiting Last Admin: 06/27/22 01:30 Dose: 4 mg Multivit/Folic Acid/Iron ( Vitamin Tablet) 1 tab PO DAILYWM [facility] Last Admin: 06/30/22 08:45 Dose: 1 tab Sodium Chloride (Sodium Chloride Flush 0.9% 10 Ml Syringe) 10 ml IVP PRN PRN PRN Reason: NEEDED PER PROVIDER ORDERS Sodium Chloride (Sodium Chloride Flush 0.9% 10 Ml Syringe) 10 ml IVP 0100,0900,1700 [facility] Last Admin: 06/30/22 08:46 Dose: Not Given Tamsulosin HCl (Tamsulosin 0.4 Mg Capsule) 0.4 mg PO DAILY [facility] Last Admin: 06/30/22 08:45 Dose: 0.4 mg Gabapentin [Neurontin] 300 mg PO BID 06/25/22 Naltrexone HCl 50 mg PO HS 06/25/22 Tamsulosin HCl [Flomax] 0.4 mg PO DAILY 06/25/22 carvediloL [Coreg] 1 tab PO BID 06/26/22 Objective - Vital Signs/Intake & Output Reviewed Vital Signs: Yes Vital Signs: Vital Signs x48h Temp Pulse Resp BP Pulse Ox 06/30/22 08:00 36.9 C 80 18 123/70 95 Intake & Output: Intake & Output 06/27/22 06/28/22 06/29/22 06/30/22 23:59 23:59 23:59 23:59 Intake Total 4507.5 7758.333 8106.667 3290 Output Total 4900 8450 8355 2727 Balance -842.5 -691.667 -218.333 565 - Objective General Appearance: positive: Alert, Mild distress (From the left shoulder pain. Not from the foot.) Eyes Bilateral: positive: PERRL, EOMI ENT: positive: Pharynx nml, No signs of dehydration Neck: positive: No JVD. negative: Stiff neck Respiratory: positive: No respiratory distress. negative: Wheezes, Rales, Rhonchi Cardiovascular: positive: Regular rate & rhythm Abdomen: positive: Non-tender, No organomegaly, Nml bowel sounds, No distention Skin: positive: Warm, Dry Extremities: positive: Other (Both feet wrapped in Kerlix, and on top of the Kerlix, Javad wrap.) Neurologic/Psychiatric: positive: Oriented x3, CN's nml (2-12), Motor nml - Lab Results Fish Bones: 06/30/22 06:10 06/30/22 05:10 Other Labs: Lab Results x24hrs 06/30/22 06/30/22 06/30/22 Range/Units 07:29 06:10 05:10 WBC 11.3 H (4.8-10.8) x10^3/uL RBC 3.03 L (4.70-6.10) 10^6/uL Hgb 8.3 L (14.0-18.0) g/dL Hct 26.0 L (42.0-52.0) % MCV 85.8 (80.0-94.0) fL MCH 27.4 (27.0-31.0) pg MCHC 31.9 L (32.0-36.0) g/dL RDW 15.8 H (12.0-15.0) % Plt Count 519 H (130-450) 10^3/uL MPV 8.6 (7.4-11.4) fL Neut # (Auto) 8.4 H (1.5-6.6) 10^3/uL Lymph # (Auto) 1.3 L (1.5-3.5) 10^3/uL [place] # (Auto) 1.2 H (0.0-1.0) 10^3/uL Eos # (Auto) 0.3 (0.0-0.7) 10^3/uL Baso # (Auto) 0.0 (0.0-0.1) 10^3/uL Absolute Nucleated RBC 0.00 x10^3/uL Nucleated RBC % 0.0 /100WBC Sodium 130 L (135-145) mmol/L Potassium 4.3 (3.5-5.0) mmol/L Chloride 96 L (101-111) mmol/L Carbon Dioxide 26 (21-32) mmol/L Anion Gap 8.0 (6-13) BUN 16 (6-20) mg/dL Creatinine 0.7 (0.6-1.2) mg/dL Estimated GFR (MDRD) 117 (>89) Glucose 126 H (70-100) mg/dL POC Whole Bld Glucose 115 H (70 - 100) mg/dL Calcium 8.6 (8.5-10.3) mg/dL C-Reactive Protein 16.2 H (0-1.0) mg/dL 06/29/22 06/29/22 06/29/22 Range/Units 20:54 16:46 11:31 WBC (4.8-10.8) x10^3/uL RBC (4.70-6.10) 10^6/uL Hgb (14.0-18.0) g/dL Hct (42.0-52.0) % MCV (80.0-94.0) fL MCH (27.0-31.0) pg MCHC (32.0-36.0) g/dL RDW (12.0-15.0) % Plt Count (130-450) 10^3/uL MPV (7.4-11.4) fL Neut # (Auto) (1.5-6.6) 10^3/uL Lymph # (Auto) (1.5-3.5) 10^3/uL [place] # (Auto) (0.0-1.0) 10^3/uL Eos # (Auto) (0.0-0.7) 10^3/uL Baso # (Auto) (0.0-0.1) 10^3/uL Absolute Nucleated RBC x10^3/uL Nucleated RBC % /100WBC Sodium (135-145) mmol/L Potassium (3.5-5.0) mmol/L Chloride (101-111) mmol/L Carbon Dioxide (21-32) mmol/L Anion Gap (6-13) BUN (6-20) mg/dL Creatinine (0.6-1.2) mg/dL Estimated GFR (MDRD) (>89) Glucose (70-100) mg/dL POC Whole Bld Glucose 152 H 93 168 H (70 - 100) mg/dL Calcium (8.5-10.3) mg/dL C-Reactive Protein (0-1.0) mg/dL ABX Reporting Has patient been on IV antibiotics over the past 48 hours?: Yes Sepsis Event Note (H) - Evaluation Current Stage of Sepsis: Sepsis Possible source of Sepsis: positive: Bone/Joint, Skin/soft tissue - Sepsis Criteria Sepsis Criteria: Recorded Respiratory Rate greater than 20, WBC count greater th an 12,000 or less than 4000 Assessment/Plan - Problem List (1) Osteomyelitis of toe of left foot Impression: He has a dense peripheral neuropathy due to alcoholism and most likely his undiagnosed DM plus B12 deficiency. He has a previous history of frostbite. He is homeless. Noncompliant with follow-ups with orthopedics in the past. As such now with complication of all of this resulting in osteomyelitis and an ab scess in the left foot. He was on Zosyn and vancomycin, and completed 4 days before being changed to Ancef 06/28. Blood cultures from June 25 are negative. Toe culture from June 26 has staph aureus, and beta-hemolytic strep, group A Wound culture in the OR, x2, was done June 27. That culture shows beta- hemolytic strep group A as well., Unfortunately final sensitivities (which I thought were MSSA) are now MRSA in 1 of those cultures. On June 27 he underwent an open left second toe amputation at the metatarsophalangeal joint level. Drainage of abscess of left forefoot. Today is is POD #3. His white cell count is coming down. He peaked at 30.5 and now it is 11.9>>11.3 today. C-reactive protein was 27.9 on admission. Then 23.0>>18.3.>16.8>16.2 today PICC line placed 06/28 Plan: Two-stage procedure with orthopedics. Already had amputation. Depending on how this wound progresses or infection improves, there may be a more definitive procedure such a transmetatarsal amputation with tendo Achilles lengthening next week. The patient is to remain in the hospital on IV antibiotics. Changed to Ancef 06/28. I have discussed the case with Dr. Mills and pharmacy. We all agree that the MRSA does not appear to be clinically relevant. White cell count is coming down, C-reactive protein is coming down. In the last 24 hours its more slower than we would like. But there is no redness, heat. Other than his feet, the patient is actually quite well. Plan: Continue Ancef Decision made not to use vancomycin Orthopedics feels that if we are going to be using medication we could change the patient to Bactrim (2) Abscess of left foot including toes Impression: As in problem #1. (3) Left shoulder pain Impression: The pain has been going on for several weeks. Cannot really tell me what happened, if there is any trauma. But it is painful to abduct. Plan: Symptoms and pain discussed with orthopedics. They have not mentioned this problem in their notes. This is nonurgent and I will ask them to address tomorrow. I will add lidoderm patch today. Qualifiers: Chronicity: chronic Qualified Code(s): M25.512 - Pain in left shoulder; G89.29 - Other chronic pain (4) Hypertension Impression: Patient takes carvedilol at home. That had not been resumed. That might be contributing to his tachycardia. Tachycardia has resolved by 06/28 with his first dose of carvedilol. Blood pressure is stable. No change for today. Qualifiers: Hypertension type: primary hypertension Qualified Code(s): I10 - Essential (primary) hypertension (5) Type 2 diabetes mellitus with diabetic polyneuropathy, without long-term current use of insulin Impression: On admission he does not have a diagnosis of diabetes. In reviewing the medical record, all of his visits in 2019, 2019, 2020 are associated with hyperglycemia. He has a few visits in the ER in 2021 that are not. On admission here his glucose was 170. A1c is 6.2%. He states that he really adheres to a fairly goo d diet. Tries to keep his body healthy in spite of his alcoholism. Works out on a regular basis and goes to the gym. Considering he has had undiagnosed diabetes in our EMR since 2019, he may have p eripheral neuropathy as a combination of his alcohol abuse and his diabetes. Plan: Continue to receive 4 units of short acting insulin with each meal. That started 12/9 pm meal. Glucose yesterday 131, 168, 93, 152. This morning he is 115 In the outpatient setting I will most likely send him home with metformin. (6) Hypokalemia Impression: Started on 40 mEq of potassium twice daily 06/28. 4 doses only. Last dose June 29. Potassium today stable. We will follow with recheck tomorrow (7) Macrocytic anemia Impression: Initially this has been attributed to just his history of alcohol abuse. But anemia is 7.7 g. In doing anemia lab panel his iron is 12, transferrin less than 70, ferritin 540.9. LDH 95. Vitamin B12 is low as 114. Reticulocyte count is normal. So he appears to have both iron deficiency anemia and B12 deficiency anemia. His B12 anemia may be contributing to his peripheral neuropathy on top of his alcohol abuse and on top of his diabetes. I gave him 1 injection of vitamin B12 June 29. 1500 mg iron infusion June 29. Plan: Start oral iron Monthly B12 Check stool for occult blood CBC is already responding. Hemoglobin 8.3 today from 7.7 yesterday
[2022-06-30] MEDS: FERROUS GLUCONATE 324 MG TABLET PO SCH (11:55)
[2022-06-30] MEDS: LIDOCAINE PATCH 5% TOP PRN (11:55)
[2022-06-30] MEDS: ACETAMINOPHEN 325 MG TABLET PO PRN (16:26)
[2022-06-30] MEDS: SODIUM CHLORIDE 0.9% 1,000 ML IV SCH (21:24)
[2022-07-01] MEDS: ACETAMINOPHEN 325 MG TABLET PO PRN (00:22)
[2022-07-01] MEDS: HYDROcod/ACETAM 5/325 MG TABLET PO PRN ×4 (00:23→21:11)
[2022-07-01] MEDS: SODIUM CHLORIDE FLUSH 0.9% 10 ML SYRINGE IVP SCH ×3 (00:35→17:02)
[2022-07-01 07:08] LABS: BASOPHILS # (AUTO) 0.1 10^3/uL (0.0-0.1); BASOPHILS % (AUTO) 0.4 %; EOSINOPHILS # (AUTO) 0.5 10^3/uL (0.0-0.7); EOSINOPHILS % (AUTO) 4.2 %; HCT - HEMATOCRIT 27.2 % (42.0-52.0); HGB - HEMOGLOBIN 8.7 g/dL (14.0-18.0); LYMPHOCYTES # (AUTO) 1.5 10^3/uL (1.5-3.5); LYMPHOCYTES % (AUTO) 12.9 %; MEAN CORPUSCULAR HEMOGLOBIN 27.4 pg (27.0-31.0); MEAN CORPUSCULAR VOLUME 85.8 fL (80.0-94.0); MEAN PLATELET VOLUME 8.6 fL (7.4-11.4); MONOCYTES # (AUTO) 1.1 10^3/uL (0.0-1.0); MONOCYTES % (AUTO) 9.5 %; NEUTROPHILS # (AUTO) 7.8 10^3/uL (1.5-6.6); PLT - PLATELET COUNT 609 10^3/uL (130-450); RED BLOOD COUNT 3.17 10^6/uL (4.70-6.10); RED CELL DISTRIBUTION WIDTH 15.9 % (12.0-15.0); WHITE BLOOD COUNT 11.4 x10^3/uL (4.8-10.8)
[2022-07-01 07:23] LABS: CALCIUM 8.7 mg/dL (8.5-10.3); CREATININE 0.8 mg/dL (0.6-1.2); CRP - C-REACTIVE PROTEIN 14.1 mg/dL (0-1.0); POTASSIUM 4.1 mmol/L (3.5-5.0)
[2022-07-01] MEDS: INSULIN LISPRO 300 UNIT/3 ML PEN SUBQ SCH ×7 (08:51→21:13)
[2022-07-01] MEDS: PRENATAL VITAMIN TABLET PO SCH (08:56)
[2022-07-01] MEDS: carvediloL 12.5 MG TABLET PO SCH ×2 (08:56→21:06)
[2022-07-01] MEDS: GABAPENTIN 300 MG CAPSULE PO SCH ×2 (08:56→21:06)
[2022-07-01] MEDS: LACTOBACILLUS RHAMNOSUS GG CAPSULE PO SCH (08:56)
[2022-07-01] MEDS: FERROUS GLUCONATE 324 MG TABLET PO SCH (08:56)
[2022-07-01] MEDS: TAMSULOSIN 0.4 MG CAPSULE PO SCH (08:56)
[2022-07-01] MEDS: ENOXAPARIN 40 MG/0.4 ML SYRINGE SUBQ SCH (08:56)
--- NOTE | 2022-07-01 14:21 | PROVIDER PROGRESS NOTE ---
Subjective - General Admit Date: 06/25/22 Procedure Date: 06/27/22 Post Op Days: 4 Procedure Performed: Open amputation left second toe, drainage of forefoot abscess left foot - Review of Systems General: negative: No symptoms (He is doing very well with his feet. He has neuropathic pain at times which is helped by gabapentin. He does have left shoulder pain from weightlifting, no injury.) - Other Other Information/Narrative: He is doing well with his left foot. He has a chronic wound to the plantar medial arch to the right foot. Neither feet are painful and neuropathic type pain that he has on a recurrent basis. He denies fever or chills. Objective - Patient Data Vital Signs: Vital Signs x48h Temp Pulse Resp BP Pulse Ox 07/01/22 07:18 37.1 C 07/01/22 06:23 82 18 118/65 95 Weight: Weight 06/29/22 06/30/22 07/01/22 23:59 23:59 23:59 Weight (kg) 95 kg 95 kg 94 kg Intake & Output: Intake and Output Totals x24h 06/29/22 06/30/22 07/01/22 23:59 23:59 23:59 Intake Total 8106.667 7910 3688.334 Output Total 8341 7325 6250 Balance -218.333 585 -2561.666 - Lab Results Lab Results: 07/01/22 06:50 07/01/22 06:50 Other Lab Results: Lab Results x24hrs 07/01/22 07/01/22 07/01/22 Range/Units 11:24 07:59 06:50 WBC (4.8-10.8) x10^3/uL RBC (4.70-6.10) 10^6/uL Hgb (14.0-18.0) g/dL Hct (42.0-52.0) % MCV (80.0-94.0) fL MCH (27.0-31.0) pg MCHC (32.0-36.0) g/dL RDW (12.0-15.0) % Plt Count (130-450) 10^3/uL MPV (7.4-11.4) fL Neut # (Auto) (1.5-6.6) 10^3/uL Lymph # (Auto) (1.5-3.5) 10^3/uL [place] # (Auto) (0.0-1.0) 10^3/uL Eos # (Auto) (0.0-0.7) 10^3/uL Baso # (Auto) (0.0-0.1) 10^3/uL Absolute Nucleated RBC x10^3/uL Nucleated RBC % /100WBC Sodium 131 L (135-145) mmol/L Potassium 4.1 (3.5-5.0) mmol/L Chloride 98 L (101-111) mmol/L Carbon Dioxide 25 (21-32) mmol/L Anion Gap 8.0 (6-13) BUN 24 H (6-20) mg/dL Creatinine 0.8 (0.6-1.2) mg/dL Estimated GFR (MDRD) 100 (>89) Glucose 164 H (70-100) mg/dL POC Whole Bld Glucose 125 H 142 H (70 - 100) mg/dL Calcium 8.7 (8.5-10.3) mg/dL C-Reactive Protein 14.1 H (0-1.0) mg/dL 07/01/22 06/30/22 06/30/22 Range/Units 06:50 20:46 16:32 WBC 11.4 H (4.8-10.8) x10^3/uL RBC 3.17 L (4.70-6.10) 10^6/uL Hgb 8.7 L (14.0-18.0) g/dL Hct 27.2 L (42.0-52.0) % MCV 85.8 (80.0-94.0) fL MCH 27.4 (27.0-31.0) pg MCHC 32.0 (32.0-36.0) g/dL RDW 15.9 H (12.0-15.0) % Plt Count 609 H (130-450) 10^3/uL MPV 8.6 (7.4-11.4) fL Neut # (Auto) 7.8 H (1.5-6.6) 10^3/uL Lymph # (Auto) 1.5 (1.5-3.5) 10^3/uL [place] # (Auto) 1.1 H (0.0-1.0) 10^3/uL Eos # (Auto) 0.5 (0.0-0.7) 10^3/uL Baso # (Auto) 0.1 (0.0-0.1) 10^3/uL Absolute Nucleated RBC 0.00 x10^3/uL Nucleated RBC % 0.0 /100WBC Sodium (135-145) mmol/L Potassium (3.5-5.0) mmol/L Chloride (101-111) mmol/L Carbon Dioxide (21-32) mmol/L Anion Gap (6-13) BUN (6-20) mg/dL Creatinine (0.6-1.2) mg/dL Estimated GFR (MDRD) (>89) Glucose (70-100) mg/dL POC Whole Bld Glucose 112 H 121 H (70 - 100) mg/dL Calcium (8.5-10.3) mg/dL C-Reactive Protein (0-1.0) mg/dL - Current Medications Current Medications: Current Medications Generic Name Dose Route Start Last Admin Trade Name Freq PRN Reason Stop Dose Admin Acetaminophen 650 mg 06/25/22 21:13 07/01/22 00:22 Acetaminophen 325 Mg Tablet PO 650 mg Q4HR PRN Administration Pain 1 to 4, or Fever Hydrocodone Bitart/Acetaminophen 1 tab 06/25/22 21:13 07/01/22 08:59 Hydrocod/Acetam 5/325 Mg Tablet PO 1 tab Q4HR PRN Administration Pain 5 to 7 Carvedilol 12.5 mg 06/27/22 09:00 07/01/22 08:56 Carvedilol 12.5 Mg Tablet PO 12.5 mg BID [facility] Administration Enoxaparin Sodium 40 mg 06/28/22 11:00 07/01/22 08:56 Enoxaparin 40 Mg/0.4 Ml Syringe SUBQ 40 mg DAILY [facility] Administration Ferrous Gluconate 324 mg 06/30/22 12:00 07/01/22 08:56 Ferrous Gluconate 324 Mg Tablet PO 324 mg DAILYWM [facility] Administration Gabapentin 300 mg 06/27/22 09:00 07/01/22 08:56 Gabapentin 300 Mg Capsule PO 300 mg BID [facility] Administration Sodium Chloride 1,000 mls @ 50 mls/hr 06/25/22 22:00 07/01/22 10:34 Normal Saline 0.9% IV 0 mls/hr .Q20H [facility] Infusion Cefazolin Sodium 2 gm/ Sodium 50 mls @ 100 mls/hr 06/29/22 12:00 07/01/22 12:20 Chloride IV Infused Q8H [facility] Infusion Insulin Human Lispro 1 - 5 unit 06/26/22 17:00 07/01/22 11:48 Insulin Lispro 300 Unit/3 Ml Pen SUBQ Not Given 0800,1200,1700,2100 [facility] Protocol Insulin Human Lispro 4 unit 06/28/22 17:00 07/01/22 11:47 Insulin Lispro 300 Unit/3 Ml Pen SUBQ 4 unit TIDWM [facility] Administration Protocol Lactobacillus Rhamnosus 1 cap 06/26/22 09:00 07/01/22 08:56 Lactobacillus Rhamnosus Gg Capsule PO 1 cap DAILY [facility] Administration Lidocaine 1 patch 06/30/22 11:13 06/30/22 11:55 Lidocaine Patch 5% TOP 1 patch DAILY PRN Administration PAIN Ondansetron HCl 4 mg 06/25/22 21:13 06/27/22 01:30 Ondansetron 4 Mg/2 Ml Vial IVP 4 mg Q6HR PRN Administration Nausea / Vomiting Multivit/Folic Acid/Iron 1 tab 06/27/22 08:00 07/01/22 08:56 Vitamin Tablet PO 1 tab DAILYWM [facility] Administration Sodium Chloride 10 ml 06/26/22 01:00 07/01/22 08:56 Sodium Chloride Flush 0.9% 10 Ml Syringe IVP Not Given 0100,0900,1700 [facility] Tamsulosin HCl 0.4 mg 06/26/22 09:00 07/01/22 08:56 Tamsulosin 0.4 Mg Capsule PO 0.4 mg DAILY [facility] Administration - Physical Exam Comments/Other: The left foot continues to remain clean, no active sign of infection, no wound necrosis. Swelling has decreased considerably and the amputation wound edges well opposed relatively well. Right foot has an 5 x 2 cm wound, edges of wound has scarred and adhered to the normal wound edges, intact skin. The base of this wound is clean and well granulated. The wound is over the medial and plantar surface of the arch of the right foot. Otherwise, skin is completely intact. The wound edges do not easily oppose because the edges of the intact skin are retracted and fixed from scarring. Impression/Plan - Problem List Problem List: 1. Left foot infection He seems to be responding well to local wound care and antibiotics. He is only on Ancef and seem to be responding well. Although his white blood cell count is still slightly elevated, of the C-reactive protein continues to drop.He still has a small superficial skin ulcer to the plantar aspect of the second metatarsal left foot. He also is clean. There is no drainage or signs of infection. The plan will be irrigation debridement, delayed wound closure of the open amputation second toe. 2. Chronic wound plantar medial right foot This wound is clean. This wound has been present for several months and treated previously with a wound VAC elsewhere. I recommend irrigation debridement, attempt at wound closure to right foot Both procedures to his feet could be done this Friday utilizing regional anesthesia or local anesthesia. His Lovenox will be stopped. The patient is agreement to both. Eventually he will need a definitive transmetatarsal amputation to his left foot and he may need something similar to the right foot. The goal is obtaining good quality skin and control of infection before doing definitive procedures
--- NOTE | 2022-07-01 16:19 | PROVIDER PROGRESS NOTE ---
Subjective - Prog Note Date Prog Note Date: 07/01/22 Prog Note Time: 16:24 - Subjective Subjective: No new events. He tells me that his pain is better with the cold compresses and the Lidoderm patch for his left shoulder. Last temperature spike was June 29 at 3:30 in the afternoon. No temperature spike now for 48 hours. He says that he is feeling "good". Current Medications - Current Medications Current Medications: Active Medications Acetaminophen (Acetaminophen 325 Mg Tablet) 650 mg PO Q4HR PRN PRN Reason: Pain 1 to 4, or Fever Last Admin: 07/01/22 00:22 Dose: 650 mg Hydrocodone Bitart/Acetaminophen (Hydrocod/Acetam 5/325 Mg Tablet) 1 tab PO Q4HR PRN PRN Reason: Pain 5 to 7 Last Admin: 07/01/22 08:59 Dose: 1 tab Albuterol/Ipratropium (Ipratropium/Albuterol 3 Ml Neb) 3 ml INH Q4HR PRN PRN Reason: Wheezing Carvedilol (Carvedilol 12.5 Mg Tablet) 12.5 mg PO BID [facility] Last Admin: 07/01/22 08:56 Dose: 12.5 mg Cyanocobalamin (Cyanocobalamin 500 Mcg Tablet) 1,000 mcg PO DAILY [facility] Enoxaparin Sodium (Enoxaparin 40 Mg/0.4 Ml Syringe) 40 mg SUBQ DAILY [facility] Last Admin: 07/01/22 08:56 Dose: 40 mg Ferrous Gluconate (Ferrous Gluconate 324 Mg Tablet) 324 mg PO DAILYWM [facility] Last Admin: 07/01/22 08:56 Dose: 324 mg Gabapentin (Gabapentin 300 Mg Capsule) 300 mg PO BID [facility] Last Admin: 07/01/22 08:56 Dose: 300 mg Sodium Chloride (Normal Saline 0.9%) 1,000 mls @ 50 mls/hr IV .Q20H [facility] Last Infusion: 07/01/22 10:34 Dose: 0 mls/hr Cefazolin Sodium 2 gm/ Sodium (Chloride) 50 mls @ 100 mls/hr IV Q8H [facility] Last Infusion: 07/01/22 12:20 Dose: Infused Insulin Human Lispro (Insulin Lispro 300 Unit/3 Ml Pen) 1 - 5 unit SUBQ 0800,1200,1700,2100 [facility]; Protocol Last Admin: 07/01/22 11:48 Dose: Not Given Insulin Human Lispro (Insulin Lispro 300 Unit/3 Ml Pen) 4 unit SUBQ TIDWM [facility]; Protocol Last Admin: 07/01/22 11:47 Dose: 4 unit Lactobacillus Rhamnosus (Lactobacillus Rhamnosus Gg Capsule) 1 cap PO DAILY [facility] Last Admin: 07/01/22 08:56 Dose: 1 cap Lidocaine (Lidocaine Patch 5%) 1 patch TOP DAILY PRN PRN Reason: PAIN Last Admin: 06/30/22 11:55 Dose: 1 patch Ondansetron HCl (Ondansetron 4 Mg/2 Ml Vial) 4 mg IVP Q6HR PRN PRN Reason: Nausea / Vomiting Last Admin: 06/27/22 01:30 Dose: 4 mg Multivit/Folic Acid/Iron ( Vitamin Tablet) 1 tab PO DAILYWM [facility] Last Admin: 07/01/22 08:56 Dose: 1 tab Sodium Chloride (Sodium Chloride Flush 0.9% 10 Ml Syringe) 10 ml IVP PRN PRN PRN Reason: NEEDED PER PROVIDER ORDERS Sodium Chloride (Sodium Chloride Flush 0.9% 10 Ml Syringe) 10 ml IVP 0100,0900,1700 [facility] Last Admin: 07/01/22 08:56 Dose: Not Given Tamsulosin HCl (Tamsulosin 0.4 Mg Capsule) 0.4 mg PO DAILY [facility] Last Admin: 07/01/22 08:56 Dose: 0.4 mg Gabapentin [Neurontin] 300 mg PO BID 06/25/22 Naltrexone HCl 50 mg PO HS 06/25/22 Tamsulosin HCl [Flomax] 0.4 mg PO DAILY 06/25/22 carvediloL [Coreg] 1 tab PO BID 06/26/22 Objective - Vital Signs/Intake & Output Reviewed Vital Signs: Yes Vital Signs: Vital Signs x48h Temp Pulse Resp BP Pulse Ox 07/01/22 15:49 37.2 C 85 16 117/69 95 Intake & Output: Intake & Output 06/28/22 06/29/22 06/30/22 07/01/22 23:59 23:59 23:59 23:59 Intake Total 7758.333 8106.667 7910 4108.334 Output Total 8487 8316 7319 7472 Balance -691.667 -218.333 585 -9951.666 - Objective General Appearance: positive: No acute distress, Alert Eyes Bilateral: positive: PERRL, EOMI ENT: positive: Pharynx nml Neck: positive: No JVD. negative: Stiff neck Respiratory: positive: No respiratory distress. negative: Wheezes, Rales, Rhonchi Cardiovascular: positive: Regular rate & rhythm Abdomen: positive: Non-tender, No organomegaly, Nml bowel sounds, No distention Skin: positive: Warm, Dry Extremities: positive: Other (Left shoulder pain with abduction. Both feet wrapped. I have yet to examine them directly. Ortho is the one that takes on the dressings and put some back on again.) Neurologic/Psychiatric: positive: Oriented x3, CN's nml (2-12), Motor nml - Lab Results Fish Bones: 07/01/22 06:50 07/01/22 06:50 Other Labs: Lab Results x24hrs 07/01/22 07/01/22 07/01/22 Range/Units 11:24 07:59 06:50 WBC (4.8-10.8) x10^3/uL RBC (4.70-6.10) 10^6/uL Hgb (14.0-18.0) g/dL Hct (42.0-52.0) % MCV (80.0-94.0) fL MCH (27.0-31.0) pg MCHC (32.0-36.0) g/dL RDW (12.0-15.0) % Plt Count (130-450) 10^3/uL MPV (7.4-11.4) fL Neut # (Auto) (1.5-6.6) 10^3/uL Lymph # (Auto) (1.5-3.5) 10^3/uL Clarke # (Auto) (0.0-1.0) 10^3/uL Eos # (Auto) (0.0-0.7) 10^3/uL Baso # (Auto) (0.0-0.1) 10^3/uL Absolute Nucleated RBC x10^3/uL Nucleated RBC % /100WBC Sodium 131 L (135-145) mmol/L Potassium 4.1 (3.5-5.0) mmol/L Chloride 98 L (101-111) mmol/L Carbon Dioxide 25 (21-32) mmol/L Anion Gap 8.0 (6-13) BUN 24 H (6-20) mg/dL Creatinine 0.8 (0.6-1.2) mg/dL Estimated GFR (MDRD) 100 (>89) Glucose 164 H (70-100) mg/dL POC Whole Bld Glucose 125 H 142 H (70 - 100) mg/dL Calcium 8.7 (8.5-10.3) mg/dL C-Reactive Protein 14.1 H (0-1.0) mg/dL 07/01/22 06/30/22 06/30/22 Range/Units 06:50 20:46 16:32 WBC 11.4 H (4.8-10.8) x10^3/uL RBC 3.17 L (4.70-6.10) 10^6/uL Hgb 8.7 L (14.0-18.0) g/dL Hct 27.2 L (42.0-52.0) % MCV 85.8 (80.0-94.0) fL MCH 27.4 (27.0-31.0) pg MCHC 32.0 (32.0-36.0) g/dL RDW 15.9 H (12.0-15.0) % Plt Count 609 H (130-450) 10^3/uL MPV 8.6 (7.4-11.4) fL Neut # (Auto) 7.8 H (1.5-6.6) 10^3/uL Lymph # (Auto) 1.5 (1.5-3.5) 10^3/uL Clarke # (Auto) 1.1 H (0.0-1.0) 10^3/uL Eos # (Auto) 0.5 (0.0-0.7) 10^3/uL Baso # (Auto) 0.1 (0.0-0.1) 10^3/uL Absolute Nucleated RBC 0.00 x10^3/uL Nucleated RBC % 0.0 /100WBC Sodium (135-145) mmol/L Potassium (3.5-5.0) mmol/L Chloride (101-111) mmol/L Carbon Dioxide (21-32) mmol/L Anion Gap (6-13) BUN (6-20) mg/dL Creatinine (0.6-1.2) mg/dL Estimated GFR (MDRD) (>89) Glucose (70-100) mg/dL POC Whole Bld Glucose 112 H 121 H (70 - 100) mg/dL Calcium (8.5-10.3) mg/dL C-Reactive Protein (0-1.0) mg/dL ABX Reporting Has patient been on IV antibiotics over the past 48 hours?: Yes Sepsis Event Note (H) - Evaluation Current Stage of Sepsis: Sepsis Possible source of Sepsis: positive: Bone/Joint, Skin/soft tissue - Sepsis Criteria Sepsis Criteria: Recorded Respiratory Rate greater than 20, WBC count greater than 12,000 or less than 4000 Assessment/Plan - Problem List (1) Osteomyelitis of toe of left foot Impression: He has a dense peripheral neuropathy due to alcoholism and most likely his undiagnosed DM plus B12 deficiency. He has a previous history of frostbite. He is homeless. Noncompliant with follow-ups with orthopedics in the past. As such now with complication of all of this resulting in osteomyelitis and an abscess in the left foot. He was on Zosyn and vancomycin, and completed 4 days before being changed to Ancef 06/28. Blood cultures from June 25 are negative. Toe culture from June 26 has staph aureus, and beta-hemolytic strep, group A Wound culture in the OR, x2, was done June 27. That culture shows beta- hemolytic strep group A as well., Unfortunately final sensitivities (which I thought were MSSA) are now MRSA in 1 of those cultures. On June 27 he underwent an open left second toe amputation at the metatarsophalangeal joint level. Drainage of abscess of left forefoot. Today is is POD #4. His white cell count is coming down. He peaked at 30.5 and now it is 11.9>>11.3>11.4 today. C-reactive protein was 27.9 on admission. Then 23.0>>18.3.>16.8>16.2>14.1 today PICC line placed 06/28 Plan: Two-stage procedure with orthopedics. Already had toe amputation. Marjorie graves on how this wound progresses or infection improves, there may be a more definitive procedure such a transmetatarsal amputation with tendo Achilles lengthening next week. The patient is to remain in the hospital on IV antibiotics. Changed to Ancef 12/9. I have discussed the case with Dr. Mills and pharmacy. We all agree that the MRSA does not appear to be clinically relevant. White cell count is coming down, C-reactive protein is coming down. There is no redness, heat. Other than his feet, the patient is actually quite well. Plan: Continue Ancef. Planned surgery procedure July 03. Dr. Berman feels the patient may be able to be discharged July 05. At that time to be sent home on Keflex or Bactrim depending on the discharge physician's choice. Decision made not to use vancomycin Orthopedics feels that if we are going to be using medication we could change the patient to Bactrim (2) Abscess of left foot including toes Impression: As in problem #1. (3) Left shoulder pain Impression: The pain has been going on for several weeks. Cannot really tell me what happened, if there is any trauma. But it is painful to abduct. He is getting cold packs and lidoderm and it is working to help with discomfort. Plan: Symptoms and pain discussed with orthopedics. They have not mentioned this problem in their notes. This is nonurgent and I asked Dr. Berman to address today. Qualifiers: Chronicity: chronic Qualified Code(s): M25.512 - Pain in left shoulder; G89.29 - Other chronic pain (4) Hypertension Impression: Patient takes carvedilol at home. That had not been resumed. That might be contributing to his tachycardia. Tachycardia has resolved by 06/28 with his first dose of carvedilol. Blood pressure is stable. No change for today. Qualifiers: Hypertension type: primary hypertension Qualified Code(s): I10 - Essential (primary) hypertension (5) Type 2 diabetes mellitus with diabetic polyneuropathy, without long-term current use of insulin Impression: On admission he does not have a diagnosis of diabetes. In reviewing the medical record, all of his visits in 2019, 2019, 2020 are associated with hyperglycemia. He has a few visits in the ER in 2021 that are not. On ad mission here his glucose was 170. A1c is 6.2%. He states that he really adheres to a fairly good diet. Tries to keep his body healthy in spite of his alcoholism. Works out on a regular basis and goes to the gym. Considering he has had undiagnosed diabetes in our EMR since 2019, he may have peripheral neuropathy as a combination of his alcohol abuse and his diabetes. Plan: Continue to receive 4 units of short acting insulin with each meal. That started 12 pm meal. Selected Entries 06/30/22 06/30/22 06/30/22 08:00 11:35 16:37 Result (mg/dL) 115 154 121 06/30/22 07/01/22 07/01/22 21:00 08:00 11:38 Result (mg/dL) 112 142 125 In the outpatient setting I will most likely send him home with metformin. (6) Hypokalemia Impression: Started on 40 mEq of potassium twice daily 06/28. 4 doses only. Last dose June 29. Potassium stable. We will follow with recheck tomorrow (7) Macrocytic anemia Impression: Initially this has been attributed to just his history of alcohol abuse. But anemia is 7.7 g. In doing anemia lab panel his iron is 12, transferrin less than 70, ferritin 540.9. LDH 95. Vitamin B12 is low as 114. Reticulocyte count is normal. So he appears to have both iron deficiency anemia and B12 deficiency anemia. His B12 anemia may be contributing to his peripheral neuropathy on top of his alcohol abuse and on top of his diabetes. I gave him 1 injection of vitamin B12 June 29. 1500 mg iron infusion June 29. Since that time he has been on oral iron, and I am recommending monthly B12 injections. CBC is already responding. When I gave him the iron his hemoglobin was 7.7. Today it is 8.7. Fecal occult blood is ordered and pending.
[2022-07-01] MEDS: CYANOCOBALAMIN 500 MCG TABLET PO SCH (17:02)
[2022-07-01] MEDS: ONDANSETRON 4 MG/2 ML VIAL IVP PRN (17:10)
[2022-07-01] MEDS: SODIUM CHLORIDE 0.9% 1,000 ML IV SCH (18:12)
[2022-07-01] MEDS: LIDOCAINE PATCH 5% TOP PRN (18:13)
[2022-07-01 18:38] LABS: FECAL OCCULT BLOOD (FIT) NEGATIVE (NEGATIVE)
[2022-07-01] MEDS: SODIUM CHLORIDE FLUSH 0.9% 10 ML SYRINGE IVP PRN ×2 (21:07→21:37)
[2022-07-02] MEDS: SODIUM CHLORIDE FLUSH 0.9% 10 ML SYRINGE IVP SCH ×3 (03:37→17:07)
[2022-07-02] MEDS: HYDROcod/ACETAM 5/325 MG TABLET PO PRN ×3 (03:37→20:07)
[2022-07-02 07:11] LABS: BASOPHILS % (AUTO) 0.3 %; EOSINOPHILS # (AUTO) 0.4 10^3/uL (0.0-0.7); HCT - HEMATOCRIT 28.6 % (42.0-52.0); HGB - HEMOGLOBIN 9.2 g/dL (14.0-18.0); LYMPHOCYTES # (AUTO) 1.6 10^3/uL (1.5-3.5); LYMPHOCYTES % (AUTO) 13.1 %; MEAN CORPUSCULAR HGB CONC 32.2 g/dL (32.0-36.0); MEAN CORPUSCULAR VOLUME 86.9 fL (80.0-94.0); MEAN PLATELET VOLUME 8.8 fL (7.4-11.4); MONOCYTES # (AUTO) 1.1 10^3/uL (0.0-1.0); MONOCYTES % (AUTO) 9.1 %; NEUTROPHILS # (AUTO) 8.4 10^3/uL (1.5-6.6); NEUTROPHILS % (AUTO) 70.4 %; PLT - PLATELET COUNT 646 10^3/uL (130-450); RED BLOOD COUNT 3.29 10^6/uL (4.70-6.10); RED CELL DISTRIBUTION WIDTH 15.9 % (12.0-15.0); WHITE BLOOD COUNT 11.9 x10^3/uL (4.8-10.8)
[2022-07-02 07:15] LABS: CALCIUM 9.2 mg/dL (8.5-10.3); CREATININE 0.9 mg/dL (0.6-1.2); POTASSIUM 4.1 mmol/L (3.5-5.0)
[2022-07-02] MEDS: GABAPENTIN 300 MG CAPSULE PO SCH ×2 (08:19→20:06)
[2022-07-02] MEDS: CYANOCOBALAMIN 500 MCG TABLET PO SCH (08:19)
[2022-07-02] MEDS: PRENATAL VITAMIN TABLET PO SCH (08:19)
[2022-07-02] MEDS: TAMSULOSIN 0.4 MG CAPSULE PO SCH (08:19)
[2022-07-02] MEDS: carvediloL 12.5 MG TABLET PO SCH ×2 (08:19→20:06)
[2022-07-02] MEDS: ENOXAPARIN 40 MG/0.4 ML SYRINGE SUBQ SCH (08:19)
[2022-07-02] MEDS: LACTOBACILLUS RHAMNOSUS GG CAPSULE PO SCH (08:19)
[2022-07-02] MEDS: FERROUS GLUCONATE 324 MG TABLET PO SCH (08:19)
[2022-07-02] MEDS: INSULIN LISPRO 300 UNIT/3 ML PEN SUBQ SCH ×7 (08:20→21:01)
--- NOTE | 2022-07-02 15:21 | PROVIDER PROGRESS NOTE ---
Assessment/Plan - Problem List (1) Osteomyelitis of toe of left foot Assessment/Plan: He has a dense peripheral neuropathy due to alcoholism and most likely his undiagnosed DM plus B12 deficiency. He has a previous history of frostbite. He is homeless. Noncompliant with follow-ups with orthopedics in the past. As such now with complication of all of this resulting in osteomyelitis and an abscess in the left foot. He was on Zosyn and vancomycin, and completed 4 days before being changed to Ancef 06/28. Blood cultures from June 25 are negative. Toe culture from June 26 has staph aureus, and beta-hemolytic strep, group A Wound culture in the OR, x2, was done June 27. That culture shows beta- hemolytic strep group A as well., Unfortunately final sensitivities (which I thought were MSSA) are now MRSA in 1 of those cultures. On June 27 he underwent an open left second toe amputation at the metatarsophalangeal joint level. Drainage of abscess of left forefoot. Today is is POD #4. His white cell count is coming down. He peaked at 30.5 and now it is 11.9>>11.3>11.4 today. C-reactive protein was 27.9 on admission. Then 23.0>>18.3.>16.8>16.2>14.1 today PICC line placed 06/28 Plan: Two-stage procedure with orthopedics. Already had toe amputation. Depending on how this wound progresses or infection improves, there may be a more definitive procedure such a transmetatarsal amputation with tendo Achilles lengthening next week. The patient is to remain in the hospital on IV antibiotics. Changed to Ancef 06/28. I have discussed the case with Dr. Berman. White cell count is coming down, C-reactive protein is coming down. There is no redness, or heat. Other than his feet and L shoulder, the patient is actually quite well. Plan: Continue Ancef. Planned surgery procedure July 03. Dr. Berman feels the patient may be able to be discharged July 05. At that time to be sent home on Keflex or Bactrim. Orthopedics feels that if we are going to be using medication we could change the patient to Bactrim Decision made not to use vancomycin Going back to OR for debridement tomorrow 07/03, thus will order NPO except meds after midnight tonight (2) Abscess of left foot including toes Impression: As in problem #1. (3) Left shoulder pain Impression: The pain has been going on for several weeks. He tells me he heard it pop and thinks he dislocated it when stretching. L arm it is painful to abduct. He is getting cold packs and lidoderm and it is working to help with the discomfort. Plan: Symptoms and pain discussed with orthopedics. They have not mentioned this problem in their notes. We asked Dr. Berman to address . Will likely order an MRI Qualifiers: Chronicity: chronic Qualified Code(s): M25.512 - Pain in left shoulder; G89.29 - Other chronic pain (4) Hypertension Impression: Patient takes carvedilol at home. Tachycardia has resolved by 06/28 with his first dose of carvedilol. Blood pressure is stable. Plan: No change for today. Qualifiers: Hypertension type: primary hypertension Qualified Code(s): I10 - Essential (primary) hypertension (5) Type 2 diabetes mellitus with diabetic polyneuropathy, without long-term current use of insulin Impression: He did not have a diagnosis of diabetes. On admission here his glucose was 170. A1c is 6.2%. He states that he really adheres to a fairly good diet. Tries to keep his body healthy in spite of his alcoholism. Works out on a regular basis and goes to the gym. He may have peripheral neuropathy as a combination of his alcohol abuse and his diabetes. Plan: Continue diabetic diet, fingerstick checks, 4 units of short acting insulin with each meal, started 06/28, Hypoglycemia protocol. (6) Hx alcohol abuse Impression: No signs of withdrawal. Plan: Support no alcohol abuse. - Current Meds Current Meds: Current Medications Generic Name Dose Route Start Last Admin Trade Name Freq PRN Reason Stop Dose Admin Acetaminophen 650 mg 06/25/22 21:13 07/01/22 00:22 Acetaminophen 325 Mg Tablet PO 650 mg Q4HR PRN Administration Pain 1 to 4, or Fever Hydrocodone Bitart/Acetaminophen 1 tab 06/25/22 21:13 07/02/22 03:37 Hydrocod/Acetam 5/325 Mg Tablet PO 1 tab Q4HR PRN Administration Pain 5 to 7 Carvedilol 12.5 mg 06/27/22 09:00 07/02/22 08:19 Carvedilol 12.5 Mg Tablet PO 12.5 mg BID [facility] Administration Cyanocobalamin 1,000 mcg 07/01/22 17:00 07/02/22 08:19 Cyanocobalamin 500 Mcg Tablet PO 1,000 mcg DAILY [facility] Administration Ferrous Gluconate 324 mg 06/30/22 12:00 07/02/22 08:19 Ferrous Gluconate 324 Mg Tablet PO 324 mg DAILYWM [facility] Administration Gabapentin 300 mg 06/27/22 09:00 07/02/22 08:19 Gabapentin 300 Mg Capsule PO 300 mg BID [facility] Administration Cefazolin Sodium 2 gm/ Sodium 50 mls @ 100 mls/hr 06/29/22 12:00 07/02/22 13:08 Chloride IV Infused Q8H [facility] Infusion Insulin Human Lispro 1 - 5 unit 06/26/22 17:00 07/02/22 11:52 Insulin Lispro 300 Unit/3 Ml Pen SUBQ Not Given 0800,1200,1700,2100 [facility] Protocol Insulin Human Lispro 4 unit 06/28/22 17:00 07/02/22 11:55 Insulin Lispro 300 Unit/3 Ml Pen SUBQ 4 unit TIDWM [facility] Administration Protocol Lactobacillus Rhamnosus 1 cap 06/26/22 09:00 07/02/22 08:19 Lactobacillus Rhamnosus Gg Capsule PO 1 cap DAILY [facility] Administration Lidocaine 1 patch 06/30/22 11:13 07/01/22 18:13 Lidocaine Patch 5% TOP 1 patch DAILY PRN Administration PAIN Ondansetron HCl 4 mg 06/25/22 21:13 07/01/22 17:10 Ondansetron 4 Mg/2 Ml Vial IVP 4 mg Q6HR PRN Administration Nausea / Vomiting Multivit/Folic Acid/Iron 1 tab 06/27/22 08:00 07/02/22 08:19 Vitamin Tablet PO 1 tab DAILYWM [facility] Administration Sodium Chloride 10 ml 06/25/22 21:13 07/01/22 21:37 Sodium Chloride Flush 0.9% 10 Ml Syringe IVP 10 ml PRN PRN Administration NEEDED PER PROVIDER ORDERS Sodium Chloride 10 ml 06/26/22 01:00 07/02/22 08:19 Sodium Chloride Flush 0.9% 10 Ml Syringe IVP 10 ml 0100,0900,1700 [facility] Administration Tamsulosin HCl 0.4 mg 06/26/22 09:00 07/02/22 08:19 Tamsulosin 0.4 Mg Capsule PO 0.4 mg DAILY [facility] Administration - Lab Result Fish Bone Diagrams: 07/03/22 04:45 07/03/22 04:45 - Additional Planning My Orders: My Active Orders 07/02/22 Lunch Carb-controlled Diet [DIET] Subjective - Subjective Patient Reports: Pain (in L shoulder since 3 days before this admission, thinks he dislocated it, needs an ice macrina, requests an MRI.) Objective Vital Signs: Vital Signs - 24 hr 07/01/22 07/01/22 07/02/22 15:49 23:33 07:24 Temperature 37.2 C 36.4 C L 36.4 C L Heart Rate [ 85 81 72 Brachial] Respiratory 16 14 18 Rate Blood Pressure 117/69 114/68 [Right Brachial artery] Blood Pressure 119/71 [Right Radial artery] O2 Saturation 95 96 96 07/02/22 14:51 Temperature 37 C Heart Rate [ 85 Brachial] Respiratory 18 Rate Blood Pressure [Right Brachial artery] Blood Pressure 118/75 [Right Radial artery] O2 Saturation 95 Oxygen O2 Source Room air I&O (Last 24 Hrs): Intake and Output Totals x24h 06/30/22 07/01/22 07/02/22 23:59 23:59 23:59 Intake Total 7910 5968.340 2730 Output Total 7325 9100 5120 Balance 585 -3131.660 -2390 General: Alert, Oriented x3 HEENT: Mucous membr. moist/pink, Other (Disheveled) Neuro: Alert, Non Focal (but he is not moving L arm due to L shoulder pain) Cardiovascular: Regular rate, No murmurs Respiratory: No respiratory distress, Breath sounds nml Abdomen: Normal bowel sounds, Soft, No tenderness Extremities: Other (Both feet and toes bilat bandaged) - Results Results: Laboratory Results WBC 11.9 x10^3/uL (4.8-10.8) H 07/02/22 06:50 RBC 3.29 10^6/uL (4.70-6.10) L 07/02/22 06:50 Hgb 9.2 g/dL (14.0-18.0) L 07/02/22 06:50 Hct 28.6 % (42.0-52.0) L 07/02/22 06:50 MCV 86.9 fL (80.0-94.0) 07/02/22 06:50 MCH 28.0 pg (27.0-31.0) 07/02/22 06:50 MCHC 32.2 g/dL (32.0-36.0) 07/02/22 06:50 RDW 15.9 % (12.0-15.0) H 07/02/22 06:50 Plt Count 646 10^3/uL (130-450) H 07/02/22 06:50 MPV 8.8 fL (7.4-11.4) 07/02/22 06:50 Reticulocyte % (Auto) 0.74 % (0.5-2.3) 06/29/22 04:20 Neut # (Auto) 8.4 10^3/uL (1.5-6.6) H 07/02/22 06:50 Lymph # (Auto) 1.6 10^3/uL (1.5-3.5) 07/02/22 06:50 [place] # (Auto) 1.1 10^3/uL (0.0-1.0) H 07/02/22 06:50 Eos # (Auto) 0.4 10^3/uL (0.0-0.7) 07/02/22 06:50 Baso # (Auto) 0.0 10^3/uL (0.0-0.1) 07/02/22 06:50 Absolute Nucleated RBC 0.00 x10^3/uL 07/02/22 06:50 Total Counted 100 06/27/22 06:27 Band Neuts % (Manual) 0 % (0-10) 06/27/22 06:27 Abnorm Lymph % (Manual) 0 % 06/27/22 06:27 Nucleated RBC % 0.0 /100WBC 07/02/22 06:50 Neutrophils # (Manual) 20.4 10^3/uL (1.5-6.6) H 06/27/22 06:27 Lymphocytes # (Manual) 2.4 10^3/uL (1.5-3.5) 06/27/22 06:27 Monocytes # (Manual) 0.9 10^3/uL (0.0-1.0) 06/27/22 06:27 Eosinophils # (Manual) 0.0 10^3/uL (0-0.7) 06/27/22 06:27 Basophils # (Manual) 0.0 10^3/uL (0-0.1) 06/27/22 06:27 Differential Comment MANUAL DIFFERENTIAL 06/27/22 06:27 WBC Morphology NORMAL APPEARANCE (NORMAL) 06/27/22 06:27 Platelet Estimate NORMAL (130-450,000) (NORMAL) 06/27/22 06:27 Platelet Morphology NORMAL APPEARANCE (NORMAL) 06/27/22 06:27 RBC Morph Micro Appear NORMAL APPEARANCE (NORMAL) 06/27/22 06:27 ESR > 140 mm/Hr (0-20) H 06/25/22 17:09 Absolute Retic 0.021 10^6/uL (0.020-0.110) 06/29/22 04:20 PT 18.5 secs (9.9-12.6) H 06/26/22 04:25 INR 1.7 (0.8-1.2) H 06/26/22 04:25 Sodium 131 mmol/L (135-145) L 07/02/22 06:50 Potassium 4.1 mmol/L (3.5-5.0) 07/02/22 06:50 Chloride 96 mmol/L (101-111) L 07/02/22 06:50 Carbon Dioxide 25 mmol/L (21-32) 07/02/22 06:50 Anion Gap 10.0 (6-13) 07/02/22 06:50 BUN 26 mg/dL (6-20) H 07/02/22 06:50 Creatinine 0.9 mg/dL (0.6-1.2) 07/02/22 06:50 Estimated GFR (MDRD) 87 (>89) L 07/02/22 06:50 Glucose 130 mg/dL (70-100) H 07/02/22 06:50 POC Whole Bld Glucose 101 mg/dL (70 - 100) H 07/02/22 11:12 Estimat Average Glucose 131 mg/dL (70-100) H 06/27/22 06:27 Hemoglobin A1c % 6.2 % (4.27-6.07) H 06/27/22 06:27 Lactic Acid 1.1 mmol/L (0.5-2.2) 06/26/22 04:25 Calcium 9.2 mg/dL (8.5-10.3) 07/02/22 06:50 Iron 12 ug/dL (45-182) L 06/29/22 04:20 Transferrin < 70 mg/dL (180-329) L 06/29/22 04:20 Ferritin 540.9 ng/mL (23.9-336.2) H 06/29/22 04:20 Total Bilirubin 0.6 mg/dL (0.2-1.0) 06/25/22 17:09 AST 14 IU/L (10-42) 06/25/22 17:09 ALT 16 IU/L (10-60) 06/25/22 17:09 Alkaline Phosphatase 71 IU/L (42-121) 06/25/22 17:09 Lactate Dehydrogenase 95 IU/L (91-225) 06/29/22 04:20 C-Reactive Protein 12.0 mg/dL (0-1.0) H 07/02/22 06:50 Total Protein 8.2 g/dL (6.7-8.2) 06/25/22 17:09 Albumin 2.6 g/dL (3.2-5.5) L 06/25/22 17:09 Globulin 5.6 g/dL (2.1-4.2) H 06/25/22 17:09 Albumin/Globulin Ratio 0.5 (1.0-2.2) L 06/25/22 17:09 Vitamin B12 114 pg/mL (180-914) L 06/29/22 04:20 Nasal Adenovirus (PCR) NOT DETECTED 06/25/22 18:20 Nasal B. parapertussis DNA (PCR) NOT DETECTED 06/25/22 18:20 Nasal Coronavir 229E PCR NOT DETECTED 06/25/22 18:20 Nasal Coronavir HKU1 PCR NOT DETECTED 06/25/22 18:20 Nasal Coronavir NL63 PCR NOT DETECTED 06/25/22 18:20 Nasal Coronavir OC43 PCR NOT DETECTED 06/25/22 18:20 Nasal Enterovir/Rhinovir PCR NOT DETECTED 06/25/22 18:20 Nasal Influenza B PCR NOT DETECTED 06/25/22 18:20 Nasal Influenza A PCR NOT DETECTED 06/25/22 18:20 Nasal Parainfluen 1 PCR NOT DETECTED 06/25/22 18:20 Nasal Parainfluen 2 PCR NOT DETECTED 06/25/22 18:20 Nasal Parainfluen 3 PCR NOT DETECTED 06/25/22 18:20 Nasal Parainfluen 4 PCR NOT DETECTED 06/25/22 18:20 Nasal RSV (PCR) NOT DETECTED 06/25/22 18:20 Nasal B.pertussis DNA PCR NOT DETECTED 06/25/22 18:20 Nasal C.pneumoniae (PCR) NOT DETECTED 06/25/22 18:20 Nazario Human Metapneumo PCR NOT DETECTED 06/25/22 18:20 Nasal M.pneumoniae (PCR) NOT DETECTED 06/25/22 18:20 Nasal SARS-CoV-2 (PCR) NOT DETECTED 06/25/22 18:20 Stl Occult Blood (IFOB) NEGATIVE (NEGATIVE) 07/01/22 17:17 Last Dose Date 06/25/22 06/27/22 05:38 Last Dose Time 212206/27/22 05:38 Vancomycin Trough 11.6 ug/mL (10.0-20.0) 06/27/22 05:38 Influenza A (Rapid) Negative (Negative) 06/25/22 18:20 Influenza B (Rapid) Negative (Negative) 06/25/22 18:20 - Procedures Procedures: Procedures DETACHMENT AT LEFT 1ST TOE, COMPLETE, OPEN APPROACH (08/15/21) Sepsis Event Note (H) - Evaluation Current Stage of Sepsis: Sepsis Possible source of Sepsis: positive: Bone/Joint, Skin/soft tissue - Sepsis Criteria Sepsis Criteria: Recorded Respiratory Rate greater than 20, WBC count greater than 12,000 or less than 4000
[2022-07-02] MEDS: ACETAMINOPHEN 325 MG TABLET PO PRN ×2 (16:01→20:06)
--- NOTE | 2022-07-02 16:25 | PROVIDER PROGRESS NOTE ---
Subjective - General Admit Date: 06/25/22 Procedure Date: 06/27/22 Post Op Days: 5 Procedure Performed: Open amputation left second toe, drainage of forefoot abscess left foot - Review of Systems Wound/Incisions: negative: Healing well (He denies pain to his feet) General: negative: No symptoms (He is doing very well with his feet. He has neuropathic pain at times which is helped by gabapentin. He does have left shoulder pain from weightlifting, no injury.) Objective - Patient Data Vital Signs: Vital Signs x48h Temp Pulse Resp BP Pulse Ox 07/02/22 14:51 37 C 85 18 118/75 95 Weight: Weight 06/30/22 07/01/22 07/02/22 23:59 23:59 23:59 Weight (kg) 95 kg 94 kg 94 kg Intake & Output: Intake and Output Totals x24h 06/30/22 07/01/22 07/02/22 23:59 23:59 23:59 Intake Total 7910 5968.340 2730 Output Total 7325 9100 5120 Balance 585 -3131.660 -2390 - Lab Results Lab Results: 07/02/22 06:50 07/02/22 06:50 Other Lab Results: Lab Results x24hrs 07/02/22 07/02/22 07/02/22 Range/Units 11:12 07:16 06:50 WBC (4.8-10.8) x10^3/uL RBC (4.70-6.10) 10^6/uL Hgb (14.0-18.0) g/dL Hct (42.0-52.0) % MCV (80.0-94.0) fL MCH (27.0-31.0) pg MCHC (32.0-36.0) g/dL RDW (12.0-15.0) % Plt Count (130-450) 10^3/uL MPV (7.4-11.4) fL Neut # (Auto) (1.5-6.6) 10^3/uL Lymph # (Auto) (1.5-3.5) 10^3/uL [place] # (Auto) (0.0-1.0) 10^3/uL Eos # (Auto) (0.0-0.7) 10^3/uL Baso # (Auto) (0.0-0.1) 10^3/uL Absolute Nucleated RBC x10^3/uL Nucleated RBC % /100WBC Sodium 131 L (135-145) mmol/L Potassium 4.1 (3.5-5.0) mmol/L Chloride 96 L (101-111) mmol/L Carbon Dioxide 25 (21-32) mmol/L Anion Gap 10.0 (6-13) BUN 26 H (6-20) mg/dL Creatinine 0.9 (0.6-1.2) mg/dL Estimated GFR (MDRD) 87 L (>89) Glucose 130 H (70-100) mg/dL POC Whole Bld Glucose 101 H 104 H (70 - 100) mg/dL Calcium 9.2 (8.5-10.3) mg/dL C-Reactive Protein 12.0 H (0-1.0) mg/dL Stl Occult Blood (IFOB) (NEGATIVE) 07/02/22 07/01/22 07/01/22 Range/Units 06:50 20:31 17:17 WBC 11.9 H (4.8-10.8) x10^3/uL RBC 3.29 L (4.70-6.10) 10^6/uL Hgb 9.2 L (14.0-18.0) g/dL Hct 28.6 L (42.0-52.0) % MCV 86.9 (80.0-94.0) fL MCH 28.0 (27.0-31.0) pg MCHC 32.2 (32.0-36.0) g/dL RDW 15.9 H (12.0-15.0) % Plt Count 646 H (130-450) 10^3/uL MPV 8.8 (7.4-11.4) fL Neut # (Auto) 8.4 H (1.5-6.6) 10^3/uL Lymph # (Auto) 1.6 (1.5-3.5) 10^3/uL [place] # (Auto) 1.1 H (0.0-1.0) 10^3/uL Eos # (Auto) 0.4 (0.0-0.7) 10^3/uL Baso # (Auto) 0.0 (0.0-0.1) 10^3/uL Absolute Nucleated RBC 0.00 x10^3/uL Nucleated RBC % 0.0 /100WBC Sodium (135-145) mmol/L Potassium (3.5-5.0) mmol/L Chloride (101-111) mmol/L Carbon Dioxide (21-32) mmol/L Anion Gap (6-13) BUN (6-20) mg/dL Creatinine (0.6-1.2) mg/dL Estimated GFR (MDRD) (>89) Glucose (70-100) mg/dL POC Whole Bld Glucose 146 H (70 - 100) mg/dL Calcium (8.5-10.3) mg/dL C-Reactive Protein (0-1.0) mg/dL Stl Occult Blood (IFOB) NEGATIVE (NEGATIVE) 07/01/22 06/26/22 Range/Units 16:51 16:35 WBC (4.8-10.8) x10^3/uL RBC (4.70-6.10) 10^6/uL Hgb (14.0-18.0) g/dL Hct (42.0-52.0) % MCV (80.0-94.0) fL MCH (27.0-31.0) pg MCHC (32.0-36.0) g/dL RDW (12.0-15.0) % Plt Count (130-450) 10^3/uL MPV (7.4-11.4) fL Neut # (Auto) (1.5-6.6) 10^3/uL Lymph # (Auto) (1.5-3.5) 10^3/uL [place] # (Auto) (0.0-1.0) 10^3/uL Eos # (Auto) (0.0-0.7) 10^3/uL Baso # (Auto) (0.0-0.1) 10^3/uL Absolute Nucleated RBC x10^3/uL Nucleated RBC % /100WBC Sodium (135-145) mmol/L Potassium (3.5-5.0) mmol/L Chloride (101-111) mmol/L Carbon Dioxide (21-32) mmol/L Anion Gap (6-13) BUN (6-20) mg/dL Creatinine (0.6-1.2) mg/dL Estimated GFR (MDRD) (>89) Glucose (70-100) mg/dL POC Whole Bld Glucose 137 H 164 H (70 - 100) mg/dL Calcium (8.5-10.3) mg/dL C-Reactive Protein (0-1.0) mg/dL Stl Occult Blood (IFOB) (NEGATIVE) - Current Medications Current Medications: Current Medications Generic Name Dose Route Start Last Admin Trade Name Freq PRN Reason Stop Dose Admin Acetaminophen 650 mg 06/25/22 21:13 07/02/22 16:01 Acetaminophen 325 Mg Tablet PO 650 mg Q4HR PRN Administration Pain 1 to 4, or Fever Hydrocodone Bitart/Acetaminophen 1 tab 06/25/22 21:13 07/02/22 16:02 Hydrocod/Acetam 5/325 Mg Tablet PO 1 tab Q4HR PRN Administration Pain 5 to 7 Carvedilol 12.5 mg 06/27/22 09:00 07/02/22 08:19 Carvedilol 12.5 Mg Tablet PO 12.5 mg BID TALITA Administration Cyanocobalamin 1,000 mcg 07/01/22 17:00 07/02/22 08:19 Cyanocobalamin 500 Mcg Tablet PO 1,000 mcg DAILY TALITA Administration Ferrous Gluconate 324 mg 06/30/22 12:00 07/02/22 08:19 Ferrous Gluconate 324 Mg Tablet PO 324 mg DAILYWM TALITA Administration Gabapentin 300 mg 06/27/22 09:00 07/02/22 08:19 Gabapentin 300 Mg Capsule PO 300 mg BID TALITA Administration Cefazolin Sodium 2 gm/ Sodium 50 mls @ 100 mls/hr 06/29/22 12:00 07/02/22 13:08 Chloride IV Infused Q8H TALITA Infusion Insulin Human Lispro 1 - 5 unit 06/26/22 17:00 07/02/22 11:52 Insulin Lispro 300 Unit/3 Ml Pen SUBQ Not Given 0800,1200,1700,2100 [facility] Protocol Insulin Human Lispro 4 unit 06/28/22 17:00 07/02/22 11:55 Insulin Lispro 300 Unit/3 Ml Pen SUBQ 4 unit TIDWM TALITA Administration Protocol Lactobacillus Rhamnosus 1 cap 06/26/22 09:00 07/02/22 08:19 Lactobacillus Rhamnosus Gg Capsule PO 1 cap DAILY TALITA Administration Lidocaine 1 patch 06/30/22 11:13 07/01/22 18:13 Lidocaine Patch 5% TOP 1 patch DAILY PRN Administration PAIN Ondansetron HCl 4 mg 06/25/22 21:13 07/01/22 17:10 Ondansetron 4 Mg/2 Ml Vial IVP 4 mg Q6HR PRN Administration Nausea / Vomiting Multivit/Folic Acid/Iron 1 tab 06/27/22 08:00 07/02/22 08:19 Vitamin Tablet PO 1 tab DAILYWM TALITA Administration Sodium Chloride 10 ml 06/25/22 21:13 07/01/22 21:37 Sodium Chloride Flush 0.9% 10 Ml Syringe IVP 10 ml PRN PRN Administration NEEDED PER PROVIDER ORDERS Sodium Chloride 10 ml 06/26/22 01:00 07/02/22 08:19 Sodium Chloride Flush 0.9% 10 Ml Syringe IVP 10 ml 0100,0900,1700 TALITA Administration Tamsulosin HCl 0.4 mg 06/26/22 09:00 07/02/22 08:19 Tamsulosin 0.4 Mg Capsule PO 0.4 mg DAILY TALITA Administration - Physical Exam Neurologic/Psychiatric: positive: Oriented x3 Comments/Other: Wounds to both feet are clean, no active infection to previously described wounds to both feet Impression/Plan - Problem List Problem List: Left foot infection. Infection appears to be under good control, no active infection Chronic wound right foot, medial arch Wound is clean and well granulated Plan: Irrigation debridement of both wounds to his feet, delayed wound closure. I would anticipate discharge to home on Friday. He will need to heel weight- bear I have discussed the risks, goals and likelihood of achieving goals, alternatives to surgery and the consequences, disability and rarely . That he has mentioned to me he will, he will most likely need elective transmetatarsal amputation to his left foot and also additional surgery to his right foot. Patient has signed informed consent for going to the surgery for tomorrow
[2022-07-02] MEDS ORDERED: SODIUM CHLORIDE 0.9% 50 ML IV ONE (20:04)
[2022-07-02] MEDS: LIDOCAINE PATCH 5% TOP PRN (20:07)
[2022-07-03] MEDS: ACETAMINOPHEN 325 MG TABLET PO PRN ×2 (02:43→07:36)
[2022-07-03] MEDS: SODIUM CHLORIDE FLUSH 0.9% 10 ML SYRINGE IVP SCH ×3 (02:44→17:11)
[2022-07-03] MEDS: SODIUM CHLORIDE FLUSH 0.9% 10 ML SYRINGE IVP PRN (04:48)
[2022-07-03] MEDS: HYDROcod/ACETAM 5/325 MG TABLET PO PRN ×2 (04:52→15:42)
[2022-07-03 05:55] LABS: BASOPHILS # (AUTO) 0.1 10^3/uL (0.0-0.1); BASOPHILS % (AUTO) 0.4 %; EOSINOPHILS # (AUTO) 0.3 10^3/uL (0.0-0.7); EOSINOPHILS % (AUTO) 2.1 %; HCT - HEMATOCRIT 29.8 % (42.0-52.0); HGB - HEMOGLOBIN 9.4 g/dL (14.0-18.0); LYMPHOCYTES # (AUTO) 1.3 10^3/uL (1.5-3.5); LYMPHOCYTES % (AUTO) 10.3 %; MEAN CORPUSCULAR HEMOGLOBIN 27.4 pg (27.0-31.0); MEAN CORPUSCULAR HGB CONC 31.5 g/dL (32.0-36.0); MEAN CORPUSCULAR VOLUME 86.9 fL (80.0-94.0); MEAN PLATELET VOLUME 8.9 fL (7.4-11.4); NEUTROPHILS # (AUTO) 9.3 10^3/uL (1.5-6.6); NEUTROPHILS % (AUTO) 75.3 %; PLT - PLATELET COUNT 705 10^3/uL (130-450); RED BLOOD COUNT 3.43 10^6/uL (4.70-6.10); RED CELL DISTRIBUTION WIDTH 16.1 % (12.0-15.0); WHITE BLOOD COUNT 12.4 x10^3/uL (4.8-10.8)
[2022-07-03 06:13] LABS: CALCIUM 9.4 mg/dL (8.5-10.3); CREATININE 0.9 mg/dL (0.6-1.2); CRP - C-REACTIVE PROTEIN 10.6 mg/dL (0-1.0); POTASSIUM 4.5 mmol/L (3.5-5.0)
--- NOTE | 2022-07-03 07:10 | ANESTHESIA ---
Pre-Anesthesia VS, & Labs - Diagnosis B foot abscess - Procedure B I&D abscess Vital Signs: Temp Pulse Resp BP Pulse Ox O2 Flow Rate 37.1 C 80 16 119/67 97 07/03/22 00:00 07/03/22 00:00 07/03/22 00:00 07/03/22 00:00 07/03/22 00:00 Height: 6 ft Weight (kg): 93.5 kg Body Mass Index: 27.9 BMI Classification: Overweight - NPO >8 hours - Lab Results Current Lab Results: Laboratory Tests 07/03/22 04:45: Sodium 132 L, Potassium 4.5, Chloride 98 L, Carbon Dioxide 26, Anion Gap 8.0, BUN 30 H, Creatinine 0.9, Estimated GFR (MDRD) 87 L, Glucose 131 H, Calcium 9.4, C-Reactive Protein 10.6 H 07/03/22 04:45: WBC 12.4 H, RBC 3.43 L, Hgb 9.4 L, Hct 29.8 L, MCV 86.9, MCH 27.4, MCHC 31.5 L, RDW 16.1 H, Plt Count 705 H, MPV 8.9, Neut # (Auto) 9.3 H, Lymph # (Auto) 1.3 L, [place] # (Auto) 1.0, Eos # (Auto) 0.3, Baso # (Auto) 0.1, Absolute Nucleated RBC 0.00, Nucleated RBC % 0.0 07/02/22 20:43: POC Whole Bld Glucose 168 H 07/02/22 16:43: POC Whole Bld Glucose 121 H 07/02/22 11:12: POC Whole Bld Glucose 101 H 07/02/22 07:16: POC Whole Bld Glucose 104 H 07/02/22 06:50: Sodium 131 L, Potassium 4.1, Chloride 96 L, Carbon Dioxide 25, Anion Gap 10.0, BUN 26 H, Creatinine 0.9, Estimated GFR (MDRD) 87 L, Glucose 130 H, Calcium 9.2, C-Reactive Protein 12.0 H 07/02/22 06:50: WBC 11.9 H, RBC 3.29 L, Hgb 9.2 L, Hct 28.6 L, MCV 86.9, MCH 28.0, MCHC 32.2, RDW 15.9 H, Plt Count 646 H, MPV 8.8, Neut # (Auto) 8.4 H, Lym ph # (Auto) 1.6, [place] # (Auto) 1.1 H, Eos # (Auto) 0.4, Baso # (Auto) 0.0, Absolute Nucleated RBC 0.00, Nucleated RBC % 0.0 07/01/22 20:31: POC Whole Bld Glucose 146 H 07/01/22 16:51: POC Whole Bld Glucose 137 H 07/01/22 11:24: POC Whole Bld Glucose 125 H 07/01/22 07:59: POC Whole Bld Glucose 142 H 07/01/22 06:50: Sodium 131 L, Potassium 4.1, Chloride 98 L, Carbon Dioxide 25, Anion Gap 8.0, BUN 24 H, Creatinine 0.8, Estimated GFR (MDRD) 100, Glucose 164 H , Calcium 8.7, C-Reactive Protein 14.1 H 07/01/22 06:50: WBC 11.4 H, RBC 3.17 L, Hgb 8.7 L, Hct 27.2 L, MCV 85.8, MCH 27.4, MCHC 32.0, RDW 15.9 H, Plt Count 609 H, MPV 8.6, Neut # (Auto) 7.8 H, Lymph # (Auto) 1.5, [place] # (Auto) 1.1 H, Eos # (Auto) 0.5, Baso # (Auto) 0.1, Absolute Nucleated RBC 0.00, Nucleated RBC % 0.0 06/30/22 20:46: POC Whole Bld Glucose 112 H 06/30/22 16:32: POC Whole Bld Glucose 121 H 06/30/22 11:33: POC Whole Bld Glucose 154 H 06/30/22 07:29: POC Whole Bld Glucose 115 H 06/30/22 06:10: WBC 11.3 H, RBC 3.03 L, Hgb 8.3 L, Hct 26.0 L, MCV 85.8, MCH 27.4, MCHC 31.9 L, RDW 15.8 H, Plt Count 519 H, MPV 8.6, Neut # (Auto) 8.4 H, Lymph # (Auto) 1.3 L, [place] # (Auto) 1.2 H, Eos # (Auto) 0.3, Baso # (Auto) 0.0, Absolute Nucleated RBC 0.00, Nucleated RBC % 0.0 06/30/22 05:10: Sodium 130 L, Potassium 4.3, Chloride 96 L, Carbon Dioxide 26, Anion Gap 8.0, BUN 16, Creatinine 0.7, Estimated GFR (MDRD) 117, Glucose 126 H, Calcium 8.6, C-Reactive Protein 16.2 H 06/29/22 20:54: POC Whole Bld Glucose 152 H 06/29/22 16:46: POC Whole Bld Glucose 93 06/29/22 11:31: POC Whole Bld Glucose 168 H 06/29/22 07:30: POC Whole Bld Glucose 131 H 06/29/22 04:20: Lactate Dehydrogenase 95 06/29/22 04:20: Ferritin 540.9 H, Vitamin B12 114 L 06/29/22 04:20: Iron 12 L, Transferrin < 70 L 06/29/22 04:20: RBC 2.86 L, Reticulocyte % (Auto) 0.74, Absolute Retic 0.021 06/29/22 04:20: Sodium 134 L, Potassium 3.7, Chloride 94 L, Carbon Dioxide 22, Anion Gap 18.0 H, BUN 13, Creatinine 1.1, Estimated GFR (MDRD) 69 L, Glucose 125 H, Calcium 7.7 L, C-Reactive Protein 16.8 H 06/29/22 04:20: WBC 11.9 H, RBC 2.85 L, Hgb 7.7 L, Hct 24.4 L, MCV 85.6, MCH 27.0, MCHC 31.6 L, RDW 16.0 H, Plt Count 449, MPV 8.7, Neut # (Auto) 9.5 H, Lym ph # (Auto) 1.0 L, [place] # (Auto) 1.1 H, Eos # (Auto) 0.1, Baso # (Auto) 0.0, Absolute Nucleated RBC 0.00, Nucleated RBC % 0.0 06/28/22 20:32: POC Whole Bld Glucose 112 H 06/28/22 16:22: POC Whole Bld Glucose 116 H 06/28/22 11:13: POC Whole Bld Glucose 149 H 06/28/22 07:25: POC Whole Bld Glucose 148 H 06/28/22 04:20: Sodium 129 L, Potassium 3.3 L, Chloride 95 L, Carbon Dioxide 24, Anion Gap 10.0, BUN 12, Creatinine 0.9, Estimated GFR (MDRD) 87 L, Glucose 187 H , Calcium 7.6 L, C-Reactive Protein 18.3 H 06/28/22 04:20: WBC 19.2 H, RBC 2.83 L, Hgb 7.7 L, Hct 24.0 L, MCV 84.8, MCH 27.2, MCHC 32.1, RDW 16.0 H, Plt Count 435, MPV 9.0, Neut # (Auto) 16.5 H, Lymph # (Auto) 1.0 L, [place] # (Auto) 1.5 H, Eos # (Auto) 0.0, Baso # (Auto) 0.0, Absolute Nucleated RBC 0.00, Nucleated RBC % 0.0 06/27/22 20:41: POC Whole Bld Glucose 184 H 06/27/22 16:36: POC Whole Bld Glucose 173 H 06/27/22 11:25: POC Whole Bld Glucose 147 H 06/27/22 07:24: POC Whole Bld Glucose 150 H 06/27/22 06:27: WBC 23.7 H, RBC 3.13 L, Hgb 8.7 L, Hct 26.7 L, MCV 85.3, MCH 27.8, MCHC 32.6, RDW 16.0 H, Plt Count 433, MPV 8.8, Neut # (Auto) Not Reportable, Lymph # (Auto) Not Reportable, [place] # (Auto) Not Reportable, Eos # (Auto) Not Reportable, Baso # (Auto) Not Reportable, Absolute Nucleated RBC Not Reportable, Total Counted 100, Band Neuts % (Manual) 0, Abnorm Lymph % (Manual) 0, Nucleated RBC % Not Reportable, Neutrophils # (Manual) 20.4 H, Lymphocytes # (Manual) 2.4, Monocytes # (Manual) 0.9, Eosinophils # (Manual) 0.0, Basophils # (Manual) 0.0, Differential Comment MANUAL DIFFERENTIAL, WBC Morphology NORMAL APPEARANCE, Platelet Estimate NORMAL (130-450,000), Platelet Morphology NORMAL APPEARANCE, RBC Morph Micro Appear NORMAL APPEARANCE 06/27/22 06:27: Estimat Average Glucose 131 H, Hemoglobin A1c % 6.2 H 06/27/22 05:38: Sodium 130 L, Potassium 3.6, Chloride 97 L, Carbon Dioxide 25, Anion Gap 8.0, BUN 10, Creatinine 0.8, Estimated GFR (MDRD) 100, Glucose 154 H, Calcium 8.0 L, C-Reactive Protein 23.0 H, Last Dose Date 06/25/22, Last Dose Time 2122, Vancomycin Trough 11.6 06/26/22 20:45: POC Whole Bld Glucose 175 H 06/26/22 16:35: POC Whole Bld Glucose 164 H 06/26/22 04:25: Sodium 129 L, Potassium 3.6, Chloride 100 L, Carbon Dioxide 23, Anion Gap 6.0, BUN 17, Creatinine 0.9, Estimated GFR (MDRD) 87 L, Glucose 177 H, Calcium 8.5 06/26/22 04:25: PT 18.5 H, INR 1.7 H 06/26/22 04:25: WBC 30.5 H, RBC 3.27 L, Hgb 9.1 L, Hct 28.1 L, MCV 85.9, MCH 27.8, MCHC 32.4, RDW 15.9 H, Plt Count 452 H, MPV 8.7 06/26/22 04:25: Lactic Acid 1.1 06/25/22 17:09: Sodium 129 L, Potassium 3.8, Chloride 92 L, Carbon Dioxide 25, Anion Gap 12.0, BUN 30 H, Creatinine 1.6 H, Estimated GFR (MDRD) 45 L, Glucose 171 H, Calcium 8.9, Total Bilirubin 0.6, AST 14, ALT 16, Alkaline Phosphatase 71, C-Reactive Protein 27.9 H, Total Protein 8.2, Albumin 2.6 L, Globulin 5.6 H, Albumin/Globulin Ratio 0.5 L 06/25/22 17:09: ESR > 140 H 06/25/22 17:09: WBC 27.0 H, RBC 3.25 L, Hgb 8.9 L, Hct 27.9 L, MCV 85.8, MCH 27.4, MCHC 31.9 L, RDW 15.8 H, Plt Count 484 H, MPV 8.8, Neut # (Auto) Not Reportable, Lymph # (Auto) Not Reportable, [place] # (Auto) Not Reportable, Eos # (Auto) Not Reportable, Baso # (Auto) Not Reportable, Absolute Nucleated RBC Not Reportable, Total Counted 100, Band Neuts % (Manual) 2, Abnorm Lymph % (Manual) 0, Nucleated RBC % Not Reportable, Neutrophils # (Manual) 25.4 H, Lymphocytes # (Manual) 0.3 L, Monocytes # (Manual) 1.4 H, Eosinophils # (Manual) 0.0, B asophils # (Manual) 0.0, Differential Comment MANUAL DIFFERENTIAL, Platelet Estimate NORMAL (130-450,000), Platelet Morphology NORMAL APPEARANCE, RBC Morph Micro Appear NORMAL APPEARANCE Fish Bones: 07/03/22 04:45 07/03/22 04:45 Home Medications and Allergies Home Medications: Ambulatory Orders Gabapentin [Neurontin] 300 mg PO BID 06/25/22 Naltrexone HCl 50 mg PO HS 06/25/22 Tamsulosin HCl [Flomax] 0.4 mg PO DAILY 06/25/22 carvediloL [Coreg] 1 tab PO BID 06/26/22 Active Medications Acetaminophen (Acetaminophen 325 Mg Tablet) 650 mg PO Q4HR PRN PRN Reason: Pain 1 to 4, or Fever Last Admin: 07/03/22 02:43 Dose: 650 mg Hydrocodone Bitart/Acetaminophen (Hydrocod/Acetam 5/325 Mg Tablet) 1 tab PO Q4HR PRN PRN Reason: Pain 5 to 7 Last Admin: 07/03/22 04:52 Dose: 1 tab Albuterol/Ipratropium (Ipratropium/Albuterol 3 Ml Neb) 3 ml INH Q4HR PRN PRN Reason: Wheezing Carvedilol (Carvedilol 12.5 Mg Tablet) 12.5 mg PO BID [facility] Last Admin: 07/02/22 20:06 Dose: 12.5 mg Cyanocobalamin (Cyanocobalamin 500 Mcg Tablet) 1,000 mcg PO DAILY [facility] Last Admin: 07/02/22 08:19 Dose: 1,000 mcg Ferrous Gluconate (Ferrous Gluconate 324 Mg Tablet) 324 mg PO DAILYWM [facility] Last Admin: 07/02/22 08:19 Dose: 324 mg Gabapentin (Gabapentin 300 Mg Capsule) 300 mg PO BID [facility] Last Admin: 07/02/22 20:06 Dose: 300 mg Cefazolin Sodium 2 gm/ Sodium (Chloride) 50 mls @ 100 mls/hr IV Q8H [facility] Last Infusion: 07/03/22 05:17 Dose: Infused Insulin Human Lispro (Insulin Lispro 300 Unit/3 Ml Pen) 1 - 5 unit SUBQ 0800,1200,1700,2100 [facility]; Protocol Last Admin: 07/02/22 21:01 Dose: 1 unit Insulin Human Lispro (Insulin Lispro 300 Unit/3 Ml Pen) 4 unit SUBQ TIDWM [facility]; Protocol Last Admin: 07/02/22 17:07 Dose: 4 unit Lactobacillus Rhamnosus (Lactobacillus Rhamnosus Gg Capsule) 1 cap PO DAILY [facility] Last Admin: 07/02/22 08:19 Dose: 1 cap Lidocaine (Lidocaine Patch 5%) 1 patch TOP DAILY PRN PRN Reason: PAIN Last Admin: 07/02/22 20:07 Dose: 1 patch Ondansetron HCl (Ondansetron 4 Mg/2 Ml Vial) 4 mg IVP Q6HR PRN PRN Reason: Nausea / Vomiting Last Admin: 07/01/22 17:10 Dose: 4 mg Multivit/Folic Acid/Iron ( Vitamin Tablet) 1 tab PO DAILYWM [facility] Last Admin: 07/02/22 08:19 Dose: 1 tab Sodium Chloride (Sodium Chloride Flush 0.9% 10 Ml Syringe) 10 ml IVP PRN PRN PRN Reason: NEEDED PER PROVIDER ORDERS Last Admin: 07/03/22 04:48 Dose: 40 ml Sodium Chloride (Sodium Chloride Flush 0.9% 10 Ml Syringe) 10 ml IVP 0100,0900,1700 [facility] Last Admin: 07/03/22 02:44 Dose: 10 ml Tamsulosin HCl (Tamsulosin 0.4 Mg Capsule) 0.4 mg PO DAILY [facility] Last Admin: 07/02/22 08:19 Dose: 0.4 mg Gabapentin [Neurontin] 300 mg PO BID 06/25/22 Naltrexone HCl 50 mg PO HS 06/25/22 Tamsulosin HCl [Flomax] 0.4 mg PO DAILY 06/25/22 carvediloL [Coreg] 1 tab PO BID 06/26/22 Allergies/Adverse Reactions: Allergies Allergy/AdvReac Type Severity Reaction Status Date / Time No Known Drug Allergies Allergy Verified 06/25/22 16:48 Anes History & Medical History - Anesthetic History Anesthesia Complications: reports: No previous complications Family history of Anesthesia Complications: Denies Family history of Malignant Hyperthermia: Denies - Medical History Cardiovascular: reports: Hypertension Pulmonary: reports: None Gastrointestinal: reports: None Urinary: reports: Other Neuro: reports: Peripheral neuropathy Musculoskeletal: reports: Other Endocrine/Autoimmune: reports: HyPERthyroidism Blood Disorders: reports: None Skin: reports: Other Smoking Status: Never smoker - Surgical History Orthopedic: reports: Other Other Past Surgical History: toe amputations Exam General: Alert Dental: WNL Mouth Openin Fingerbreadth Neck Mobility: Normal Respiratory: Lungs clear Cardiovascular: Regular rate Plan Anesthesia Type: General, Total IV Consent for Procedure(s) Verified and Reviewed: Yes Code Status: Attempt Resuscitation ASA classification: 3-Severe systemic disease Is this case an emergency?: No
[2022-07-03] MEDS ORDERED: MIDAZOLAM 2 MG/2 ML VIAL ONE (07:36)
[2022-07-03] MEDS ORDERED: KETAMINE 500 MG/10 ML VIAL ONE (07:36)
[2022-07-03] MEDS ORDERED: PROPOFOL 500 MG/50 ML 500 MG/50 ML VIAL ONE (07:38)
[2022-07-03] MEDS ORDERED: LIDOCAINE-PF 2% 10 ML AMP SUBQ ONE (07:54)
[2022-07-03] MEDS ORDERED: LIDOCAINE-MPF 1% 30 ML VIAL ONE (07:55)
[2022-07-03] MEDS ORDERED: LIDOCAINE 1% 50 ML MDV SUBQ ONE ×2 (08:41)
[2022-07-03] MEDS ORDERED: VANCOMYCIN 1 GM VIAL ONE (08:55)
[2022-07-03] MEDS ORDERED: VANCOMYCIN 1 GM VIAL MC ONE (08:59)
--- NOTE | 2022-07-03 10:02 | OPERATIVE REPORT ---
Operative Report - General Admit Date: 06/25/22 Procedure Date: 07/03/22 Planned Procedure: 1. Irrigation debridement open wound from previous second toe amputation left foot 2. Irrigation debridement chronic open wound with wound closure right foot Pre-Op Diagnosis: 1. Status post open second toe amputation, bone and soft tissue infection Procedure Performed: 1. Irrigation debridement left open second toe amputation, delayed wound closure left foot 2. Irrigation and debridement chronic plantar medial right wound, mobilization of full-thickness skin flaps and plantar skin advancement Post Op Diagnosis: Same as preoperative diagnosis - Procedure Note Primary Surgeon: Varun Berman MD Secondary Surgeon: Kristi FOUNTAIN Anesthesia Provider: Connie Kessler CRNA Anesthesia Technique: Local, Moderate sedation Estimated Blood Loss (mL): 15 Indications: This is a 56-year-old man with longstanding forefoot problems related to frostbite, alcoholic binges, noncompliance, and neuropathy to both feet. His left foot was the reason for admission although he has had chronic right foot problems over the past several months since initial frostbite injury in May 2021. The left foot had a ulcer over the second metatarsal head area, plantar aspect, webspace breakdown between second and third toes, chronic deformity of second toe, forefoot abscess.. Last week he had a open second toe amputation, drainage of abscess. His cultures were positive for Streptococcus and resistant staph, both showing rare growth. Clinically his white blood cell count and inflammatory markers have markedly decreased. His foot infection is clinically resolved; no drainage or signs of infection to left forefoot. The ulcer is superficial to the second metatarsal head area on the plantar surface. He has been on cephalosporin antibiotic. The plan is a delayed wound closure and eventually he will need a transmetatarsal amputation if the wound closure is successful and infection remains resolved. He also appears to have diabetes mellitus and neuropathy. His right foot has had a wound VAC applied for several weeks with a chronic wound over the plantar and medial aspect of the right foot. This wound has a granulated base without exposed bone, joint or tendon. The wound edges are scarred leaving a defect of about7 cm x 2 cm. There is no sign of any infection to the wound to right foot. The granulation tissue appeared healthy, nice red color. He has had previous great toe amputation to the right foot as well as to the left foot. Findings: The no sign of bone or soft tissue infection to either foot. The wound edges of the open second toe amputation approximated well. The right foot wound was clean but wound edges were scarred to bone, first metatarsal right foot Complications: None - Other Other Information/Narrative: The patient was brought to the operating room, placed in a supine position. A timeout procedure was performed by the entire operating room team and all were in agreement. Both feet were initially cleaned with sterile scrub brushes using Hibiclens and dilute hydrogen peroxide. After this, both feet were prepped and draped following a Betadine prep to both feet. Patient had been on preoperative antibiotics, therefore, no preop antibiotics were given. The left foot wound edges at the open second toe amputation site were sharply debrided. A light curettage with a curette was done to the wound base. The wound was then thoroughly irrigated with 2 L of saline using gravity drainage. The wound was closed with simple interrupted 3-0 nylon sutures. There is not sign of any excessive tension or skin blanching at the wound closure site. The right foot was gently debrided with a curette. Skin hooks were used to provide traction to the scarred wound edges and Metzenbaum scissors were used to mobilize full-thickness skin flaps. There was a dogear proximally to the open wound overlying the first metatarsal. The dogear was excised by extending the wound proximally approximately 2-1/2 cm in a plantar direction. The wound edges were approximated after full-thickness skin edge mobilization, excising scar tissue that was adherent to the first metatarsal. The rongeur was used to debride the bone. There is no sign of any osteomyelitis. There is no sign of any active infection or necrosis. The wound measured approximately 10 cm and was closed using interrupted 2-0 and 3-0 nylon suture. Both feet were dressed in a similar fashion with Xeroform to the wounds, fluffs and dry sterile gauze, cast padding and Javad wrap. He tolerated the procedure well. A physician assistant store manager operations was medically necessary to help with prepping and draping, positioning, protection of vital structures, assistance during the procedure including wound closure, dressing and/or splinting.
[2022-07-03] MEDS: FERROUS GLUCONATE 324 MG TABLET PO SCH (10:26)
[2022-07-03] MEDS: GABAPENTIN 300 MG CAPSULE PO SCH ×2 (10:27→20:27)
[2022-07-03] MEDS: LACTOBACILLUS RHAMNOSUS GG CAPSULE PO SCH (10:27)
[2022-07-03] MEDS: PRENATAL VITAMIN TABLET PO SCH (10:27)
[2022-07-03] MEDS: TAMSULOSIN 0.4 MG CAPSULE PO SCH (10:27)
[2022-07-03] MEDS: carvediloL 12.5 MG TABLET PO SCH ×2 (10:27→20:27)
[2022-07-03] MEDS: CYANOCOBALAMIN 500 MCG TABLET PO SCH (10:27)
[2022-07-03] MEDS: INSULIN LISPRO 300 UNIT/3 ML PEN SUBQ SCH ×7 (10:40→20:36)
[2022-07-03] MEDS: ACETAMINOPHEN 325 MG TABLET PO SCH ×3 (13:25→20:28)
--- NOTE | 2022-07-03 14:15 | PROVIDER PROGRESS NOTE ---
Assessment/Plan - Problem List (1) Osteomyelitis of toe of left foot Assessment/Plan: (1) Osteomyelitis of toe of left foot Assessment/Plan: He has a dense peripheral neuropathy due to alcoholism and most likely his undiagnosed DM plus B12 deficiency. He has a previous history of frostbite. He is homeless. Noncompliant with follow-ups with orthopedics in the past. As such now with complication of all of this resulting in osteomyelitis and an abscess in the left foot. He was on Zosyn and vancomycin, and completed 4 days before being changed to Ancef 06/28. Blood cultures from June 25 are negative. Toe culture from June 26 has staph aureus, and beta-hemolytic strep, group A Wound culture in the OR, x2, was done June 27. That culture shows beta-hemolytic strep group A as well., Unfortunately final sensitivities (which I thought were MSSA) are now MRSA in 1 of those cultures. On June 27 he underwent an open left second toe amputation at the metat arsophalangeal joint level. Drainage of abscess of left forefoot. Today is is POD #4. His white cell count is coming down. He peaked at 30.5 and now it is 11.9>>11.3>11.4 today. C-reactive protein was 27.9 on admission. Then 23.0>>18.3.>16.8>16.2>14.1 today PICC line placed 06/28 Plan: Two-stage procedure with orthopedics. Already had toe amputation. Depending on how this wound progresses or infection improves, there may be a more definitive procedure such a transmetatarsal amputation with tendo Achilles lengthening next week. The patient is to remain in the hospital on IV antibiotics. Changed to Ancef 06/28. I have discussed the case with Dr. Berman. White cell count is coming down, C-reactive protein was coming down. There is no redness, or heat. Other than his feet and L shoulder, the patient is actually quite well. Plan: He had successful OR procedure today 07/03. Continue Ancef until [facility]. At that time, pt to be sent home on no meds, as per Dr Berman's recommendations today. He need bilateral boots per Ortho Dr. Berman feels the patient may be able to be discharged July 04 or , depending on PT and OT evals. PT and OT evaluations ordered, but not performed today, because we do not have the proper boot, per PT He needs to have Ortho clinic appt in 1 week (2) Abscess of left foot including toes Impression: As in problem #1. (3) Left shoulder pain Impression: The pain has been going on for several weeks, worse x5 days. He tells me he heard it pop and thinks he dislocated it when stretching. L arm it is painful to abduct. He is getting cold packs, [place] and lidoderm and it is helping with the discomfort. Plan: Symptoms and pain management discussed with orthopedics. Will continue [place]. Dr. Berman verbally told me that no MRI is indicated, since there is no fracture or dislocation on XRay. Will cancel MRI. He will need detailed outpt eval and management of this problem, per Ortho. Will still need OT and PT assessment before [facility] to see if he can do ADLs Qualifiers: Chronicity: chronic Qualified Code(s): M25.512 - Pain in left shoulder; G89.29 - Other chronic pain (4) Hypertension Impression: Patient takes carvedilol at home. Tachycardia has resolved by 06/28 with his first dose of carvedilol. Blood pressure is stable. Plan: No change for today. Qualifiers: Hypertension type: primary hypertension Qualified Code(s): I10 - Essential (primary) hypertension (5) Type 2 diabetes mellitus with diabetic polyneuropathy, without long-term current use of insulin Impression: He did not have a diagnosis of diabetes. On admission here his glucose was 170. A1c is 6.2%. He states that he really adheres to a fairly good diet. Tries to keep his body healthy in spite of his alcoholism. Works out on a regular basis and goes to the gym. He may have peripheral neuropathy as a combination of his alcohol abuse and his diabetes. Plan: Continue diabetic diet, fingerstick checks, 4 units of short acting insulin with each meal, started 06/28, Hypoglycemia protocol. (6) Hx alcohol abuse Impression: He has been sober for 7 mos. No signs of withdrawal. Plan: Support no alcohol abuse. (7) Homeless single person Plan: His [facility] location will be to a long-term. - Current Meds Current Meds: Current Medications Generic Name Dose Route Start Last Admin Trade Name Freq PRN Reason Stop Dose Admin Acetaminophen 650 mg 07/03/22 13:00 07/03/22 13:25 Acetaminophen 325 Mg Tablet PO 650 mg Q4HR TALITA Administration Carvedilol 12.5 mg 06/27/22 09:00 07/03/22 10:27 Carvedilol 12.5 Mg Tablet PO 12.5 mg BID TALITA Administration Cyanocobalamin 1,000 mcg 07/01/22 17:00 07/03/22 10:27 Cyanocobalamin 500 Mcg Tablet PO 1,000 mcg DAILY TALITA Administration Ferrous Gluconate 324 mg 06/30/22 12:00 07/03/22 10:26 Ferrous Gluconate 324 Mg Tablet PO 324 mg DAILYWM TALITA Administration Gabapentin 300 mg 06/27/22 09:00 07/03/22 10:27 Gabapentin 300 Mg Capsule PO 300 mg BID TALITA Administration Cefazolin Sodium 2 gm/ Sodium 50 mls @ 100 mls/hr 06/29/22 12:00 07/03/22 13:26 Chloride IV 100 mls/hr Q8H TALITA Administration Insulin Human Lispro 1 - 5 unit 06/26/22 17:00 07/03/22 12:54 Insulin Lispro 300 Unit/3 Ml Pen SUBQ 1 unit 0800,1200,1700,2100 TALITA Administration Protocol Insulin Human Lispro 4 unit 06/28/22 17:00 07/03/22 12:56 Insulin Lispro 300 Unit/3 Ml Pen SUBQ 4 unit TIDWM TALITA Administration Protocol Lactobacillus Rhamnosus 1 cap 06/26/22 09:00 07/03/22 10:27 Lactobacillus Rhamnosus Gg Capsule PO 1 cap DAILY TALITA Administration Lidocaine 1 patch 06/30/22 11:13 07/02/22 20:07 Lidocaine Patch 5% TOP 1 patch DAILY PRN Administration PAIN Ondansetron HCl 4 mg 06/25/22 21:13 07/01/22 17:10 Ondansetron 4 Mg/2 Ml Vial IVP 4 mg Q6HR PRN Administration Nausea / Vomiting Multivit/Folic Acid/Iron 1 tab 06/27/22 08:00 07/03/22 10:27 Vitamin Tablet PO 1 tab DAILYWM TALITA Administration Sodium Chloride 10 ml 06/25/22 21:13 07/03/22 04:48 Sodium Chloride Flush 0.9% 10 Ml Syringe IVP 40 ml PRN PRN Administration NEEDED PER PROVIDER ORDERS Sodium Chloride 10 ml 06/26/22 01:00 07/03/22 10:26 Sodium Chloride Flush 0.9% 10 Ml Syringe IVP 10 ml 0100,0900,1700 TALITA Administration Tamsulosin HCl 0.4 mg 06/26/22 09:00 07/03/22 10:27 Tamsulosin 0.4 Mg Capsule PO 0.4 mg DAILY TALITA Administration - Lab Result Fish Bone Diagrams: 07/03/22 04:45 07/03/22 04:45 - Additional Planning My Orders: My Active Orders 07/03/22 Evaluate and Treat OT [OT] Routine Evaluate and Treat PT [PT] Routine Subjective - Subjective Patient Reports: Pain (L shoulder and L hip and L knee, started 5 days ago. PT and OT did not work with him after his OR today, per pt) Objective Vital Signs: Vital Signs - 24 hr 07/02/22 07/03/22 07/03/22 14:51 00:00 07:15 Temperature 37 C 37.1 C 36.9 C Heart Rate [ 85 80 88 Brachial] Respiratory 18 16 16 Rate Blood Pressure 119/67 [Right Brachial artery] Blood Pressure 118/75 111/63 [Right Radial artery] O2 Saturation 95 97 97 07/03/22 07/03/22 07/03/22 09:52 10:08 10:38 Temperature 36.5 C 36.5 C Heart Rate [ 86 82 85 Brachial] Respiratory 18 18 20 Rate Blood Pressure [Right Brachial artery] Blood Pressure 115/66 110/87 H 124/83 H [Right Radial artery] O2 Saturation 98 100 100 07/03/22 12:48 Temperature Heart Rate [ 79 Brachial] Respiratory 18 Rate Blood Pressure [Right Brachial artery] Blood Pressure 124/68 [Right Radial artery] O2 Saturation 100 Oxygen O2 Source Room air I&O (Last 24 Hrs): Intake and Output Totals x24h 07/01/22 07/02/22 07/03/22 23:59 23:59 23:59 Intake Total 5968.340 4020 1250 Output Total 9100 7845 1750 Balance -3131.660 -3825 -500 General: Alert, Oriented x3 HEENT: Mucous membr. moist/pink, Other (Disheveled) Neck: Supple, No JVD Neuro: Alert, Other (Feet have decr sensation) Cardiovascular: Regular rate, No murmurs Respiratory: No respiratory distress Abdomen: Soft Extremities: Other (Both feet and all toes bilat have bandgaes. Walks favoring his L hip (I watched), and L arm held near body.) - Results Results: Laboratory Results WBC 12.4 x10^3/uL (4.8-10.8) H 07/03/22 04:45 RBC 3.43 10^6/uL (4.70-6.10) L 07/03/22 04:45 Hgb 9.4 g/dL (14.0-18.0) L 07/03/22 04:45 Hct 29.8 % (42.0-52.0) L 07/03/22 04:45 MCV 86.9 fL (80.0-94.0) 07/03/22 04:45 MCH 27.4 pg (27.0-31.0) 07/03/22 04:45 MCHC 31.5 g/dL (32.0-36.0) L 07/03/22 04:45 RDW 16.1 % (12.0-15.0) H 07/03/22 04:45 Plt Count 705 10^3/uL (130-450) H 07/03/22 04:45 MPV 8.9 fL (7.4-11.4) 07/03/22 04:45 Reticulocyte % (Auto) 0.74 % (0.5-2.3) 06/29/22 04:20 Neut # (Auto) 9.3 10^3/uL (1.5-6.6) H 07/03/22 04:45 Lymph # (Auto) 1.3 10^3/uL (1.5-3.5) L 07/03/22 04:45 [place] # (Auto) 1.0 10^3/uL (0.0-1.0) 07/03/22 04:45 Eos # (Auto) 0.3 10^3/uL (0.0-0.7) 07/03/22 04:45 Baso # (Auto) 0.1 10^3/uL (0.0-0.1) 07/03/22 04:45 Absolute Nucleated RBC 0.00 x10^3/uL 07/03/22 04:45 Total Counted 100 06/27/22 06:27 Band Neuts % (Manual) 0 % (0-10) 06/27/22 06:27 Abnorm Lymph % (Manual) 0 % 06/27/22 06:27 Nucleated RBC % 0.0 /100WBC 07/03/22 04:45 Neutrophils # (Manual) 20.4 10^3/uL (1.5-6.6) H 06/27/22 06:27 Lymphocytes # (Manual) 2.4 10^3/uL (1.5-3.5) 06/27/22 06:27 Monocytes # (Manual) 0.9 10^3/uL (0.0-1.0) 06/27/22 06:27 Eosinophils # (Manual) 0.0 10^3/uL (0-0.7) 06/27/22 06:27 Basophils # (Manual) 0.0 10^3/uL (0-0.1) 06/27/22 06:27 Differential Comment MANUAL DIFFERENTIAL 06/27/22 06:27 WBC Morphology NORMAL APPEARANCE (NORMAL) 06/27/22 06:27 Platelet Estimate NORMAL (130-450,000) (NORMAL) 06/27/22 06:27 Platelet Morphology NORMAL APPEARANCE (NORMAL) 06/27/22 06:27 RBC Morph Micro Appear NORMAL APPEARANCE (NORMAL) 06/27/22 06:27 ESR > 140 mm/Hr (0-20) H 06/25/22 17:09 Absolute Retic 0.021 10^6/uL (0.020-0.110) 06/29/22 04:20 PT 18.5 secs (9.9-12.6) H 06/26/22 04:25 INR 1.7 (0.8-1.2) H 06/26/22 04:25 Sodium 132 mmol/L (135-145) L 07/03/22 04:45 Potassium 4.5 mmol/L (3.5-5.0) 07/03/22 04:45 Chloride 98 mmol/L (101-111) L 07/03/22 04:45 Carbon Dioxide 26 mmol/L (21-32) 07/03/22 04:45 Anion Gap 8.0 (6-13) 07/03/22 04:45 BUN 30 mg/dL (6-20) H 07/03/22 04:45 Creatinine 0.9 mg/dL (0.6-1.2) 07/03/22 04:45 Estimated GFR (MDRD) 87 (>89) L 07/03/22 04:45 Glucose 131 mg/dL (70-100) H 07/03/22 04:45 POC Whole Bld Glucose 143 mg/dL (70 - 100) H 07/03/22 11:32 Estimat Average Glucose 131 mg/dL (70-100) H 06/27/22 06:27 Hemoglobin A1c % 6.2 % (4.27-6.07) H 06/27/22 06:27 Lactic Acid 1.1 mmol/L (0.5-2.2) 06/26/22 04:25 Calcium 9.4 mg/dL (8.5-10.3) 07/03/22 04:45 Iron 12 ug/dL (45-182) L 06/29/22 04:20 Transferrin < 70 mg/dL (180-329) L 06/29/22 04:20 Ferritin 540.9 ng/mL (23.9-336.2) H 06/29/22 04:20 Total Bilirubin 0.6 mg/dL (0.2-1.0) 06/25/22 17:09 AST 14 IU/L (10-42) 06/25/22 17:09 ALT 16 IU/L (10-60) 06/25/22 17:09 Alkaline Phosphatase 71 IU/L (42-121) 06/25/22 17:09 Lactate Dehydrogenase 95 IU/L (91-225) 06/29/22 04:20 C-Reactive Protein 10.6 mg/dL (0-1.0) H 07/03/22 04:45 Total Protein 8.2 g/dL (6.7-8.2) 06/25/22 17:09 Albumin 2.6 g/dL (3.2-5.5) L 06/25/22 17:09 Globulin 5.6 g/dL (2.1-4.2) H 06/25/22 17:09 Albumin/Globulin Ratio 0.5 (1.0-2.2) L 06/25/22 17:09 Vitamin B12 114 pg/mL (180-914) L 06/29/22 04:20 Nasal Adenovirus (PCR) NOT DETECTED 06/25/22 18:20 Nasal B. parapertussis DNA (PCR) NOT DETECTED 06/25/22 18:20 Nasal Coronavir 229E PCR NOT DETECTED 06/25/22 18:20 Nasal Coronavir HKU1 PCR NOT DETECTED 06/25/22 18:20 Nasal Coronavir NL63 PCR NOT DETECTED 06/25/22 18:20 Nasal Coronavir OC43 PCR NOT DETECTED 06/25/22 18:20 Nasal Enterovir/Rhinovir PCR NOT DETECTED 06/25/22 18:20 Nasal Influenza B PCR NOT DETECTED 06/25/22 18:20 Nasal Influenza A PCR NOT DETECTED 06/25/22 18:20 Nasal Parainfluen 1 PCR NOT DETECTED 06/25/22 18:20 Nasal Parainfluen 2 PCR NOT DETECTED 06/25/22 18:20 Nasal Parainfluen 3 PCR NOT DETECTED 06/25/22 18:20 Nasal Parainfluen 4 PCR NOT DETECTED 06/25/22 18:20 Nasal RSV (PCR) NOT DETECTED 06/25/22 18:20 Nasal B.pertussis DNA PCR NOT DETECTED 06/25/22 18:20 Nasal C.pneumoniae (PCR) NOT DETECTED 06/25/22 18:20 [place] Human Metapneumo PCR NOT DETECTED 06/25/22 18:20 Nasal M.pneumoniae (PCR) NOT DETECTED 06/25/22 18:20 Nasal SARS-CoV-2 (PCR) NOT DETECTED 06/25/22 18:20 Stl Occult Blood (IFOB) NEGATIVE (NEGATIVE) 07/01/22 17:17 Last Dose Date 06/25/22 06/27/22 05:38 Last Dose Time 212206/27/22 05:38 Vancomycin Trough 11.6 ug/mL (10.0-20.0) 06/27/22 05:38 Influenza A (Rapid) Negative (Negative) 06/25/22 18:20 Influenza B (Rapid) Negative (Negative) 06/25/22 18:20 - Procedures Procedures: Procedures DETACHMENT AT LEFT 1ST TOE, COMPLETE, OPEN APPROACH (08/15/21) Sepsis Event Note (H) - Evaluation Current Stage of Sepsis: Sepsis Possible source of Sepsis: positive: Bone/Joint, Skin/soft tissue - Sepsis Criteria Sepsis Criteria: Recorded Respiratory Rate greater than 20, WBC count greater than 12,000 or less than 4000
--- NOTE | 2022-07-03 14:24 | PROVIDER PROGRESS NOTE ---
Subjective - General Admit Date: 06/25/22 Procedure Date: 07/03/22 Post Op Days: 0 Procedure Performed: Open amputation left second toe, drainage of forefoot abscess left foot - Review of Systems Wound/Incisions: negative: Healing well (He denies pain to his feet) General: negative: No symptoms (He is doing very well with his feet. He has neuropathic pain at times which is helped by gabapentin. He does have left shoulder pain from weightlifting, no injury.) - Other Other Information/Narrative: This is a postop follow-up note. Patient is comfortable, no complaints referable to his feet. Objective - Patient Data Vital Signs: Vital Signs x48h Temp Pulse Resp BP Pulse Ox 07/03/22 12:48 79 18 124/68 100 07/03/22 10:38 36.5 C 85 20 124/83 H 100 07/03/22 10:08 82 18 110/87 H 100 07/03/22 09:52 36.5 C 86 18 115/66 98 07/03/22 07:15 36.9 C 88 16 111/63 97 Weight: Weight 07/01/22 07/02/22 07/03/22 23:59 23:59 23:59 Weight (kg) 94 kg 94 kg 93.5 kg Intake & Output: Intake and Output Totals x24h 07/01/22 07/02/22 07/03/22 23:59 23:59 23:59 Intake Total 5968.340 4020 1250 Output Total 9100 7845 1750 Balance -3131.660 -3825 -500 - Lab Results Lab Results: 07/03/22 04:45 07/03/22 04:45 Other Lab Results: Lab Results x24hrs 07/03/22 07/03/22 07/03/22 Range/Units 11:32 07:13 04:45 WBC (4.8-10.8) x10^3/uL RBC (4.70-6.10) 10^6/uL Hgb (14.0-18.0) g/dL Hct (42.0-52.0) % MCV (80.0-94.0) fL MCH (27.0-31.0) pg MCHC (32.0-36.0) g/dL RDW (12.0-15.0) % Plt Count (130-450) 10^3/uL MPV (7.4-11.4) fL Neut # (Auto) (1.5-6.6) 10^3/uL Lymph # (Auto) (1.5-3.5) 10^3/uL [place] # (Auto) (0.0-1.0) 10^3/uL Eos # (Auto) (0.0-0.7) 10^3/uL Baso # (Auto) (0.0-0.1) 10^3/uL Absolute Nucleated RBC x10^3/uL Nucleated RBC % /100WBC Sodium 132 L (135-145) mmol/L Potassium 4.5 (3.5-5.0) mmol/L Chloride 98 L (101-111) mmol/L Carbon Dioxide 26 (21-32) mmol/L Anion Gap 8.0 (6-13) BUN 30 H (6-20) mg/dL Creatinine 0.9 (0.6-1.2) mg/dL Estimated GFR (MDRD) 87 L (>89) Glucose 131 H (70-100) mg/dL POC Whole Bld Glucose 143 H 120 H (70 - 100) mg/dL Calcium 9.4 (8.5-10.3) mg/dL C-Reactive Protein 10.6 H (0-1.0) mg/dL 07/03/22 07/02/22 07/02/22 Range/Units 04:45 20:43 16:43 WBC 12.4 H (4.8-10.8) x10^3/uL RBC 3.43 L (4.70-6.10) 10^6/uL Hgb 9.4 L (14.0-18.0) g/dL Hct 29.8 L (42.0-52.0) % MCV 86.9 (80.0-94.0) fL MCH 27.4 (27.0-31.0) pg MCHC 31.5 L (32.0-36.0) g/dL RDW 16.1 H (12.0-15.0) % Plt Count 705 H (130-450) 10^3/uL MPV 8.9 (7.4-11.4) fL Neut # (Auto) 9.3 H (1.5-6.6) 10^3/uL Lymph # (Auto) 1.3 L (1.5-3.5) 10^3/uL [place] # (Auto) 1.0 (0.0-1.0) 10^3/uL Eos # (Auto) 0.3 (0.0-0.7) 10^3/uL Baso # (Auto) 0.1 (0.0-0.1) 10^3/uL Absolute Nucleated RBC 0.00 x10^3/uL Nucleated RBC % 0.0 /100WBC Sodium (135-145) mmol/L Potassium (3.5-5.0) mmol/L Chloride (101-111) mmol/L Carbon Dioxide (21-32) mmol/L Anion Gap (6-13) BUN (6-20) mg/dL Creatinine (0.6-1.2) mg/dL Estimated GFR (MDRD) (>89) Glucose (70-100) mg/dL POC Whole Bld Glucose 168 H 121 H (70 - 100) mg/dL Calcium (8.5-10.3) mg/dL C-Reactive Protein (0-1.0) mg/dL - Current Medications Current Medications: Current Medications Generic Name Dose Route Start Last Admin Trade Name Freq PRN Reason Stop Dose Admin Acetaminophen 650 mg 07/03/22 13:00 07/03/22 13:25 Acetaminophen 325 Mg Tablet PO 650 mg Q4HR TALITA Administration Carvedilol 12.5 mg 06/27/22 09:00 07/03/22 10:27 Carvedilol 12.5 Mg Tablet PO 12.5 mg BID TALITA Administration Cyanocobalamin 1,000 mcg 07/01/22 17:00 07/03/22 10:27 Cyanocobalamin 500 Mcg Tablet PO 1,000 mcg DAILY TALITA Administration Ferrous Gluconate 324 mg 06/30/22 12:00 07/03/22 10:26 Ferrous Gluconate 324 Mg Tablet PO 324 mg DAILYWM TALITA Administration Gabapentin 300 mg 06/27/22 09:00 07/03/22 10:27 Gabapentin 300 Mg Capsule PO 300 mg BID TALITA Administration Cefazolin Sodium 2 gm/ Sodium 50 mls @ 100 mls/hr 06/29/22 12:00 07/03/22 13:26 Chloride IV 100 mls/hr Q8H TALITA Administration Insulin Human Lispro 1 - 5 unit 06/26/22 17:00 07/03/22 12:54 Insulin Lispro 300 Unit/3 Ml Pen SUBQ 1 unit 0800,1200,1700,2100 TALITA Administration Protocol Insulin Human Lispro 4 unit 06/28/22 17:00 07/03/22 12:56 Insulin Lispro 300 Unit/3 Ml Pen SUBQ 4 unit TIDWM TALITA Administration Protocol Lactobacillus Rhamnosus 1 cap 06/26/22 09:00 07/03/22 10:27 Lactobacillus Rhamnosus Gg Capsule PO 1 cap DAILY TALITA Administration Lidocaine 1 patch 06/30/22 11:13 07/02/22 20:07 Lidocaine Patch 5% TOP 1 patch DAILY PRN Administration PAIN Ondansetron HCl 4 mg 06/25/22 21:13 07/01/22 17:10 Ondansetron 4 Mg/2 Ml Vial IVP 4 mg Q6HR PRN Administration Nausea / Vomiting Multivit/Folic Acid/Iron 1 tab 06/27/22 08:00 07/03/22 10:27 Vitamin Tablet PO 1 tab DAILYWM TALITA Administration Sodium Chloride 10 ml 06/25/22 21:13 07/03/22 04:48 Sodium Chloride Flush 0.9% 10 Ml Syringe IVP 40 ml PRN PRN Administration NEEDED PER PROVIDER ORDERS Sodium Chloride 10 ml 06/26/22 01:00 07/03/22 10:26 Sodium Chloride Flush 0.9% 10 Ml Syringe IVP 10 ml 0100,0900,1700 TALITA Administration Tamsulosin HCl 0.4 mg 06/26/22 09:00 07/03/22 10:27 Tamsulosin 0.4 Mg Capsule PO 0.4 mg DAILY TALITA Administration - Physical Exam General Appearance: positive: No acute distress Comments/Other: He is alert and oriented. Dressings to both feet are dry and intact. Impression/Plan - Problem List Problem List: 1. Acute on chronic bone and soft tissue infection left forefoot Surgery has been done twice on left forefoot, first procedure was open second toe amputation and drainage of forefoot abscess, second surgery performed today consisting of irrigation and debridement, delayed wound closure. 2. Chronic wound plantar medial aspect right foot overlying first metatarsal, noninfected. Today surgical procedure, done in conjunction with his left foot, was irrigation debridement, mobilization of full-thickness skin flaps and wound closure right foot The discharge plan: 1. All antibiotics can be stopped pending discharge 2. He can bear weight as tolerated with bilateral short boot walkers and a crutch in his right hand. 3. Elevate both feet and can remove the boots to both feet when in bed. 4. Dressings should not be removed by patient. Please keep dressings clean and dry 5. Would recommend aspirin 81 mg twice daily for deep venous thrombosis prophylaxis for least 1 month. 6. Return appointment to our office within 1 week from time of discharge 7. May remove PICC line Before discharge 8. Use Tylenol for pain as needed for his feet, 3000 mg or less per day
[2022-07-04] MEDS: ACETAMINOPHEN 325 MG TABLET PO SCH ×6 (00:44→21:13)
[2022-07-04] MEDS: SODIUM CHLORIDE FLUSH 0.9% 10 ML SYRINGE IVP SCH ×3 (00:44→17:05)
[2022-07-04] MEDS: HYDROcod/ACETAM 5/325 MG TABLET PO PRN ×3 (04:48→17:16)
[2022-07-04 05:03] LABS: BASOPHILS # (AUTO) 0.1 10^3/uL (0.0-0.1); BASOPHILS % (AUTO) 0.5 %; EOSINOPHILS # (AUTO) 0.2 10^3/uL (0.0-0.7); EOSINOPHILS % (AUTO) 1.2 %; HCT - HEMATOCRIT 33.4 % (42.0-52.0); HGB - HEMOGLOBIN 10.2 g/dL (14.0-18.0); LYMPHOCYTES # (AUTO) 1.7 10^3/uL (1.5-3.5); LYMPHOCYTES % (AUTO) 13.1 %; MEAN CORPUSCULAR HEMOGLOBIN 27.1 pg (27.0-31.0); MEAN CORPUSCULAR HGB CONC 30.5 g/dL (32.0-36.0); MEAN CORPUSCULAR VOLUME 88.8 fL (80.0-94.0); MEAN PLATELET VOLUME 9.6 fL (7.4-11.4); MONOCYTES # (AUTO) 0.9 10^3/uL (0.0-1.0); MONOCYTES % (AUTO) 6.9 %; NEUTROPHILS # (AUTO) 9.8 10^3/uL (1.5-6.6); NEUTROPHILS % (AUTO) 75.4 %; PLT - PLATELET COUNT 680 10^3/uL (130-450); RED BLOOD COUNT 3.76 10^6/uL (4.70-6.10); RED CELL DISTRIBUTION WIDTH 16.4 % (12.0-15.0)
[2022-07-04 05:22] LABS: CALCIUM 9.7 mg/dL (8.5-10.3); CREATININE 0.8 mg/dL (0.6-1.2); CRP - C-REACTIVE PROTEIN 11.3 mg/dL (0-1.0); POTASSIUM 4.5 mmol/L (3.5-5.0)
[2022-07-04] MEDS: CYANOCOBALAMIN 500 MCG TABLET PO SCH (08:21)
[2022-07-04] MEDS: TAMSULOSIN 0.4 MG CAPSULE PO SCH (08:22)
[2022-07-04] MEDS: PRENATAL VITAMIN TABLET PO SCH (08:22)
[2022-07-04] MEDS: FERROUS GLUCONATE 324 MG TABLET PO SCH (08:22)
[2022-07-04] MEDS: GABAPENTIN 300 MG CAPSULE PO SCH ×2 (08:22→21:14)
[2022-07-04] MEDS: ASPIRIN EC 81 MG TABLET PO SCH ×2 (08:23→21:14)
[2022-07-04] MEDS: LACTOBACILLUS RHAMNOSUS GG CAPSULE PO SCH (08:24)
[2022-07-04] MEDS: carvediloL 12.5 MG TABLET PO SCH ×2 (08:25→21:14)
[2022-07-04] MEDS: INSULIN LISPRO 300 UNIT/3 ML PEN SUBQ SCH ×7 (08:26→21:14)
[2022-07-04] MEDS: LIDOCAINE PATCH 5% TOP SCH (13:45)
--- NOTE | 2022-07-04 15:46 | PROVIDER PROGRESS NOTE ---
Assessment/Plan - Problem List (1) Osteomyelitis of toe of left foot Assessment/Plan: He has a dense peripheral neuropathy due to alcoholism and most likely his undiagnosed DM plus B12 deficiency. He has a previous history of frostbite. He is homeless. Noncompliant with follow-ups with orthopedics in the past. As such now with complication of all of this resulting in osteomyelitis and an abscess in the left foot. He was on Zosyn and vancomycin, and completed 4 days before being changed to Ancef 06/28. Blood cultures from June 25 are negative. Toe culture from June 26 has staph aureus, and beta-hemolytic strep, group A Wound culture in the OR, x2, was done June 27. That culture shows beta- hemolytic strep group A as well., Unfortunately final sensitivities are now MRSA in 1 of those cultures. On June 27 he underwent an open left second toe amputation at the metatarsophalangeal joint level. Drainage of abscess of left forefoot. His white cell count is coming down. He peaked at 30.5 and now it is 11.9>>11.3>11.4 today. C-reactive protein was 27.9 on admission, then has slowy improvedimproved PICC line placed 06/28 PT and OT evaluations done after the last surgery show that he needs a walker plus boots to ambulate safely, but he cannot move the L arm, due to L shoulder pain, to put the boots on and off. He also sleeps on a mat on the floor (no mattress in the homeless [facility]), but he cannot maneuver down to floor, without using both arms. Plan: The patient is to remain in the hospital on IV antibiotics Ancef until he is discharged, per Dr. Berman. At that time, pt to be sent home on no meds, as per Dr Berman's last recommendations. Continue to wear bilateral boots to ambulate per Ortho, not post-op shoes. Ortho has advised he needs increased pain meds for L shoulder pain, to try to be able to independently put on his boots, and be able to maneuver to sleep on a mat on the floor (in the [facility]). He needs to have Ortho clinic appt in 1 week (2) Abscess of left foot including toes Impression: As in problem #1. (3) Left shoulder pain Impression: The pain has been going on for several weeks, worse x6 days. He told me he heard it pop and thinks he dislocated it when stretching. L arm it is painful to abduct. He is getting cold packs, [place] and lidoderm and it is helping with the discomfort. Plan: Symptoms and pain management discussed with orthopedics. Will continue narcotics. No injection is indicated per Ortho. Dr. Berman said that no MRI is indicated, since there is no fracture or dislocation on XRay. We cancelled MRI. He will need pain meds and rehab as initial management of this problem, per Ortho. Will increase pain meds for L shoulder pain, to try to be able to independently put on his boots, and be able to maneuver to sleep on a mat on the floor. Qualifiers: Chronicity: chronic Qualified Code(s): M25.512 - Pain in left shoulder; G89.29 - Other chronic pain (4) Hypertension Impression: Patient takes carvedilol at home. Tachycardia has resolved by 06/28 with his first dose of carvedilol. Blood pressure is stable. Plan: No change in meds Qualifiers: Hypertension type: primary hypertension Qualified Code(s): I10 - Essential (primary) hypertension (5) Type 2 diabetes mellitus with diabetic polyneuropathy, without long-term current use of insulin Impression: He did not have a diagnosis of diabetes. On admission here his glucose was 170. A1c is 6.2%. He states that he really adheres to a fairly good diet. Tries to keep his body healthy in spite of his alcoholism. Works out on a regular basis and goes to the gym. He may have peripheral neuropathy as a combination of his alcohol abuse and his diabetes. Plan: Continue diabetic diet, fingerstick checks, short acting insulin with each meal, Hypoglycemia protocol. (6) Hx alcohol abuse Impression: He has been sober for 7 mos. No signs of withdrawal. Plan: Support no alcohol abuse. (7) Homeless single person Plan: His [facility] location will be to a [facility], which causes the concern over his sleeping position there, which is on the floor. - Current Meds Current Meds: Current Medications Generic Name Dose Route Start Last Admin Trade Name Freq PRN Reason Stop Dose Admin Acetaminophen 650 mg 07/03/22 13:00 07/04/22 12:33 Acetaminophen 325 Mg Tablet PO Not Given Q4HR TALITA Hydrocodone Bitart/Acetaminophen 1 tab 07/03/22 14:15 07/04/22 12:47 Hydrocod/Acetam 5/325 Mg Tablet PO 1 tab Q4HR PRN Administration PAIN Aspirin 81 mg 07/04/22 09:00 07/04/22 08:23 Aspirin Ec 81 Mg Tablet PO 81 mg BID TALITA Administration Carvedilol 12.5 mg 06/27/22 09:00 07/04/22 08:25 Carvedilol 12.5 Mg Tablet PO 12.5 mg BID TALITA Administration Cyanocobalamin 1,000 mcg 07/01/22 17:00 07/04/22 08:21 Cyanocobalamin 500 Mcg Tablet PO 1,000 mcg DAILY TALITA Administration Ferrous Gluconate 324 mg 06/30/22 12:00 07/04/22 08:22 Ferrous Gluconate 324 Mg Tablet PO 324 mg DAILYWM TALITA Administration Gabapentin 300 mg 06/27/22 09:00 07/04/22 08:22 Gabapentin 300 Mg Capsule PO 300 mg BID TALITA Administration Cefazolin Sodium 2 gm/ Sodium 50 mls @ 100 mls/hr 06/29/22 12:00 07/04/22 12:35 Chloride IV 100 mls/hr Q8H TALITA Administration Insulin Human Lispro 1 - 5 unit 06/26/22 17:00 07/04/22 12:34 Insulin Lispro 300 Unit/3 Ml Pen SUBQ Not Given 0800,1200,1700,2100 [facility] Protocol Insulin Human Lispro 4 unit 06/28/22 17:00 07/04/22 12:34 Insulin Lispro 300 Unit/3 Ml Pen SUBQ 4 unit TIDWM TALITA Administration Protocol Lactobacillus Rhamnosus 1 cap 06/26/22 09:00 07/04/22 08:24 Lactobacillus Rhamnosus Gg Capsule PO 1 cap DAILY TALITA Administration Lidocaine 1 patch 06/30/22 11:13 07/02/22 20:07 Lidocaine Patch 5% TOP 1 patch DAILY PRN Administration PAIN Lidocaine 1 patch 07/04/22 13:00 07/04/22 13:45 Lidocaine Patch 5% TOP 1 patch DAILY TALITA Administration Ondansetron HCl 4 mg 06/25/22 21:13 07/01/22 17:10 Ondansetron 4 Mg/2 Ml Vial IVP 4 mg Q6HR PRN Administration Nausea / Vomiting Multivit/Folic Acid/Iron 1 tab 06/27/22 08:00 07/04/22 08:22 Vitamin Tablet PO 1 tab DAILYWM TALITA Administration Sodium Chloride 10 ml 06/25/22 21:13 07/03/22 04:48 Sodium Chloride Flush 0.9% 10 Ml Syringe IVP 40 ml PRN PRN Administration NEEDED PER PROVIDER ORDERS Sodium Chloride 10 ml 06/26/22 01:00 07/04/22 08:25 Sodium Chloride Flush 0.9% 10 Ml Syringe IVP 10 ml 0100,0900,1700 TALITA Administration Tamsulosin HCl 0.4 mg 06/26/22 09:00 07/04/22 08:22 Tamsulosin 0.4 Mg Capsule PO 0.4 mg DAILY TALITA Administration - Lab Result Fish Bone Diagrams: 07/05/22 04:55 07/05/22 04:55 - Additional Planning My Orders: My Active Orders 07/04/22 13:00 Lidocaine Patch 5% [Lidoderm Patch] 1 patch TOP DAILY Objective Vital Signs: Vital Signs - 24 hr 07/03/22 07/03/22 07/04/22 15:49 23:29 07:42 Temperature 36.6 C 37 C 37.1 C Heart Rate [ 84 88 83 Brachial] Respiratory 20 18 16 Rate Blood Pressure 121/67 124/74 [Right Brachial artery] Blood Pressure 123/72 [Right Radial artery] O2 Saturation 98 96 100 Oxygen O2 Source Room air I&O (Last 24 Hrs): Intake and Output Totals x24h 07/02/22 07/03/22 07/04/22 23:59 23:59 23:59 Intake Total 4020 5590 1030 Output Total 7845 4400 3850 Balance -3823 1190 -5750 - Results Results: Laboratory Results WBC 13.0 x10^3/uL (4.8-10.8) H 07/04/22 04:19 RBC 3.76 10^6/uL (4.70-6.10) L 07/04/22 04:19 Hgb 10.2 g/dL (14.0-18.0) L 07/04/22 04:19 Hct 33.4 % (42.0-52.0) L 07/04/22 04:19 MCV 88.8 fL (80.0-94.0) 07/04/22 04:19 MCH 27.1 pg (27.0-31.0) 07/04/22 04:19 MCHC 30.5 g/dL (32.0-36.0) L 07/04/22 04:19 RDW 16.4 % (12.0-15.0) H 07/04/22 04:19 Plt Count 680 10^3/uL (130-450) H 07/04/22 04:19 MPV 9.6 fL (7.4-11.4) 07/04/22 04:19 Reticulocyte % (Auto) 0.74 % (0.5-2.3) 06/29/22 04:20 Neut # (Auto) 9.8 10^3/uL (1.5-6.6) H 07/04/22 04:19 Lymph # (Auto) 1.7 10^3/uL (1.5-3.5) 07/04/22 04:19 [place] # (Auto) 0.9 10^3/uL (0.0-1.0) 07/04/22 04:19 Eos # (Auto) 0.2 10^3/uL (0.0-0.7) 07/04/22 04:19 Baso # (Auto) 0.1 10^3/uL (0.0-0.1) 07/04/22 04:19 Absolute Nucleated RBC 0.00 x10^3/uL 07/04/22 04:19 Total Counted 100 06/27/22 06:27 Band Neuts % (Manual) 0 % (0-10) 06/27/22 06:27 Abnorm Lymph % (Manual) 0 % 06/27/22 06:27 Nucleated RBC % 0.0 /100WBC 07/04/22 04:19 Neutrophils # (Manual) 20.4 10^3/uL (1.5-6.6) H 06/27/22 06:27 Lymphocytes # (Manual) 2.4 10^3/uL (1.5-3.5) 06/27/22 06:27 Monocytes # (Manual) 0.9 10^3/uL (0.0-1.0) 06/27/22 06:27 Eosinophils # (Manual) 0.0 10^3/uL (0-0.7) 06/27/22 06:27 Basophils # (Manual) 0.0 10^3/uL (0-0.1) 06/27/22 06:27 Differential Comment MANUAL DIFFERENTIAL 06/27/22 06:27 WBC Morphology NORMAL APPEARANCE (NORMAL) 06/27/22 06:27 Platelet Estimate NORMAL (130-450,000) (NORMAL) 06/27/22 06:27 Platelet Morphology NORMAL APPEARANCE (NORMAL) 06/27/22 06:27 RBC Morph Micro Appear NORMAL APPEARANCE (NORMAL) 06/27/22 06:27 ESR > 140 mm/Hr (0-20) H 06/25/22 17:09 Absolute Retic 0.021 10^6/uL (0.020-0.110) 06/29/22 04:20 PT 18.5 secs (9.9-12.6) H 06/26/22 04:25 INR 1.7 (0.8-1.2) H 06/26/22 04:25 Sodium 133 mmol/L (135-145) L 07/04/22 04:19 Potassium 4.5 mmol/L (3.5-5.0) 07/04/22 04:19 Chloride 99 mmol/L (101-111) L 07/04/22 04:19 Carbon Dioxide 23 mmol/L (21-32) 07/04/22 04:19 Anion Gap 11.0 (6-13) 07/04/22 04:19 BUN 27 mg/dL (6-20) H 07/04/22 04:19 Creatinine 0.8 mg/dL (0.6-1.2) 07/04/22 04:19 Estimated GFR (MDRD) 100 (>89) 07/04/22 04:19 Glucose 127 mg/dL (70-100) H 07/04/22 04:19 POC Whole Bld Glucose 114 mg/dL (70 - 100) H 07/04/22 11:35 Estimat Average Glucose 131 mg/dL (70-100) H 06/27/22 06:27 Hemoglobin A1c % 6.2 % (4.27-6.07) H 06/27/22 06:27 Lactic Acid 1.1 mmol/L (0.5-2.2) 06/26/22 04:25 Calcium 9.7 mg/dL (8.5-10.3) 07/04/22 04:19 Iron 12 ug/dL (45-182) L 06/29/22 04:20 Transferrin < 70 mg/dL (180-329) L 06/29/22 04:20 Ferritin 540.9 ng/mL (23.9-336.2) H 06/29/22 04:20 Total Bilirubin 0.6 mg/dL (0.2-1.0) 06/25/22 17:09 AST 14 IU/L (10-42) 06/25/22 17:09 ALT 16 IU/L (10-60) 06/25/22 17:09 Alkaline Phosphatase 71 IU/L (42-121) 06/25/22 17:09 Lactate Dehydrogenase 95 IU/L (91-225) 06/29/22 04:20 C-Reactive Protein 11.3 mg/dL (0-1.0) H 07/04/22 04:19 Total Protein 8.2 g/dL (6.7-8.2) 06/25/22 17:09 Albumin 2.6 g/dL (3.2-5.5) L 06/25/22 17:09 Globulin 5.6 g/dL (2.1-4.2) H 06/25/22 17:09 Albumin/Globulin Ratio 0.5 (1.0-2.2) L 06/25/22 17:09 Vitamin B12 114 pg/mL (180-914) L 06/29/22 04:20 Nasal Adenovirus (PCR) NOT DETECTED 06/25/22 18:20 Nasal B. parapertussis DNA (PCR) NOT DETECTED 06/25/22 18:20 Nasal Coronavir 229E PCR NOT DETECTED 06/25/22 18:20 Nasal Coronavir HKU1 PCR NOT DETECTED 06/25/22 18:20 Nasal Coronavir NL63 PCR NOT DETECTED 06/25/22 18:20 Nasal Coronavir OC43 PCR NOT DETECTED 06/25/22 18:20 Nasal Enterovir/Rhinovir PCR NOT DETECTED 06/25/22 18:20 Nasal Influenza B PCR NOT DETECTED 06/25/22 18:20 Nasal Influenza A PCR NOT DETECTED 06/25/22 18:20 Nasal Parainfluen 1 PCR NOT DETECTED 06/25/22 18:20 Nasal Parainfluen 2 PCR NOT DETECTED 06/25/22 18:20 Nasal Parainfluen 3 PCR NOT DETECTED 06/25/22 18:20 Nasal Parainfluen 4 PCR NOT DETECTED 06/25/22 18:20 Nasal RSV (PCR) NOT DETECTED 06/25/22 18:20 Nasal B.pertussis DNA PCR NOT DETECTED 06/25/22 18:20 Nasal C.pneumoniae (PCR) NOT DETECTED 06/25/22 18:20 [place] Human Metapneumo PCR NOT DETECTED 06/25/22 18:20 Nasal M.pneumoniae (PCR) NOT DETECTED 06/25/22 18:20 Nasal SARS-CoV-2 (PCR) NOT DETECTED 06/25/22 18:20 Stl Occult Blood (IFOB) NEGATIVE (NEGATIVE) 07/01/22 17:17 Last Dose Date 06/25/22 06/27/22 05:38 Last Dose Time 212206/27/22 05:38 Vancomycin Trough 11.6 ug/mL (10.0-20.0) 06/27/22 05:38 Influenza A (Rapid) Negative (Negative) 06/25/22 18:20 Influenza B (Rapid) Negative (Negative) 06/25/22 18:20 - Procedures Procedures: Procedures DETACHMENT AT LEFT 1ST TOE, COMPLETE, OPEN APPROACH (08/15/21) Sepsis Event Note (H) - Evaluation Current Stage of Sepsis: Sepsis Possible source of Sepsis: positive: Bone/Joint, Skin/soft tissue - Sepsis Criteria Sepsis Criteria: Recorded Respiratory Rate greater than 20, WBC count greater than 12,000 or less than 4000
--- NOTE | 2022-07-04 16:02 | PROVIDER PROGRESS NOTE ---
Subjective - General Admit Date: 06/25/22 Procedure Date: 07/03/22 Post Op Days: 1 Procedure Performed: Open amputation left second toe, drainage of forefoot abscess left foot - Review of Systems Wound/Incisions: negative: Healing well (He denies pain to his feet) General: negative: No symptoms (He is doing very well with his feet. He has neuropathic pain at times which is helped by gabapentin. He does have left shoulder pain from weightlifting, no injury.) - Other Other Information/Narrative: He is alert and awake, sitting recumbent in bed He has no pain in the bilateral feet, he is comfortable Objective - Patient Data Weight: Weight 07/02/22 07/03/22 07/04/22 23:59 23:59 23:59 Weight (kg) 94 kg 93.5 kg 93 kg Intake & Output: Intake and Output Totals x24h 07/02/22 07/03/22 07/04/22 23:59 23:59 23:59 Intake Total 4020 5590 1030 Output Total 7845 4400 3850 Balance -3825 1190 -2820 - Lab Results Lab Results: 07/04/22 04:19 07/04/22 04:19 Other Lab Results: Lab Results x24hrs 07/04/22 07/04/22 07/04/22 Range/Units 11:35 07:40 04:19 WBC (4.8-10.8) x10^3/uL RBC (4.70-6.10) 10^6/uL Hgb (14.0-18.0) g/dL Hct (42.0-52.0) % MCV (80.0-94.0) fL MCH (27.0-31.0) pg MCHC (32.0-36.0) g/dL RDW (12.0-15.0) % Plt Count (130-450) 10^3/uL MPV (7.4-11.4) fL Neut # (Auto) (1.5-6.6) 10^3/uL Lymph # (Auto) (1.5-3.5) 10^3/uL [place] # (Auto) (0.0-1.0) 10^3/uL Eos # (Auto) (0.0-0.7) 10^3/uL Baso # (Auto) (0.0-0.1) 10^3/uL Absolute Nucleated RBC x10^3/uL Nucleated RBC % /100WBC Sodium 133 L (135-145) mmol/L Potassium 4.5 (3.5-5.0) mmol/L Chloride 99 L (101-111) mmol/L Carbon Dioxide 23 (21-32) mmol/L Anion Gap 11.0 (6-13) BUN 27 H (6-20) mg/dL Creatinine 0.8 (0.6-1.2) mg/dL Estimated GFR (MDRD) 100 (>89) Glucose 127 H (70-100) mg/dL POC Whole Bld Glucose 114 H 160 H (70 - 100) mg/dL Calcium 9.7 (8.5-10.3) mg/dL C-Reactive Protein 11.3 H (0-1.0) mg/dL 07/04/22 07/03/22 07/03/22 Range/Units 04:19 20:34 16:47 WBC 13.0 H (4.8-10.8) x10^3/uL RBC 3.76 L (4.70-6.10) 10^6/uL Hgb 10.2 L (14.0-18.0) g/dL Hct 33.4 L (42.0-52.0) % MCV 88.8 (80.0-94.0) fL MCH 27.1 (27.0-31.0) pg MCHC 30.5 L (32.0-36.0) g/dL RDW 16.4 H (12.0-15.0) % Plt Count 680 H (130-450) 10^3/uL MPV 9.6 (7.4-11.4) fL Neut # (Auto) 9.8 H (1.5-6.6) 10^3/uL Lymph # (Auto) 1.7 (1.5-3.5) 10^3/uL [place] # (Auto) 0.9 (0.0-1.0) 10^3/uL Eos # (Auto) 0.2 (0.0-0.7) 10^3/uL Baso # (Auto) 0.1 (0.0-0.1) 10^3/uL Absolute Nucleated RBC 0.00 x10^3/uL Nucleated RBC % 0.0 /100WBC Sodium (135-145) mmol/L Potassium (3.5-5.0) mmol/L Chloride (101-111) mmol/L Carbon Dioxide (21-32) mmol/L Anion Gap (6-13) BUN (6-20) mg/dL Creatinine (0.6-1.2) mg/dL Estimated GFR (MDRD) (>89) Glucose (70-100) mg/dL POC Whole Bld Glucose 148 H 113 H (70 - 100) mg/dL Calcium (8.5-10.3) mg/dL C-Reactive Protein (0-1.0) mg/dL - Current Medications Current Medications: Current Medications Generic Name Dose Route Start Last Admin Trade Name Freq PRN Reason Stop Dose Admin Acetaminophen 650 mg 07/03/22 13:00 07/04/22 12:33 Acetaminophen 325 Mg Tablet PO Not Given Q4HR TALITA Hydrocodone Bitart/Acetaminophen 1 tab 07/03/22 14:15 07/04/22 12:47 Hydrocod/Acetam 5/325 Mg Tablet PO 1 tab Q4HR PRN Administration PAIN Aspirin 81 mg 07/04/22 09:00 07/04/22 08:23 Aspirin Ec 81 Mg Tablet PO 81 mg BID TALITA Administration Carvedilol 12.5 mg 06/27/22 09:00 07/04/22 08:25 Carvedilol 12.5 Mg Tablet PO 12.5 mg BID TALITA Administration Cyanocobalamin 1,000 mcg 07/01/22 17:00 07/04/22 08:21 Cyanocobalamin 500 Mcg Tablet PO 1,000 mcg DAILY TALITA Administration Ferrous Gluconate 324 mg 06/30/22 12:00 07/04/22 08:22 Ferrous Gluconate 324 Mg Tablet PO 324 mg DAILYWM TALITA Administration Gabapentin 300 mg 06/27/22 09:00 07/04/22 08:22 Gabapentin 300 Mg Capsule PO 300 mg BID TALITA Administration Cefazolin Sodium 2 gm/ Sodium 50 mls @ 100 mls/hr 06/29/22 12:00 07/04/22 12:35 Chloride IV 100 mls/hr Q8H TALITA Administration Insulin Human Lispro 1 - 5 unit 06/26/22 17:00 07/04/22 12:34 Insulin Lispro 300 Unit/3 Ml Pen SUBQ Not Given 0800,1200,1700,2100 [facility] Protocol Insulin Human Lispro 4 unit 06/28/22 17:00 07/04/22 12:34 Insulin Lispro 300 Unit/3 Ml Pen SUBQ 4 unit TIDWM TALITA Administration Protocol Lactobacillus Rhamnosus 1 cap 06/26/22 09:00 07/04/22 08:24 Lactobacillus Rhamnosus Gg Capsule PO 1 cap DAILY TALITA Administration Lidocaine 1 patch 06/30/22 11:13 07/02/22 20:07 Lidocaine Patch 5% TOP 1 patch DAILY PRN Administration PAIN Lidocaine 1 patch 07/04/22 13:00 07/04/22 13:45 Lidocaine Patch 5% TOP 1 patch DAILY TALITA Administration Ondansetron HCl 4 mg 06/25/22 21:13 07/01/22 17:10 Ondansetron 4 Mg/2 Ml Vial IVP 4 mg Q6HR PRN Administration Nausea / Vomiting Multivit/Folic Acid/Iron 1 tab 06/27/22 08:00 07/04/22 08:22 Vitamin Tablet PO 1 tab DAILYWM TALITA Administration Sodium Chloride 10 ml 06/25/22 21:13 07/03/22 04:48 Sodium Chloride Flush 0.9% 10 Ml Syringe IVP 40 ml PRN PRN Administration NEEDED PER PROVIDER ORDERS Sodium Chloride 10 ml 06/26/22 01:00 07/04/22 08:25 Sodium Chloride Flush 0.9% 10 Ml Syringe IVP 10 ml 0100,0900,1700 TALITA Administration Tamsulosin HCl 0.4 mg 06/26/22 09:00 07/04/22 08:22 Tamsulosin 0.4 Mg Capsule PO 0.4 mg DAILY TALITA Administration - Physical Exam Comments/Other: He is alert and oriented, lying in bed comfortably, no acute distress Dressings to both feet are dry and intact, no sanguinous drainage Neurovascularly intact to the bilateral lower extremities Impression/Plan - Problem List Problem List: 56-year-old gentleman with a past medical history of alcohol use disorder is postoperative day 1 from irrigation and debridement and wound closure of the bilateral feet for acute on chronic bone and soft tissue infection. He is recovering well. Plan: -Please see progress note from 07/03/2022 for detailed discharge instructions from orthopedic perspective -Continue DVT prophylaxis aspirin 81 mg twice daily for at least 1 month after discharge -Dressings to remain in place and should not be removed by the patient. Keep dressings dry and clean. -He can bear weight as tolerated with bilateral cam boot walkers and a crutch in the right hand or front wheeled walker dependent upon his stability. -He should continue to elevate both feet and ice as needed -He should follow-up in the orthopedic clinic within 1 week from discharge, he has sutures in place that need to be removed and his dressings must be changed -He does not need antibiotics at discharge, PICC line to be removed -Tylenol as needed for pain control -He can follow-up with the orthopedic clinic regarding his shoulder pain.
[2022-07-05] MEDS: ACETAMINOPHEN 325 MG TABLET PO SCH ×6 (01:25→21:24)
[2022-07-05] MEDS: HYDROcod/ACETAM 5/325 MG TABLET PO PRN ×5 (01:29→16:56)
[2022-07-05] MEDS: SODIUM CHLORIDE FLUSH 0.9% 10 ML SYRINGE IVP SCH ×3 (01:29→16:57)
[2022-07-05 05:06] LABS: BASOPHILS # (AUTO) 0.1 10^3/uL (0.0-0.1); BASOPHILS % (AUTO) 0.5 %; EOSINOPHILS # (AUTO) 0.1 10^3/uL (0.0-0.7); EOSINOPHILS % (AUTO) 1.1 %; HCT - HEMATOCRIT 28.5 % (42.0-52.0); HGB - HEMOGLOBIN 8.9 g/dL (14.0-18.0); LYMPHOCYTES # (AUTO) 1.6 10^3/uL (1.5-3.5); LYMPHOCYTES % (AUTO) 15.7 %; MEAN CORPUSCULAR HEMOGLOBIN 27.5 pg (27.0-31.0); MEAN CORPUSCULAR HGB CONC 31.2 g/dL (32.0-36.0); MEAN PLATELET VOLUME 8.6 fL (7.4-11.4); MONOCYTES # (AUTO) 0.8 10^3/uL (0.0-1.0); MONOCYTES % (AUTO) 7.7 %; NEUTROPHILS # (AUTO) 7.4 10^3/uL (1.5-6.6); NEUTROPHILS % (AUTO) 73.4 %; PLT - PLATELET COUNT 683 10^3/uL (130-450); RED BLOOD COUNT 3.24 10^6/uL (4.70-6.10); WHITE BLOOD COUNT 10.1 x10^3/uL (4.8-10.8)
[2022-07-05 05:22] LABS: CALCIUM 9.6 mg/dL (8.5-10.3); CREATININE 0.8 mg/dL (0.6-1.2); CRP - C-REACTIVE PROTEIN 9.5 mg/dL (0-1.0); POTASSIUM 4.4 mmol/L (3.5-5.0)
[2022-07-05] MEDS: ASPIRIN EC 81 MG TABLET PO SCH ×2 (08:33→21:24)
[2022-07-05] MEDS: FERROUS GLUCONATE 324 MG TABLET PO SCH (08:33)
[2022-07-05] MEDS: carvediloL 12.5 MG TABLET PO SCH ×2 (08:33→21:24)
[2022-07-05] MEDS: CYANOCOBALAMIN 500 MCG TABLET PO SCH (08:33)
[2022-07-05] MEDS: PRENATAL VITAMIN TABLET PO SCH (08:33)
[2022-07-05] MEDS: LACTOBACILLUS RHAMNOSUS GG CAPSULE PO SCH (08:33)
[2022-07-05] MEDS: LIDOCAINE PATCH 5% TOP SCH (08:34)
[2022-07-05] MEDS: GABAPENTIN 300 MG CAPSULE PO SCH ×2 (08:34→21:24)
[2022-07-05] MEDS: TAMSULOSIN 0.4 MG CAPSULE PO SCH (08:34)
[2022-07-05] MEDS: INSULIN LISPRO 300 UNIT/3 ML PEN SUBQ SCH ×7 (08:37→21:29)
--- NOTE | 2022-07-05 16:01 | PROVIDER PROGRESS NOTE ---
Subjective - General Admit Date: 06/25/22 Procedure Date: 07/03/22 Post Op Days: 2 Procedure Performed: Open amputation left second toe, drainage of forefoot abscess left foot - Review of Systems Wound/Incisions: negative: Healing well (He denies pain to his feet) General: negative: No symptoms (He is doing very well with his feet. He has neuropathic pain at times which is helped by gabapentin. He does have left shoulder pain from weightlifting, no injury.) - Other Other Information/Narrative: Alert and oriented, lying in bed, dressings in place to the bilateral lower extremities. He reports no pain in his feet He reports he walked successfully with a tall cam boot walkers and a walker with occupational therapy earlier this day He voices concern about the ability to use 1 crutch and balance with the tall cam boot walkers He has difficulty putting the tall cam boot walker is on due to some shoulder pain Objective - Patient Data Weight: Weight 07/03/22 07/04/22 07/05/22 23:59 23:59 23:59 Weight (kg) 93.5 kg 93 kg Intake & Output: Intake and Output Totals x24h 07/03/22 07/04/22 07/05/22 23:59 23:59 23:59 Intake Total 5590 3344 2580 Output Total 4406 5634 2850 Balance 8690 -8357 -109 - Lab Results Lab Results: 07/05/22 04:55 07/05/22 04:55 Other Lab Results: Lab Results x24hrs 07/05/22 07/05/22 07/05/22 Range/Units 11:39 07:37 04:55 WBC (4.8-10.8) x10^3/uL RBC (4.70-6.10) 10^6/uL Hgb (14.0-18.0) g/dL Hct (42.0-52.0) % MCV (80.0-94.0) fL MCH (27.0-31.0) pg MCHC (32.0-36.0) g/dL RDW (12.0-15.0) % Plt Count (130-450) 10^3/uL MPV (7.4-11.4) fL Neut # (Auto) (1.5-6.6) 10^3/uL Lymph # (Auto) (1.5-3.5) 10^3/uL [place] # (Auto) (0.0-1.0) 10^3/uL Eos # (Auto) (0.0-0.7) 10^3/uL Baso # (Auto) (0.0-0.1) 10^3/uL Absolute Nucleated RBC x10^3/uL Nucleated RBC % /100WBC Sodium 134 L (135-145) mmol/L Potassium 4.4 (3.5-5.0) mmol/L Chloride 98 L (101-111) mmol/L Carbon Dioxide 27 (21-32) mmol/L Anion Gap 9.0 (6-13) BUN 25 H (6-20) mg/dL Creatinine 0.8 (0.6-1.2) mg/dL Estimated GFR (MDRD) 100 (>89) Glucose 129 H (70-100) mg/dL POC Whole Bld Glucose 126 H 142 H (70 - 100) mg/dL Calcium 9.6 (8.5-10.3) mg/dL C-Reactive Protein 9.5 H (0-1.0) mg/dL 07/05/22 07/04/22 07/04/22 Range/Units 04:55 20:49 16:47 WBC 10.1 (4.8-10.8) x10^3/uL RBC 3.24 L (4.70-6.10) 10^6/uL Hgb 8.9 L (14.0-18.0) g/dL Hct 28.5 L (42.0-52.0) % MCV 88.0 (80.0-94.0) fL MCH 27.5 (27.0-31.0) pg MCHC 31.2 L (32.0-36.0) g/dL RDW 16.0 H (12.0-15.0) % Plt Count 683 H (130-450) 10^3/uL MPV 8.6 (7.4-11.4) fL Neut # (Auto) 7.4 H (1.5-6.6) 10^3/uL Lymph # (Auto) 1.6 (1.5-3.5) 10^3/uL [place] # (Auto) 0.8 (0.0-1.0) 10^3/uL Eos # (Auto) 0.1 (0.0-0.7) 10^3/uL Baso # (Auto) 0.1 (0.0-0.1) 10^3/uL Absolute Nucleated RBC 0.00 x10^3/uL Nucleated RBC % 0.0 /100WBC Sodium (135-145) mmol/L Potassium (3.5-5.0) mmol/L Chloride (101-111) mmol/L Carbon Dioxide (21-32) mmol/L Anion Gap (6-13) BUN (6-20) mg/dL Creatinine (0.6-1.2) mg/dL Estimated GFR (MDRD) (>89) Glucose (70-100) mg/dL POC Whole Bld Glucose 109 H 133 H (70 - 100) mg/dL Calcium (8.5-10.3) mg/dL C-Reactive Protein (0-1.0) mg/dL - Current Medications Current Medications: Current Medications Generic Name Dose Route Start Last Admin Trade Name Colleen PRN Reason Stop Dose Admin Acetaminophen 650 mg 07/03/22 13:00 07/05/22 12:23 Acetaminophen 325 Mg Tablet PO 650 mg Q4HR TALITA Administration Hydrocodone Bitart/Acetaminophen 1 tab 07/03/22 14:15 07/05/22 12:22 Hydrocod/Acetam 5/325 Mg Tablet PO 1 tab Q4HR PRN Administration PAIN Aspirin 81 mg 07/04/22 09:00 07/05/22 08:33 Aspirin Ec 81 Mg Tablet PO 81 mg BID TALITA Administration Carvedilol 12.5 mg 06/27/22 09:00 07/05/22 08:33 Carvedilol 12.5 Mg Tablet PO 12.5 mg BID TALITA Administration Cyanocobalamin 1,000 mcg 07/01/22 17:00 07/05/22 08:33 Cyanocobalamin 500 Mcg Tablet PO 1,000 mcg DAILY TALITA Administration Ferrous Gluconate 324 mg 06/30/22 12:00 07/05/22 08:33 Ferrous Gluconate 324 Mg Tablet PO 324 mg DAILYWM TALITA Administration Gabapentin 300 mg 06/27/22 09:00 07/05/22 08:34 Gabapentin 300 Mg Capsule PO 300 mg BID TALITA Administration Cefazolin Sodium 2 gm/ Sodium 50 mls @ 100 mls/hr 06/29/22 12:00 07/05/22 15:00 Chloride IV Infused Q8H TALITA Infusion Insulin Human Lispro 1 - 5 unit 06/26/22 17:00 07/05/22 12:17 Insulin Lispro 300 Unit/3 Ml Pen SUBQ Not Given 0800,1200,1700,2100 [facility] Protocol Insulin Human Lispro 4 unit 06/28/22 17:00 07/05/22 13:01 Insulin Lispro 300 Unit/3 Ml Pen SUBQ 4 unit TIDWM [facility] Administration Protocol Lactobacillus Rhamnosus 1 cap 06/26/22 09:00 07/05/22 08:33 Lactobacillus Rhamnosus Gg Capsule PO 1 cap DAILY TALITA Administration Lidocaine 1 patch 06/30/22 11:13 07/02/22 20:07 Lidocaine Patch 5% TOP 1 patch DAILY PRN Administration PAIN Lidocaine 1 patch 07/04/22 13:00 07/05/22 08:34 Lidocaine Patch 5% TOP 1 patch DAILY TALITA Administration Ondansetron HCl 4 mg 06/25/22 21:13 07/01/22 17:10 Ondansetron 4 Mg/2 Ml Vial IVP 4 mg Q6HR PRN Administration Nausea / Vomiting Multivit/Folic Acid/Iron 1 tab 06/27/22 08:00 07/05/22 08:33 Vitamin Tablet PO 1 tab DAILYWM TALITA Administration Sodium Chloride 10 ml 06/25/22 21:13 07/03/22 04:48 Sodium Chloride Flush 0.9% 10 Ml Syringe IVP 40 ml PRN PRN Administration NEEDED PER PROVIDER ORDERS Sodium Chloride 10 ml 06/26/22 01:00 07/05/22 08:34 Sodium Chloride Flush 0.9% 10 Ml Syringe IVP 10 ml 0100,0900,1700 [facility] Administration Tamsulosin HCl 0.4 mg 06/26/22 09:00 07/05/22 08:34 Tamsulosin 0.4 Mg Capsule PO 0.4 mg DAILY TALITA Administration - Physical Exam Wound/Incisions: positive: Healing well, Dressing dry and intact Neurologic/Psychiatric: positive: Oriented x3 Comments/Other: Pleasant, no acute distress, laying in bed Dressings in place to the bilateral lower extremities, no discharge Appropriate range of motion of the bilateral feet Neurovascularly intact Impression/Plan - Problem List Problem List: 56-year-old gentleman postoperative day 2 from two-stage procedure for amputation of left second toe, followed by incision and drainage with primary wound closure of the bilateral feet. He continues to have no pain in the bilateral feet and his dressings remain dry and intact without discharge. He is afebrile and ambulating in tall cam boot walkers with physical therapy. Plan: -Please see progress note from 07/03/22 for detailed discharge instructions from orthopedic perspective -Continue DVT prophylaxis 81 mg twice daily for at least 1 month after discharge -Dressings to remain intact and in place. Orthopedic providers will change dressing prior to discharge if it is more than 5 days postop -Continue weightbearing as tolerated with a bilateral cam boot walker was in front wheel walker -Follow-up in orthopedic clinic within 1 week of discharge, suture removal will be required as well as dressing changes -Tylenol as needed for pain control
--- NOTE | 2022-07-05 18:16 | PROVIDER PROGRESS NOTE ---
Assessment/Plan - Problem List (1) Osteomyelitis of toe of left foot Assessment/Plan: He has a dense peripheral neuropathy due to alcoholism and most likely his undiagnosed DM plus B12 deficiency. He has a previous history of frostbite. He is homeless. Noncompliant with follow-ups with orthopedics in the past. As such now with complication of all of this resulting in osteomyelitis and an abscess in the left foot. He was on Zosyn and vancomycin, and completed 4 days before being changed to Ancef 06/28. Blood cultures from June 25 are negative. Toe culture from June 26 has staph aureus, and beta-hemolytic strep, group A Wound culture in the OR, x2, was done June 27. That culture shows beta- hemolytic strep group A as well., Unfortunately final sensitivities are now MRSA in 1 of those cultures. On June 27 he underwent an open left second toe amputation at the metatarsophalangeal joint level. Drainage of abscess of left forefoot. His white cell count peaked at 30.5 and has dropped. C-reactive protein was 27.9 on admission, then has slowy improvedimproved PICC line placed 06/28 PT and OT evaluations done after the last surgery show that he needs a walker plus boots to ambulate safely, which he can do. But he cannot move the L arm enough, due to L shoulder pain, to put the boots on and off. He also sleeps on a mat on the floor (no mattress in the homeless correction), but he cannot maneuver down to floor, without using both arms. Plan: The patient is to remain in the hospital on IV antibiotics Ancef until he is discharged, per Dr. Berman. At that time, pt to be sent home on no meds, as per Dr Berman's last recommendations. Continue to wear bilateral boots to ambulate per Ortho, not post-op shoes. Ortho has advised he needs increased pain meds for L shoulder pain, to try to be able to independently put on his boots, and be able to maneuver to sleep on a mat on the floor (in the Homeless correction). Will assess his ability to do those ADLs adequately. He needs to have Ortho clinic appt in 1 week (2) Abscess of left foot including toes Impression: As in problem #1. (3) Left shoulder pain Impression: The pain has been going on for several weeks, worse x6 days. He told me he heard it pop and thinks he dislocated it when stretching. L arm it is painful to abduct. He is getting cold packs, [place] and lidoderm and it is helping with the discomfort. Symptoms and pain management discussed with orthopedics. Will continue narcotics. No injection is indicated per Ortho. Dr. Berman said that no MRI is indicated, since there is no fracture or dislo cation on XRay. We cancelled MRI. Plan: He will need increase in pain meds and rehab as initial management of this problem, per Ortho. Will increase pain meds for L shoulder pain, to try to be able to independently put on his boots, and be able to maneuver to sleep on a mat on the floor. Will assess his ability to do those ADLs adequately, so that he can have a safe discharge. Qualifiers: Chronicity: chronic Qualified Code(s): M25.512 - Pain in left shoulder; G89.29 - Other chronic pain (4) Hypertension Impression: Patient takes carvedilol at home. Blood pressure is stable. Plan: Continue meds for HTN Qualifiers: Hypertension type: primary hypertension Qualified Code(s): I10 - Essential (primary) hypertension (5) Type 2 diabetes mellitus with diabetic polyneuropathy, without long-term current use of insulin Impression: He did not have a diagnosis of diabetes. On admission here his glucose was 170. A1c is 6.2%. He states that he really adheres to a fairly good diet. Tries to keep his body healthy in spite of his alcoholism. Works out on a regular basis and goes to the gym. He may have peripheral neuropathy as a combination of his alcohol abuse and his diabetes. Plan: Continue diabetic diet, fingerstick checks, short acting insulin with each meal, Hypoglycemia protocol. (6) Hx alcohol abuse Impression: He has been sober for 7 mos. No signs of withdrawal. Plan: Support no alcohol abuse. (7) Homeless single person Plan: His [facility] location will be to a correction, which causes the concern over his s leeping position there, which is on the floor. - Current Meds Current Meds: Current Medications Generic Name Dose Route Start Last Admin Trade Name Freq PRN Reason Stop Dose Admin Acetaminophen 650 mg 07/03/22 13:00 07/05/22 16:56 Acetaminophen 325 Mg Tablet PO Not Given Q4HR TALITA Hydrocodone Bitart/Acetaminophen 1 tab 07/03/22 14:15 07/05/22 16:56 Hydrocod/Acetam 5/325 Mg Tablet PO 1 tab Q4HR PRN Administration PAIN Aspirin 81 mg 07/04/22 09:00 07/05/22 08:33 Aspirin Ec 81 Mg Tablet PO 81 mg BID TALITA Administration Carvedilol 12.5 mg 06/27/22 09:00 07/05/22 08:33 Carvedilol 12.5 Mg Tablet PO 12.5 mg BID TALITA Administration Cyanocobalamin 1,000 mcg 07/01/22 17:00 07/05/22 08:33 Cyanocobalamin 500 Mcg Tablet PO 1,000 mcg DAILY TALITA Administration Ferrous Gluconate 324 mg 06/30/22 12:00 07/05/22 08:33 Ferrous Gluconate 324 Mg Tablet PO 324 mg DAILYWM TALITA Administration Gabapentin 300 mg 06/27/22 09:00 07/05/22 08:34 Gabapentin 300 Mg Capsule PO 300 mg BID TALITA Administration Cefazolin Sodium 2 gm/ Sodium 50 mls @ 100 mls/hr 06/29/22 12:00 07/05/22 15:00 Chloride IV Infused Q8H TALITA Infusion Insulin Human Lispro 1 - 5 unit 06/26/22 17:00 07/05/22 16:57 Insulin Lispro 300 Unit/3 Ml Pen SUBQ 1 unit 0800,1200,1700,2100 [facility] Administration Protocol Insulin Human Lispro 4 unit 06/28/22 17:00 07/05/22 16:56 Insulin Lispro 300 Unit/3 Ml Pen SUBQ 4 unit TIDWM [facility] Administration Protocol Lactobacillus Rhamnosus 1 cap 06/26/22 09:00 07/05/22 08:33 Lactobacillus Rhamnosus Gg Capsule PO 1 cap DAILY TALITA Administration Lidocaine 1 patch 06/30/22 11:13 07/02/22 20:07 Lidocaine Patch 5% TOP 1 patch DAILY PRN Administration PAIN Lidocaine 1 patch 07/04/22 13:00 07/05/22 08:34 Lidocaine Patch 5% TOP 1 patch DAILY TALITA Administration Ondansetron HCl 4 mg 06/25/22 21:13 07/01/22 17:10 Ondansetron 4 Mg/2 Ml Vial IVP 4 mg Q6HR PRN Administration Nausea / Vomiting Multivit/Folic Acid/Iron 1 tab 06/27/22 08:00 07/05/22 08:33 Vitamin Tablet PO 1 tab DAILYWM TALITA Administration Sodium Chloride 10 ml 06/25/22 21:13 07/03/22 04:48 Sodium Chloride Flush 0.9% 10 Ml Syringe IVP 40 ml PRN PRN Administration NEEDED PER PROVIDER ORDERS Sodium Chloride 10 ml 06/26/22 01:00 07/05/22 16:57 Sodium Chloride Flush 0.9% 10 Ml Syringe IVP 10 ml 0100,0900,1700 TALITA Administration Tamsulosin HCl 0.4 mg 06/26/22 09:00 07/05/22 08:34 Tamsulosin 0.4 Mg Capsule PO 0.4 mg DAILY TALITA Administration - Lab Result Fish Bone Diagrams: 07/05/22 04:55 07/05/22 04:55 Subjective - Subjective Patient Reports: Pain (of L shoulder, no better or worse) Objective Vital Signs: Vital Signs - 24 hr 07/04/22 07/05/22 07/05/22 23:33 07:39 16:41 Temperature 36.5 C 37.0 C 37.0 C Heart Rate [ 79 76 78 Brachial] Respiratory 16 18 18 Rate Blood Pressure 116/72 123/68 [Right Brachial artery] Blood Pressure 118/67 [Right Radial artery] O2 Saturation 97 98 98 Oxygen O2 Source Room air I&O (Last 24 Hrs): Intake and Output Totals x24h 07/03/22 07/04/22 07/05/22 23:59 23:59 23:59 Intake Total 5590 3344 3140 Output Total 4400 6950 2850 Balance 1190 -3606 290 General: Alert, Oriented x3 HEENT: Atraumatic, EOMI Neck: Supple, No JVD Neuro: Alert, Non Focal, Other (except no sensation of toes and feet) Respiratory: No respiratory distress, Breath sounds nml Abdomen: Normal bowel sounds, Soft Extremities: No edema, Other (bilateral feet and toes bandaged) - Results Results: Laboratory Results WBC 10.1 x10^3/uL (4.8-10.8) 07/05/22 04:55 RBC 3.24 10^6/uL (4.70-6.10) L 07/05/22 04:55 Hgb 8.9 g/dL (14.0-18.0) L 07/05/22 04:55 Hct 28.5 % (42.0-52.0) L 07/05/22 04:55 MCV 88.0 fL (80.0-94.0) 07/05/22 04:55 MCH 27.5 pg (27.0-31.0) 07/05/22 04:55 MCHC 31.2 g/dL (32.0-36.0) L 07/05/22 04:55 RDW 16.0 % (12.0-15.0) H 07/05/22 04:55 Plt Count 683 10^3/uL (130-450) H 07/05/22 04:55 MPV 8.6 fL (7.4-11.4) 07/05/22 04:55 Reticulocyte % (Auto) 0.74 % (0.5-2.3) 06/29/22 04:20 Neut # (Auto) 7.4 10^3/uL (1.5-6.6) H 07/05/22 04:55 Lymph # (Auto) 1.6 10^3/uL (1.5-3.5) 07/05/22 04:55 [place] # (Auto) 0.8 10^3/uL (0.0-1.0) 07/05/22 04:55 Eos # (Auto) 0.1 10^3/uL (0.0-0.7) 07/05/22 04:55 Baso # (Auto) 0.1 10^3/uL (0.0-0.1) 07/05/22 04:55 Absolute Nucleated RBC 0.00 x10^3/uL 07/05/22 04:55 Total Counted 100 06/27/22 06:27 Band Neuts % (Manual) 0 % (0-10) 06/27/22 06:27 Abnorm Lymph % (Manual) 0 % 06/27/22 06:27 Nucleated RBC % 0.0 /100WBC 07/05/22 04:55 Neutrophils # (Manual) 20.4 10^3/uL (1.5-6.6) H 06/27/22 06:27 Lymphocytes # (Manual) 2.4 10^3/uL (1.5-3.5) 06/27/22 06:27 Monocytes # (Manual) 0.9 10^3/uL (0.0-1.0) 06/27/22 06:27 Eosinophils # (Manual) 0.0 10^3/uL (0-0.7) 06/27/22 06:27 Basophils # (Manual) 0.0 10^3/uL (0-0.1) 06/27/22 06:27 Differential Comment MANUAL DIFFERENTIAL 06/27/22 06:27 WBC Morphology NORMAL APPEARANCE (NORMAL) 06/27/22 06:27 Platelet Estimate NORMAL (130-450,000) (NORMAL) 06/27/22 06:27 Platelet Morphology NORMAL APPEARANCE (NORMAL) 06/27/22 06:27 RBC Morph Micro Appear NORMAL APPEARANCE (NORMAL) 06/27/22 06:27 ESR > 140 mm/Hr (0-20) H 06/25/22 17:09 Absolute Retic 0.021 10^6/uL (0.020-0.110) 06/29/22 04:20 PT 18.5 secs (9.9-12.6) H 06/26/22 04:25 INR 1.7 (0.8-1.2) H 06/26/22 04:25 Sodium 134 mmol/L (135-145) L 07/05/22 04:55 Potassium 4.4 mmol/L (3.5-5.0) 07/05/22 04:55 Chloride 98 mmol/L (101-111) L 07/05/22 04:55 Carbon Dioxide 27 mmol/L (21-32) 07/05/22 04:55 Anion Gap 9.0 (6-13) 07/05/22 04:55 BUN 25 mg/dL (6-20) H 07/05/22 04:55 Creatinine 0.8 mg/dL (0.6-1.2) 07/05/22 04:55 Estimated GFR (MDRD) 100 (>89) 07/05/22 04:55 Glucose 129 mg/dL (70-100) H 07/05/22 04:55 POC Whole Bld Glucose 151 mg/dL (70 - 100) H 07/05/22 16:37 Estimat Average Glucose 131 mg/dL (70-100) H 06/27/22 06:27 Hemoglobin A1c % 6.2 % (4.27-6.07) H 06/27/22 06:27 Lactic Acid 1.1 mmol/L (0.5-2.2) 06/26/22 04:25 Calcium 9.6 mg/dL (8.5-10.3) 07/05/22 04:55 Iron 12 ug/dL (45-182) L 06/29/22 04:20 Transferrin < 70 mg/dL (180-329) L 06/29/22 04:20 Ferritin 540.9 ng/mL (23.9-336.2) H 06/29/22 04:20 Total Bilirubin 0.6 mg/dL (0.2-1.0) 06/25/22 17:09 AST 14 IU/L (10-42) 06/25/22 17:09 ALT 16 IU/L (10-60) 06/25/22 17:09 Alkaline Phosphatase 71 IU/L (42-121) 06/25/22 17:09 Lactate Dehydrogenase 95 IU/L (91-225) 06/29/22 04:20 C-Reactive Protein 9.5 mg/dL (0-1.0) H 07/05/22 04:55 Total Protein 8.2 g/dL (6.7-8.2) 06/25/22 17:09 Albumin 2.6 g/dL (3.2-5.5) L 06/25/22 17:09 Globulin 5.6 g/dL (2.1-4.2) H 06/25/22 17:09 Albumin/Globulin Ratio 0.5 (1.0-2.2) L 06/25/22 17:09 Vitamin B12 114 pg/mL (180-914) L 06/29/22 04:20 Nasal Adenovirus (PCR) NOT DETECTED 06/25/22 18:20 Nasal B. parapertussis DNA (PCR) NOT DETECTED 06/25/22 18:20 Nasal Coronavir 229E PCR NOT DETECTED 06/25/22 18:20 Nasal Coronavir HKU1 PCR NOT DETECTED 06/25/22 18:20 Nasal Coronavir NL63 PCR NOT DETECTED 06/25/22 18:20 Nasal Coronavir OC43 PCR NOT DETECTED 06/25/22 18:20 Nasal Enterovir/Rhinovir PCR NOT DETECTED 06/25/22 18:20 Nasal Influenza B PCR NOT DETECTED 06/25/22 18:20 Nasal Influenza A PCR NOT DETECTED 06/25/22 18:20 Nasal Parainfluen 1 PCR NOT DETECTED 06/25/22 18:20 Nasal Parainfluen 2 PCR NOT DETECTED 06/25/22 18:20 Nasal Parainfluen 3 PCR NOT DETECTED 06/25/22 18:20 Nasal Parainfluen 4 PCR NOT DETECTED 06/25/22 18:20 Nasal RSV (PCR) NOT DETECTED 06/25/22 18:20 Nasal B.pertussis DNA PCR NOT DETECTED 06/25/22 18:20 Nasal C.pneumoniae (PCR) NOT DETECTED 06/25/22 18:20 [place] Human Metapneumo PCR NOT DETECTED 06/25/22 18:20 Nasal M.pneumoniae (PCR) NOT DETECTED 06/25/22 18:20 Nasal SARS-CoV-2 (PCR) NOT DETECTED 06/25/22 18:20 Stl Occult Blood (IFOB) NEGATIVE (NEGATIVE) 07/01/22 17:17 Last Dose Date 06/25/22 06/27/22 05:38 Last Dose Time 212206/27/22 05:38 Vancomycin Trough 11.6 ug/mL (10.0-20.0) 06/27/22 05:38 Influenza A (Rapid) Negative (Negative) 06/25/22 18:20 Influenza B (Rapid) Negative (Negative) 06/25/22 18:20 - Procedures Procedures: Procedures DETACHMENT AT LEFT 1ST TOE, COMPLETE, OPEN APPROACH (08/15/21) Sepsis Event Note (H) - Evaluation Current Stage of Sepsis: Sepsis Possible source of Sepsis: positive: Bone/Joint, Skin/soft tissue - Sepsis Criteria Sepsis Criteria: Recorded Respiratory Rate greater than 20, WBC count greater than 12,000 or less than 4000
[2022-07-06] MEDS: SODIUM CHLORIDE FLUSH 0.9% 10 ML SYRINGE IVP SCH ×3 (01:39→17:44)
[2022-07-06] MEDS: HYDROcod/ACETAM 5/325 MG TABLET PO PRN ×2 (04:32→12:27)
[2022-07-06] MEDS: ACETAMINOPHEN 325 MG TABLET PO SCH ×6 (04:47→21:59)
[2022-07-06 05:23] LABS: BASOPHILS # (AUTO) 0.1 10^3/uL (0.0-0.1); BASOPHILS % (AUTO) 0.7 %; EOSINOPHILS # (AUTO) 0.1 10^3/uL (0.0-0.7); EOSINOPHILS % (AUTO) 1.1 %; HCT - HEMATOCRIT 29.8 % (42.0-52.0); LYMPHOCYTES # (AUTO) 1.5 10^3/uL (1.5-3.5); MEAN CORPUSCULAR HEMOGLOBIN 27.2 pg (27.0-31.0); MEAN CORPUSCULAR HGB CONC 30.2 g/dL (32.0-36.0); MEAN PLATELET VOLUME 8.8 fL (7.4-11.4); MONOCYTES # (AUTO) 0.8 10^3/uL (0.0-1.0); MONOCYTES % (AUTO) 8.9 %; NEUTROPHILS # (AUTO) 6.3 10^3/uL (1.5-6.6); NEUTROPHILS % (AUTO) 70.8 %; PLT - PLATELET COUNT 689 10^3/uL (130-450); RED BLOOD COUNT 3.31 10^6/uL (4.70-6.10); RED CELL DISTRIBUTION WIDTH 16.1 % (12.0-15.0); WHITE BLOOD COUNT 8.9 x10^3/uL (4.8-10.8)
[2022-07-06 05:36] LABS: CALCIUM 9.4 mg/dL (8.5-10.3); CREATININE 0.8 mg/dL (0.6-1.2); CRP - C-REACTIVE PROTEIN 8.1 mg/dL (0-1.0); POTASSIUM 4.3 mmol/L (3.5-5.0)
[2022-07-06] MEDS: INSULIN LISPRO 300 UNIT/3 ML PEN SUBQ SCH ×7 (08:22→22:01)
[2022-07-06] MEDS: TAMSULOSIN 0.4 MG CAPSULE PO SCH (09:11)
[2022-07-06] MEDS: GABAPENTIN 300 MG CAPSULE PO SCH ×2 (09:11→22:01)
[2022-07-06] MEDS: LACTOBACILLUS RHAMNOSUS GG CAPSULE PO SCH (09:11)
[2022-07-06] MEDS: FERROUS GLUCONATE 324 MG TABLET PO SCH (09:11)
[2022-07-06] MEDS: PRENATAL VITAMIN TABLET PO SCH (09:11)
[2022-07-06] MEDS: ASPIRIN EC 81 MG TABLET PO SCH ×2 (09:14→21:59)
[2022-07-06] MEDS: CYANOCOBALAMIN 500 MCG TABLET PO SCH (09:15)
[2022-07-06] MEDS: LIDOCAINE PATCH 5% TOP SCH (09:15)
[2022-07-06] MEDS: carvediloL 12.5 MG TABLET PO SCH ×2 (09:15→22:00)
--- NOTE | 2022-07-06 15:36 | PROVIDER PROGRESS NOTE ---
Assessment/Plan - Problem List (1) Osteomyelitis of toe of left foot Assessment/Plan: He has a dense peripheral neuropathy due to alcoholism and most likely his undiagnosed DM plus B12 deficiency. He has a previous history of frostbite. He is homeless. Noncompliant with follow-ups with orthopedics in the past. As such now with complication of all of this resulting in osteomyelitis and an abscess in the left foot. He was on Zosyn and vancomycin, and completed 4 days before being changed to Ancef 06/28. Blood cultures from June 25 are negative. Toe culture from June 26 has staph aureus, and beta-hemolytic strep, group A Wound culture in the OR, x2, was done June 27. That culture shows beta- hemolytic strep group A as well., Unfortunately final sensitivities are now MRSA in 1 of those cultures. On June 27 he underwent an open left second toe amputation at the metatarsophalangeal joint level. Drainage of abscess of left forefoot. His white cell count peaked at 30.5 and has dropped. C-reactive protein was 27.9 on admission, then has slowy improvedimproved PICC line placed 06/28 PT and OT evaluations done after the last surgery show that he needs a walker plus boots to ambulate safely, which he can do. But he cannot move the L arm enough, due to L shoulder pain, to put the boots on and off. He also sleeps on a mat on the floor (no mattress in the homeless alf), but he cannot maneuver down to floor, without using both arms. Plan: The patient is to remain in the hospital on IV antibiotics Ancef until he is discharged, per Dr. Berman. At that time, pt to be sent home on no meds, as per Dr Berman's last recommendations. Continue to wear bilateral boots to ambulate per Ortho, not post-op shoes. Ortho has advised he needs increased pain meds for L shoulder pain, to try to be able to independently put on his boots, and be able to maneuver to sleep on a mat on the floor (in the Homeless alf). Will assess his ability to do those ADLs adequately. He needs to have Ortho clinic appt in 1 week (2) Abscess of left foot including toes Impression: As in problem #1. (3) Left shoulder pain Impression: The pain has been going on for several weeks, worse several days ago. He told me he heard it pop and thinks he dislocated it when stretching. L arm it is painful to abduct. He is getting cold packs, [place] and lidoderm and it is helping with the discomfort. Symptoms and pain management discussed with orthopedics. Will continue narcotics. No injection is indicated per Ortho. Dr. Berman said that no MRI is indicated, since there is no fracture or dislocation on XRay. We cancelled MRI. Plan: He will need increase in pain meds and rehab as initial management of this problem, per Ortho. Will increase pain meds for L shoulder pain, to try to be able to independently put on his boots, and be able to maneuver to sleep on a mat on the floor. Will assess his ability to do those ADLs adequately daily, so that he can have a safe discharge. Qualifiers: Chronicity: chronic Qualified Code(s): M25.512 - Pain in left shoulder; G89.29 - Other chronic pain (4) Hypertension Impression: Patient takes carvedilol at home. Blood pressure is stable. Plan: Continue meds for HTN Qualifiers: Hypertension type: primary hypertension Qualified Code(s): I10 - Essential (primary) hypertension (5) Type 2 diabetes mellitus with diabetic polyneuropathy, without long-term cur rent use of insulin Impression: He did not have a diagnosis of diabetes. On admission here his glucose was 170. A1c is 6.2%. He states that he really adheres to a fairly good diet. Tries to keep his body healthy in spite of his alcoholism. Works out on a regular basis and goes to the gym. He may have peripheral neuropathy as a combination of his alcohol abuse and his diabetes. Plan: Continue diabetic diet, fingerstick checks, short acting insulin with each meal, Hypoglycemia protocol. (6) Hx alcohol abuse Impression: He has been sober for 7 mos. No signs of withdrawal. Plan: Support no alcohol abuse. (7) Homeless single person Plan: His [facility] location will be to a alf, which causes the concern over his sleeping position there, which is on the floor. - Current Meds Current Meds: Current Medications Generic Name Dose Route Start Last Admin Trade Name Freq PRN Reason Stop Dose Admin Acetaminophen 650 mg 07/03/22 13:00 07/06/22 12:26 Acetaminophen 325 Mg Tablet PO 650 mg Q4HR TALITA Administration Aspirin 81 mg 07/04/22 09:00 07/06/22 09:14 Aspirin Ec 81 Mg Tablet PO 81 mg BID TALITA Administration Carvedilol 12.5 mg 06/27/22 09:00 07/06/22 09:15 Carvedilol 12.5 Mg Tablet PO 12.5 mg BID TALITA Administration Cyanocobalamin 1,000 mcg 07/01/22 17:00 07/06/22 09:15 Cyanocobalamin 500 Mcg Tablet PO 1,000 mcg DAILY TALITA Administration Ferrous Gluconate 324 mg 06/30/22 12:00 07/06/22 09:11 Ferrous Gluconate 324 Mg Tablet PO 324 mg DAILYWM TALITA Administration Gabapentin 300 mg 06/27/22 09:00 07/06/22 09:11 Gabapentin 300 Mg Capsule PO 300 mg BID TALITA Administration Cefazolin Sodium 2 gm/ Sodium 50 mls @ 100 mls/hr 06/29/22 12:00 07/06/22 13:34 Chloride IV Infused Q8H TALITA Infusion Insulin Human Lispro 1 - 5 unit 06/26/22 17:00 07/06/22 12:31 Insulin Lispro 300 Unit/3 Ml Pen SUBQ Not Given 0800,1200,1700,2100 [facility] Protocol Insulin Human Lispro 4 unit 06/28/22 17:00 07/06/22 12:31 Insulin Lispro 300 Unit/3 Ml Pen SUBQ 4 unit TIDWM [facility] Administration Protocol Lactobacillus Rhamnosus 1 cap 06/26/22 09:00 07/06/22 09:11 Lactobacillus Rhamnosus Gg Capsule PO 1 cap DAILY TALITA Administration Lidocaine 1 patch 06/30/22 11:13 07/02/22 20:07 Lidocaine Patch 5% TOP 1 patch DAILY PRN Administration PAIN Lidocaine 1 patch 07/04/22 13:00 07/06/22 09:15 Lidocaine Patch 5% TOP 1 patch DAILY TALITA Administration Ondansetron HCl 4 mg 06/25/22 21:13 07/01/22 17:10 Ondansetron 4 Mg/2 Ml Vial IVP 4 mg Q6HR PRN Administration Nausea / Vomiting Multivit/Folic Acid/Iron 1 tab 06/27/22 08:00 07/06/22 09:11 Vitamin Tablet PO 1 tab DAILYWM TALITA Administration Sodium Chloride 10 ml 06/25/22 21:13 07/03/22 04:48 Sodium Chloride Flush 0.9% 10 Ml Syringe IVP 40 ml PRN PRN Administration NEEDED PER PROVIDER ORDERS Sodium Chloride 10 ml 06/26/22 01:00 07/06/22 09:15 Sodium Chloride Flush 0.9% 10 Ml Syringe IVP 10 ml 0100,0900,1700 TALITA Administration Tamsulosin HCl 0.4 mg 06/26/22 09:00 07/06/22 09:11 Tamsulosin 0.4 Mg Capsule PO 0.4 mg DAILY TALITA Administration - Lab Result Fish Bone Diagrams: 07/06/22 04:50 07/06/22 04:50 - Additional Planning My Orders: My Active Orders 07/06/22 07:00 IV Insert [RC] ONCE 07/06/22 07:48 PICC Line Discontinue [RC] .ONCE 07/06/22 12:33 HYDROcodone/ACET 7.5/325 [[place] 7.5/325] 1 tab PO Q4HR PRN Subjective - Subjective Patient Reports: Pain (Slightly decreased pain of L shoulder, but still cannot reach down to ankles (to put on boots by himself).) Objective Vital Signs: Vital Signs - 24 hr 07/05/22 07/06/22 07/06/22 16:41 00:13 07:42 Temperature 37.0 C 37.0 C 36.5 C Heart Rate [ 78 77 70 Brachial] Respiratory 18 16 16 Rate Blood Pressure 123/68 121/61 [Right Brachial artery] Blood Pressure 124/76 [Right Radial artery] O2 Saturation 98 96 97 Oxygen O2 Source Room air I&O (Last 24 Hrs): Intake and Output Totals x24h 07/04/22 07/05/22 07/06/22 23:59 23:59 23:59 Intake Total 3344 3640 2970 Output Total 6950 3850 4475 Balance -6760 -672 -744 General: Alert, Oriented x3 HEENT: Mucous membr. moist/pink Neck: Supple, No JVD Neuro: Alert, Non Focal Cardiovascular: Regular rate Respiratory: No respiratory distress Abdomen: No tenderness Extremities: Other (L shoulder tender and has limited motion. Both feet and all toes are bandaged.) - Results Results: Laboratory Results WBC 8.9 x10^3/uL (4.8-10.8) 07/06/22 04:50 RBC 3.31 10^6/uL (4.70-6.10) L 07/06/22 04:50 Hgb 9.0 g/dL (14.0-18.0) L 07/06/22 04:50 Hct 29.8 % (42.0-52.0) L 07/06/22 04:50 MCV 90.0 fL (80.0-94.0) 07/06/22 04:50 MCH 27.2 pg (27.0-31.0) 07/06/22 04:50 MCHC 30.2 g/dL (32.0-36.0) L 07/06/22 04:50 RDW 16.1 % (12.0-15.0) H 07/06/22 04:50 Plt Count 689 10^3/uL (130-450) H 07/06/22 04:50 MPV 8.8 fL (7.4-11.4) 07/06/22 04:50 Reticulocyte % (Auto) 0.74 % (0.5-2.3) 06/29/22 04:20 Neut # (Auto) 6.3 10^3/uL (1.5-6.6) 07/06/22 04:50 Lymph # (Auto) 1.5 10^3/uL (1.5-3.5) 07/06/22 04:50 [place] # (Auto) 0.8 10^3/uL (0.0-1.0) 07/06/22 04:50 Eos # (Auto) 0.1 10^3/uL (0.0-0.7) 07/06/22 04:50 Baso # (Auto) 0.1 10^3/uL (0.0-0.1) 07/06/22 04:50 Absolute Nucleated RBC 0.00 x10^3/uL 07/06/22 04:50 Total Counted 100 06/27/22 06:27 Band Neuts % (Manual) 0 % (0-10) 06/27/22 06:27 Abnorm Lymph % (Manual) 0 % 06/27/22 06:27 Nucleated RBC % 0.0 /100WBC 07/06/22 04:50 Neutrophils # (Manual) 20.4 10^3/uL (1.5-6.6) H 06/27/22 06:27 Lymphocytes # (Manual) 2.4 10^3/uL (1.5-3.5) 06/27/22 06:27 Monocytes # (Manual) 0.9 10^3/uL (0.0-1.0) 06/27/22 06:27 Eosinophils # (Manual) 0.0 10^3/uL (0-0.7) 06/27/22 06:27 Basophils # (Manual) 0.0 10^3/uL (0-0.1) 06/27/22 06:27 Differential Comment MANUAL DIFFERENTIAL 06/27/22 06:27 WBC Morphology NORMAL APPEARANCE (NORMAL) 06/27/22 06:27 Platelet Estimate NORMAL (130-450,000) (NORMAL) 06/27/22 06: Platelet Morphology NORMAL APPEARANCE (NORMAL) 06/27/22 06:27 RBC Morph Micro Appear NORMAL APPEARANCE (NORMAL) 06/27/22 06:27 ESR > 140 mm/Hr (0-20) H 06/25/22 17:09 Absolute Retic 0.021 10^6/uL (0.020-0.110) 06/29/22 04:20 PT 18.5 secs (9.9-12.6) H 06/26/22 04:25 INR 1.7 (0.8-1.2) H 06/26/22 04:25 Sodium 133 mmol/L (135-145) L 07/06/22 04:50 Potassium 4.3 mmol/L (3.5-5.0) 07/06/22 04:50 Chloride 99 mmol/L (101-111) L 07/06/22 04:50 Carbon Dioxide 25 mmol/L (21-32) 07/06/22 04:50 Anion Gap 9.0 (6-13) 07/06/22 04:50 BUN 25 mg/dL (6-20) H 07/06/22 04:50 Creatinine 0.8 mg/dL (0.6-1.2) 07/06/22 04:50 Estimated GFR (MDRD) 100 (>89) 07/06/22 04:50 Glucose 151 mg/dL (70-100) H 07/06/22 04:50 POC Whole Bld Glucose 119 mg/dL (70 - 100) H 07/06/22 11:24 Estimat Average Glucose 131 mg/dL (70-100) H 06/27/22 06:27 Hemoglobin A1c % 6.2 % (4.27-6.07) H 06/27/22 06:27 Lactic Acid 1.1 mmol/L (0.5-2.2) 06/26/22 04:25 Calcium 9.4 mg/dL (8.5-10.3) 07/06/22 04:50 Iron 12 ug/dL (45-182) L 06/29/22 04:20 Transferrin < 70 mg/dL (180-329) L 06/29/22 04:20 Ferritin 540.9 ng/mL (23.9-336.2) H 06/29/22 04:20 Total Bilirubin 0.6 mg/dL (0.2-1.0) 06/25/22 17:09 AST 14 IU/L (10-42) 06/25/22 17:09 ALT 16 IU/L (10-60) 06/25/22 17:09 Alkaline Phosphatase 71 IU/L (42-121) 06/25/22 17:09 Lactate Dehydrogenase 95 IU/L (91-225) 06/29/22 04:20 C-Reactive Protein 8.1 mg/dL (0-1.0) H 07/06/22 04:50 Total Protein 8.2 g/dL (6.7-8.2) 06/25/22 17:09 Albumin 2.6 g/dL (3.2-5.5) L 06/25/22 17:09 Globulin 5.6 g/dL (2.1-4.2) H 06/25/22 17:09 Albumin/Globulin Ratio 0.5 (1.0-2.2) L 06/25/22 17:09 Vitamin B12 114 pg/mL (180-914) L 06/29/22 04:20 Nasal Adenovirus (PCR) NOT DETECTED 06/25/22 18:20 Nasal B. parapertussis DNA (PCR) NOT DETECTED 06/25/22 18:20 Nasal Coronavir 229E PCR NOT DETECTED 06/25/22 18:20 Nasal Coronavir HKU1 PCR NOT DETECTED 06/25/22 18:20 Nasal Coronavir NL63 PCR NOT DETECTED 06/25/22 18:20 Nasal Coronavir OC43 PCR NOT DETECTED 06/25/22 18:20 Nasal Enterovir/Rhinovir PCR NOT DETECTED 06/25/22 18:20 Nasal Influenza B PCR NOT DETECTED 06/25/22 18:20 Nasal Influenza A PCR NOT DETECTED 06/25/22 18:20 Nasal Parainfluen 1 PCR NOT DETECTED 06/25/22 18:20 Nasal Parainfluen 2 PCR NOT DETECTED 06/25/22 18:20 Nasal Parainfluen 3 PCR NOT DETECTED 06/25/22 18:20 Nasal Parainfluen 4 PCR NOT DETECTED 06/25/22 18:20 Nasal RSV (PCR) NOT DETECTED 06/25/22 18:20 Nasal B.pertussis DNA PCR NOT DETECTED 06/25/22 18:20 Nasal C.pneumoniae (PCR) NOT DETECTED 06/25/22 18:20 Naz[place] Human Metapneumo PCR NOT DETECTED 06/25/22 18:20 Nasal M.pneumoniae (PCR) NOT DETECTED 06/25/22 18:20 Nasal SARS-CoV-2 (PCR) NOT DETECTED 06/25/22 18:20 Stl Occult Blood (IFOB) NEGATIVE (NEGATIVE) 07/01/22 17:17 Last Dose Date 06/25/22 06/27/22 05:38 Last Dose Time 212206/27/22 05:38 Vancomycin Trough 11.6 ug/mL (10.0-20.0) 06/27/22 05:38 Influenza A (Rapid) Negative (Negative) 06/25/22 18:20 Influenza B (Rapid) Negative (Negative) 06/25/22 18:20 - Procedures Procedures: Procedures DETACHMENT AT LEFT 1ST TOE, COMPLETE, OPEN APPROACH (08/15/21) Sepsis Event Note (H) - Evaluation Current Stage of Sepsis: Sepsis Possible source of Sepsis: positive: Bone/Joint, Skin/soft tissue - Sepsis Criteria Sepsis Criteria: Recorded Respiratory Rate greater than 20, WBC count greater than 12,000 or less than 4000
--- NOTE | 2022-07-06 16:55 | PROVIDER PROGRESS NOTE ---
Subjective - General Admit Date: 06/25/22 Procedure Date: 07/03/22 Post Op Days: 3 Procedure Performed: Open amputation left second toe, drainage of forefoot abscess left foot - Review of Systems Wound/Incisions: positive: Healing well, Dressing dry and intact, No drainage General: negative: No symptoms (He is doing very well with his feet. He has neuropathic pain at times which is helped by gabapentin. He does have left shoulder pain from weightlifting, no injury.), Fever, Weakness - Other Other Information/Narrative: Alert and oriented, standing in his room doing shoulder exercises provided by Occupational Therapy Weightbearing on bilateral lower extremities without cam boots as directed He denies pain in the bilateral feet when ambulating in Cam boots He hopes to do several laps around the floor today in cam boots and front wheel walker Objective - Patient Data Vital Signs: Vital Signs x48h Temp Pulse Resp BP Pulse Ox 07/06/22 16:41 36.4 C L 74 16 124/71 97 Weight: Weight 07/04/22 07/05/22 07/06/22 23:59 23:59 23:59 Weight (kg) 93 kg 86 kg Intake & Output: Intake and Output Totals x24h 07/04/22 07/05/22 07/06/22 23:59 23:59 23:59 Intake Total 3344 3640 2970 Output Total 5434 8904 6953 Balance -9387 -839 -288 - Lab Results Lab Results: 07/06/22 04:50 07/06/22 04:50 Other Lab Results: Lab Results x24hrs 07/06/22 07/06/22 07/06/22 Range/Units 16:33 11:24 07:40 WBC (4.8-10.8) x10^3/uL RBC (4.70-6.10) 10^6/uL Hgb (14.0-18.0) g/dL Hct (42.0-52.0) % MCV (80.0-94.0) fL MCH (27.0-31.0) pg MCHC (32.0-36.0) g/dL RDW (12.0-15.0) % Plt Count (130-450) 10^3/uL MPV (7.4-11.4) fL Neut # (Auto) (1.5-6.6) 10^3/uL Lymph # (Auto) (1.5-3.5) 10^3/uL [place] # (Auto) (0.0-1.0) 10^3/uL Eos # (Auto) (0.0-0.7) 10^3/uL Baso # (Auto) (0.0-0.1) 10^3/uL Absolute Nucleated RBC x10^3/uL Nucleated RBC % /100WBC Sodium (135-145) mmol/L Potassium (3.5-5.0) mmol/L Chloride (101-111) mmol/L Carbon Dioxide (21-32) mmol/L Anion Gap (6-13) BUN (6-20) mg/dL Creatinine (0.6-1.2) mg/dL Estimated GFR (MDRD) (>89) Glucose (70-100) mg/dL POC Whole Bld Glucose 125 H 119 H 108 H (70 - 100) mg/dL Calcium (8.5-10.3) mg/dL C-Reactive Protein (0-1.0) mg/dL 07/06/22 07/06/22 07/05/22 Range/Units 04:50 04:50 21:28 WBC 8.9 (4.8-10.8) x10^3/uL RBC 3.31 L (4.70-6.10) 10^6/uL Hgb 9.0 L (14.0-18.0) g/dL Hct 29.8 L (42.0-52.0) % MCV 90.0 (80.0-94.0) fL MCH 27.2 (27.0-31.0) pg MCHC 30.2 L (32.0-36.0) g/dL RDW 16.1 H (12.0-15.0) % Plt Count 689 H (130-450) 10^3/uL MPV 8.8 (7.4-11.4) fL Neut # (Auto) 6.3 (1.5-6.6) 10^3/uL Lymph # (Auto) 1.5 (1.5-3.5) 10^3/uL [place] # (Auto) 0.8 (0.0-1.0) 10^3/uL Eos # (Auto) 0.1 (0.0-0.7) 10^3/uL Baso # (Auto) 0.1 (0.0-0.1) 10^3/uL Absolute Nucleated RBC 0.00 x10^3/uL Nucleated RBC % 0.0 /100WBC Sodium 133 L (135-145) mmol/L Potassium 4.3 (3.5-5.0) mmol/L Chloride 99 L (101-111) mmol/L Carbon Dioxide 25 (21-32) mmol/L Anion Gap 9.0 (6-13) BUN 25 H (6-20) mg/dL Creatinine 0.8 (0.6-1.2) mg/dL Estimated GFR (MDRD) 100 (>89) Glucose 151 H (70-100) mg/dL POC Whole Bld Glucose 127 H (70 - 100) mg/dL Calcium 9.4 (8.5-10.3) mg/dL C-Reactive Protein 8.1 H (0-1.0) mg/dL - Current Medications Current Medications: Current Medications Generic Name Dose Route Start Last Admin Trade Name Freq PRN Reason Stop Dose Admin Acetaminophen 650 mg 07/03/22 13:00 07/06/22 12:26 Acetaminophen 325 Mg Tablet PO 650 mg Q4HR TALITA Administration Aspirin 81 mg 07/04/22 09:00 07/06/22 09:14 Aspirin Ec 81 Mg Tablet PO 81 mg BID TALITA Administration Carvedilol 12.5 mg 06/27/22 09:00 07/06/22 09:15 Carvedilol 12.5 Mg Tablet PO 12.5 mg BID TALITA Administration Cyanocobalamin 1,000 mcg 07/01/22 17:00 07/06/22 09:15 Cyanocobalamin 500 Mcg Tablet PO 1,000 mcg DAILY TALITA Administration Ferrous Gluconate 324 mg 06/30/22 12:00 07/06/22 09:11 Ferrous Gluconate 324 Mg Tablet PO 324 mg DAILYWM TALITA Administration Gabapentin 300 mg 06/27/22 09:00 07/06/22 09:11 Gabapentin 300 Mg Capsule PO 300 mg BID TALITA Administration Cefazolin Sodium 2 gm/ Sodium 50 mls @ 100 mls/hr 06/29/22 12:00 07/06/22 13:34 Chloride IV Infused Q8H TALITA Infusion Insulin Human Lispro 1 - 5 unit 06/26/22 17:00 07/06/22 12:31 Insulin Lispro 300 Unit/3 Ml Pen SUBQ Not Given 0800,1200,1700,2100 [facility] Protocol Insulin Human Lispro 4 unit 06/28/22 17:00 07/06/22 12:31 Insulin Lispro 300 Unit/3 Ml Pen SUBQ 4 unit TIDWM TALITA Administration Protocol Lactobacillus Rhamnosus 1 cap 06/26/22 09:00 07/06/22 09:11 Lactobacillus Rhamnosus Gg Capsule PO 1 cap DAILY TALITA Administration Lidocaine 1 patch 06/30/22 11:13 07/02/22 20:07 Lidocaine Patch 5% TOP 1 patch DAILY PRN Administration PAIN Lidocaine 1 patch 07/04/22 13:00 07/06/22 09:15 Lidocaine Patch 5% TOP 1 patch DAILY TALITA Administration Ondansetron HCl 4 mg 06/25/22 21:13 07/01/22 17:10 Ondansetron 4 Mg/2 Ml Vial IVP 4 mg Q6HR PRN Administration Nausea / Vomiting Multivit/Folic Acid/Iron 1 tab 06/27/22 08:00 07/06/22 09:11 Vitamin Tablet PO 1 tab DAILYWM TALITA Administration Sodium Chloride 10 ml 06/25/22 21:13 07/03/22 04:48 Sodium Chloride Flush 0.9% 10 Ml Syringe IVP 40 ml PRN PRN Administration NEEDED PER PROVIDER ORDERS Sodium Chloride 10 ml 06/26/22 01:00 07/06/22 09:15 Sodium Chloride Flush 0.9% 10 Ml Syringe IVP 10 ml 0100,0900,1700 TALITA Administration Tamsulosin HCl 0.4 mg 06/26/22 09:00 07/06/22 09:11 Tamsulosin 0.4 Mg Capsule PO 0.4 mg DAILY TALITA Administration - Physical Exam Wound/Incisions: positive: Healing well, Dressing dry and intact General Appearance: positive: No acute distress, Alert Neurologic/Psychiatric: positive: Oriented x3 Comments/Other: Dressings in place of the bilateral lower extremities, right Javad bandage loosening from the foot Neurovascularly intact to the bilateral lower extremity Appropriate range of motion in lower extremities Impression/Plan - Problem List Problem List: 56-year-old gentleman who is postoperative day 3 from two-stage procedure for amputation of the left second toe followed by irrigation and debridement with primary wound closure of the bilateral feet. He continues to report no pain in the bilateral feet and dressings remain dry and intact. He is ambulating in tall cam boot walker is with occupational therapy without pain or instability. Right Javad bandage resecured by this provider today. Plan: -Please see progress note from 07/03/2022 for detailed discharge instructions from orthopedic perspective -Continue DVT prophylaxis for at least 1 month after discharge with 81 mg twice daily -Dressings to remain in place and intact. Orthopedic providers will change dressings as clinically indicated -Continue weightbearing as tolerated in the bilateral cam boot walkers using front wheel walker for support -Follow-up in orthopedic clinic within 1 week of discharge. Nonabsorbable sutures are in place which will need to be removed in orthopedic clinic -Pain management as per hospitalist physician -Physical therapy and Occupational Therapy are working with the patient to ensure safe ambulation and functionality including the ability to put on tall cam boot walkers prior to discharge. Patient shows me general shoulder exercises provided by rehabilitation team to improve range of motion and right shoulder
[2022-07-06] MEDS: HYDROcod/ACETAM 7.5 MG/325 MG TABLET PO PRN ×2 (17:44→22:00)
[2022-07-06] MEDS: ZOLPIDEM 5 MG TABLET PO PRN (22:00)
[2022-07-07] MEDS: ACETAMINOPHEN 325 MG TABLET PO SCH ×3 (00:47→10:16)
[2022-07-07] MEDS: SODIUM CHLORIDE FLUSH 0.9% 10 ML SYRINGE IVP SCH ×3 (00:47→17:12)
[2022-07-07] MEDS: HYDROcod/ACETAM 7.5 MG/325 MG TABLET PO PRN ×4 (04:33→22:21)
[2022-07-07 05:55] LABS: BASOPHILS # (AUTO) 0.1 10^3/uL (0.0-0.1); BASOPHILS % (AUTO) 0.8 %; EOSINOPHILS # (AUTO) 0.1 10^3/uL (0.0-0.7); EOSINOPHILS % (AUTO) 1.8 %; HCT - HEMATOCRIT 29.9 % (42.0-52.0); HGB - HEMOGLOBIN 9.3 g/dL (14.0-18.0); LYMPHOCYTES # (AUTO) 1.7 10^3/uL (1.5-3.5); LYMPHOCYTES % (AUTO) 24.4 %; MEAN CORPUSCULAR HEMOGLOBIN 27.8 pg (27.0-31.0); MEAN CORPUSCULAR HGB CONC 31.1 g/dL (32.0-36.0); MEAN CORPUSCULAR VOLUME 89.3 fL (80.0-94.0); MEAN PLATELET VOLUME 8.5 fL (7.4-11.4); MONOCYTES # (AUTO) 0.6 10^3/uL (0.0-1.0); MONOCYTES % (AUTO) 8.8 %; NEUTROPHILS # (AUTO) 4.5 10^3/uL (1.5-6.6); NEUTROPHILS % (AUTO) 63.2 %; PLT - PLATELET COUNT 723 10^3/uL (130-450); RED BLOOD COUNT 3.35 10^6/uL (4.70-6.10); RED CELL DISTRIBUTION WIDTH 15.9 % (12.0-15.0); WHITE BLOOD COUNT 7.1 x10^3/uL (4.8-10.8)
[2022-07-07 06:12] LABS: CALCIUM 10.1 mg/dL (8.5-10.3); CREATININE 0.8 mg/dL (0.6-1.2); CRP - C-REACTIVE PROTEIN 6.8 mg/dL (0-1.0); POTASSIUM 4.9 mmol/L (3.5-5.0)
[2022-07-07] MEDS: LIDOCAINE PATCH 5% TOP SCH (08:14)
[2022-07-07] MEDS: ASPIRIN EC 81 MG TABLET PO SCH ×2 (08:15→21:08)
[2022-07-07] MEDS: carvediloL 12.5 MG TABLET PO SCH ×2 (08:16→21:08)
[2022-07-07] MEDS: FERROUS GLUCONATE 324 MG TABLET PO SCH (08:16)
[2022-07-07] MEDS: PRENATAL VITAMIN TABLET PO SCH (08:17)
[2022-07-07] MEDS: CYANOCOBALAMIN 500 MCG TABLET PO SCH (08:17)
[2022-07-07] MEDS: INSULIN LISPRO 300 UNIT/3 ML PEN SUBQ SCH ×7 (08:17→21:10)
[2022-07-07] MEDS: GABAPENTIN 300 MG CAPSULE PO SCH ×2 (08:17→21:08)
[2022-07-07] MEDS: LACTOBACILLUS RHAMNOSUS GG CAPSULE PO SCH (08:17)
[2022-07-07] MEDS: TAMSULOSIN 0.4 MG CAPSULE PO SCH (08:17)
[2022-07-07] MEDS ORDERED: ACETAMINOPHEN 325 MG TABLET PO PRN (11:41)
--- NOTE | 2022-07-07 13:19 | PROVIDER PROGRESS NOTE ---
Assessment/Plan - Problem List (1) Osteomyelitis of toe of left foot Assessment/Plan: He has a dense peripheral neuropathy due to alcoholism and most likely his undiagnosed DM plus B12 deficiency. He has a previous history of frostbite. He is homeless. Noncompliant with follow-ups with orthopedics in the past. As such now with complication of all of this resulting in osteomyelitis and an abscess in the left foot. He was on Zosyn and vancomycin, and completed 4 days before being changed to Ancef 06/28. Blood cultures from June 25 are negative. Toe culture from June 26 has staph aureus, and beta-hemolytic strep, group A Wound culture in the OR, x2, was done June 27. That culture shows beta- hemolytic strep group A as well., Unfortunately final sensitivities are now MRSA in 1 of those cultures. On June 27 he underwent an open left second toe amputation at the metatarsophalangeal joint level. Drainage of abscess of left forefoot. His white cell count peaked at 30.5 and has dropped. C-reactive protein was 27.9 on admission, then has slowy improvedimproved PICC line placed 06/28 PT and OT evaluations done after the last surgery show that he needs a walker plus boots to ambulate safely, which he can do. But he cannot move the L arm enough, due to L shoulder pain, to put the boots on and off. He also sleeps on a mat on the floor (no mattress in the homeless fdc), but he cannot maneuver down to floor, without using both arms. Plan: The patient is to remain in the hospital on IV antibiotics Ancef until he is discharged, per Dr. Berman. At that time, pt to be sent home on no meds, as per Dr Berman's last recommendations. Will stop following CRP which has decreased daily Continue to wear bilateral CAM boots to ambulate per Ortho, not post-op shoes. Ortho has advised he needs increased pain meds for the L shoulder pain, to try to be able to independently put on his boots, and be able to maneuver to sleep on a mat on the floor (in the Homeless fdc). Will assess his ability to do those ADLs adequately daily. He needs to have Ortho clinic appt in 1 week (2) Abscess of left foot including toes Impression: As in problem #1. (3) Left shoulder pain Impression: The pain has been going on for several weeks, worse several days ago. He told me he heard it pop and thinks he dislocated it when stretching. L arm it is painful to abduct. He is getting cold packs, [place] and lidoderm and it is helping with the discomfort. Symptoms and pain management discussed with orthopedics. Will continue narcotics. No injection is indicated per Ortho. Dr. Berman said that no MRI is indicated, since there is no fracture or dislocation on XRay. We cancelled MRI. Plan: At his request, will stop the schedule Acetaminophen q4h and make it prn He will need increase in pain meds however, and will need rehab as initial management of this problem, per Ortho. Will increase strength of pain meds for L shoulder pain, to try to be able to independently put on his CAM boots, and be able to maneuver to sleep on a mat on the floor. Will assess his ability to do those ADLs adequately daily, so that he can have a safe discharge. Qualifiers: Chronicity: chronic Qualified Code(s): M25.512 - Pain in left shoulder; G89.29 - Other chronic pain (4) Hypertension Impression: Patient takes carvedilol at home. Blood pressure is stable. Plan: Continue meds for HTN Qualifiers: Hypertension type: primary hypertension Qualified Code(s): I10 - Essential (primary) hypertension (5) Type 2 diabetes mellitus with diabetic polyneuropathy, without long-term current use of insulin Impression: He did not have a diagnosis of diabetes. On admission here his glucose was 170. A1c is 6.2%. He states that he really adheres to a fairly good diet. Tries to keep his body healthy in spite of his alcoholism. Works out on a regular basis and goes to the gym. He may have peripheral neuropathy as a combination of his alcohol abuse and his diabetes. Plan: Continue diabetic diet, fingerstick checks, short acting insulin with each meal, Hypoglycemia protocol. (6) Hx alcohol abuse Impression: He has been sober for 7 mos. No signs of withdrawal. Plan: Support no alcohol abuse. (7) Homeless single person Plan: His [facility] location will be to a fdc, which causes the concern over his sleeping position there, which is on the floor. - Current Meds Current Meds: Current Medications Generic Name Dose Route Start Last Admin Trade Name Freq PRN Reason Stop Dose Admin Hydrocodone Bitart/Acetaminophen 1 tab 07/06/22 12:33 07/07/22 12:31 Hydrocod/Acetam 7.5 Mg/325 Mg Tablet PO 1 tab Q4HR PRN Administration PAIN Aspirin 81 mg 07/04/22 09:00 07/07/22 08:15 Aspirin Ec 81 Mg Tablet PO 81 mg BID TALITA Administration Carvedilol 12.5 mg 06/27/22 09:00 07/07/22 08:16 Carvedilol 12.5 Mg Tablet PO 12.5 mg BID TALITA Administration Cyanocobalamin 1,000 mcg 07/01/22 17:00 07/07/22 08:17 Cyanocobalamin 500 Mcg Tablet PO 1,000 mcg DAILY TALITA Administration Ferrous Gluconate 324 mg 06/30/22 12:00 07/07/22 08:16 Ferrous Gluconate 324 Mg Tablet PO 324 mg DAILYWM TALITA Administration Gabapentin 300 mg 06/27/22 09:00 07/07/22 08:17 Gabapentin 300 Mg Capsule PO 300 mg BID TALITA Administration Cefazolin Sodium 2 gm/ Sodium 50 mls @ 100 mls/hr 06/29/22 12:00 07/07/22 12:31 Chloride IV 100 mls/hr Q8H TALITA Administration Insulin Human Lispro 1 - 5 unit 06/26/22 17:00 07/07/22 12:30 Insulin Lispro 300 Unit/3 Ml Pen SUBQ Not Given 0800,1200,1700,2100 [facility] Protocol Insulin Human Lispro 4 unit 06/28/22 17:00 07/07/22 12:29 Insulin Lispro 300 Unit/3 Ml Pen SUBQ 4 unit TIDWM TALITA Administration Protocol Lactobacillus Rhamnosus 1 cap 06/26/22 09:00 07/07/22 08:17 Lactobacillus Rhamnosus Gg Capsule PO 1 cap DAILY TALITA Administration Lidocaine 1 patch 06/30/22 11:13 07/02/22 20:07 Lidocaine Patch 5% TOP 1 patch DAILY PRN Administration PAIN Lidocaine 1 patch 07/04/22 13:00 07/07/22 08:14 Lidocaine Patch 5% TOP 1 patch DAILY TALITA Administration Ondansetron HCl 4 mg 06/25/22 21:13 07/01/22 17:10 Ondansetron 4 Mg/2 Ml Vial IVP 4 mg Q6HR PRN Administration Nausea / Vomiting Multivit/Folic Acid/Iron 1 tab 06/27/22 08:00 07/07/22 08:17 Vitamin Tablet PO 1 tab DAILYWM TALITA Administration Sodium Chloride 10 ml 06/25/22 21:13 07/03/22 04:48 Sodium Chloride Flush 0.9% 10 Ml Syringe IVP 40 ml PRN PRN Administration NEEDED PER PROVIDER ORDERS Sodium Chloride 10 ml 06/26/22 01:00 07/07/22 10:16 Sodium Chloride Flush 0.9% 10 Ml Syringe IVP 10 ml 0100,0900,1700 TALITA Administration Tamsulosin HCl 0.4 mg 06/26/22 09:00 07/07/22 08:17 Tamsulosin 0.4 Mg Capsule PO 0.4 mg DAILY TALITA Administration Zolpidem Tartrate 5 mg 07/06/22 18:34 07/06/22 22:00 Zolpidem 5 Mg Tablet PO 5 mg QPM PRN Administration Insomnia - Lab Result Fish Bone Diagrams: 07/07/22 05:30 07/07/22 05:30 - Additional Planning My Orders: My Active Orders 07/06/22 12:33 HYDROcodone/ACET 7.5/325 [[place]ancock 7.5/325] 1 tab PO Q4HR PRN 07/06/22 18:34 Zolpidem [Ambien] 5 mg PO QPM PRN 07/07/22 07:47 Vital Signs [RC] QSHIFT 07/07/22 11:41 Acetaminophen [Tylenol] 650 mg PO Q4HR PRN Subjective - Subjective Patient Reports: Other (Less L shoulder pain compared to yesterday. Still has decreased range of motion of the left arm, which is limited by pain.) Objective Vital Signs: Vital Signs - 24 hr 07/06/22 07/07/22 07/07/22 16:41 00:27 07:32 Temperature 36.4 C L 36.3 C L 36.3 C L Heart Rate [ 74 63 71 Brachial] Respiratory 16 16 16 Rate Blood Pressure 124/71 129/80 [Right Brachial artery] Blood Pressure 139/85 H [Right Radial artery] O2 Saturation 97 96 98 Oxygen O2 Source Room air I&O (Last 24 Hrs): Intake and Output Totals x24h 07/05/22 07/06/22 07/07/22 23:59 23:59 23:59 Intake Total 3640 3980 2510 Output Total 6887 2778 2250 Balance -210 305 260 General: Alert, Oriented x3 HEENT: Mucous membr. moist/pink Neck: Supple, No JVD Neuro: Alert, Non Focal (except sensation loss in feet and toes) Cardiovascular: Regular rate Respiratory: No respiratory distress Abdomen: Soft Extremities: No clubbing, No edema, Other (Both feet and all toes are bandaged) - Results Results: Laboratory Results WBC 7.1 x10^3/uL (4.8-10.8) 07/07/22 05:30 RBC 3.35 10^6/uL (4.70-6.10) L 07/07/22 05:30 Hgb 9.3 g/dL (14.0-18.0) L 07/07/22 05:30 Hct 29.9 % (42.0-52.0) L 07/07/22 05:30 MCV 89.3 fL (80.0-94.0) 07/07/22 05:30 MCH 27.8 pg (27.0-31.0) 07/07/22 05:30 MCHC 31.1 g/dL (32.0-36.0) L 07/07/22 05:30 RDW 15.9 % (12.0-15.0) H 07/07/22 05:30 Plt Count 723 10^3/uL (130-450) H 07/07/22 05:30 MPV 8.5 fL (7.4-11.4) 07/07/22 05:30 Reticulocyte % (Auto) 0.74 % (0.5-2.3) 06/29/22 04:20 Neut # (Auto) 4.5 10^3/uL (1.5-6.6) 07/07/22 05:30 Lymph # (Auto) 1.7 10^3/uL (1.5-3.5) 07/07/22 05:30 [place] # (Auto) 0.6 10^3/uL (0.0-1.0) 07/07/22 05:30 Eos # (Auto) 0.1 10^3/uL (0.0-0.7) 07/07/22 05:30 Baso # (Auto) 0.1 10^3/uL (0.0-0.1) 07/07/22 05:30 Absolute Nucleated RBC 0.00 x10^3/uL 07/07/22 05:30 Total Counted 100 06/27/22 06:27 Band Neuts % (Manual) 0 % (0-10) 06/27/22 06:27 Abnorm Lymph % (Manual) 0 % 06/27/22 06:27 Nucleated RBC % 0.0 /100WBC 07/07/22 05:30 Neutrophils # (Manual) 20.4 10^3/uL (1.5-6.6) H 06/27/22 06:27 Lymphocytes # (Manual) 2.4 10^3/uL (1.5-3.5) 06/27/22 06:27 Monocytes # (Manual) 0.9 10^3/uL (0.0-1.0) 06/27/22 06:27 Eosinophils # (Manual) 0.0 10^3/uL (0-0.7) 06/27/22 06:27 Basophils # (Manual) 0.0 10^3/uL (0-0.1) 06/27/22 06:27 Differential Comment MANUAL DIFFERENTIAL 06/27/22 06:27 WBC Morphology NORMAL APPEARANCE (NORMAL) 06/27/22 06:27 Platelet Estimate NORMAL (130-450,000) (NORMAL) 06/27/22 06:27 Platelet Morphology NORMAL APPEARANCE (NORMAL) 06/27/22 06:27 RBC Morph Micro Appear NORMAL APPEARANCE (NORMAL) 06/27/22 06:27 ESR > 140 mm/Hr (0-20) H 06/25/22 17:09 Absolute Retic 0.021 10^6/uL (0.020-0.110) 06/29/22 04:20 PT 18.5 secs (9.9-12.6) H 06/26/22 04:25 INR 1.7 (0.8-1.2) H 06/26/22 04:25 Sodium 136 mmol/L (135-145) 07/07/22 05:30 Potassium 4.9 mmol/L (3.5-5.0) 07/07/22 05:30 Chloride 100 mmol/L (101-111) L 07/07/22 05:30 Carbon Dioxide 27 mmol/L (21-32) 07/07/22 05:30 Anion Gap 9.0 (6-13) 07/07/22 05:30 BUN 26 mg/dL (6-20) H 07/07/22 05:30 Creatinine 0.8 mg/dL (0.6-1.2) 07/07/22 05:30 Estimated GFR (MDRD) 100 (>89) 07/07/22 05:30 Glucose 116 mg/dL (70-100) H 07/07/22 05:30 POC Whole Bld Glucose 117 mg/dL (70 - 100) H 07/07/22 11:16 Estimat Average Glucose 131 mg/dL (70-100) H 06/27/22 06:27 Hemoglobin A1c % 6.2 % (4.27-6.07) H 06/27/22 06:27 Lactic Acid 1.1 mmol/L (0.5-2.2) 06/26/22 04:25 Calcium 10.1 mg/dL (8.5-10.3) 07/07/22 05:30 Iron 12 ug/dL (45-182) L 06/29/22 04:20 Transferrin < 70 mg/dL (180-329) L 06/29/22 04:20 Ferritin 540.9 ng/mL (23.9-336.2) H 06/29/22 04:20 Total Bilirubin 0.6 mg/dL (0.2-1.0) 06/25/22 17:09 AST 14 IU/L (10-42) 06/25/22 17:09 ALT 16 IU/L (10-60) 06/25/22 17:09 Alkaline Phosphatase 71 IU/L (42-121) 06/25/22 17:09 Lactate Dehydrogenase 95 IU/L (91-225) 06/29/22 04:20 C-Reactive Protein 6.8 mg/dL (0-1.0) H 07/07/22 05:30 Total Protein 8.2 g/dL (6.7-8.2) 06/25/22 17:09 Albumin 2.6 g/dL (3.2-5.5) L 06/25/22 17:09 Globulin 5.6 g/dL (2.1-4.2) H 06/25/22 17:09 Albumin/Globulin Ratio 0.5 (1.0-2.2) L 06/25/22 17:09 Vitamin B12 114 pg/mL (180-914) L 06/29/22 04:20 Nasal Adenovirus (PCR) NOT DETECTED 06/25/22 18:20 Nasal B. parapertussis DNA (PCR) NOT DETECTED 06/25/22 18:20 Nasal Coronavir 229E PCR NOT DETECTED 06/25/22 18:20 Nasal Coronavir HKU1 PCR NOT DETECTED 06/25/22 18:20 Nasal Coronavir NL63 PCR NOT DETECTED 06/25/22 18:20 Nasal Coronavir OC43 PCR NOT DETECTED 06/25/22 18:20 Nasal Enterovir/Rhinovir PCR NOT DETECTED 06/25/22 18:20 Nasal Influenza B PCR NOT DETECTED 06/25/22 18:20 Nasal Influenza A PCR NOT DETECTED 06/25/22 18:20 Nasal Parainfluen 1 PCR NOT DETECTED 06/25/22 18:20 Nasal Parainfluen 2 PCR NOT DETECTED 06/25/22 18:20 Nasal Parainfluen 3 PCR NOT DETECTED 06/25/22 18:20 Nasal Parainfluen 4 PCR NOT DETECTED 06/25/22 18:20 Nasal RSV (PCR) NOT DETECTED 06/25/22 18:20 Nasal B.pertussis DNA PCR NOT DETECTED 06/25/22 18:20 Nasal C.pneumoniae (PCR) NOT DETECTED 06/25/22 18:20 [place] Human Metapneumo PCR NOT DETECTED 06/25/22 18:20 Nasal M.pneumoniae (PCR) NOT DETECTED 06/25/22 18:20 Nasal SARS-CoV-2 (PCR) NOT DETECTED 06/25/22 18:20 Stl Occult Blood (IFOB) NEGATIVE (NEGATIVE) 07/01/22 17:17 Last Dose Date 06/25/22 06/27/22 05:38 Last Dose Time 212206/27/22 05:38 Vancomycin Trough 11.6 ug/mL (10.0-20.0) 06/27/22 05:38 Influenza A (Rapid) Negative (Negative) 06/25/22 18:20 Influenza B (Rapid) Negative (Negative) 06/25/22 18:20 - Procedures Procedures: Procedures DETACHMENT AT LEFT 1ST TOE, COMPLETE, OPEN APPROACH (08/15/21) Sepsis Event Note (H) - Evaluation Current Stage of Sepsis: Sepsis Possible source of Sepsis: positive: Bone/Joint, Skin/soft tissue - Sepsis Criteria Sepsis Criteria: Recorded Respiratory Rate greater than 20, WBC count greater than 12,000 or less than 4000
--- NOTE | 2022-07-07 15:17 | PROVIDER PROGRESS NOTE ---
Subjective - General Admit Date: 06/25/22 Procedure Date: 07/03/22 Post Op Days: 4 Procedure Performed: Open amputation left second toe, drainage of forefoot abscess left foot - Review of Systems Wound/Incisions: positive: Dressing dry and intact General: negative: No symptoms (He is doing very well with his feet. He has neuropathic pain at times which is helped by gabapentin. He does have left shoulder pain from weightlifting, no injury.), Fever, Weakness - Other Other Information/Narrative: Alert, lying in bed, dressings dry and intact to bilateral feet He denies pain to the bilateral feet He reports he has been successfully ambulating around the hospital floor with bilateral cam boots Watching the world In bed Objective - Patient Data Vital Signs: Vital Signs x48h Temp Pulse Resp BP Pulse Ox 07/07/22 07:32 36.3 C L 71 16 139/85 H 98 Weight: Weight 07/05/22 07/06/22 07/07/22 23:59 23:59 23:59 Weight (kg) 86 kg 86 kg Intake & Output: Intake and Output Totals x24h 07/05/22 07/06/22 07/07/22 23:59 23:59 23:59 Intake Total 3640 3980 3040 Output Total 3850 3675 2450 Balance -210 305 590 - Lab Results Lab Results: 07/07/22 05:30 07/07/22 05:30 Other Lab Results: Lab Results x24hrs 07/07/22 07/07/22 07/07/22 Range/Units 11:16 07:26 05:30 WBC (4.8-10.8) x10^3/uL RBC (4.70-6.10) 10^6/uL Hgb (14.0-18.0) g/dL Hct (42.0-52.0) % MCV (80.0-94.0) fL MCH (27.0-31.0) pg MCHC (32.0-36.0) g/dL RDW (12.0-15.0) % Plt Count (130-450) 10^3/uL MPV (7.4-11.4) fL Neut # (Auto) (1.5-6.6) 10^3/uL Lymph # (Auto) (1.5-3.5) 10^3/uL [place] # (Auto) (0.0-1.0) 10^3/uL Eos # (Auto) (0.0-0.7) 10^3/uL Baso # (Auto) (0.0-0.1) 10^3/uL Absolute Nucleated RBC x10^3/uL Nucleated RBC % /100WBC Sodium 136 (135-145) mmol/L Potassium 4.9 (3.5-5.0) mmol/L Chloride 100 L (101-111) mmol/L Carbon Dioxide 27 (21-32) mmol/L Anion Gap 9.0 (6-13) BUN 26 H (6-20) mg/dL Creatinine 0.8 (0.6-1.2) mg/dL Estimated GFR (MDRD) 100 (>89) Glucose 116 H (70-100) mg/dL POC Whole Bld Glucose 117 H 137 H (70 - 100) mg/dL Calcium 10.1 (8.5-10.3) mg/dL C-Reactive Protein 6.8 H (0-1.0) mg/dL 07/07/22 07/06/22 07/06/22 Range/Units 05:30 20:27 16:33 WBC 7.1 (4.8-10.8) x10^3/uL RBC 3.35 L (4.70-6.10) 10^6/uL Hgb 9.3 L (14.0-18.0) g/dL Hct 29.9 L (42.0-52.0) % MCV 89.3 (80.0-94.0) fL MCH 27.8 (27.0-31.0) pg MCHC 31.1 L (32.0-36.0) g/dL RDW 15.9 H (12.0-15.0) % Plt Count 723 H (130-450) 10^3/uL MPV 8.5 (7.4-11.4) fL Neut # (Auto) 4.5 (1.5-6.6) 10^3/uL Lymph # (Auto) 1.7 (1.5-3.5) 10^3/uL [place] # (Auto) 0.6 (0.0-1.0) 10^3/uL Eos # (Auto) 0.1 (0.0-0.7) 10^3/uL Baso # (Auto) 0.1 (0.0-0.1) 10^3/uL Absolute Nucleated RBC 0.00 x10^3/uL Nucleated RBC % 0.0 /100WBC Sodium (135-145) mmol/L Potassium (3.5-5.0) mmol/L Chloride (101-111) mmol/L Carbon Dioxide (21-32) mmol/L Anion Gap (6-13) BUN (6-20) mg/dL Creatinine (0.6-1.2) mg/dL Estimated GFR (MDRD) (>89) Glucose (70-100) mg/dL POC Whole Bld Glucose 159 H 125 H (70 - 100) mg/dL Calcium (8.5-10.3) mg/dL C-Reactive Protein (0-1.0) mg/dL - Current Medications Current Medications: Current Medications Generic Name Dose Route Start Last Admin Trade Name Freq PRN Reason Stop Dose Admin Hydrocodone Bitart/Acetaminophen 1 tab 07/06/22 12:33 07/07/22 12:31 Hydrocod/Acetam 7.5 Mg/325 Mg Tablet PO 1 tab Q4HR PRN Administration PAIN Aspirin 81 mg 07/04/22 09:00 07/07/22 08:15 Aspirin Ec 81 Mg Tablet PO 81 mg BID TALITA Administration Carvedilol 12.5 mg 06/27/22 09:00 07/07/22 08:16 Carvedilol 12.5 Mg Tablet PO 12.5 mg BID TALITA Administration Cyanocobalamin 1,000 mcg 07/01/22 17:00 07/07/22 08:17 Cyanocobalamin 500 Mcg Tablet PO 1,000 mcg DAILY TALITA Administration Ferrous Gluconate 324 mg 06/30/22 12:00 07/07/22 08:16 Ferrous Gluconate 324 Mg Tablet PO 324 mg DAILYWM TALITA Administration Gabapentin 300 mg 06/27/22 09:00 07/07/22 08:17 Gabapentin 300 Mg Capsule PO 300 mg BID TALITA Administration Cefazolin Sodium 2 gm/ Sodium 50 mls @ 100 mls/hr 06/29/22 12:00 07/07/22 13:18 Chloride IV Infused Q8H TALITA Infusion Insulin Human Lispro 1 - 5 unit 06/26/22 17:00 07/07/22 12:30 Insulin Lispro 300 Unit/3 Ml Pen SUBQ Not Given 0800,1200,1700,2100 [facility] Protocol Insulin Human Lispro 4 unit 06/28/22 17:00 07/07/22 12:29 Insulin Lispro 300 Unit/3 Ml Pen SUBQ 4 unit TIDWM TALITA Administration Protocol Lactobacillus Rhamnosus 1 cap 06/26/22 09:00 07/07/22 08:17 Lactobacillus Rhamnosus Gg Capsule PO 1 cap DAILY TALITA Administration Lidocaine 1 patch 06/30/22 11:13 07/02/22 20:07 Lidocaine Patch 5% TOP 1 patch DAILY PRN Administration PAIN Lidocaine 1 patch 07/04/22 13:00 07/07/22 08:14 Lidocaine Patch 5% TOP 1 patch DAILY TALITA Administration Ondansetron HCl 4 mg 06/25/22 21:13 07/01/22 17:10 Ondansetron 4 Mg/2 Ml Vial IVP 4 mg Q6HR PRN Administration Nausea / Vomiting Multivit/Folic Acid/Iron 1 tab 06/27/22 08:00 07/07/22 08:17 Vitamin Tablet PO 1 tab DAILYWM TALITA Administration Sodium Chloride 10 ml 06/25/22 21:13 07/03/22 04:48 Sodium Chloride Flush 0.9% 10 Ml Syringe IVP 40 ml PRN PRN Administration NEEDED PER PROVIDER ORDERS Sodium Chloride 10 ml 06/26/22 01:00 07/07/22 10:16 Sodium Chloride Flush 0.9% 10 Ml Syringe IVP 10 ml 0100,0900,1700 TALITA Administration Tamsulosin HCl 0.4 mg 06/26/22 09:00 07/07/22 08:17 Tamsulosin 0.4 Mg Capsule PO 0.4 mg DAILY TALITA Administration Zolpidem Tartrate 5 mg 07/06/22 18:34 07/06/22 22:00 Zolpidem 5 Mg Tablet PO 5 mg QPM PRN Administration Insomnia - Physical Exam Comments/Other: Dressings dry and intact to the bilateral lower extremities, no drainage Neurovascularly intact to the bilateral lower extremities, expected range of motion demonstrated Alert and oriented, pleasant Impression/Plan - Problem List Problem List: 56-year-old gentleman who is postoperative day 4 from a two-stage procedure for amputation of the left second toe followed by irrigation and debridement with p rimary wound closure of the bilateral feet. He continues to report good pain control to the bilateral feet and dressings remain dry and intact. He is ambulating well in tall cam boot walker with the patient to therapy or nursing staff. He has no pain or instability with ambulation. Plan: -Please see progress note from 07/03/2022 for detailed discharge instructions from orthopedic perspective -Continue DVT for prophylaxis for at least 1 month after discharge with 81 mg twice daily -Dressings to remain dry and intact. Orthopedic providers will change dressings as needed -Continue weightbearing as tolerated in bilateral cam boot walkers with front wheel walker for additional support. He is nonweightbearing without the cam boot walker is in place -Follow-up in orthopedic clinic within 1 week of discharge. Nonabsorbable sutures are in place underneath Xeroform dressing. -Pain management per hospitalist physician as well as management of other medical comorbidities -Continue physical and occupational therapy to ensure safe ambulation with bilateral cam boots and ensure functionality to take on and put off cam boots as needed for weightbearing -Antibiotics to be continued while in hospital, likely will not need antibiotics at time of discharge
[2022-07-07] MEDS: ZOLPIDEM 5 MG TABLET PO PRN (22:21)
[2022-07-07] MEDS: SODIUM CHLORIDE FLUSH 0.9% 10 ML SYRINGE IVP PRN (22:22)
[2022-07-08] MEDS: SODIUM CHLORIDE FLUSH 0.9% 10 ML SYRINGE IVP SCH ×2 (01:15→04:09)
[2022-07-08] MEDS: HYDROcod/ACETAM 7.5 MG/325 MG TABLET PO PRN (04:23)
[2022-07-08 05:24] LABS: BASOPHILS # (AUTO) 0.1 10^3/uL (0.0-0.1); BASOPHILS % (AUTO) 0.9 %; EOSINOPHILS # (AUTO) 0.1 10^3/uL (0.0-0.7); EOSINOPHILS % (AUTO) 1.1 %; HGB - HEMOGLOBIN 9.3 g/dL (14.0-18.0); LYMPHOCYTES # (AUTO) 1.7 10^3/uL (1.5-3.5); LYMPHOCYTES % (AUTO) 20.9 %; MEAN CORPUSCULAR HEMOGLOBIN 27.4 pg (27.0-31.0); MEAN CORPUSCULAR VOLUME 88.5 fL (80.0-94.0); MEAN PLATELET VOLUME 8.6 fL (7.4-11.4); MONOCYTES # (AUTO) 0.7 10^3/uL (0.0-1.0); NEUTROPHILS # (AUTO) 5.6 10^3/uL (1.5-6.6); NEUTROPHILS % (AUTO) 68.4 %; PLT - PLATELET COUNT 726 10^3/uL (130-450); RED BLOOD COUNT 3.39 10^6/uL (4.70-6.10); WHITE BLOOD COUNT 8.1 x10^3/uL (4.8-10.8)
[2022-07-08 05:47] LABS: CALCIUM 9.8 mg/dL (8.5-10.3); CREATININE 0.9 mg/dL (0.6-1.2); CRP - C-REACTIVE PROTEIN 5.6 mg/dL (0-1.0); POTASSIUM 4.3 mmol/L (3.5-5.0)
[2022-07-08] MEDS: INSULIN LISPRO 300 UNIT/3 ML PEN SUBQ SCH ×4 (08:41→12:03)
[2022-07-08] MEDS: LIDOCAINE PATCH 5% TOP SCH (08:42)
[2022-07-08] MEDS: TAMSULOSIN 0.4 MG CAPSULE PO SCH (08:43)
[2022-07-08] MEDS: GABAPENTIN 300 MG CAPSULE PO SCH (08:43)
[2022-07-08] MEDS: CYANOCOBALAMIN 500 MCG TABLET PO SCH (08:43)
[2022-07-08] MEDS: carvediloL 12.5 MG TABLET PO SCH (08:44)
[2022-07-08] MEDS: ASPIRIN EC 81 MG TABLET PO SCH (08:44)
[2022-07-08] MEDS: PRENATAL VITAMIN TABLET PO SCH (08:44)
[2022-07-08] MEDS: FERROUS GLUCONATE 324 MG TABLET PO SCH (08:44)
[2022-07-08] MEDS: LACTOBACILLUS RHAMNOSUS GG CAPSULE PO SCH (08:44)
[2022-07-08 08:50] VITALS: BP 126/78
--- NOTE | 2022-07-08 10:39 | Discharge Plan ---
Discharge Plan for SNF / [facility] - Discharge Plan And Transition Orders Problem Reviewed?: Yes Disposition: 03 SNF DC/Xfer Condition: Stable Allergies and Adverse Reactions: Allergies Allergy/AdvReac Type Severity Reaction Status Date / Time No Known Drug Allergies Allergy Verified 06/25/22 16:48 Health Concerns: You were hospitalized to treat the severe infection of your feet and toes. You had several surgeries. You received IV antibiotics. You now need a CAM boot to ambulate for several weeks and Orthopedic clinic follow-up in about a week. You are being admitted to the SNF of [facility] ("Swing Bed" status) to continue rehab with PT and OT, related to your left shoulder pain, in order to be able to manage the CAM boot and activities such as sleeping on the floor, going forward. Plan of Treatment: Continued management of diabetes and pain control are planned. Orthopedics has advised that you may now be off antibiotics. Care Goals: Improvement in symptoms and stabilization are the goals. Assessment: The patient understands and is agreeable with the plan. - SNF / [facility] Transition Orders Admit to (Facility): Swing Bed at [facility] Under the care of (Name): Hospitalist Discharge Diagnosis: (1) Osteomyelitis of toe of left foot (2) Abscess of left foot including toes (3) Left shoulder pain (4) Hypertension (5) Type 2 diabetes mellitus with diabetic polyneuropathy, without long-term current use of insulin (6) Hx alcohol abuse (7) Homeless single person Medicare Certification Statement: I certify that Post Hospital correction care is medically necessary on a continuing basis for any of the conditions for which she/he is receiving care during hospitalization. Notify PCP of admission and forward orders to primary provider for signature. Weight on admission and: Weekly Other Notification Orders: Call PCP immediately if patient develops dyspnea, chest pain/tightness or edema. House Bowel Program: Yes Additional Bowel Program Orders: If no BM after 2 days, nurse may give M.O.M. 30ml PO PRN and/or ducolax Supp 1 MI and/or CANDI 250mg P.O., and/or senna 1-2 tabs PO. On day 3 nurse may give repeat above order until residents constipation is resolved. Annual Influenza Vaccine (between Mar 21 and October 18): Yes Two-step PPD per [facility] [phone] or approved exception documents: Yes Treatments & Other Orders: Daily PT and OT rehab. Orthopedic clinic in 1 week Orthopedic Orders: CAM boot for ambulation. Walk using a front wheel walker. Medication Orders: PLEASE REFER TO THE DISCHARGE MEDICATION LIST. Insulin Orders?: Yes - Diet Type: No added sugar (Diabetic diet, 4 carbs) Texture: Regular Liquids: Thin May have monthly special meal: Yes - Therapies | Activity Therapy: Evaluation | Treat if indicated: PT, OT Rehabilitation Potential: Maximize functional status, Return to independent living Activity: Activity as Tolerated Weight Bearing: Full Weight Assistance Devices: Walker
--- NOTE | 2022-07-08 10:48 | DISCHARGE SUMMARY ---
"Discharge Summary Admit Date: 06/25/22 Discharge Date: 07/08/22 Discharging Provider: Dr Yanet Almeida Code Status: Attempt Resuscitation Condition at Discharge: Fair Discharge Disposition: SNF DC/Xfer - HPI History of Present Illness: 56M c known hx of alcohol abuse in remission, alcohol peripheral neuropathy, BPH, and recurrent bilateral feet infections stemming from hatch bite after syncope from alcohol intoxication who presents to the ED reporting pain and swelling and drainage from his left foot. Patient noted sweating and chills and realized similar prior sxs associated with a foot infection. He hence came form alcohol detox to the ED for further medical management. Patient states sxs started approx 5 days ago with swelling and pain. Patient subsequently noted pus drainage from his left foot. He states since his recent amputation of the toes on his right foot, he has been using crutches and leaning more on his left foot. Patient has a degree of peripheral neuropathy and hence was not aware anything was ongoing until the swelling and pain on top of his left foot started. Patient denies overt fever. No LOC. No URI sxs. No chest pain. No palpitation. No SOB. No n/v/d. No dysuria. No swelling in upper extremities. Right foot was recently operated on and had wound vac. There is ongoing drainage in right foot however better in appearance compared to past. - CONSULTS | PROCEDURES Consultations: Dr Berman, Orthopedics Procedures: 06/27/22 Amputation of toe on L foot 07/03/22 Irrigation debridement of both R and L feet - HOSPITAL COURSE Hospital Course: (1) Osteomyelitis of toe of left foot He has a dense peripheral neuropathy due to alcoholism and his undiagnosed DM plus B12 deficiency. He has had previous history of frostbite. He is homeless and was noncompliant with follow-ups with orthopedics in the past. All of this resulted in osteomyelitis and an abscess in the left foot. His white cell count peaked at 30.5 and C-reactive protein was 27.9 on admission, these slowly improved. PICC line placed 06/28. He was put on Zosyn and vancomycin, and completed 4 days before being changed to Ancef on 06/28, which ended at time of discharge. Blood cultures from June 25 were negative. Toe culture from June 26 had staph aureus, and beta-hemolytic strep, group A. Wound culture from the OR, x2, was done June 27. That culture showed beta-hemolytic strep group A as well, but final sensitivities showed MRSA in 1 of those cultures. On June 27 he underwent an open left second toe amputation at the metatarsophalangeal joint level. Drainage of abscess of left forefoot. On 07/03, he underwent irrigation debridement of both feet. PT and OT evaluations done after the last surgery showed that he needs a walker plus CAM boots over both bandaged feet, to ambulate. But he could not move the L arm enough, due to L shoulder pain, to put the boots on and off. He also sleeps on a mat on the floor (no mattress in the homeless detention), but he cannot maneuver down to floor, without using both arms. Ortho advised he needs increased pain meds for the L shoulder pain, to try to be able to independently put on his boots, and be able to maneuver to sleep on a mat on the floor. He needs to have Ortho clinic appt in 1 week (2) Abscess of left foot including toes As in #1. (3) Left shoulder pain The pain started several days before admission. He heard it pop and thinks he dislocated it when stretching. L arm was painful to abduct. There was no fracture or dislocation on XRay, thus an MRI was not indicted, per Ortho. He got cold packs, Kimberly and lidoderm, which helped with the discomfort. No injection or surgery is indicated, unless 4 weeks of pain control and rehab do not help, per Ortho. The patient has to be able to independently put on his CAM boots, and be able to maneuver to sleep on a mat on the floor at the [facility] detention, to have a safe discharge. Thus he was discharged to do rehab, into [facility] Swing bed status. (4) Hypertension Patient takes carvedilol at home which was continued here. (5) Type 2 diabetes mellitus with diabetic polyneuropathy, without long-term current use of insulin He did not have a diagnosis of diabetes. On admission here his glucose was 170. A1c is 6.2%. He states that he really adheres to a fairly good diet. Tries to keep his body healthy in spite of his Hx of alcoholism. Works out on a regular basis and goes to the gym. He may have peripheral neuropathy as a combination of his alcohol abuse and his diabetes. (6) Hx alcohol abuse He has been sober for 7 mos. (7) Homeless single person His [facility] location will be to a detention, which causes the concern over his sleeping position there, which is on the floor. - ALLERGIES Allergies/Adverse Reactions: Allergies Allergy/AdvReac Type Severity Reaction Status Date / Time No Known Drug Allergies Allergy Verified 06/25/22 16:48 - MEDICATIONS Home Medications: Ambulatory Orders Medication Instructions Recorded Confirmed Gabapentin [Neurontin] 300 mg PO BID 06/25/22 07/08/22 Tamsulosin HCl [Flomax] 0.4 mg PO DAILY 06/25/22 07/08/22 carvediloL [Coreg] 1 tab PO BID 06/26/22 07/08/22 Acetaminophen [Tylenol] 650 mg PO Q4HR PRN tab 07/08/22 07/08/22 Aspirin EC [Ecotrin] 81 mg PO BID tab 07/08/22 07/08/22 Cyanocobalamin [Vitamin B-12] 1,000 mcg PO DAILY tab 07/08/22 07/08/22 Ferrous Gluconate [Fergon] 324 mg PO DAILYWM tab 07/08/22 07/08/22 HYDROcodone/ACET 7.5/325 [Kimberly 1 tab PO Q4HR PRN tab 07/08/22 07/08/22 7.5/325] Insulin Lispro [Humalog Kwikpen 1 - 5 unit SUBQ 07/08/22 07/08/22 U-100] 0800,1200,1700,2100 ml Insulin Lispro [Humalog Kwikpen 4 unit SUBQ TIDWM ml 07/08/22 07/08/22 U-100] Lidocaine Patch 5% [Lidoderm Patch] 1 patch TOP DAILY patch 07/08/22 07/08/22 Zolpidem [Ambien] 5 mg PO QPM PRN tab 07/08/22 07/08/22 - PHYSICAL EXAM AT DISCHARGE General Appearance: positive: No acute distress, Alert Eyes Bilateral: positive: Normal inspection, EOMI ENT: positive: ENT inspection nml, No signs of dehydration Neck: positive: Nml inspection, No JVD Respiratory: positive: No respiratory distress, Breath sounds nml Cardiovascular: positive: Regular rate & rhythm, No murmur Abdomen: positive: Nml bowel sounds, No distention Skin: positive: Warm, Dry Extremities: positive: No pedal edema, Other (Bandages cover both feet and some toes, bilateraally.) Neurologic/Psychiatric: positive: Oriented x3, Motor nml, Other (No sensation of feet or toes.) - LABS Result Diagrams: 07/08/22 04:46 07/08/22 04:46 - DIAGNOSTIC IMAGING Diagnostic Imaging Results: Final report reviewed - SEPSIS Possible source of Sepsis: Bone/Joint, Skin/soft tissue Sepsis Criteria: Recorded Respiratory Rate greater than 20, WBC count greater than 12,000 or less than 4000 - FOLLOW UP Follow Up: He has Ortho clinic F/U in 1 week. - TIME SPENT Time Spent in Discharge (Minutes): 40"
--- NOTE | 2022-07-08 15:24 | PROVIDER PROGRESS NOTE ---
Subjective - General Admit Date: 06/25/22 Procedure Date: 07/03/22 Post Op Days: 5 Procedure Performed: Open amputation left second toe, drainage of forefoot abscess left foot - Review of Systems Wound/Incisions: positive: Dressing dry and intact General: negative: No symptoms (He is doing very well with his feet. He has neuropathic pain at times which is helped by gabapentin. He does have left shoulder pain from weightlifting, no injury.), Fever, Weakness - Other Other Information/Narrative: Alert and oriented, comfortable in bed, tall cam boot walker is in place bilaterally Good appetite without nausea or vomiting Reports he is been taking laps around the hospital floor with cam boot walker is in place and doing shoulder exercises He has no pain in the bilateral feet Objective - Patient Data Vital Signs: Vital Signs x48h Temp Pulse Resp BP Pulse Ox 07/08/22 08:49 36.6 C 71 18 126/78 100 Weight: Weight 07/06/22 07/07/22 07/08/22 23:59 23:59 23:59 Weight (kg) 86 kg 86 kg 84.5 kg Intake & Output: Intake and Output Totals x24h 07/06/22 07/07/22 07/08/22 23:59 23:59 23:59 Intake Total 3980 4790 1300 Output Total 3675 3500 2125 Balance 305 1290 -825 - Lab Results Lab Results: 07/08/22 04:46 07/08/22 04:46 Other Lab Results: Lab Results x24hrs 07/08/22 07/08/22 07/08/22 Range/Units 11:15 07:32 04:46 WBC (4.8-10.8) x10^3/uL RBC (4.70-6.10) 10^6/uL Hgb (14.0-18.0) g/dL Hct (42.0-52.0) % MCV (80.0-94.0) fL MCH (27.0-31.0) pg MCHC (32.0-36.0) g/dL RDW (12.0-15.0) % Plt Count (130-450) 10^3/uL MPV (7.4-11.4) fL Neut # (Auto) (1.5-6.6) 10^3/uL Lymph # (Auto) (1.5-3.5) 10^3/uL Metcalfe # (Auto) (0.0-1.0) 10^3/uL Eos # (Auto) (0.0-0.7) 10^3/uL Baso # (Auto) (0.0-0.1) 10^3/uL Absolute Nucleated RBC x10^3/uL Nucleated RBC % /100WBC Sodium 133 L (135-145) mmol/L Potassium 4.3 (3.5-5.0) mmol/L Chloride 99 L (101-111) mmol/L Carbon Dioxide 24 (21-32) mmol/L Anion Gap 10.0 (6-13) BUN 30 H (6-20) mg/dL Creatinine 0.9 (0.6-1.2) mg/dL Estimated GFR (MDRD) 87 L (>89) Glucose 115 H (70-100) mg/dL POC Whole Bld Glucose 101 H 108 H (70 - 100) mg/dL Calcium 9.8 (8.5-10.3) mg/dL C-Reactive Protein 5.6 H (0-1.0) mg/dL 07/08/22 07/07/22 07/07/22 Range/Units 04:46 20:26 16:43 WBC 8.1 (4.8-10.8) x10^3/uL RBC 3.39 L (4.70-6.10) 10^6/uL Hgb 9.3 L (14.0-18.0) g/dL Hct 30.0 L (42.0-52.0) % MCV 88.5 (80.0-94.0) fL MCH 27.4 (27.0-31.0) pg MCHC 31.0 L (32.0-36.0) g/dL RDW 16.0 H (12.0-15.0) % Plt Count 726 H (130-450) 10^3/uL MPV 8.6 (7.4-11.4) fL Neut # (Auto) 5.6 (1.5-6.6) 10^3/uL Lymph # (Auto) 1.7 (1.5-3.5) 10^3/uL Metcalfe # (Auto) 0.7 (0.0-1.0) 10^3/uL Eos # (Auto) 0.1 (0.0-0.7) 10^3/uL Baso # (Auto) 0.1 (0.0-0.1) 10^3/uL Absolute Nucleated RBC 0.00 x10^3/uL Nucleated RBC % 0.0 /100WBC Sodium (135-145) mmol/L Potassium (3.5-5.0) mmol/L Chloride (101-111) mmol/L Carbon Dioxide (21-32) mmol/L Anion Gap (6-13) BUN (6-20) mg/dL Creatinine (0.6-1.2) mg/dL Estimated GFR (MDRD) (>89) Glucose (70-100) mg/dL POC Whole Bld Glucose 108 H 139 H (70 - 100) mg/dL Calcium (8.5-10.3) mg/dL C-Reactive Protein (0-1.0) mg/dL - Physical Exam Comments/Other: Alert and oriented, pleasant Dressings intact to the bilateral lower extremities. Incisions well approximated with sutures in place. There is no drainage or erythema about the incision sites. No dehiscence of the wound. No ecchymosis. Redemonstrated blisters about the first metatarsophalangeal joint on the medial aspect of the bilateral feet Impression/Plan - Problem List Problem List: 56-year-old gentleman who is postoperative day 5 from a two-stage procedure for amputation of the left second toe followed by irrigation and debridement with primary wound closure of the bilateral feet. He reports pain control about the bilateral feet. Dressings remain dry and intact and he is able to ambulate with a tall cam boot walker is in place on the bilateral feet with front wheeled walker. No sense of instability with ambulation and walking assist device. Plan: -Dressings changed today on postoperative day 5 -Continue DVT prophylaxis with 81 mg of aspirin twice daily for at least 1 month after discharge -Dressings to include Xeroform, web roll and an Javad bandage. Sutures are in place and will need to be removed in the orthopedic clinic -Pain management deferred to primary team, hospitalist physician as well as medical comorbidities -Continue physical therapy and Occupational Therapy to ensure safe ambulation with bilateral cam boot and functionality to maintain the cam boots as needed for weightbearing -Disposition: transition to swing bed for continued PT and OT, planned for today
== END 2022-07-08 13:46 | DRG 854 ==
LOC: ED 16:34 → MS2 21:13
PROVIDERS: ADMIT Internal Medicine; ATTEND Internal Medicine
PROC: 0J9R3ZZ Drainage of Left Foot Subcutaneous Tissue and Fascia, Percutaneous Approach (ICD-10-PCS; 2022-06-27)
PROC: 0Y6S0Z0 Detachment at Left 2nd Toe, Complete, Open Approach (ICD-10-PCS; principal; 2022-06-27 13:00)
PROC: 02HV33Z Insertion of Infusion Device into Superior Vena Cava, Percutaneous Approach (ICD-10-PCS; 2022-06-28)
PROC: 0QB Lower Bones, Excision (ICD-10-PCS; 2022-07-03)
PROC: 0JBR3ZZ Excision of Left Foot Subcutaneous Tissue and Fascia, Percutaneous Approach (ICD-10-PCS; 2022-07-03)
PROC: 0JQR3ZZ Repair Left Foot Subcutaneous Tissue and Fascia, Percutaneous Approach (ICD-10-PCS; 2022-07-03)
DX: A41.9 Sepsis, unspecified organism (principal); L02.612 Cutaneous abscess of left foot; M86.172 Other acute osteomyelitis, left ankle and foot; N17.9 Acute kidney failure, unspecified; L03.116 Cellulitis of left lower limb; M86.672 Other chronic osteomyelitis, left ankle and foot; R65.20 Severe sepsis without septic shock; B95.62 Methicillin resistant Staphylococcus aureus infection as the cause of diseases classified elsewhere; M25.512 Pain in left shoulder; I10 Essential (primary) hypertension; G62.1 Alcoholic polyneuropathy; E11.65 Type 2 diabetes mellitus with hyperglycemia; E11.42 Type 2 diabetes mellitus with diabetic polyneuropathy; Z59.01 Sheltered homelessness; Z91.199 Patient's noncompliance with other medical treatment and regimen due to unspecified reason; E05.90 Thyrotoxicosis, unspecified without thyrotoxic crisis or storm; F41.9 Anxiety disorder, unspecified; N40.1 Benign prostatic hyperplasia with lower urinary tract symptoms; R39.15 Urgency of urination; E87.6 Hypokalemia; G89.29 Other chronic pain; D50.9 Iron deficiency anemia, unspecified; D51.9 Vitamin B12 deficiency anemia, unspecified; B95.0 Streptococcus, group A, as the cause of diseases classified elsewhere; F10.21 Alcohol dependence, in remission; Z89.421 Acquired absence of other right toe(s); S91.301A Unspecified open wound, right foot, initial encounter; X58.XXXA Exposure to other specified factors, initial encounter; Z20.822 Contact with and (suspected) exposure to COVID-19
CPT/HCPCS: 36415; 73030; 73630; 80048; 80053; 80202; 82274; 82607; 82728; 83036; 83540; 83605; 83615; 84466; 85025; 85027; 85045; 85610; 85651; 86140; 87040; 87070; 87075; 87076; 87181; 87186; 87205; 87275; 87276; 87633; 96365; 97161; 97166; 97530; 97535; 99284; 99285; A9270; C1751; J1650; J1750; J3370; J7040

== ENCOUNTER 2022-07-08 11:02 | Inpatient (IN) | payer MEDICAID ==
[2022-07-08] MEDS ORDERED: HYDROcod/ACETAM 7.5 MG/325 MG TABLET PO PRN (15:05)
--- NOTE | 2022-07-08 15:44 | HISTORY & PHYSICAL EXAMINATION ---
Chief Complaint - Chief Complaint Chief Complaint: L shoulder and L hip pain, S/P amputations and debridements of toes History of Present Illness - Admitted From Admitted From:: [facility] from Inpt status at [facility] - History of Present Illness HPI Comment/Other: This is a 56-year-old male with a prior history of alcohol abuse, but he quit and has been sober for 7 months. He has a history of diabetes but appa rently had not been treating it well, as he has peripheral neuropathy from that. He has had chronic infections of the toes of both feet after remote frostbite. He has had amputations of toes in the past. He was just hospitalized now from to 07/08 to receive IV antibiotics and had several surgeries for further management of osteomyelitis and cellulitis of his toes. He completed IV antibio tics his last inpatient day. The orthopedist did not recommend any further oral antibiotics after discharge. During that hospital stay he also reported new left shoulder pain that started 2 days before that admission and thinks that it happened when he was exercising. He heard a pop in his shoulder. During the inpatient stay he had restricted mobility of the left shoulder, due to pain and a shoulder x-ray was done that showed no fracture or dislocation. An MRI was not indicated, per Ortho. He was started on pain medications and eventually started rehab for the left shoulder. He will now need to wear CAM boots on both feet, over the foot bandages and toe bandages, to do rehab. The problem is that he cannot reach the CAM boots to put them on and take them off using only his right arm, thus he also needs rehab for the left shoulder. This man is also homeless and will be discharging to fci where he sleeps on the floor on a mat, and with the left shoulder problem, he cannot maneuver down to the floor and then get up off a floor. The patient has been approved to have PT and OT rehab in SNF ([facility] swing bed status). History - Past Medical History Cardiovascular: reports: Hypertension Respiratory: reports: None Neuro: reports: Peripheral neuropathy Endocrine/Autoimmune: reports: HyPERthyroidism GI: reports: None : reports: Other HEENT: reports: None Psych: reports: Anxiety, Other Musculoskeletal: reports: Other Derm: reports: Other MRSA Hx?: Yes - Past Surgical History Ortho: reports: Other - Family & Social History Family History: Mother: Alive and Well, Father: , [place], Sister: Alive and Well Family History Comment/Other: Pt. reports that his father at age 80 and he does not know much about his mother. He has one son living in [place]. Living arrangement: Homeless Living Situation: Unknown (Patient is homeless and alternates nights in a fci or sleeping out in the [facility].) Social History Notes: He had been a binge drinker. Quit 7 mos ago. He denies tobacco or illicit drug use. - Substance History Use: Uses substance without health or social issues: NONE - POLST Patient has POLST: No POLST Status: Full Code Meds/Allgy - Home Medications Home Medications: Ambulatory Orders Medication Instructions Recorded Confirmed RX: Gabapentin [Neurontin] 300 mg PO BID 06/25/22 07/08/22 RX: Tamsulosin HCl [Flomax] 0.4 mg PO DAILY 06/25/22 07/08/22 RX: carvediloL [Coreg] 1 tab PO BID 06/26/22 07/08/22 RX: Acetaminophen [Tylenol] 650 mg PO Q4HR PRN tab 07/08/22 07/08/22 RX: Aspirin EC [Ecotrin] 81 mg PO BID tab 07/08/22 07/08/22 RX: Cyanocobalamin [Vitamin B-12] 1,000 mcg PO DAILY tab 07/08/22 07/08/22 RX: Ferrous Gluconate [Fergon] 324 mg PO DAILYWM tab 07/08/22 07/08/22 RX: HYDROcodone/ACET 7.5/325 1 tab PO Q4HR PRN tab 07/08/22 07/08/22 [[place] 7.5/325] RX: Insulin Lispro [Humalog 1 - 5 unit SUBQ 07/08/22 07/08/22 Kwikpen U-100] 0800,1200,1700,2100 ml RX: Insulin Lispro [Humalog 4 unit SUBQ TIDWM ml 07/08/22 07/08/22 Kwikpen U-100] RX: Lidocaine Patch 5% [Lidoderm 1 patch TOP DAILY patch 07/08/22 07/08/22 Patch] RX: Zolpidem [Ambien] 5 mg PO QPM PRN tab 07/08/22 07/08/22 - Allergies Allergies/Adverse Reactions: Allergies Allergy/AdvReac Type Severity Reaction Status Date / Time No Known Drug Allergies Allergy Verified 06/25/22 16:48 Review of Systems - Musculoskeletal Musculoskeletal: reports: Stiffness (L hip feels stiff), Limited range of motion (of L shoulder and L hip), Other (He feels he is getting used to walking with bilateral CAM boots) - Neurological Neurological: reports: Other (He has no sensation of feet or toes) - All Other Systems All Other Systems: reports: Reviewed and negative Exam - Physical Exam General Appearance: positive: No acute distress, Alert Eyes Bilateral: positive: Normal inspection, EOMI ENT: positive: ENT inspection nml, No signs of dehydration Neck: positive: Nml inspection, No JVD Respiratory: positive: No respiratory distress Cardiovascular: positive: Regular rate & rhythm Abdomen: positive: No distention Skin: positive: Warm, Dry Extremities: positive: Other (Bandages on both feet and toes bilaterally) Conclusion/Plan - Problem List (1) Abscess of left foot including toes Conclusion/Plan: The treatment for this is essentially complete: He had IV antibiotics and underwent several surgeries for amputation plus debridement. At the last surgery, the Josi Berman, the Orthopod, said it was healing so well with no pus present that he closed the wounds. No antibiotics orally therefore are needed to be continued after discharge, per Dr Berman. Plan: CAM boots on both feet during ambulation are needed PT and OT rehab are needed to learn to use the CAM boots plus a walker, to do ADLs. (2) Amputation of one or more toes Conclusion/Plan: As above in #1 Plan: He needs to go to orthopedic clinic in about 1 week to have sutures removed Will order Orthopedics service in consult, since they change the bandages and dressings themselves (3) Left shoulder pain Conclusion/Plan: As in the HPI. While he was an Inpatient, Orthopedics said that an MRI was not indicated, since there was no fracture or dislocation on an XRay. Initial treatment is usually pain meds and rehab for 4 weeks, no injections, and no shoulder surgery unless 4 weeks of rehab does not improve the problem, according to Ortho GABINO Johnson, whom I spoke with. Plan: Continue with pain meds and increased range of motion plus PT and OT rehab, for the L shoulder. In order to have a safe discharge, this man needs to use both arms to put on and take off his CAM boots, and needs to be able to lower himself down onto the floor of a homeless fci to sleep on a mat and be able to rise up from the floor independently. These are the goals he needs to achieve. (4) Type 2 diabetes mellitus with diabetic polyneuropathy, without long-term current use of insulin Conclusion/Plan: Plan: We will continue his usual diabetic diet and fingerstick checks and long-acting and short acting insulin (5) Homeless single person Conclusion/Plan: As per Hx. Plan: As above.
[2022-07-08] MEDS: INSULIN LISPRO 300 UNIT/3 ML PEN SUBQ SCH ×3 (16:45→20:54)
[2022-07-08] MEDS: HYDROcod/ACETAM 7.5 MG/325 MG TABLET PO PRN (17:06)
[2022-07-08] MEDS: ACETAMINOPHEN 325 MG TABLET PO PRN (17:06)
[2022-07-08] MEDS: GABAPENTIN 300 MG CAPSULE PO SCH (20:54)
[2022-07-08] MEDS: ASPIRIN EC 81 MG TABLET PO SCH (20:55)
[2022-07-08] MEDS: ZOLPIDEM 5 MG TABLET PO PRN (20:55)
[2022-07-08] MEDS: carvediloL 12.5 MG TABLET PO SCH (20:55)
[2022-07-09] MEDS: HYDROcod/ACETAM 7.5 MG/325 MG TABLET PO PRN ×4 (02:37→17:28)
[2022-07-09] MEDS: INSULIN LISPRO 300 UNIT/3 ML PEN SUBQ SCH ×7 (08:13→21:27)
[2022-07-09] MEDS: TAMSULOSIN 0.4 MG CAPSULE PO SCH (08:14)
[2022-07-09] MEDS: ASPIRIN EC 81 MG TABLET PO SCH ×2 (08:15→21:26)
[2022-07-09] MEDS: CYANOCOBALAMIN 500 MCG TABLET PO SCH (08:15)
[2022-07-09] MEDS: GABAPENTIN 300 MG CAPSULE PO SCH ×2 (08:15→21:27)
[2022-07-09] MEDS: FERROUS GLUCONATE 324 MG TABLET PO SCH (08:16)
[2022-07-09] MEDS: carvediloL 12.5 MG TABLET PO SCH ×2 (08:16→21:26)
[2022-07-09] MEDS: LIDOCAINE PATCH 5% TOP SCH (08:17)
[2022-07-09] MEDS: IBUPROFEN 600 MG TABLET PO PRN (12:11)
[2022-07-09] MEDS: ZOLPIDEM 5 MG TABLET PO PRN (21:26)
[2022-07-10] MEDS: HYDROcod/ACETAM 7.5 MG/325 MG TABLET PO PRN ×4 (03:26→19:15)
[2022-07-10] MEDS: INSULIN LISPRO 300 UNIT/3 ML PEN SUBQ SCH ×7 (08:02→21:46)
[2022-07-10] MEDS: CYANOCOBALAMIN 500 MCG TABLET PO SCH (08:02)
[2022-07-10] MEDS: GABAPENTIN 300 MG CAPSULE PO SCH ×2 (08:03→21:45)
[2022-07-10] MEDS: ASPIRIN EC 81 MG TABLET PO SCH ×2 (08:03→21:45)
[2022-07-10] MEDS: carvediloL 12.5 MG TABLET PO SCH ×2 (08:03→21:45)
[2022-07-10] MEDS: LIDOCAINE PATCH 5% TOP SCH (08:03)
[2022-07-10] MEDS: FERROUS GLUCONATE 324 MG TABLET PO SCH (08:03)
[2022-07-10] MEDS: TAMSULOSIN 0.4 MG CAPSULE PO SCH (08:03)
[2022-07-10] MEDS: ZOLPIDEM 5 MG TABLET PO PRN (21:45)
[2022-07-11] MEDS: HYDROcod/ACETAM 7.5 MG/325 MG TABLET PO PRN ×3 (02:13→16:25)
[2022-07-11] MEDS: LIDOCAINE PATCH 5% TOP SCH (09:07)
[2022-07-11] MEDS: CYANOCOBALAMIN 500 MCG TABLET PO SCH (09:07)
[2022-07-11] MEDS: TAMSULOSIN 0.4 MG CAPSULE PO SCH (09:07)
[2022-07-11] MEDS: FERROUS GLUCONATE 324 MG TABLET PO SCH (09:07)
[2022-07-11] MEDS: ASPIRIN EC 81 MG TABLET PO SCH ×2 (09:07→20:29)
[2022-07-11] MEDS: GABAPENTIN 300 MG CAPSULE PO SCH ×2 (09:08→20:29)
[2022-07-11] MEDS: INSULIN LISPRO 300 UNIT/3 ML PEN SUBQ SCH ×7 (09:08→20:24)
[2022-07-11] MEDS: carvediloL 12.5 MG TABLET PO SCH ×2 (09:08→20:29)
[2022-07-11] MEDS: ACETAMINOPHEN 325 MG TABLET PO PRN (09:20)
[2022-07-11] MEDS: IBUPROFEN 600 MG TABLET PO PRN (16:24)
[2022-07-11] MEDS: ZOLPIDEM 5 MG TABLET PO PRN (21:00)
[2022-07-12] MEDS: HYDROcod/ACETAM 7.5 MG/325 MG TABLET PO PRN ×3 (02:46→18:32)
[2022-07-12] MEDS: IBUPROFEN 600 MG TABLET PO PRN ×2 (02:46→09:44)
--- NOTE | 2022-07-12 07:58 | PROVIDER PROGRESS NOTE ---
Subjective - Prog Note Date Prog Note Date: 07/12/22 Prog Note Time: 07:55 - Subjective Pt reports feeling: Improved Subjective: 14-day attestation note on this gentleman. He has been progressing well. We have been struggling with which type of boot to use on his feet, and he has done well with the ones that he is working with with physical therapy. He still uses his crutches at times. The other issue is his left shoulder. It is probably has adhesive capsulitis and he really cannot use it very much. He is a homeless person that sleeps on the floor of a fpc. He needed to negotiate putting on these heavy boots from the floor, and then standing up but not able to use his left arm. So physical therapy has been working on shortening to boots, getting him to sit up first and then putting the boots on, and focusing on using his right arm. He is being covered with his diabetes with 4 units of short acting insulin before meals as well as sliding scale. He has been feeling lightheaded a few times. Glucose has been in the 70s and 90s. He has not been getting sliding scale lately. Orthopedics is discussed the case with me and feels the patient is progressing well. There is nothing that they need us to do differently. Current Medications - Current Medications Current Medications: Active Medications Acetaminophen (Acetaminophen 325 Mg Tablet) 650 mg PO Q4HR PRN PRN Reason: Pain 1 to 4, or Fever Last Admin: 07/11/22 09:20 Dose: 650 mg Hydrocodone Bitart/Acetaminophen (Hydrocod/Acetam 7.5 Mg/325 Mg Tablet) 1 tab PO Q4HR PRN PRN Reason: PAIN Last Admin: 07/12/22 02:46 Dose: 1 tab Aspirin (Aspirin Ec 81 Mg Tablet) 81 mg PO BID [facility] Last Admin: 07/11/22 20:29 Dose: 81 mg Carvedilol (Carvedilol 12.5 Mg Tablet) 12.5 mg PO BID [facility] Last Admin: 07/11/22 20:29 Dose: 12.5 mg Cyanocobalamin (Cyanocobalamin 500 Mcg Tablet) 1,000 mcg PO DAILY [facility] Last Admin: 07/11/22 09:07 Dose: 1,000 mcg Ferrous Gluconate (Ferrous Gluconate 324 Mg Tablet) [facility] [place] Last Admin: 07/11/22 09:07 Dose: 324 mg Gabapentin (Gabapentin 300 Mg Capsule) 300 mg PO BID [facility] Last Admin: 07/11/22 20:29 Dose: 300 mg Ibuprofen (Ibuprofen 600 Mg Tablet) 600 mg PO Q6HR PRN PRN Reason: Pain 1 to 4 Last Admin: 07/12/22 02:46 Dose: 600 mg Insulin Human Lispro (Insulin Lispro 300 Unit/3 Ml Pen) 1 - 5 unit SUBQ 0800,1200,1700,2100 [facility]; Protocol Last Admin: 07/11/22 20:24 Dose: Not Given Lidocaine (Lidocaine Patch 5%) 1 patch TOP DAILY [facility] Last Admin: 07/11/22 09:07 Dose: 1 patch Tamsulosin HCl (Tamsulosin 0.4 Mg Capsule) 0.4 mg PO DAILY [facility] Last Admin: 07/11/22 09:07 Dose: 0.4 mg Zolpidem Tartrate (Zolpidem 5 Mg Tablet) 5 mg PO QPM PRN PRN Reason: Insomnia Last Admin: 07/11/22 21:00 Dose: 5 mg Gabapentin [Neurontin] 300 mg PO BID 06/25/22 Tamsulosin HCl [Flomax] 0.4 mg PO DAILY 06/25/22 carvediloL [Coreg] 1 tab PO BID 06/26/22 Objective - Vital Signs/Intake & Output Reviewed Vital Signs: Yes Vital Signs: Vital Signs x48h Temp Pulse Resp BP Pulse Ox 07/12/22 06:49 36.3 C L 64 16 109/61 98 Intake & Output: Intake & Output 07/09/22 07/10/22 07/11/22 07/12/22 23:59 23:59 23:59 23:59 Intake Total 3976 2700 2120 Output Total 2750 700 Balance 1226 2700 1420 - Objective General Appearance: positive: No acute distress, Alert Eyes Bilateral: positive: PERRL, EOMI ENT: positive: Pharynx nml Neck: positive: No JVD. negative: Stiff neck Respiratory: positive: No respiratory distress. negative: Wheezes, Rales, Rhonchi Cardiovascular: positive: Regular rate & rhythm Abdomen: positive: Non-tender, No organomegaly, Nml bowel sounds, No distention Skin: positive: Warm, Dry Extremities: positive: Full ROM, No pedal edema Neurologic/Psychiatric: positive: Oriented x3, CN's nml (2-12), Motor nml - Lab Results Other Labs: Lab Results x24hrs 07/12/22 07/11/22 07/11/22 Range/Units 07:27 20:13 16:41 POC Whole Bld Glucose 121 H 87 90 (70 - 100) mg/dL 07/11/22 Range/Units 11:12 POC Whole Bld Glucose 76 (70 - 100) mg/dL Assessment/Plan - Problem List (1) Abscess of left foot including toes Impression: The treatment for this is essentially complete: He had IV antibiotics and under went several surgeries for amputation plus debridement. At the last surgery, Dr Berman, the Orthopod, said it was healing so well with no pus present that he closed the wounds. No antibiotics orally therefore are needed to be continued after discharge, per Dr Berman. Plan: CAM boots on both feet during ambulation are needed. He has been using the long boots and needs the short boots. DC exercise planner is working on how we can get those DME to him. PT and OT rehab are needed to learn to use the CAM boots plus a walker, to do ADLs. They therapy will continue. Certification that he is meeting his goals and progressing to discharge. (2) Amputation of one or more toes Conclusion/Plan: As above in #1 Plan: He needs to go to orthopedic clinic in about 1 week to have sutures removed Will order Orthopedics service in consult, since they change the bandages and dressings themselves (3) Left shoulder pain Conclusion/Plan: As in the HPI. While he was an Inpatient, Orthopedics said that an MRI was not indicated, since there was no fracture or dislocation on an XRay. Initial treatment is usually pain meds and rehab for 4 weeks, no injections, and no shoulder surgery unless 4 weeks of rehab does not improve the problem, according to Ortho GABINO Johnson, whom I spoke with. The shoulder is his main source of pain right now and he needs to learn how to negotiate getting up off floor and putting on boots with the shoulder pain. PT is working with him. Plan: Continue with pain meds and increased range of motion plus PT and OT rehab, for the L shoulder. In order to have a safe discharge, this man needs to use both arms to put on and take off his CAM boots, and needs to be able to lower himself down onto the floor of a homeless fpc to sleep on a mat and be able to rise up from the floor independently. These are the goals he needs to achieve. (4) Type 2 diabetes mellitus with diabetic polyneuropathy, without long-term current use of insulin Conclusion/Plan: Plan: Low glucose at times so I will stop the meal time sscheduled dosing. (5) Homeless single person Conclusion/Plan: As per Hx. Plan: As above.
[2022-07-12] MEDS: INSULIN LISPRO 300 UNIT/3 ML PEN SUBQ SCH ×4 (09:36→21:28)
[2022-07-12] MEDS: carvediloL 12.5 MG TABLET PO SCH ×2 (09:45→21:27)
[2022-07-12] MEDS: TAMSULOSIN 0.4 MG CAPSULE PO SCH (09:45)
[2022-07-12] MEDS: FERROUS GLUCONATE 324 MG TABLET PO SCH (09:45)
[2022-07-12] MEDS: GABAPENTIN 300 MG CAPSULE PO SCH ×2 (09:46→21:27)
[2022-07-12] MEDS: CYANOCOBALAMIN 500 MCG TABLET PO SCH (09:47)
[2022-07-12] MEDS: ASPIRIN EC 81 MG TABLET PO SCH ×2 (09:47→21:27)
[2022-07-12] MEDS: LIDOCAINE PATCH 5% TOP SCH (10:00)
[2022-07-12] MEDS: ZOLPIDEM 5 MG TABLET PO PRN (21:33)
[2022-07-13] MEDS: HYDROcod/ACETAM 7.5 MG/325 MG TABLET PO PRN ×3 (02:29→17:45)
[2022-07-13] MEDS: IBUPROFEN 600 MG TABLET PO PRN ×2 (02:30→17:45)
[2022-07-13] MEDS: INSULIN LISPRO 300 UNIT/3 ML PEN SUBQ SCH ×4 (07:56→21:09)
[2022-07-13] MEDS: ASPIRIN EC 81 MG TABLET PO SCH ×2 (09:29→21:09)
[2022-07-13] MEDS: FERROUS GLUCONATE 324 MG TABLET PO SCH (09:29)
[2022-07-13] MEDS: carvediloL 12.5 MG TABLET PO SCH ×2 (09:29→21:09)
[2022-07-13] MEDS: polyethylene glycoL 3350 17 GM PACKET PO SCH (09:30)
[2022-07-13] MEDS: CYANOCOBALAMIN 500 MCG TABLET PO SCH (09:30)
[2022-07-13] MEDS: TAMSULOSIN 0.4 MG CAPSULE PO SCH (09:30)
[2022-07-13] MEDS: LIDOCAINE PATCH 5% TOP SCH (09:30)
[2022-07-13] MEDS: GABAPENTIN 300 MG CAPSULE PO SCH ×2 (09:30→21:10)
--- NOTE | 2022-07-13 13:21 | PROVIDER PROGRESS NOTE ---
Assessment/Plan - Problem List (1) Abscess of left foot including toes Assessment/Plan: The treatment for this is essentially complete: He had IV antibiotics and underwent several surgeries for amputation then another surgery for debridement. At the last surgery, the Dr Berman, who did his Orthopedic surgery, said that he closed the wounds and there was no pus, therefore no antibx needed to be continued after discharge from Inpt status. CAM boots on both feet during ambulation are needed, and we thought he needed a different size yesterday, but he does not. Plan: CAM boots on both feet during ambulation and using a walker PT and OT rehab are being done and both PT and OT notes state he is progressing well to achieve his goals However, he needs to have the dressings changed by Ortho and have the sutures removed, as per Ortho discussion with me at the time of Inpt DCh. Ortho consult written today therefore, however we have no Ortho service available today or tomorrow (07/13 and 07/14), they are back on 07/15. (2) Amputation of one or more toes Conclusion/Plan: As above in #1 Plan: Will order Orthopedics service in consult, since they change the bandages and dressings themselves and he needs to yet have his sutures removed. Expecting DCh after that is done on 07/15. (3) Left shoulder pain Conclusion/Plan: While he was a recent Inpatient, Orthopedics said that a L shoulder MRI was not indicated, since there was no fracture or dislocation on an XRay. Ortho told me that initial treatment is usually pain meds and rehab for 4 weeks, no injections, and no shoulder surgery unless 4 weeks of rehab does not improve the problem. Ortho GABINO Johnson, spoke to me. Plan: Continue with pain meds and PT and OT rehab, to increase use of the L shoulder, because, in order to have a safe discharge, this man needs to put on and take off both CAM boots, and needs to be able to lower himself down onto the floor of a homeless [facility] to sleep on a mat, and be able to rise up from the floor independently. These are the goals he needs to achieve. Both PT and OT notes state he is progressing well to achieve his goals. (4) Type 2 diabetes mellitus with diabetic polyneuropathy, without long-term current use of insulin Conclusion/Plan: On admission he does not have a diagnosis of diabetes. In reviewing the medical record, all of his visits in 2019, 2019, 2020 are associated with hyperglycemia. He has a few visits in the ER in 2021 that are not. On admission here his glucose was 170. A1c is 6.2%. He states that he really adheres to a fairly good diet. Tries to keep his body healthy in spite of his alcoholism. Works out on a regular basis and goes to the gym. Considering he has had undiagnosed diabetes in our EMR since 2019, he may have peripheral neuropathy as a combination of his alcohol abuse and his diabetes. Plan: We are continuing his usual diabetic diet and fingerstick checks and Insulin. He was never been on Insulin at home before Will order RN teaching of fingerstick glu checks and how to give his own sq Insulin He may need to come to [facility] for DM Education (5) Homeless single person Conclusion/Plan: As per Hx. Plan: As above in #3. - Current Meds Current Meds: Current Medications Generic Name Dose Route Start Last Admin Trade Name Colleen PRN Reason Stop Dose Admin Acetaminophen 650 mg 07/08/22 14:16 07/11/22 09:20 Acetaminophen 325 Mg Tablet PO 650 mg Q4HR PRN Administration Pain 1 to 4, or Fever Hydrocodone Bitart/Acetaminophen 1 tab 07/08/22 14:21 07/13/22 09:35 Hydrocod/Acetam 7.5 Mg/325 Mg Tablet PO 1 tab Q4HR PRN Administration PAIN Aspirin 81 mg 07/08/22 21:00 07/13/22 09:29 Aspirin Ec 81 Mg Tablet PO 81 mg BID [facility] Administration Carvedilol 12.5 mg 07/08/22 21:00 07/13/22 09:29 Carvedilol 12.5 Mg Tablet PO 12.5 mg BID [facility] Administration Cyanocobalamin 1,000 mcg 07/09/22 09:00 07/13/22 09:30 Cyanocobalamin 500 Mcg Tablet PO 1,000 mcg DAILY [facility] Administration Ferrous Gluconate 324 mg 07/09/22 08:00 07/13/22 09:29 Ferrous Gluconate 324 Mg Tablet PO 324 mg DAILYWM [facility] Administration Gabapentin 300 mg 07/08/22 21:00 07/13/22 09:30 Gabapentin 300 Mg Capsule PO 300 mg BID [facility] Administration Ibuprofen 600 mg 07/08/22 14:16 07/13/22 02:30 Ibuprofen 600 Mg Tablet PO 600 mg Q6HR PRN Administration Pain 1 to 4 Insulin Human Lispro 1 - 5 unit 07/09/22 12:00 07/13/22 11:12 Insulin Lispro 300 Unit/3 Ml Pen SUBQ Not Given 0800,1200,1700,2100 [facility] Protocol Lidocaine 1 patch 07/09/22 09:00 07/13/22 09:30 Lidocaine Patch 5% TOP 1 patch DAILY [facility] Administration Polyethylene Glycol 17 gm 07/13/22 09:00 07/13/22 09:30 Polyethylene Glycol 3350 17 Gm Packet PO Not Given DAILY [facility] Tamsulosin HCl 0.4 mg 07/09/22 09:00 07/13/22 09:30 Tamsulosin 0.4 Mg Capsule PO 0.4 mg DAILY [facility] Administration Zolpidem Tartrate 5 mg 07/08/22 15:05 07/12/22 21:33 Zolpidem 5 Mg Tablet PO 5 mg QPM PRN Administration Insomnia Subjective - Subjective Patient Reports: Feeling Better (Able to reach down (to put on CAM boots) more and more each day) Objective Vital Signs: Vital Signs - 24 hr 07/12/22 07/13/22 21:00 07:17 Temperature 36.7 C 36.3 C L Heart Rate [ 71 57 L Brachial] Respiratory 16 16 Rate Blood Pressure 114/78 111/60 [Right Brachial artery] O2 Saturation 96 97 Oxygen O2 Source Room air I&O (Last 24 Hrs): Intake and Output Totals x24h 07/11/22 07/12/22 07/13/22 23:59 23:59 23:59 Intake Total 2120 2680 1470 Output Total 700 Balance 1420 2680 1470 General: Alert, Oriented x3 HEENT: Mucous membr. moist/pink Neck: Supple Neuro: Alert, Other (no sensation of ventral feet and of toes) Cardiovascular: Regular rate Respiratory: No respiratory distress Abdomen: Soft Extremities: No clubbing, Other (both feet and the toea are bandaged) - Results Results: Laboratory Results POC Whole Bld Glucose 92 mg/dL (70 - 100) 07/13/22 11:07 - Procedures Procedures: Procedures DETACHMENT AT LEFT 1ST TOE, COMPLETE, OPEN APPROACH (08/15/21) DETACHMENT AT LEFT 2ND TOE, COMPLETE, OPEN APPROACH (06/25/22) DRAINAGE OF L FOOT SUBCU/FASCIA, PERC APPROACH (06/25/22) EXCISION OF L FOOT SUBCU/FASCIA, PERC APPROACH (06/25/22) EXCISION OF RIGHT METATARSAL, PERCUTANEOUS APPROACH (06/25/22) INSERTION OF INFUSION DEV INTO SUP VENA CAVA, PERC APPROACH (06/25/22) REPAIR L FOOT SUBCU/FASCIA, PERC APPROACH (06/25/22)
[2022-07-13] MEDS: ZOLPIDEM 5 MG TABLET PO PRN (21:09)
[2022-07-14] MEDS: HYDROcod/ACETAM 7.5 MG/325 MG TABLET PO PRN ×2 (03:36→20:38)
[2022-07-14] MEDS: IBUPROFEN 600 MG TABLET PO PRN ×2 (06:52→20:39)
[2022-07-14] MEDS: INSULIN LISPRO 300 UNIT/3 ML PEN SUBQ SCH ×4 (09:54→20:29)
[2022-07-14] MEDS: CYANOCOBALAMIN 500 MCG TABLET PO SCH (10:51)
[2022-07-14] MEDS: FERROUS GLUCONATE 324 MG TABLET PO SCH (10:52)
[2022-07-14] MEDS: TAMSULOSIN 0.4 MG CAPSULE PO SCH (10:53)
[2022-07-14] MEDS: ASPIRIN EC 81 MG TABLET PO SCH ×2 (10:53→20:39)
[2022-07-14] MEDS: carvediloL 12.5 MG TABLET PO SCH ×2 (10:54→20:39)
[2022-07-14] MEDS: GABAPENTIN 300 MG CAPSULE PO SCH ×2 (10:55→20:39)
[2022-07-14] MEDS: LIDOCAINE PATCH 5% TOP SCH (10:56)
[2022-07-14] MEDS: polyethylene glycoL 3350 17 GM PACKET PO SCH (11:01)
[2022-07-14] MEDS: ZOLPIDEM 5 MG TABLET PO PRN (20:39)
[2022-07-15 07:25] VITALS: BP 126/81
[2022-07-15] MEDS: LIDOCAINE PATCH 5% TOP SCH (08:48)
[2022-07-15] MEDS: polyethylene glycoL 3350 17 GM PACKET PO SCH (08:48)
[2022-07-15] MEDS: ASPIRIN EC 81 MG TABLET PO SCH (08:49)
[2022-07-15] MEDS: TAMSULOSIN 0.4 MG CAPSULE PO SCH (08:49)
[2022-07-15] MEDS: CYANOCOBALAMIN 500 MCG TABLET PO SCH (08:49)
[2022-07-15] MEDS: GABAPENTIN 300 MG CAPSULE PO SCH (08:49)
[2022-07-15] MEDS: FERROUS GLUCONATE 324 MG TABLET PO SCH (08:49)
[2022-07-15] MEDS: INSULIN LISPRO 300 UNIT/3 ML PEN SUBQ SCH (08:49)
[2022-07-15] MEDS: carvediloL 12.5 MG TABLET PO SCH (08:49)
[2022-07-15] MEDS: HYDROcod/ACETAM 7.5 MG/325 MG TABLET PO PRN (08:52)
[2022-07-15] MEDS: IBUPROFEN 600 MG TABLET PO PRN (08:52)
--- NOTE | 2022-07-15 09:20 | Discharge Plan ---
Discharge Plan Problem Reviewed?: Yes Disposition: Home, Self Care Condition: Stable Prescriptions: HYDROcodone/ACET 7.5/325 [[place] 7.5/325] 1 tab PO Q4HR PRN #20 tab PRN Reason: Pain >8 Ibuprofen [Motrin] 600 mg PO Q6HR PRN #60 tab PRN Reason: Pain 1 to 4 carvediloL [Coreg] 1 tab PO BID #60 tab Aspirin EC [Ecotrin] 81 mg PO BID #60 tab Ferrous Gluconate [Fergon] 324 mg PO DAILY #30 tab Tamsulosin HCl [Flomax] 0.4 mg PO DAILY #30 cap Blood-Glucose Meter [Glucometer] 1 each ACHS #1 each Insulin Lispro [Humalog Kwikpen U-100] 1 - 5 unit SUBQ 0800,1200,1700,2100 #1 ea Lidocaine Patch 5% [Lidoderm Patch] 1 patch TOP DAILY #30 patch Gabapentin [Neurontin] 300 mg PO BID #60 cap Lancets/Blood Glucose Strips [Pogo Automatic Test Cartridge] 1 each ACHS #120 ea Cyanocobalamin [Vitamin B-12] 1,000 mcg PO DAILY #60 tab Diet: Diabetic Activity Restrictions: Activity as Tolerated Shower Restrictions: No (Cover both feet& bandages with plastic bag or take sponge baths) Driving Restrictions: Yes Assistance Devices: Walker Instruction Topics: Insulin Injected, Injection Pens [facility] Concerns: You were in [facility] status to complete more rehab. You have reached your goals. You are being discharged. I contacted Orthopedics today and they said you can go home with the current dressings that are on both feet, and you need to come to their clinic in about a week to have the stitches removed and dressings changed. Call [phone] for an appointment. Remember to use both boots and the walker when you ambulate. The boots can be taken off when you go to sleep. Remember to do fingerstick glucose checks before meals and before bedtime snack. The list of medications you should be taking is being provided here for you. All new prescriptions were electronically sent to your [facility] pharmacy in [place]. You should to come to the [facility] Diabetic Education clinic, where you can get extra help regarding Insulin use. Call [phone], ext [phone] for an appointment. Plan of Treatment: As above. Care Goals: Improvement in symptoms and stabilization are the goals. Assessment: The patient understands and is agreeable with the plan. Additional Instructions or Follow Up instructions: You need to establish with a Primary Care Provider. If you have new or worsening symptoms, call your PCP for advice or come to the ER. Follow-Up Care: [facility] - Diabetes Ed No Smoking: If you smoke, Please STOP! Call for help. Follow-up with: Varun Berman MD [Provider Admit Priv/Credential] -
--- NOTE | 2022-07-15 11:47 | DISCHARGE SUMMARY ---
Discharge Summary Admit Date: 07/08/22 Discharge Date: 07/15/22 Discharging Provider: Dr Yanet Almeida Primary Care Provider: None Code Status: Attempt Resuscitation Condition at Discharge: Stable Discharge Disposition: 01 Home, Self Care - HPI History of Present Illness: This is a 56-year-old male with a prior history of alcohol abuse, but he quit and has been sober for 7 months. He has a history of diabetes but apparently had not been treating it well, as he has peripheral neuropathy from that. He has had chronic infections of the toes of both feet after remote frostbite. He has had amputations of toes in the past. He was just hospitalized now from to 07/08 to receive IV antibiotics and had several surgeries for further management of osteomyelitis and cellulitis of his toes. He completed IV antibiotics his last inpatient day. The orthopedist did not recommend any further oral antibiotics after discharge. During that hospital stay he also reported new left shoulder pain that started 2 days before that admission and thinks that it happened when he was exercising. He heard a pop in his shoulder. During the inpatient stay he had restricted mobility of the left shoulder, due to pain and a shoulder x-ray was done that showed no fracture or dislocation. An MRI was not indicated, per Ortho. He was started on pain me dications and eventually started rehab for the left shoulder. He will now need to wear CAM boots on both feet, over the foot bandages and toe bandages, to do rehab. The problem is that he cannot reach the CAM boots to put them on and take them off using only his right arm, thus he also needs rehab for the left shoulder. This man is also homeless and will be discharging to [facility] where he sleeps on the floor on a mat, and with the left shoulder problem, he cannot maneuver down to the floor and then get up off a floor. The patient has been approved to have PT and OT rehab in SNF ([facility] status). - HOSPITAL COURSE Hospital Course: (1) Abscess of left foot including toes The treatment for this was essentially complete: He had IV antibiotics and underwent several surgeries for amputation then another surgery for debridement as an Inpt. At the last surgery, the Dr Berman, who did his Orthopedic surgery, said that he closed the wounds and there was no pus, therefore no antibx needed to be continued after discharge from Inpt status. CAM boots on both feet during ambulation are needed, and he needed support by using a walker and later used crutches. Both PT and OT notes stated he progressed well to achieve his goals. As he neared discharge we contacted Ortho to have the d ressings changed and have the sutures removed. Dr Berman called and advised that should all be done in Ortho clinic, since no Ortho service was available, he was out of town. (2) Amputation of one or more toes as in #1 (3) Left shoulder pain While he was a recent Inpatient, Orthopedics said that a L shoulder MRI was not indicated, since there was no fracture or dislocation on an XRay. Ortho told Hospitalist that initial treatment is usually pain meds and rehab for 4 weeks, no injections, and no shoulder surgery unless 4 weeks of rehab does not improve the problem. He was continued on pain meds and PT and OT rehab, to increase use of the L shoulder, because, in order to have a safe discharge, this man needed to put on and take off both CAM boots, and needed to be able to lower himself down onto the floor of a homeless [facility] to sleep on a mat, and be able to rise up from the floor independently. Both PT and OT notes stated he is progressing well to achieve these goals. (4) Type 2 diabetes mellitus with diabetic polyneuropathy, without long-term current use of insulin On admission he did not officially carry a diagnosis of diabetes. In reviewing the medical record, all of his visits in 2018, 2019, 2020 were associated with hyperglycemia. He had a few visits in the ER in 2021 that did not have hype rglycemia. His A1c was 6.2%. We considered that he may have peripheral neuropathy as a combination of his alcohol abuse and his diabetes. He was on Insulin sliding scale while here and discharged with this newly ordered. He was advised to come to [facility] clinic. (5) Homeless single person As per Hx. - ALLERGIES Allergies/Adverse Reactions: Allergies Allergy/AdvReac Type Severity Reaction Status Date / Time No Known Drug Allergies Allergy Verified 06/25/22 16:48 - MEDICATIONS Home Medications: Ambulatory Orders Medication Instructions Recorded Confirmed Acetaminophen [Tylenol] 650 mg PO Q4HR PRN tab 07/15/22 Aspirin EC [Ecotrin] 81 mg PO BID #60 tab 07/15/22 Blood-Glucose Meter [Glucometer] 1 each ACHS #1 each 07/15/22 Cyanocobalamin [Vitamin B-12] 1,000 mcg PO DAILY #60 tab 07/15/22 Ferrous Gluconate [Fergon] 324 mg PO DAILY #30 tab 07/15/22 Gabapentin [Neurontin] 300 mg PO BID #60 cap 07/15/22 HYDROcodone/ACET 7.5/325 [[place] 1 tab PO Q4HR PRN #20 tab 07/15/22 7.5/325] Ibuprofen [Motrin] 600 mg PO Q6HR PRN #60 tab 07/15/22 Insulin Lispro [Humalog Kwikpen 1 - 5 unit SUBQ 07/15/22 U-100] 0800,1200,1700,2100 #1 ea Lancets/Blood Glucose Strips [Pogo 1 each ACHS #120 ea 07/15/22 Automatic Test Cartridge] Lidocaine Patch 5% [Lidoderm Patch] 1 patch TOP DAILY #30 patch 07/15/22 Tamsulosin HCl [Flomax] 0.4 mg PO DAILY #30 cap 07/15/22 carvediloL [Coreg] 1 tab PO BID #60 tab 07/15/22 - PHYSICAL EXAM AT DISCHARGE General Appearance: positive: No acute distress, Alert Eyes Bilateral: positive: Normal inspection, EOMI ENT: positive: ENT inspection nml, No signs of dehydration Neck: positive: Nml inspection, No JVD Respiratory: positive: No respiratory distress Cardiovascular: positive: Regular rate & rhythm Abdomen: positive: Non-tender, No distention Skin: positive: Warm, Dry Extremities: positive: No pedal edema, Other (Several amputated toes bilaterally. Both feet and toes covered in bandages.) - FOLLOW UP Follow Up: Ortho clinic appointment in 1 week. He needs to establish with a PCP. - TIME SPENT Time Spent in Discharge (Minutes): 30
== END 2022-07-15 12:44 | disposition home or self-care (01) | DRG 561 ==
LOC: MS2 14:16
PROVIDERS: ADMIT Internal Medicine; ATTEND Internal Medicine
DX: Z47.81 Encounter for orthopedic aftercare following surgical amputation (principal); M25.512 Pain in left shoulder; E11.42 Type 2 diabetes mellitus with diabetic polyneuropathy; Z89.422 Acquired absence of other left toe(s); I10 Essential (primary) hypertension; E05.90 Thyrotoxicosis, unspecified without thyrotoxic crisis or storm; Z59.00 Homelessness unspecified; G62.1 Alcoholic polyneuropathy; F10.11 Alcohol abuse, in remission; Z87.39 Personal history of other diseases of the musculoskeletal system and connective tissue
CPT/HCPCS: 97110; 97162; 97165; 97530; 97535; A9270

== ENCOUNTER 2022-08-20 15:31 | Outpatient (CLI) | payer MEDICAID ==
--- NOTE | 2022-08-20 14:48 | XRAY Report ---
PROCEDURE: Shoulder 3 View LT INDICATIONS: LEFT SHOULDER PAIN TECHNIQUE: 4 views of the shoulder were acquired. COMPARISON: Left shoulder radiographs 06/29/2022. CXR 10/13/2019. FINDINGS: Bones: No fractures or dislocations. Mild degenerative change at the left shoulder. No suspicious angel [place] lesions. Visualized ribs appear intact. Soft tissues: No suspicious soft tissue calcifications. IMPRESSION: Mild left shoulder DJD. Reviewed by: Matt Mcarthur MD on 08/20/2022 2:47 PM PST Approved by: Matt Mcarthur MD on 08/20/2022 2:47 PM PST Station ID: [id number]
== END 2022-08-20 15:32 | disposition home or self-care (01) ==
LOC: DI.WOS 15:31
PROVIDERS: ATTEND Orthopaedic Surgery
DX: M19.012 Primary osteoarthritis, left shoulder (principal)

== ENCOUNTER 2022-09-05 14:22 | Outpatient (CLI) | payer MEDICAID ==
--- NOTE | 2022-09-05 19:24 | XRAY Report ---
PROCEDURE: Foot 3 View BILAT INDICATIONS: BILAT FOOT CHRONIC OSTEOMYELITIS TECHNIQUE: 3 views of the foot were acquired. COMPARISON: Left foot radiographs 06/25/2022. Bilateral foot radiographs 08/23/2021. FINDINGS: Bones: Right first digit ray resection. Distal resections at the right second, fourth, fifth toes. Le ft first and second distal radial resections. The left second digit ray resection is new compared to June 2022. Pes planus. Multifocal osseous erosions. Charcot neuro-osteoarthropathy which is progr essed compared to August 2021. There is heterotopic ossification. Deviation of the toes. Soft tissues: No tibiotalar joint effusion. Achilles tendon appears normal. Small staple at the lat eral right foot soft tissues. IMPRESSION: Progressive Charcot neuro-osteoarthropathy compared to August 2021. Multifocal osseous erosions and resections. Reviewed by: Matt Mcarhtur MD on 09/05/2022 7:23 PM PST Approved by: Matt Mcarthur MD on 09/05/2022 7:23 PM PST Station ID: [id number]
== END 2022-09-05 14:23 | disposition home or self-care (01) ==
LOC: DI.WOS 14:22
PROVIDERS: ATTEND Orthopaedic Surgery
DX: M86.672 Other chronic osteomyelitis, left ankle and foot (principal); I96 Gangrene, not elsewhere classified; M14.672 Charcot's joint, left ankle and foot; M14.671 Charcot's joint, right ankle and foot; M85.872 Other specified disorders of bone density and structure, left ankle and foot; M85.871 Other specified disorders of bone density and structure, right ankle and foot

== ENCOUNTER 2023-01-17 11:15 | Outpatient (CLI) | payer MEDICAID ==
[2023-01-17 11:30] LABS: BASOPHILS # (AUTO) 0.1 10^3/uL (0.0-0.1); BASOPHILS % (AUTO) 1.5 %; EOSINOPHILS # (AUTO) 0.4 10^3/uL (0.0-0.7); EOSINOPHILS % (AUTO) 7.1 %; HCT - HEMATOCRIT 50.2 % (42.0-52.0); HGB - HEMOGLOBIN 16.6 g/dL (14.0-18.0); LYMPHOCYTES # (AUTO) 1.7 10^3/uL (1.5-3.5); LYMPHOCYTES % (AUTO) 28.1 %; MEAN CORPUSCULAR HEMOGLOBIN 30.9 pg (27.0-31.0); MEAN CORPUSCULAR HGB CONC 33.1 g/dL (32.0-36.0); MEAN CORPUSCULAR VOLUME 93.5 fL (80.0-94.0); MEAN PLATELET VOLUME 9.6 fL (7.4-11.4); MONOCYTES # (AUTO) 0.5 10^3/uL (0.0-1.0); MONOCYTES % (AUTO) 9.1 %; NEUTROPHILS # (AUTO) 3.2 10^3/uL (1.5-6.6); NEUTROPHILS % (AUTO) 53.9 %; PLT - PLATELET COUNT 309 10^3/uL (130-450); RED BLOOD COUNT 5.37 10^6/uL (4.70-6.10); RED CELL DISTRIBUTION WIDTH 13.9 % (12.0-15.0)
[2023-01-17 11:48] LABS: % IRON SATURATION 16 % (20-50); ALBUMIN 4.2 g/dL (3.2-5.5); ALBUMIN/GLOBULIN RATIO 1.1 (1.0-2.2); ALKALINE PHOSPHATASE 78 IU/L (42-121); ALT ALANINE AMINOTRANSFERASE 32 IU/L (10-60); AST ASPARTATE AMINOTRANSFERASE 33 IU/L (10-42); BILIRUBIN,TOTAL 0.8 mg/dL (0.2-1.0); BUN - BLOOD UREA NITROGEN 20 mg/dL (6-20); CALCIUM 8.8 mg/dL (8.5-10.3); CARBON DIOXIDE - CO2 26 mmol/L (21-32); CHLORIDE 104 mmol/L (101-111); CHOL/HDL RATIO 4.4 (<5.0); CHOLESTEROL 163 mg/dL; CREATININE 0.9 mg/dL (0.6-1.2); GFR - MDRD 87 (>89); GLUCOSE 114 mg/dL (70-100); HDL CHOLESTEROL 37 mg/dL; IRON 48 ug/dL (45-182); LDL CHOLESTEROL,CALCULATED 103 mg/dL; LDL/HDL RATIO 2.8 (<3.6); POTASSIUM 3.9 mmol/L (3.5-5.0); SODIUM 137 mmol/L (135-145); TOTAL IRON BINDING CAPACITY 298 ug/dL (250-450); TOTAL PROTEIN 7.9 g/dL (6.7-8.2); TRANSFERRIN 213 mg/dL (180-329); TRIGLYCERIDES 115 mg/dL; VLDL CHOLESTEROL 23 mg/dL
[2023-01-17 12:00] LABS: THYROID STIMULATING HORMONE 2.72 uIU/mL (0.34-5.60)
[2023-01-17 12:05] LABS: FERRITIN 64.6 ng/mL (23.9-336.2)
[2023-01-17 12:51] LABS: ESTIMATED AVERAGE GLUCOSE 108 mg/dL (70-100); HEMOGLOBIN A1c% 5.4 % (4.27-6.07)
[2023-01-18 05:12] LABS: HCV AB Non Reactive (Non Reactive); HIV SCREEN 4TH GENERATION Non Reactive (Non Reactive)
== END 2023-01-17 11:16 | disposition home or self-care (01) ==
LOC: LAB 11:15
PROVIDERS: ATTEND Nurse Practitioner Acute Care
DX: E61.1 Iron deficiency (principal); Z13.228 Encounter for screening for other metabolic disorders; Z13.220 Encounter for screening for lipoid disorders; Z13.1 Encounter for screening for diabetes mellitus; Z12.5 Encounter for screening for malignant neoplasm of prostate; Z13.29 Encounter for screening for other suspected endocrine disorder; Z11.59 Encounter for screening for other viral diseases; Z11.4 Encounter for screening for human immunodeficiency virus [HIV]; N52.9 Male erectile dysfunction, unspecified
CPT/HCPCS: 36415; 80053; 80061; 82728; 83036; 83540; 83721; 84153; 84403; 84443; 84466; 85025; 86803; 87389

== ENCOUNTER 2023-01-31 13:58 | Outpatient (CLI) | payer OTHER, MEDICAID ==
--- NOTE | 2023-01-31 16:47 | XRAY Report ---
PROCEDURE: Foot 3 View RT INDICATIONS: R/O OSTEOMYELITIS TECHNIQUE: 3 views of the foot were acquired. COMPARISON: 09/05/2022 FINDINGS: Bones: No acute fractures or dislocations. First digit amputation is been performed, as before. Par tial indication of the second, fourth, and fifth digits, as before. There is lucency within the first metatarsal head, as well as the proximal aspect of the proximal phalanx of the second digit, new sin ce the prior examination. Soft tissues: No suspicious soft tissue calcifications or masses. IMPRESSION: 1. Postsurgical sequelae. 2. Findings suggestive of osteitis within the second metatarsal head and proximal phalanx of the [place] digit. Reviewed by: Juliana Lassiter MD on 01/31/2023 4:46 PM PDT Approved by: Juliana Lassiter MD on 01/31/2023 4:46 PM PDT Station ID: [id number]
== END 2023-01-31 13:59 | disposition home or self-care (01) ==
LOC: DI 13:58
PROVIDERS: ATTEND Nurse Practitioner
DX: E11.621 Type 2 diabetes mellitus with foot ulcer (principal); L97.502 Non-pressure chronic ulcer of other part of unspecified foot with fat layer exposed

== ENCOUNTER 2023-07-23 11:28 | Emergency (ER) | payer MEDICAID, OTHER ==
[2023-07-23 12:34] VITALS: BP 146/99; O2SAT 97
== END 2023-07-23 12:26 | disposition left against medical advice (07) ==
LOC: ED 11:28
DX: Z53.21 Procedure and treatment not carried out due to patient leaving prior to being seen by health care provider (principal)
CPT/HCPCS: 36415; 80320

== ENCOUNTER 2023-07-27 19:51 | Emergency (ER) | payer MEDICAID ==
[2023-07-27 19:59] VITALS: BP 129/99; O2SAT 100
[2023-07-27] MEDS ORDERED: LORazepam 1 MG TABLET PO STA (20:18)
[2023-07-27] MEDS ORDERED: traZODone 50 MG TABLET PO STA (20:18)
--- NOTE | 2023-07-27 20:20 | ED Physician Documentation ---
History of Present Illness - Stated complaint Stated Complaint: INSOMNIA - Chief complaint Chief Complaint: General - History obtained from History obtained from: Patient - Additonal information Additional information: He quit drinking about a week ago after a holiday [place]. He has chronic insomnia and he has not slept in 5 days. He says he is done with the withdrawals, just needs something to help him sleep. No SI or HI. PD PAST MEDICAL HISTORY - Past Medical History Past Medical History: Yes Cardiovascular: Hypertension Respiratory: None Neuro: Peripheral neuropathy Endocrine/Autoimmune: Type 2 diabetes, HyPERthyroidism GI: None : Other HEENT: None Psych: Anxiety, Other Musculoskeletal: Other Derm: Other Other Past Medical History: Insomnia - Past Surgical History Past Surgical History: Yes Ortho: Other - Present Medications Home Medications: Ambulatory Orders Medication Instructions Recorded Confirmed Acetaminophen [Tylenol] 650 mg PO Q4HR PRN tab 07/15/22 09/02/22 Blood-Glucose Meter [Glucometer] 1 each [facility] #1 each 07/15/22 09/02/22 Cyanocobalamin [Vitamin B-12] 1,000 mcg PO DAILY #60 tab 07/15/22 09/02/22 Ferrous Gluconate [Fergon] 324 mg PO DAILY #30 tab 07/15/22 09/02/22 Ibuprofen [Motrin] 600 mg PO Q6HR PRN #60 tab 07/15/22 09/02/22 Lancets/Blood Glucose Strips [Pogo 1 each [facility] #120 ea 07/15/22 09/02/22 Automatic Test Cartridge] Tamsulosin HCl [Flomax] 0.4 mg PO DAILY #30 cap 07/15/22 09/02/22 carvediloL [Coreg] 1 tab PO BID #60 tab 07/15/22 09/02/22 metFORMIN [Glucophage] 500 mg PO QPM 09/09/22 09/09/22 Doxycycline Hyclate [Vibramycin] 100 mg PO BID 14 Days #28 cap 10/14/22 Gentamicin Sulfate 30 gm TP DAILY 30 Days #30 gm 10/14/22 Doxycycline Hyclate [Vibramycin] 100 mg PO BID 14 Days #28 cap 11/11/22 Gentamicin Sulfate 30 gm TP DAILY 30 Days #30 gm 12/06/22 Gentamicin Sulfate 30 gm TP DAILY 30 Days #30 gm 02/17/23 cephALEXin [Keflex] 500 mg PO TID 10 Days #30 cap 02/17/23 cephALEXin [Keflex] 500 mg PO BID 14 Days #28 cap 03/14/23 LORazepam [Ativan] 1 mg PO TID PRN #7 tablet 07/27/23 Trazodone HCl 100 mg PO QPM #10 tablet 07/27/23 - Allergies Allergies/Adverse Reactions: Allergies Allergy/AdvReac Type Severity Reaction Status Date / Time No Known Drug Allergies Allergy Verified 07/27/23 20:10 - Social History Does the pt smoke?: No Smoking Status: Never smoker Does the pt drink ETOH?: No Does the pt have substance abuse?: No - Immunizations Immunizations are current?: Yes Immunizations: TDAP current <10years - POLST Patient has POLST: No POLST Status: Full Code PD ED PE NORMAL - Vitals Vital signs reviewed: Yes - General General: Alert and oriented X 3, Other (Not tremulous or shaky) - HEENT HEENT: PERRL - Neck Neck: Supple, no meningeal sign, No bony TTP - Neuro Neuro: Alert and oriented X 3 Results - Vitals Vitals: Vital Signs - 24 hr 07/27/23 19:53 Temperature 36.7 C Heart Rate 106 H Respiratory 18 Rate Blood Pressure 129/99 H O2 Saturation 100 Oxygen O2 Source Room air PD Medical Decision Making - ED course ED course: 57-year-old gentleman presents with insomnia and he is administered trazodone and Ativan pending PCP follow-up. 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 Do not drink or drive while taking these medications. Call your doctor to arrange a follow- up appointment, make the next available appointment. In the interim, return anytime if worse or if new symptoms develop. Forms: PCP List Discharge Date/Time: 07/27/23 20:31
== END 2023-07-27 20:31 | disposition home or self-care (01) ==
LOC: ED 19:51
DX: F10.982 Alcohol use, unspecified with alcohol-induced sleep disorder (principal); I10 Essential (primary) hypertension; E11.42 Type 2 diabetes mellitus with diabetic polyneuropathy; Z79.84 Long term (current) use of oral hypoglycemic drugs
CPT/HCPCS: 99282; 99283; A9270; J8499